=== PATIENT | male | born 1950 | race Caucasian/White ===

== ENCOUNTER → 2020-12-15 10:39 | Outpatient (CLI) | payer MEDICARE, SELFPAY ==
[2020-12-15 12:47] LABS: Creatinine, Serum 1.03 mg/dL (0.70-1.30); EST Glomerular Filtration Rate 76 mL/min (>60); Est Glom Filt Rate - Afr Amer 92 mL/min (>60)
== END ==
PROVIDERS: Referring Provider Specialist; Visit Provider Specialist
DX: D16.01 Benign neoplasm of scapula and long bones of right upper limb (principal)
CPT/HCPCS: 36415; 82565

== ENCOUNTER → 2021-01-18 13:33 | Outpatient (CLI) | payer MEDICARE, SELFPAY ==
[2021-01-18 15:56] LABS: PSA,Total- Diagnostic 5.88 ng/mL (0.0-4.0)
== END ==
PROVIDERS: PCP Family Medicine; Referring Provider Nurse Practitioner Adult Health; Visit Provider Nurse Practitioner Adult Health
DX: R97.20 Elevated prostate specific antigen [PSA] (principal)
CPT/HCPCS: 36415; 84153

== ENCOUNTER → 2021-02-28 | Outpatient (CLI) | payer MEDICARE, SELFPAY ==
--- NOTE | 2021-02-28 | IMM_PTH ---
PATIENT: HOWARD MICHAUD Jr. LOC: [facility] U#:[id number] AGE/SX: 70/M ROOM: RE02/28/[address]: Dr. Stu Menezes MD : 1950 BED: DIS: 02/28/2021 SPEC #: [id number] RECD: 03/01/21 11:46 STATUS: JAYLENE REoJrge #: [id number] LENORE: 02/28/21 00:[address]: Stu Menezes DEPT: IMMUNOHISTOCHEMISTRY RECD BY: Sharon Ashford ENTERED: 03/01/21 11:47 SP TYPE: IMMUNO OTHR DR: Dr. Mumtaz Graf MD Tissues: A - PROSTATE RIGHT B - PROSTATE RIGHT C - PROSTATE RIGHT Procedures: 34BE12 (add) P40 (add) 34BE12 (initial) PHYSICIAN & INSTITUTION [place] [phone] SPECIMEN INFORMATION: Tissue Source: A - Right prostate, apex, core, B - Right prostate, apex, core, C - Right prostate, apex, core Clinical Info: Elevated PSA Specimen Number: [id number] A-C CPT code: 98400, 69411 x5 METHODOLOGY: Deparaffinized sections of prefer/formalin-fixed tissue or PAP/DQ stained slides are incubated with monoclonal/polyclonal antibodies/oligonucleotide probes. Localization is made via biotin free immunoperoxidase method. Appropriate controls are performed and reacted as expected. Results on target cell population are indicated in the following table: RESULTS: ANTIBODY / CLONE RESULT Block A P40 (BC28) positive 34BE12 (34BE12) positive Block B P40 (BC28) positive 34BE12 (34BE12) positive Block C P40 (BC28) negative 34BE12 (34BE12) negative These tests were developed and their performance characteristics determined by [facility]. They may not have been cleared or approved by the U.S. Food and Drug Administration. The FDA has determined that such clearance or approval is not necessary. The above immunohistochemical/dualISH markers are ordered and reviewed by the Pathologist. INTERPRETATION: A. Right prostate, apex, core biopsy: Benign prostatic tissue. B. Right prostate, mid, core biopsy: Benign prostatic tissue. C. Right prostate, base, core biopsy: Focal atypical small acinar proliferation. AM:celestino 03/02/2021
--- NOTE | 2021-02-28 08:00 | PROSBIL_PTH ---
PATIENT: HOWARD MICHAUD Jr. LOC: [facility] U#:[id number] AGE/SX: 70/M ROOM: RE02/28/[address]: Dr. Stu Menezes MD : 1950 BED: DIS: 02/28/2021 SPEC #: [id number] RECD: 02/28/21 12:04 STATUS: JAYLENE COVARRUBIAS #: [id number] LENORE: 02/28/21 08:[address]: Stu Menezes DEPT: SURGICAL PATHOLOGY RECD BY: Deedee Uriostegui ENTERED: 02/28/21 13:24 SP TYPE: PROST BX ALLA DR: Dr. Mumtaz Graf MD Tissues: A - PROSTATE RIGHT B - PROSTATE RIGHT C - PROSTATE RIGHT D - PROSTATE LEFT E - PROSTATE LEFT F - PROSTATE LEFT Procedures: PROSTATE BX HEADER OPERATION: Prostate biopsy PRE-OP DIAGNOSIS: Elevated PSA TISSUE SUBMITTED: A - Right apex, B - Right mid, C - Right base, D - Left apex, E - Left mid, F - Left base MICROSCOPIC DIAGNOSIS A. Right prostate, apex, core biopsy: Focal glandular atrophy. See comment. B. Right prostate, mid, core biopsy: Chronic prostatitis. Focal glandular atrophy. See comment. C. Right prostate, base, core biopsy: Focal atypical small acinar proliferation. Chronic inflammation and focal glandular atrophy. D. Left prostate, apex, core biopsy: Mild chronic inflammation and focal glandular atrophy. E. Left prostate, mid, core biopsy: Focal glandular atrophy and mild chronic inflammation. F. Left prostate, base, core biopsy: Glandular atrophy and mild chronic inflammation. AM:celestino 03/01/2021 COMMENT A-C. Immunohistochemistry ([id number]) supports the above diagnosis. MICROSCOPIC DESCRIPTION Slides are reviewed. GROSS DESCRIPTION A - Received is one container designated prostate, right apex. The specimen consists of two elongated fragments of light cochran-white soft tissue each measuring 1 cm in length and 0.1 cm in diameter. The specimen is totally submitted in one cassette. B - Received is one container designated prostate, right mid. The specimen consists of two elongated fragments of light cochran-white soft tissue each measuring 1 cm in length and 0.1 cm in diameter. The specimen is totally submitted in one cassette. C - Received is one container designated prostate, right base. The specimen consists of two elongated fragments of light cochran-white soft tissue each measuring 1 cm in length and 0.1 cm in diameter. The specimen is totally submitted in one cassette. D - Received is one container designated prostate, left apex. The specimen consists of two elongated fragments of light cochran-white soft tissue each measuring 1 cm in length and 0.1 cm in diameter. The specimen is totally submitted in one cassette. E - Received is one container designated prostate, left mid. The specimen consists of two elongated fragments of light cochran-white soft tissue each measuring 1 cm in length and 0.1 cm in diameter. The specimen is totally submitted in one cassette. F - Received is one container designated prostate, left base. The specimen consists of two elongated fragments of light cochran-white soft tissue each measuring 1.5 cm in length and 0.1 cm in diameter. The specimen is totally submitted in one cassette. / AM:celestino 02/28/21 TC:3 CPT: G0146
== END | disposition home or self-care (01) ==
LOC: LABSPEC 12:18
PROVIDERS: PCP Family Medicine; Visit Provider Urology
DX: R97.20 Elevated prostate specific antigen [PSA] (principal)
CPT/HCPCS: 88305; 88341; 88342; G0416

== ENCOUNTER → 2022-07-27 | Outpatient (CLI) | payer MEDICARE, SELFPAY ==
[2022-07-27 14:06] LABS: PSA,Total- Diagnostic 6.52 ng/mL (0.0-4.0)
== END | disposition home or self-care (01) ==
LOC: LAB 13:07
PROVIDERS: PCP Registered Nurse; Referring Provider Registered Nurse; Visit Provider Registered Nurse
DX: R97.20 Elevated prostate specific antigen [PSA] (principal)
CPT/HCPCS: 36415; 84153

== ENCOUNTER → 2022-08-10 | Outpatient (CLI) | payer MEDICARE, SELFPAY | END | disposition home or self-care (01) | LOC: LABSPEC 11:27 | PROVIDERS: PCP Registered Nurse; Referring Provider Urology; Visit Provider Urology | DX: R31.21 Asymptomatic microscopic hematuria (principal) | CPT/HCPCS: 87086; 87088; 87186 ==

== ENCOUNTER → 2022-08-25 | Outpatient (CLI) | payer MEDICARE, SELFPAY ==
--- NOTE | 2022-08-25 15:28 | MRI_ITS ---
STUDY: MR PELVIS WITH T WITHOUT CONTRAST REASON FOR EXAM: Male, 72 years old. Elevated PSA TECHNIQUE: Standardized fat and water weighted pulse sequences were obtained in all 3 orthogonal planes, pre-and post contrast administration. IV 15cc clariscan was administered for the contrast portion of the examination. COMPARISON: None. FINDINGS: The prostate measures 3.4 x 4.9 x 3.3 cm with a volume of 27.5 mL there is no evidence of abnormal low signal intensity in the peripheral zone on diffusion-weighted imaging. There is no evidence of increased signal on diffusion-weighted imaging. The peripheral zone appears heterogenous high signal on T2-weighted imaging without focal area of low signal. The transitional zone is heterogenous slightly low signal on T2-weighted imaging with focal areas of higher signal noted. There is a focal area of increased signal in the left anterior transitional zone on ACD mapping appears low signal on diffusion-weighted imaging. These findings are most suggestive of BPH. Normal seminal vesicles. Poorly distended urinary bladder with thickened trabeculated bladder wall. There is no filling defects. Normal visualized small intestine. Question sigmoid diverticuli without acute inflammatory change. The rectum appears grossly normal. There is no pelvic fluid. No free air is seen within the soft tissues. There is no pelvic mass lesion or lymphadenopathy. Normal visualized pelvic arteries. The visualized bony structures are heterogenous. This may be secondary to osteopenia. If there is concern for bony metastases, nuclear medicine bone scan is recommended. Normal abdominal wall. MRI/Pelvis W/WO Contrast IMPRESSION: 1. The prostate is upper normal in size. No focal abnormality within the peripheral zone. There is heterogeneity of the transitional zone suggesting BPH. 2. Trabeculated bladder wall. 3. Irregular marrow structure of the visualized bony structures. See above. Electronically Signed: Mika Trammell DO at 16:06 EDT Reading Location ID and State: [address] [place] [address] Tel [phone], Service support ,
[2022-08-25 16:06] LABS: CREATININE FINGERSTICK 1.1 mg/dL (0.70-1.30); EGFR FINGERSTICK > 60.0000 mL/min (>60)
[2022-08-25 16:57] LABS: PSA,Total- Diagnostic 8.77 ng/mL (0.0-4.0)
== END | disposition home or self-care (01) ==
PROVIDERS: PCP Registered Nurse; Visit Provider Urology
DX: R97.20 Elevated prostate specific antigen [PSA] (principal)
CPT/HCPCS: 36415; 72197; 84153; A9575

== ENCOUNTER → 2022-08-31 | Outpatient (CLI) | payer MEDICARE, SELFPAY ==
--- NOTE | 2022-08-31 15:42 | CT_ITS ---
EXAM: CT ABDOMEN AND PELVIS WITHOUT AND WITH INTRAVENOUS CONTRAST CLINICAL INDICATION: GROSS HEMATURIA TECHNIQUE: Helically acquired images were obtained of the abdomen and pelvis without and with intravenous contrast. This CT exam was performed using one or more of the following dose reduction techniques: automated exposure control, adjustment of the mA and/or kV according to patient size, and/or use of iterative reconstruction technique. This report was created using [employer] report generation technology. CONTRAST: IV 100mL Isovue-370 COMPARISON: None. FINDINGS: LOWER THORAX: Normal. Lung bases are clear. No cardiomegaly. No pericardial effusion. ABDOMEN: LIVER: Normal. Homogeneous. No focal mass. GALLBLADDER AND BILE DUCTS: Normal. No calcified gallstones. No gallbladder distention or wall edema. No intra- or extrahepatic biliary ductal dilation. PANCREAS: Normal. No focal cystic or solid mass. SPLEEN: Normal. Normal size without focal cystic or solid mass. ADRENALS: Normal. No nodules. KIDNEYS AND URETERS: Normal. Normal renal size and position. No hydronephrosis. STOMACH AND BOWEL: Diverticulosis of the colon noted without evidence of acute diverticulitis. PELVIS: APPENDIX: Appendix is visualized and normal in appearance. BLADDER: The thickening of the urinary bladder wall raises possibility of cystitis. REPRODUCTIVE: Mild prostatic enlargement. ABDOMEN and PELVIS: INTRAPERITONEAL SPACE: Normal. No ascites or other fluid collection. No free air. BONES/JOINTS: Bilateral L4 spondylolysis noted with grade 1 anterior listhesis of L4 on L5. Prominent degenerative narrowing of the L4-5 disc space. No suspicious lytic or blastic abnormality. SOFT TISSUES: Normal. No discrete abdominal or pelvic wall hernia. VASCULATURE: Normal. Abdominal aorta is non-dilated. LYMPH NODES: Normal. No enlarged lymph nodes. CT/CT Abd/Pelvis W/WO Contrast IMPRESSION: 1. Urinary bladder wall thickening which may represent cystitis. 2. Diverticulosis coli. Electronically Signed: Arpit Bruce MD at 16:27 EDT ,
== END | disposition home or self-care (01) ==
LOC: CT 15:40
PROVIDERS: PCP Registered Nurse; Referring Provider Urology; Visit Provider Urology
DX: R31.0 Gross hematuria (principal); R97.20 Elevated prostate specific antigen [PSA]
CPT/HCPCS: 74178; Q9967

== ENCOUNTER → 2023-01-15 | Outpatient (CLI) | payer MEDICARE, SELFPAY ==
--- NOTE | 2023-01-15 13:50 | RAD_ITS ---
STUDY: X-RAY - PELVIS AND RIGHT HIP REASON FOR EXAM: Male, 72 years old. CHRONIC PAIN OF RIGHT HIP TECHNIQUE: 3 views of the pelvis and hip. COMPARISON: None. FINDINGS: There is a non-specific bowel gas pattern. Normal visualized soft tissue structures. Normal bilateral iliac wings, sacroiliac joints and visualized sacrum. Normal bilateral superior and inferior pubic rami. Normal pubic symphysis. Normal bilateral ischial tuberosities. Normal visualized femoral head. Normal acetabulum. There is mild articular joint space narrowing of the hip. Similar degenerative arthritic changes noted in the left hip. RAD/HIP, UNI W/ Pelvis 2-3 Views IMPRESSION: Age consistent degenerative changes without fracture or suspicious osseous lesion Electronically Signed: Moi Schneider MD at 14:30 EDT ,
--- NOTE | 2023-01-15 13:50 | RAD_ITS ---
STUDY: X-RAY - LUMBAR SPINE REASON FOR EXAM: Male, 72 years old. Chronic low back pain TECHNIQUE: 4 view(s) of the lumbar spine were obtained. COMPARISON: None FINDINGS: Normal lumbar lordosis. There is no substantial scoliosis. There is a normal alignment of the vertebrae from L1 L4. There is a bilateral pars defect and grade 1 spondylolisthesis at L4-5. There is anatomic alignment between L5 and S1.. There is multilevel endplate spondylosis of the lumbar vertebrae. Disc spaces fairly well preserved except at L4-5 where there is significant disc space narrowing and sclerotic endplate change. There is no demonstrated fracture. There is atherosclerotic calcification of the abdominal aorta without a demonstrated aneurysm. RAD/L/S Spine Min 4 Views IMPRESSION: Bilateral pars defect and grade 1 spondylolisthesis at L4-5 with sclerotic endplate changes and significant disc space narrowing. No demonstrated fracture, other disc spaces are fairly well preserved Electronically Signed: Moi Schneider MD at 14:31 EDT ,
== END | disposition home or self-care (01) ==
PROVIDERS: PCP Registered Nurse; Visit Provider Registered Nurse
DX: M25.551 Pain in right hip (principal); G89.29 Other chronic pain; M54.41 Lumbago with sciatica, right side
CPT/HCPCS: 72110; 73502

== ENCOUNTER → 2023-07-26 | Outpatient (CLI) | payer MEDICARE, SELFPAY ==
[2023-07-26 17:17] LABS: Absolute Lymphocyte Count 1.08 X10^3/uL (0.83-4.51); Absolute Neutrophil Count 3.1 X10^3/uL (2.0-7.7); Basophil# 0.02 X10^3/uL; Basophil% 0.4 % (0-1); Eosinophil# 0.09 X10^3/uL; Eosinophils% 1.8 % (0-5); Hematocrit 46.8 % (40-54); Lymphocyte # 1.08 X10^3/ul (0.83-4.51); Lymphocyte % 21.4 % (19-41); Mean Corp Hgb Conc 34.2 g/dL (32-36); Mean Corpuscular Hgb 35.2 pg (27.0-32.0); Mean Corpuscular Volume 102.9 fL (80-94); Mean Platelet Vol. 9.5 fl (6.2-12.0); Monocyte# 0.69 X10^3/uL; Monocyte% 13.7 % (0-10); NRBC Flagged by Analyzer 0 % (0-5); Neutrophil # 3.14 X10^3/uL (2.7-7.7); Neutrophil % 62.3 % (47-70); Platelet Count 230 K/mm3 (150-450); RBC Distribution Width CV 12.1 % (11.6-14.6); RBC Distribution Width SD 46.3 fl (35.1-43.9); Red Blood Count 4.55 M/mm3 (4.6-6.2)
[2023-07-26 17:41] LABS: ALB/GLOB Ratio 1.1 RATIO (0.9-2.4); AST(SGOT) 22 U/L (15-37); Alanine Aminotransfer ALT/SGPT 29 U/L (16-61); Albumin, Serum 4.3 g/dL (3.2-5.0); Alkaline Phosphatase 39 U/L (45-117); Anion Gap 6 (5-15); BUN 13 mg/dL (7-18); BUN/Creat Ratio 12.6 RATIO (10-20); Calcium,Total 9.4 mg/dL (8.5-10.1); Chloride 97 mmol/L (98-107); Creatinine, Serum 1.03 mg/dL (0.70-1.30); EST Glomerular Filtration Rate 75 mL/min (>60); Est Glom Filt Rate - Afr Amer 91 mL/min (>60); Globulin 3.9 g/dL (2.2-4.2); Glucose 106 mg/dL (74-106); PSA,Total - Annual Screen 6.76 ng/mL (0.00-4.00); Potassium 4.5 mmol/L (3.5-5.1); Protein, Total 8.2 g/dL (6.4-8.2); Sodium Level 130 mmol/L (136-145); Thyroid Stim Hormone (TSH) 2.02 uIU/mL (0.358-3.74)
[2023-07-26 18:20] LABS: Hepatitis C Antibody Non-Reactive (Nonreactive); Vitamin D,25 Hydroxy 53.2 ng/mL
== END | disposition home or self-care (01) ==
LOC: POLAB3 15:47
PROVIDERS: PCP Registered Nurse; Visit Provider Family Medicine Geriatric Medicine
DX: I10 Essential (primary) hypertension (principal); Z12.5 Encounter for screening for malignant neoplasm of prostate; E55.9 Vitamin D deficiency, unspecified
CPT/HCPCS: 36415; 80053; 82306; 84153; 84443; 85025; 86803; G0103

== ENCOUNTER → 2023-09-13 | Outpatient (CLI) | payer MEDICARE, SELFPAY | END | disposition home or self-care (01) | LOC: LAB 13:38 | PROVIDERS: PCP Registered Nurse; Referring Provider Anesthesiology; Visit Provider Anesthesiology | DX: Z76.89 Persons encountering health services in other specified circumstances (principal) | CPT/HCPCS: 80307 ==

== ENCOUNTER → 2023-10-11 | Outpatient (CLI) | payer MEDICARE, SELFPAY | END | disposition home or self-care (01) | LOC: LAB 08:49 | PROVIDERS: PCP Registered Nurse; Referring Provider Urology; Visit Provider Urology | DX: R97.20 Elevated prostate specific antigen [PSA] (principal) | CPT/HCPCS: 36415; 84153 ==

== ENCOUNTER → 2023-10-15 | Outpatient (CLI) | payer MEDICARE, SELFPAY ==
--- NOTE | 2023-10-15 09:30 | MRI_ITS ---
STUDY: MRI LUMBAR SPINE WITHOUT CONTRAST REASON FOR EXAM: Male, 73 years old. Low back pain x20 years. TECHNIQUE: Standardized fat and water weighted pulse sequences were obtained in the sagittal and axial planes. COMPARISON: CT lumbar spine with and without contrast 08/31/2022. FINDINGS: T10-T11: (Sagittal only). Normal endplates. Moderate disc space height narrowing. No ventral extradural defect. Normal central canal and the included portions of the bilateral intervertebral neural foramina. T11-T12 and T12-L1: (Sagittal only). Normal endplates. Normal disc height, hydration and morphology.. Normal central canal and bilateral intervertebral neural foramina. Normal lumbar lordosis. There is no substantial scoliosis. Normal conus medullaris that terminates at the lower T12 vertebral body level. L1-2: Normal endplates. Normal disc height, hydration and morphology. Normal bilateral facet joints. Normal central canal and bilateral lateral recesses. Normal bilateral intervertebral neural foramina. L2-3: Normal endplates. Minimal disc space height narrowing. Minimal degenerative retrolisthesis of L2 on L3 is unchanged. No significant facet arthropathy. Normal central canal and bilateral lateral recesses. Normal bilateral intervertebral neural foramina. L3-4: Normal endplates. Normal disc height, hydration and morphology. Mild to moderate bilateral degenerative facet arthropathy. Normal central canal and bilateral lateral recesses. Normal bilateral intervertebral neural foramina. L4-5: Normal endplates. Pronounced disc space height narrowing. Bilateral L4 pars defects. More than grade 1 anterolisthesis of L4 on L5. Normal central canal and bilateral lateral recesses. Moderately pronounced stenosis of the right intervertebral neural foramen with minimal impingement of the right L4 nerve. Moderately pronounced stenosis of the left intervertebral neural foramina obvious impingement of the left L4 nerve. L5-S1: Normal endplates. Normal disc height, hydration and morphology. Mild to moderate bilateral degenerative facet arthropathy. Normal central canal and bilateral lateral recesses. Normal bilateral intervertebral neural foramina. Normal visualized sacral ala. Normal visualized paraspinous soft tissue structures. MRI/Spine Lumbar (Routine) IMPRESSION: 1. Moderately pronounced asymmetric stenosis of the bilateral L4-L5 intervertebral neural foramina with minimal impingement/entrapment of the right L4 nerve no obvious impingement of the left L4 nerve on supine MRI positioning. Advise clinical correlation for symptoms of bilateral L4 nerve radiculopathy upon weightbearing. Additionally, bilateral L4 pars defects causing more than grade 1 anterolisthesis of L4 on L5 and pronounced L4-L5 degenerative disc space height narrowing. 2. Minimal degenerative retrolisthesis of L2 on L3 is unchanged. 3. No MRI evidence of lumbar extruded disc fragment or disc protrusion. Electronically Signed: Mikey Lechuga MD at 12:06 EST ,
== END | disposition home or self-care (01) ==
PROVIDERS: PCP Registered Nurse; Referring Provider Orthopaedic Surgery; Visit Provider Orthopaedic Surgery
DX: M43.10 Spondylolisthesis, site unspecified (principal)
CPT/HCPCS: 72148

== ENCOUNTER 2024-08-05 12:23 | Inpatient (IN) | payer MEDICARE, SELFPAY ==
--- NOTE | 2024-07-24 10:46 | EKG12_ITS ---
Test Reason : PRE OP Blood Pressure : / mmHG Vent. Rate : 054 BPM Atrial Rate : 054 BPM P-R Int : 168 ms QRS Dur : 090 ms QT Int : 422 ms P-R-T Axes : 042 -11 056 degrees QTc Int : 400 ms Sinus bradycardia Otherwise normal ECG Confirmed by Chele Chaudhary ([id number]), video effects editor NANCIE LOAIZA ([id number]) on 07/28/2024 10:17:47 AM Referred By: GLORIA Confirmed By:Chele Chaudhary
[2024-07-24 12:42] LABS: Absolute Lymphocyte Count 1.25 X10^3/uL (0.83-4.51); Absolute Neutrophil Count 2.6 X10^3/uL (2.0-7.7); Basophil# 0.03 X10^3/uL; Basophil% 0.7 % (0-1); Eosinophil# 0.12 X10^3/uL; Eosinophils% 2.7 % (0-5); Hemoglobin 15.7 g/dL (13.0-16.5); Lymphocyte # 1.25 X10^3/ul (0.83-4.51); Lymphocyte % 28.6 % (19-41); Mean Corp Hgb Conc 34.1 g/dL (32-36); Mean Corpuscular Hgb 34.1 pg (27.0-32.0); Mean Corpuscular Volume 99.8 fL (80-94); Mean Platelet Vol. 9.3 fl (6.2-12.0); Monocyte# 0.39 X10^3/uL; Monocyte% 8.9 % (0-10); NRBC Flagged by Analyzer 0 % (0-5); Neutrophil # 2.57 X10^3/uL (2.7-7.7); Neutrophil % 58.9 % (47-70); Platelet Count 248 K/mm3 (150-450); RBC Distribution Width CV 11.2 % (11.6-14.6); RBC Distribution Width SD 40.7 fl (35.1-43.9); Red Blood Count 4.61 M/mm3 (4.6-6.2); White Blood Count 4.4 K/mm3 (4.4-11.0)
[2024-07-24 12:45] LABS: Anion Gap 7 (5-15); BUN 11 mg/dL (7-18); BUN/Creat Ratio 11.8 RATIO (10-20); Calcium,Total 9.9 mg/dL (8.5-10.1); Chloride 97 mmol/L (98-107); Creatinine, Serum 0.94 mg/dL (0.70-1.30); EST Glomerular Filtration Rate 84 mL/min (>60); Est Glom Filt Rate - Afr Amer 101 mL/min (>60); Glucose 99 mg/dL (74-106); Potassium 4.2 mmol/L (3.5-5.1); Sodium Level 131 mmol/L (136-145)
[2024-07-24 13:05] LABS: International Normalized Ratio 1.1; Partial Thromboplast Time 27.3 Seconds (24.1-36.2); Prothrombin Time (Protime)PT. 13.9 SECONDS (11.7-14.9)
[2024-07-24 13:28] LABS: HIV - WCH Non-Reactive (Nonreactive); Hepatitis B Surface Antibody Non-Reactive; Hepatitis C Antibody Non-Reactive (Nonreactive)
[2024-07-24 16:45] LABS: AST(SGOT) 22 U/L (15-37); Alanine Aminotransfer ALT/SGPT 21 U/L (16-61); Alkaline Phosphatase 43 U/L (45-117); Bilirubin, Direct 0.24 mg/dL (0.00-0.30); Globulin 3.8 g/dL (2.2-4.2); Magnesium 1.8 mg/dL (1.6-2.6); Protein, Total 7.8 g/dL (6.4-8.2)
[2024-07-25 05:07] LABS: Hepatitis A AB, Total Positive (Negative)
[2024-08-05] VITALS (17 sets, daily range): BP systolic 121–165; BP diastolic 60–104; PULSE 58–84; RESP 16–20; TEMP 36–37.2; O2SAT 92–100; BMI 27.2
[2024-08-05] MEDS: Lactated Ringers 1,000 ML 15 ML IV ×2 (07:13→14:02)
[2024-08-05] MEDS: Acetaminophen 500 MG Tablet 1000 MG PO ×3 (07:13→21:06)
[2024-08-05] MEDS: Magnesium 2 GM for ERAS IV (07:13)
--- NOTE | 2024-08-05 07:30 | RAD_ITS ---
PROCEDURE: Lumbar spine Technique: 1:57 minutes of fluoroscopy of the lumbar spine and visualized upper arm during discectomy, interbody fusion, and transpedicular fixation and 12 images are limited for interpretation. RAD/Lumbar Spine 2 or 3 Views IMPRESSION: Fluoroscopy during lumbar spine surgery. Electronically Signed: Vitaliy Elaine MD at 13:58 EDT ,
--- NOTE | 2024-08-05 07:37 | PCM.PRE.AN2 ---
ASA Classification* ASA Classification ASA Classification: 2 Assessment & Plan Anesthesia* Anesthesia Assessment Anesthesia Assessment: Discussed sedation and/or anesthesia options, risks, benefits, and alternatives with patient/parents/legal guardian/POA. Questions invited. The patient/parents/legal guardian/POA seems to understand and agrees to proceed with anesthesia plan. Reviewed the physical assessment, medical history, allergy history and patient home medications list prior to surgery/procedure/anesthetic and documented any changes. Performed airway and anesthesia risk assessments. Anesthesia Type Anesthesia Type: General History Source History Obtained from:: Patient and Chart Anesthesia Focused Assessment* Temperature: 97.0 F Pulse Rate: 58 Blood Pressure: 129/73 Respiratory Rate: 18 Pulse Ox: 98 Oxygen Delivery Method: Room Air Airway Assessment Mouth opens: >3 cm Mallampati Score: II Pertinent Findings EKG Pertinent Findings:: July 24, 2024. Sinus bradycardia. Focused Labs Anesthesia Preop lab: CBC WBC 4.4 K/mm3 (4.4-11.0) 07/24/24 11:14 RBC 4.61 M/mm3 (4.6-6.2) 07/24/24 11:14 Hgb 15.7 g/dL (13.0-16.5) 07/24/24 11:14 Hct 46.0 % (40-54) 07/24/24 11:14 Plt Count 248 K/mm3 (150-450) 07/24/24 11:14 CHEMISTRY Potassium 4.2 mmol/L (3.5-5.1) 07/24/24 11:14 Sodium 131 mmol/L (136-145) L 07/24/24 11:14 Magnesium 1.8 mg/dL (1.6-2.6) 07/24/24 11:13 BUN 11 mg/dL (7-18) 07/24/24 11:14 Creatinine 0.94 mg/dL (0.70-1.30) 07/24/24 11:14 Glucose 99 mg/dL (74-106) 07/24/24 11:14 TSH 2.02 uIU/mL (0.358-3.74) 07/26/23 15:47 COAG PT 13.9 SECONDS (11.7-14.9) 07/24/24 11:13 Pre-Assessment Diagnosis/Proposed Procedure Planned Operative Procedure(s): ERAS 360 LUMBAR FUSION L4-5 Anesthesia History Anesthesia History - sales ambassador: Anesthesia History - sales ambassador Hx Hospitalization No 07/21/24 08:29 Any Problems With Anesthesia No 07/21/24 08:29 Cholinesterase deficiency No 07/21/24 08:29 You/Your Family Experience No 07/21/24 08:29 fever (hyperthermia) with Relationship Recent Exposure to Contagious Disease Does patient have nerve No 07/21/24 08:29 stimulator Patient instructed to have device shut off --Does patient have Pacemaker No 08/05/24 07:01 or ICD? When Was Last Pacemaker Check QUESTION #4 FULL TEXT: You/Your Family Experience fever (hyperthermia) with Anesthesia Last Oral Intake Last Oral intake: Last Oral Intake NPO since 05:00 08/05/24 07:01 Meds taken in AM with sips of Yes 08/05/24 07:01 water? Meds patient instructed to see medlist 08/05/24 07:01 take am of surgery PONV PONV - sales ambassador: PONV - sales ambassador Female No 07/21/24 08:29 HX of Motion Sickness No 07/21/24 08:29 HX of N/V After Surgery No 07/21/24 08:29 Non-Smoker Yes 07/21/24 08:29 Duration of Surgery greater Yes 07/21/24 08:29 than 60 minutes Number of Risk Factors 2 07/21/24 08:29 PONV Score Moderate Risk 07/21/24 08:29 Height & Weight Height & Weight: Anesthesia: Height & Weight Height 5 ft 9 in 08/05/24 07:01 Weight: 83.6 kg 08/05/24 07:01 Body Mass Index (BMI) 27.2 08/05/24 07:01 Respiratory Assessment Respiratory Assessment - sales ambassador: Respiratory Tract Infection Hx - sales ambassador Hx Respiratory Tract Infection No 07/21/24 08:29 STOP Sleep Apnea STOP Sleep Apnea - sales ambassador: STOP Sleep Apnea - sales ambassador Hx Hypertension Yes: CONTROLLED WITH MEDS 07/21/24 08:29 Hx Sleep Apnea No 07/21/24 08:29 CPAP BIPAP Do you snore loudly (louder Yes 07/21/24 08:29 than talking or can be heard Do you often feel tired/ No 07/21/24 08:29 fatigued/ sleepy during daytime? Has anyone observed you stop No 07/21/24 08:29 breathing during sleep? STOP Results Positive 07/21/24 08:29 QUESTION #5 FULL TEXT : Do you snore loudly (louder than talking or can be heard through closed doors)? Tobacco Use History Tobacco Use History - sales ambassador: Tobacco Use History - sales ambassador Tobacco Use Smoking Status Former smoker 07/21/24 08:29 Hx Tobacco Use No 07/21/24 08:29 Years Smoking Packs Smoked per Day Smoking Cessation Date was No - quit smoking greater 07/21/24 08:29 within the last 15 years than 15 years ago Hx Smoking Cessation Date Hx Smoking Cessation No 07/21/24 08:29 Counseling Hematologic Medial History Hematologic Hx - sales ambassador: Hematologic Medical Hx - deployment specialist Hx of Blood Transfusion No 07/21/24 08:29 Hx of Transfusion in last 3 No 07/21/24 08:29 Months Date of Last Transfusion (if within last 3 months) Ever experience any problems No 07/21/24 08:29 with transfusion(s)? Specify any problems Hx of Preganancy in last 3 N/A 07/21/24 08:29 Months Nurse Filling Out Transfusion DSCHRIBER 07/21/24 08:29 & Questions: Date: 07/21/24 07/21/24 08:29 Time: 08:31 07/21/24 08:29 Patient unable to answer at this time (ie. confused, unrespo /Reproduction History /Reproductive History - sales ambassador: /Reproductive Hx- sales ambassador Hx Now No 07/21/24 08:29 Gestational Age (in weeks): EDC: Hx Hx Para Hx Section SAB No 07/21/24 08:29 Active Medications Active Medications: Current Medications Generic Name Dose Route Start Last Admin Trade Name Freq PRN Reason Stop Dose Admin Acetaminophen 1,000 mg 08/05/24 08:30 08/05/24 07:13 Acetaminophen 500 Mg Tablet PO 08/05/24 08:31 1,000 mg X1 ONE Administration Cefazolin Sodium 2 gm/ Sodium 110 mls @ 150 mls/hr 08/05/24 08:30 Chloride IV 08/05/24 09:13 PREOP ONE Magnesium Sulfate 2 gm/ 104 mls @ 208 mls/hr 08/05/24 08:30 08/05/24 07:13 Dextrose IV 08/05/24 08:59 208 mls/hr X1 ONE Administration Lactated Ringer's 1,000 mls @ 15 mls/hr 08/05/24 07:00 08/05/24 07:13 IV 15 mls/hr .Q48H SHANNA Administration Insulin Human Lispro 1 - 6 unit 08/05/24 08:30 Insulin Lispro 100 Unit/Ml Insuln.Pen SC Q4H PRN PRN BG>/= 180, SEE PROTOCOL Protocol PFSH Medical History (Updated 07/21/24 @ 08:40 by Joselyn Rosenthal) Wears hearing aid Wears glasses Wears partial dentures Depression Anxiety Alcohol use Arthritis Prostate disease Back pain Restless legs Former smoker History of pain when walking Hypertension Home Medications ?Medication ?Instructions ?Recorded ?Last Taken ?Type atenolol 50 mg tablet 50 mg PO DAILY BP 08/31/23 08/05/24 History melatonin 10 mg capsule 10 mg PO HS PRN sleep 08/31/23 08/04/24 History tamsulosin 0.4 mg capsule 0.4 mg PO 1500 PROSTATE 08/31/23 08/04/24 History gabapentin 300 mg capsule 300 mg PO TID PAIN 10/17/23 08/05/24 History buspirone 10 mg tablet 10 mg PO BID ANXIETY 05/21/24 08/05/24 History lisinopril 40 mg tablet 40 mg PO QDAY BP 05/21/24 08/05/24 History magnesium 200 mg tablet 200 mg PO DAILY SUPPLEMENT 05/21/24 08/04/24 History Allergy/AdvReac Type Severity Reaction Status Date / Time No Known Allergies Allergy Verified 08/05/24 06:59 Family History Father Cancer Brother Cancer Sister Cancer Surgical History (Updated 07/21/24 @ 08:40 by Joselyn Rosenthal) Hx of colonoscopy Hx of prostate biopsy History of carpal tunnel surgery of right wrist History of carpal tunnel surgery of left wrist Social History Smoking Status: Former smoker Tobacco: How many years used: 20 alcohol intake: current alcohol intake frequency: a few times a week Alcohol type: beer Review of Systems (Anesthesia) ROS Narrative System reviewed and no additional complaints, except as documented.
[2024-08-05 07:42] LABS: Bedside Glucose 101 mg/dL (74-106)
--- NOTE | 2024-08-05 07:56 | PCM.PRE.AN2 ---
ASA Classification* ASA Classification ASA Classification: 2 Assessment & Plan Anesthesia* Anesthesia Assessment Anesthesia Assessment: Discussed sedation and/or anesthesia options, risks, benefits, and alternatives with patient/parents/legal guardian/POA. Questions invited. The patient/parents/legal guardian/POA seems to understand and agrees to proceed with anesthesia plan. Reviewed the physical assessment, medical history, allergy history and patient home medications list prior to surgery/procedure/anesthetic and documented any changes. Performed airway and anesthesia risk assessments. Anesthesia Type Anesthesia Type: General (see written pre anesthesia record for full assessment) Anesthesia Focused Assessment* Temperature: 97.0 F Pulse Rate: 58 Blood Pressure: 129/73 Respiratory Rate: 18 Pulse Ox: 98 Airway Assessment Mouth opens: >3 cm Mallampati Score: II Focused Labs Anesthesia Preop lab: CBC WBC 4.4 K/mm3 (4.4-11.0) 07/24/24 11:14 RBC 4.61 M/mm3 (4.6-6.2) 07/24/24 11:14 Hgb 15.7 g/dL (13.0-16.5) 07/24/24 11:14 Hct 46.0 % (40-54) 07/24/24 11:14 Plt Count 248 K/mm3 (150-450) 07/24/24 11:14 CHEMISTRY Potassium 4.2 mmol/L (3.5-5.1) 07/24/24 11:14 Sodium 131 mmol/L (136-145) L 07/24/24 11:14 Magnesium 1.8 mg/dL (1.6-2.6) 07/24/24 11:13 BUN 11 mg/dL (7-18) 07/24/24 11:14 Creatinine 0.94 mg/dL (0.70-1.30) 07/24/24 11:14 Glucose 99 mg/dL (74-106) 07/24/24 11:14 POC Glucose 101 mg/dL (74-106) 08/05/24 07:18 TSH 2.02 uIU/mL (0.358-3.74) 07/26/23 15:47 COAG PT 13.9 SECONDS (11.7-14.9) 07/24/24 11:13 Pre-Assessment Diagnosis/Proposed Procedure Planned Operative Procedure(s): ERAS 360 LUMBAR FUSION L4-5 Anesthesia History 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 When Was Last Pacemaker Check QUESTION #4 FULL TEXT: You/Your Family Experience fever (hyperthermia) with Anesthesia Last Oral Intake Last Oral intake: Last Oral Intake NPO since 05:00 08/05/24 07:01 Meds taken in AM with sips of Yes 08/05/24 07:01 water? Meds patient instructed to see medlist 08/05/24 07:01 take am of surgery PONV PONV - building rental manager: PONV - building rental manager Female No 07/21/24 08:29 HX of Motion Sickness No 07/21/24 08:29 HX of N/V After Surgery No 07/21/24 08:29 Non-Smoker Yes 07/21/24 08:29 Duration of Surgery greater Yes 07/21/24 08:29 than 60 minutes Number of Risk Factors 2 07/21/24 08:29 PONV Score Moderate Risk 07/21/24 08:29 Height & Weight Height & Weight: Anesthesia: Height & Weight Height 5 ft 9 in 08/05/24 07:01 Weight: 83.6 kg 08/05/24 07:01 Body Mass Index (BMI) 27.2 08/05/24 07:01 Respiratory Assessment Respiratory Assessment - building rental manager: Respiratory Tract Infection Hx - building rental manager Hx Respiratory Tract Infection No 07/21/24 08:29 STOP Sleep Apnea STOP Sleep Apnea - building rental manager: STOP Sleep Apnea - building rental manager Hx Hypertension Yes: CONTROLLED WITH MEDS 07/21/24 08:29 Hx Sleep Apnea No 07/21/24 08:29 CPAP BIPAP Do you snore loudly (louder Yes 07/21/24 08:29 than talking or can be heard Do you often feel tired/ No 07/21/24 08:29 fatigued/ sleepy during daytime? Has anyone observed you stop No 07/21/24 08:29 breathing during sleep? STOP Results Positive 07/21/24 08:29 QUESTION #5 FULL TEXT : Do you snore loudly (louder than talking or can be heard through closed doors)? Tobacco Use History Tobacco Use History - building rental manager: Tobacco Use History - building rental manager Tobacco Use Smoking Status Former smoker 07/21/24 08:29 Hx Tobacco Use No 07/21/24 08:29 Years Smoking Packs Smoked per Day Smoking Cessation Date was No - quit smoking greater 07/21/24 08:29 within the last 15 years than 15 years ago Hx Smoking Cessation Date Hx Smoking Cessation No 07/21/24 08:29 Counseling Hematologic Medial History Hematologic Hx - building rental manager: Hematologic Medical Hx - scheduling assistant Hx of Blood Transfusion No 07/21/24 08:29 Hx of Transfusion in last 3 No 07/21/24 08:29 Months Date of Last Transfusion (if within last 3 months) Ever experience any problems No 07/21/24 08:29 with transfusion(s)? Specify any problems Hx of Preganancy in last 3 N/A 07/21/24 08:29 Months Nurse Filling Out Transfusion DSCHRIBER 07/21/24 08:29 & Questions: Date: 07/21/24 07/21/24 08:29 Time: 08:31 07/21/24 08:29 Patient unable to answer at this time (ie. confused, unrespo /Reproduction History /Reproductive History - building rental manager: /Reproductive Hx- building rental manager Hx Now No 07/21/24 08:29 Gestational Age (in weeks): EDC: Hx Hx Para Hx Section SAB No 07/21/24 08:29 Active Medications Active Medications: Current Medications Generic Name Dose Route Start Last Admin Trade Name Freq PRN Reason Stop Dose Admin Acetaminophen 1,000 mg 08/05/24 08:30 08/05/24 07:13 Acetaminophen 500 Mg Tablet PO 08/05/24 08:31 1,000 mg X1 ONE Administration Cefazolin Sodium 2 gm/ Sodium 110 mls @ 150 mls/hr 08/05/24 08:30 Chloride IV 08/05/24 09:13 PREOP ONE Magnesium Sulfate 2 gm/ 104 mls @ 208 mls/hr 08/05/24 08:30 10/01/24 07:13 Dextrose IV 08/05/24 08:59 208 mls/hr X1 ONE Administration Lactated Ringer's 1,000 mls @ 15 mls/hr 08/05/24 07:00 08/05/24 07:13 IV 15 mls/hr .Q48H SHANNA Administration Insulin Human Lispro 1 - 6 unit 08/05/24 08:30 Insulin Lispro 100 Unit/Ml Insuln.Pen SC Q4H PRN PRN BG>/= 180, SEE PROTOCOL Protocol PFSH Medical History Wears hearing aid Wears glasses Wears partial dentures Depression Anxiety Alcohol use Arthritis Prostate disease Back pain Restless legs Former smoker History of pain when walking Hypertension Home Medications ?Medication ?Instructions ?Recorded ?Last Taken ?Type atenolol 50 mg tablet 50 mg PO DAILY BP 08/31/23 08/05/24 History melatonin 10 mg capsule 10 mg PO HS PRN sleep 08/31/23 08/04/24 History tamsulosin 0.4 mg capsule 0.4 mg PO 1500 PROSTATE 08/31/23 08/04/24 History gabapentin 300 mg capsule 300 mg PO TID PAIN 10/17/23 08/05/24 History buspirone 10 mg tablet 10 mg PO BID ANXIETY 05/21/24 08/05/24 History lisinopril 40 mg tablet 40 mg PO QDAY BP 05/21/24 08/05/24 History magnesium 200 mg tablet 200 mg PO DAILY SUPPLEMENT 05/21/24 08/04/24 History Allergy/AdvReac Type Severity Reaction Status Date / Time No Known Allergies Allergy Verified 08/05/24 06:59 Family History Father Cancer Brother Cancer Sister Cancer Surgical History Hx of colonoscopy Hx of prostate biopsy History of carpal tunnel surgery of right wrist History of carpal tunnel surgery of left wrist Social History Smoking Status: Former smoker Tobacco: How many years used: 20 alcohol intake: current alcohol intake frequency: a few times a week Alcohol type: beer Review of Systems (Anesthesia) ROS Narrative System reviewed and no additional complaints, except as documented.
--- NOTE | 2024-08-05 08:13 | HP.PCM_ITS ---
History and Physical Date of Admission: 08/05/24 HPI lumbar spine Details: This documentation accurately reflects the service provided and the decisions made by me, Dr. Norberto Lu MD 07/18/24 0931. Part of today?s visit was documented by Rebecca FIGUEROA , acting as scribe. EVANS MICHAUD is a 74 year old M here today for a Pre-op. Patient will be having surgery on 08/05/2024 he is having 360 Lumbar Fusion L4-5. HPI from 05/21/24: EVANS MICHAUD is a 74 year old M here today for lumbar spine pain. Patient rates his pain a 5/10 today and states the pain is affecting his life. Patient describes most of the pain in the lower lumbar spine and states it will extend to his right hip. Patient states his legs feel numb and and states this bothers him more than the pain in the back. Patient denies tingling down the legs. Patient states he does see pain management and he states it has been about 4-5 months since the last injection. Patient states the first injection he had was great but the second one since then did not help him at all. Patient states Dr. Macias prescribed Gabapentin for the lumbar spine pain but he states he does not see a difference since being on this. Patient denies any surgeries to the back. Patient denies any formal physical therapy but states he has been doing Mckayla exercises everyday on his own for several months now and states they have given him some relief. He states he also has an inversion table but the last time he has used it he got very lightheaded so he hasn't used it in a few weeks. Evans had had a bad fall when he was in his early 20s and that seems to be the only injury that he has had related to his lower back. He has had worsening pain recently for which she has undergone injections. The first injection helped but the second 1 did not seem to give any relief. He canceled his third scheduled injection. He has pain radiating to lower extremities as well as difficulty walking distances with neurogenic claudication. Ortho Exam General General: Yes no acute distress Neurologic: Yes alert and Yes oriented x3 Spine SPINE TESTING CERVICAL THORACIC LUMBAR Musculoskeletal Strength 0=absent - 5=normal Details: Examination lower back shows midline and paraspinal tenderness. Neurologic motion of lower extremity shows 5 x 5 power normal shows normal sensations in all dermatomes. Coding Level of Care Code Off vis,est,level 4 Diagnoses Spondylolisthesis, lumbar region M43.16 Time Spent (min) 45 Assessment and Plan Assessment and Plan (1) Spondylolisthesis, lumbar region: Status: Acute Plan Patient here for lumbar fusion L4-L5 preoperative appointment. Again reviewed p rior imaging with the patient. He has L4-5 lytic spondylolisthesis grade 1. There is minimal instability on flexion-extension views. Severe foraminal stenosis seen bilaterally at this level on MRI. I explained to him the imaging findings. Discussed the bone stimulator with the patient who says that he is unsure if his insurance will cover it. He has an appointment with Dr. Gordillo about one week before the surgery to establish care. He understands and will not get an injection at that time. Reviewed the benefits and risks of surgery. Risks of surgery include bleeding, infection, visceral injury, ileus, hardware failure, pseudoarthrosis, adjacent segment degeneration, pneumonia, DVT, pulmonary embolism, atelectasis, gait abnormality, persistent pain, stretch injuries, chance for future surgeries. Patient understands and agrees to proceed with surgery. Explained in detail the procedure of the lumbar fusion. Discussed post surgery restrictions such as no bending, lifting, or twisting. Answered all questions that he had today in preparation for August 05. Consent was signed. Patient is in agreement.
[2024-08-05] MEDS: Cefazolin 2 GM in 0.9% Normal Saline (100mL Bag) 100 ML IV ×2 (08:43→18:00)
[2024-08-05] MEDS: Ropivacaine 0.5% 30 ML Vial (11:54)
--- NOTE | 2024-08-05 11:59 | PCM.OPRPT ---
Report of Operation Date of Procedure: 08/05/24 Description of Surgical Findings:: Preoperative diagnosis: L4-5 spondylolisthesis, stenosis with neurogenic claudication Postoperative diagnosis: Same Name of procedures L4-5 oblique lumbar interbody fusion (OLIF), minimally invasive left sided approach, lateral decubitus: ? L4-5 anterolateral spinal fusion ? L4-5 insertion of cage ? Bone graft aspirate left iliac crest separate incision ? Allograft cancellous chips Attending Surgeon: Dr. Norberto Lu Estimated blood loss: 40 mL Anesthesia: General Complications: None Indications: Patient is a 74-year-old pleasant gentleman who has had a long history of low back pain and right worse than left lower extremity radiation, difficulty walking distances. Xrays & MRI revealed L4-5 Histamic grade 2 spondylolisthesis with severe foraminal stenosis bilaterally. After undergoing a prolonged period of nonoperative treatment, the patient elected to undergo surgical decompression & fusion. All surgical options were discussed with the patient including anterior and posterior approaches. All risks and benefits associated with the procedure were explained to the patient. The risks include but are not limited to infection, bleeding, injury to nerves and vessels including major vessels like IVC and aorta, persistent paresthesia, persistent pain, dural tear, need for further procedures, adjacent segment degeneration, pseudoarthrosis, hardware failure, retrograde ejaculation, paralytic ileus, etc. Procedure: The patient was identified in the preoperative holding suite using Unique patient identifiers. Skin was marked, consent was reviewed, and all questions were answered. The patient was then brought back to the operative room. A surgical timeout was performed to make sure correct procedure was being done on the correct patient and all operative room staff were on the same page. General endotracheal anesthesia was then given to the patient. Allan catheter was inserted. The patient was then carefully positioned in right lateral decubitus position with the left side up on a regular OR table. Axillary roll was placed and all bony prominences were well- padded. Hip positioners were placed in the posterior buttocks and anterior sternal area. The surgical area was prepped and draped in usual fashion. Preoperative antibiotic was injected IV as preoperative antibiotic. A final timeout was then again done just before starting the procedure. A 2 inch incision oblique was taken in the left lower quadrant of the abdomen 2 fingerbreadths away from the iliac crest and the lower ribs. Sharp dissection with Bovie was carried out up to the fascia covering the external oblique. The external oblique, internal oblique and transversus abdominis muscles were split along the muscle fibers and retroperitoneal space was entered. Sponge sticks were utilized to move the bowel and peritoneum jsw-up-ayp-way and psoas muscle was exposed staying within the retroperitoneal plane. Fon retractor system was positioned and the retractor blade was applied onto the psoas. The interval between psoas and midline structures was developed and appropriate retractors were placed. Once adequate interval was cleared, a disc space was identified and a marker x-ray was taken. This identified the L4-5 disc level. Annulotomy was done with a long handled knife. Pituitary was used to remove disc material. Curettes were used to prepare the endplates. Disc space spreaders were utilized to distract and increase the disc height. Near complete discectomy was performed. Smaller disc distractors were also used to bluntly perform a contralateral annulotomy. Trials of serially increasing sizes were used. A Jamshidi needle was used to aspirate bone marrow from the left anterior iliac crest through a separate incision and this aspirate was mixed with the allograft bone chips. A Depuy [place] cage of size of the 18 x 55 x 12 mm with 15 degrees lordosis was packed with corticocancellous allograft bone chips mixed with bone marrow aspirate. This was inserted into the L4-5 disc space. AP and lateral C-arm pictures were taken to confirm good position of the cage. Some bone chips were also packed around the cage. Screw with washer was placed into the lower L4 body with a washer partially covering the cage at L4-5. Hemostasis was confirmed. The retractor blades were removed. Closure was done in layers with a continuous strand of # 1 Vicryl in all muscle layers. 2-0 Vicryl was used for subcutaneous tissue and 4-0 for Monocryl for the skin. Steri-Strips were applied and 4 x 4 gauze and Tegaderm were applied. Surgeon: Norberto Lu leadership development manager: Mable Swanson Procedures Musculoskeletal [id number]: Other Procedure See Report
--- NOTE | 2024-08-05 12:03 | PCM.OPRPT ---
Report of Operation Date of Procedure: 08/05/24 Description of Surgical Findings:: Preoperative diagnosis: L4-5 spondylolisthesis, stenosis with neurogenic claudication Postoperative diagnosis: Same Name of procedures: L4-5 posterior percutaneous pedicle screw instrumented fusion, prone: ? L4-5 posterior spinal fusion [id number] ? L4-5 posterior pedicle screw instrumentation [id number] ? Allograft cancellous chips [id number] Attending Surgeon: Dr. Norberto Lu Estimated blood loss: 40 mL (total for entire case) Anesthesia: General Complications: None Description of procedure: After the anterior procedure was complete, the patient was then turned supine. The patient was then transferred to Sean table in prone position. Back was prepped and draped in usual fashion. C-arm AP view was then taken. C-arm was positioned in a way that L4 was centralized and superior endplate of was parallel to the beam. Spinous process was centered between the pedicles. Midline was marked with skin marker and lateral borders of the pedicles were also marked. Skin marker was also utilized to tamie transversely across the middle of the pedicles at L4. 2 longitudinal paramedian incisions of 1 inch were placed. The fascia was incised vertically. Finger dissection was utilized to palpate the transverse process and facet joint. Viper Prime screws with towers were inserted and docked onto the transverse processes. This was then slowly moved medially to reach the superior articular process of L4. This was then confirmed on C-arm and then a mallet was utilized to drive the trocar into the pedicle going up to the medial wall of the pedicle on AP view. This was performed both sides. C-arm lateral view confirmed that the tip of the trocar was in the vertebral body, and the screw was advanced into the pedicle and vertebral body. This was repeated similarly at L5 bilaterally. Screw sizes were 7 x 50 mm at L4 and L5 on both sides. 40 mm precontoured titanium 5.5 mm lordotic renzo on Both sides were then passed through the screw extensions and reduced down to the screws with the help of Iterasi instrumentation system on both sides. AP and lateral view of the C-arm showed good positioning of the screws and cages. Final tightening with the torque screwdriver was then completed. Grafton was utilized to roughen the facet joint at L4-5 on the right side. Cancellous allograft bone chips mixed with bone marrow aspirate were then placed over this decorticated area. Hemostasis was achieved. Closure was done in layers with 0 Vicryls for the fascia, 2-0 Vicryls for the subcutaneous tissue, and Monocryl for the skin. Dermabond was applied. Dressings were applied covered with Tegaderm. The patient was then turned supine onto a hospital bed. The patient was extubated and taken to PACU in stable condition. The patient tolerated the procedure well and no complications occurred. DepGramovox [place] cage & Viper Prime minimally invasive pedicle screw instrumentation system was utilized in this case. No dural tear was identified intraoperatively. I was present for the entirety of the case and performed the surgery. Surgeon: Norberto Lu health underwriter: Mable Swanson Procedures Musculoskeletal [id number]: Other Procedure See Report
--- NOTE | 2024-08-05 12:29 | PCM.POST.ANE ---
Anesthesia: Postop Eval I Current Vital Signs Temperature: 96.9 F Pulse Rate: 66 Blood Pressure: 143/80 Respiratory Rate: 16 Pulse Ox: 98 Oxygen Delivery Method: Room Air Assessment Airway patent: Yes Spontaneous unlabored respirations: Yes Mental status: Awake and Calm nausea: No Vomiting: No Anesthesia Complication: No Fluid Hydration Crystalloid volume administer (ml): 1,300 Total IV fluid infused: 1,300 Progress Note Anesthesia document: Postop Eval 1 completed: Yes
[2024-08-05] MEDS: Ketorolac 15 MG/ML Vial IV ×2 (14:02→23:12)
--- NOTE | 2024-08-05 15:49 | CON.PCM.HO_ITS ---
Assessment & Plan Assessment/Plan (1) Spondylolisthesis, lumbar region: (2) S/P lumbar fusion: PLAN: Plan Patient is a 74-year-old male who presented to [facility] on 08/05/2024 for planned lumbar spine procedure. Medicine consulted postoperatively for medical management. 1. Lumbar spine stenosis with neurogenic claudication and L4-5 spondylolisthesis ? Orthopedic surgery primary. S/p L4-5 lumbar fusion procedure with Dr. Lu on 08/05. Tolerated procedure well, no intraoperative complications. PT/OT/case management consulted. Pain control with scheduled Tylenol, home gabapentin, Mobic, oxycodone as needed and IV morphine as needed. Senna scheduled for bowel regimen. Lovenox for DVT prophylaxis. Preop labs with no issues, follow-up CBC and BMP tomorrow. Further management per orthopedics. 2. Depression/anxiety ? Stable. Continue home BuSpar and melatonin at night as needed. 3. Hypertension ? Mildly hypertensive to 140 systolic postoperatively. Okay to resume home atenolol and lisinopril tomorrow. 4. BPH with obstructive symptoms ? Stable. Continue home Flomax. 5. Former tobacco use ? Encouraged continued cessation. DVT prophylaxis: Lovenox Total clinical time spent by myself addressing the patient's medical issues, reviewing all the data, and collaborating with patient's care team: 35 minutes. HPI Consult Data Date of Consult: 08/05/24 HPI Narrative Reason for Consultation: Postoperative medical management HPI Narrative: HOWARD MICHAUD, is a 74 M who presented to [facility] on 08/05/2024 for planned lumbar spine procedure. Medicine consulted postoperatively for medical management. Patient has history of L4-5 spondylolisthesis with stenosis and neurogenic claudication. He had an L4-5 spinal fusion done today with Dr. Lu. Tolerated procedure well, no intraoperative complications. I saw the patient at bedside on the floor this afternoon, was present. Patient was sitting up in bed and conversing normally. He did appear to be in mild discomfort due to low back pain. Patient states the pain feels like soreness at the operative site with some discomfort with motion. Denies significant radiation of the pain currently. Has not gotten out of bed yet since the procedure. He otherwise denies any other pain or discomfort. Denies any fevers or chills. Has some anxiety at baseline and feels somewhat anxious currently especially due to the pain. No other acute concerns at this time. [facility] Medical History Wears hearing aid Wears glasses Wears partial dentures Depression Anxiety Alcohol use Arthritis Prostate disease Back pain Restless legs Former smoker History of pain when walking Hypertension Home Medications ?Medication ?Instructions ?Recorded ?Last Taken ?Type atenolol 50 mg tablet 50 mg PO DAILY BP 08/31/23 08/05/24 History melatonin 10 mg capsule 10 mg PO HS PRN sleep 08/31/23 08/04/24 History tamsulosin 0.4 mg capsule 0.4 mg PO 1500 PROSTATE 08/31/23 08/04/24 History gabapentin 300 mg capsule 300 mg PO TID PAIN 10/17/23 08/05/24 History buspirone 10 mg tablet 10 mg PO BID ANXIETY 05/21/24 08/05/24 History lisinopril 40 mg tablet 40 mg PO QDAY BP 05/21/24 08/05/24 History magnesium 200 mg tablet 200 mg PO DAILY SUPPLEMENT 05/21/24 08/04/24 History Allergy/AdvReac Type Severity Reaction Status Date / Time No Known Allergies Allergy Verified 08/05/24 06:59 Family History Father Cancer Brother Cancer Sister Cancer Surgical History Hx of colonoscopy Hx of prostate biopsy History of carpal tunnel surgery of right wrist History of carpal tunnel surgery of left wrist Social History Smoking Status: Former smoker Tobacco: How many years used: 20 alcohol intake: current alcohol intake frequency: a few times a week Alcohol type: beer ROS Constitutional Constitutional: Reports fatigue; Denies chills, fever(s) or weakness Eyes Eyes: Denies change in vision Cardiovascular Cardiovascular: Denies chest pain Respiratory/Chest Respiratory/Chest: Denies shortness of breath at rest Gastrointestinal Gastrointestinal: Denies abdominal pain Musculoskeletal Musculoskeletal: Reports back pain; Denies myalgias Neurologic Neurologic: Denies dizziness, focal weakness or headache(s) Physical Exam Const alert, oriented x3 and no apparent distress Constitutional Narrative: Elderly male, mildly fatigued appearing, in mild discomfort due to low back pain, otherwise sitting up in bed and conversing normally. General Appearance: cooperative HEENT normocephalic, head/scalp atraumatic, hearing grossly normal bilaterally, nasal mucous membranes and turbinates normal and moist oral mucous membranes Eyes PERRL, EOMs intact bilaterally and conjunctivae normal Neck full ROM Chest inspection of chest normal Resp normal respiratory effort, normal air movement, no use of accessory muscles and clear to auscultation bilaterally Cardio regular rate, regular rhythm, no murmurs and peripheral pulses 2+ throughout GI normal to inspection, nondistended, normoactive bowel sounds, soft to palpation, non-tender and non-distended Back/Spine Back/Spine Narrative: Low back with dressing over incision and ice pack in place. Extremity normal to inspection, full ROM and no pedal edema Skin no rashes or lesions noted Neuro moves all extremities and no focal motor deficits Speech: speech normal Psych mental status grossly normal Mood & Affect: anxious Lab / Micro Data 07/24/24 11:14 07/24/24 11:14 Labs: Laboratory Results - last 24 hr 08/05/24 07:18: POC Glucose 101 Imaging Radiology Impression Lumbar Spine X-Ray 08/05/24 07:30 IMPRESSION: Fluoroscopy during lumbar spine surgery. Electronically Signed: Vitaliy Elaine MD at 13:58 EDT , Charges/Coding Visit Charges Inpatient E&M: 79153 Subs Hosp L2
[2024-08-05] MEDS: Methocarbamol 500 MG Tablet 1000 MG PO ×2 (16:06→19:13)
--- NOTE | 2024-08-05 16:34 | POSTOPAN2_ITS ---
Anesthesia Postop Eval I Sum Postop Eval Completion status Anesthesia document: Postop Eval 1 completed: Yes Anesthesia Postop Eval I Summary Anesthesia Postop Eval I Summary: Anesthesia Postop Eval I: Assessment Summary Airway patent Yes 08/05/24 12:41 [email or web address] Spontaneous unlabored Yes 08/05/24 12:41 [email or web address] respirations Mental status Awake,Calm 08/05/24 12:41 [email or web address] nausea No 08/05/24 12:41 [email or web address] Vomiting No 08/05/24 12:41 [email or web address] Anesthesia Postop Eval I: Fluid Summary Crystalloid volume administer 1,300 08/05/24 12:41 [email or web address] (ml) Colloids volume administered ( ml) Blood Product volume administered (ml) Total IV fluid infused 1,300 08/05/24 12:41 [email or web address] Anesthesia Postop Eval I: Summary Notes Anesthesia Complication No 08/05/24 12:41 [email or web address] Anesthesia Complication Comment: Post-operative progress note Anesthesia: Postop Eval II Evaluation Mental status: Awake and Calm Pain Level: 2 nausea: No Vomiting: No Complications Anesthesia Complication: No
--- NOTE | 2024-08-05 16:34 | PCM.POSTANE2 ---
Anesthesia Postop Eval I Sum Postop Eval Completion status Anesthesia document: Postop Eval 1 completed: Yes Anesthesia Postop Eval I Summary Anesthesia Postop Eval I Summary: Anesthesia Postop Eval I: Assessment Summary Airway patent Yes 08/05/24 12:41 [email or web address] Spontaneous unlabored Yes 08/05/24 12:41 [email or web address] respirations Mental status Awake,Calm 08/05/24 12:41 [email or web address] nausea No 08/05/24 12:41 [email or web address][email or web address] Vomiting No 08/05/24 12:41 [email or web address] Anesthesia Postop Eval I: Fluid Summary Crystalloid volume administer 1,300 08/05/24 12:41 [email or web address][email or web address] (ml) Colloids volume administered ( ml) Blood Product volume administered (ml) Total IV fluid infused 1,300 08/05/24 12:41 [email or web address] Anesthesia Postop Eval I: Summary Notes Anesthesia Complication No 08/05/24 12:41 [email or web address] Anesthesia Complication Comment: Post-operative progress note Anesthesia: Postop Eval II Evaluation Mental status: Awake and Calm Pain Level: 2 nausea: No Vomiting: No Complications Anesthesia Complication: No
[2024-08-05] MEDS: Ensure Surgery 237 ML LIQUID PO (18:00)
[2024-08-05] MEDS: Senna/Docusate Sodium 1 Tablet 2 TABLET PO (21:06)
[2024-08-05] MEDS: Gabapentin 300 MG Capsule PO (21:06)
[2024-08-05] MEDS: busPIRone 5 MG Tablet 10 MG PO (21:54)
[2024-08-05] MEDS: 0.9% Saline Lock 10 ML Syringe IV (23:12)
[2024-08-06 00:46] VITALS: BP 137/59; PULSE 78; RESP 16; TEMP 36.8; O2SAT 96
[2024-08-06] MEDS: Cefazolin 2 GM in 0.9% Normal Saline (100mL Bag) 100 ML IV (00:52)
[2024-08-06] MEDS: Methocarbamol 500 MG Tablet 1000 MG PO ×2 (00:54→10:12)
[2024-08-06] MEDS: Tamsulosin HCl 0.4 MG Capsule PO (00:54)
[2024-08-06 01:00] VITALS: BMI 27.2
[2024-08-06 04:43] VITALS: BP 164/72; PULSE 68; RESP 17; TEMP 37.3; O2SAT 97; BMI 27.2
[2024-08-06] MEDS: Gabapentin 300 MG Capsule PO (04:54)
[2024-08-06] MEDS: Ketorolac 15 MG/ML Vial IV (04:54)
[2024-08-06] MEDS: 0.9% Saline Lock 10 ML Syringe IV (04:55)
[2024-08-06] MEDS: Acetaminophen 500 MG Tablet 1000 MG PO (04:55)
--- NOTE | 2024-08-06 07:00 | RAD_ITS ---
INDICATION: s/p lumbar fusion -- please do upright AP and LAT EXAMINATION/TECHNIQUE: X-RAY - XR Spine Lumbar 2 or 3 Views COMPARISON: Prior study dated: 05/21/2024 FINDINGS: Surgical hardware posterior vertical bars and pedicle screws and interbody device at L4-5. Minimal anterolisthesis at L4-5, decreased compared to the prior which was preop. The vertebral bodies are normal in height. No definite fracture demonstrated. Disc space narrowing and osteophytes at multiple levels. No paravertebral soft tissue mass identified. Aortic calcifications noted. RAD/Lumbar Spine 2 or 3 Views IMPRESSION: Postsurgical changes at L4-5 with minimal anterolisthesis. Electronically Signed: Erlinda Napoles MD at 8:11 EDT ,
[2024-08-06 07:27] LABS: Hematocrit 35.7 % (40-54); Hemoglobin 12.3 g/dL (13.0-16.5); Mean Corp Hgb Conc 34.5 g/dL (32-36); Mean Corpuscular Hgb 34.1 pg (27.0-32.0); Mean Corpuscular Volume 98.9 fL (80-94); Mean Platelet Vol. 9.5 fl (6.2-12.0); Platelet Count 203 K/mm3 (150-450); RBC Distribution Width CV 11.3 % (11.6-14.6); RBC Distribution Width SD 41.5 fl (35.1-43.9); Red Blood Count 3.61 M/mm3 (4.6-6.2); White Blood Count 8.3 K/mm3 (4.4-11.0)
[2024-08-06 07:30] VITALS: BMI 27.2
[2024-08-06 07:47] LABS: Anion Gap 6 (5-15); BUN 12 mg/dL (7-18); BUN/Creat Ratio 11.3 RATIO (10-20); Calcium,Total 8.6 mg/dL (8.5-10.1); Chloride 96 mmol/L (98-107); Creatinine, Serum 1.06 mg/dL (0.70-1.30); EST Glomerular Filtration Rate 73 mL/min (>60); Est Glom Filt Rate - Afr Amer 88 mL/min (>60); Estimated Creatinine Clearance 61.14 ml/min; Glucose 131 mg/dL (74-106); Potassium 4.3 mmol/L (3.5-5.1); Sodium Level 129 mmol/L (136-145)
--- NOTE | 2024-08-06 08:31 | PCM.PN.HOSP ---
Reason for Visit Reason for Visit: Diagnoses Spondylolisthesis, lumbar region (08/05/24) Encounter for other preprocedural examination (08/05/24) Arthrodesis status (08/05/24) Subjective Subjective Patient is a 74-year-old male who presented to [facility] [place] on 08/05/2024 for planned lumbar spine procedure. Medicine consulted postoperatively for medical management. Objective Data Objective Data Vital Signs: Vital Signs Temp Pulse Resp BP Pulse Ox O2 Del Method O2 Flow Rate 99.1 F 68 17 164/72 H 97 Room Air 4 08/06/24 04:43 08/06/24 04:43 08/06/24 04:43 08/06/24 04:43 08/06/24 04:43 08/06/24 04:43 08/05/24 14:00 Oxygen Flow Rate (L/min) 4 Oxygen Delivery Method Room Air Weight: 83.6 kg Body Mass Index (BMI) 27.2 Intake & Output: Intake and Output for Last 24 Hours 08/04/24 08/05/24 08/06/24 23:59 23:59 23:59 Intake Total 2198.5 / 2198.5 410 / 410 Output Total 400 / 400 650 / 650 Balance 1798.5 / 1798.5 -240 / -240 Lab / Micro Data 08/06/24 06:25 08/06/24 06:25 Labs: Laboratory Results - last 24 hr 08/06/24 06:25: WBC 8.3, RBC 3.61 L, Hgb 12.3 L, Hct 35.7 L, MCV 98.9 H, MCH 34.1 H, MCHC 34.5, RDW Std Deviation 41.5, RDW Coeff of Servando 11.3 L, Plt Count 203, MPV 9.5, Sodium 129 L, Potassium 4.3, Chloride 96 L, Carbon Dioxide 26.0, Anion Gap 6, BUN 12, Creatinine 1.06, Estim Creat Clear Calc 61.14, Est GFR (MDRD) Af Amer 88, Est GFR (MDRD) Non-Af 73, BUN/Creatinine Ratio 11.3, Glucose 131 H, Calcium 8.6 Micro: Microbiology 07/24/24 11:14 Swab (Method) Nasal Screen MRSA/MSSA - Final Radiography Diagnostic Testing: Radiology Impression Lumbar Spine X-Ray 08/05/24 07:30 IMPRESSION: Fluoroscopy during lumbar spine surgery. Electronically Signed: Vitaliy Elaine MD at 13:58 EDT , Physical Exam Narrative GENERAL: cooperative HEENT: Atraumatic; normocephalic EYES; Anicteric, Normal Conjunctiva NECK; supple, normal thyroid, RESPIRATORY: Diminished to auscultation CARDIOVASCULAR: Regular S1 S2, GI: soft, normoactive bowel sounds, : No Renal angle tenderness; EXTREMITIES: No edema, no clubbing, MUSCULOSKELETAL: no muscle wasting NEURO: Awake; no lateralizing signs. SKIN: No Rash PSYCH; Flat affect Assessment & Plan Assessment/Plan (1) Spondylolisthesis, lumbar region: (2) S/P lumbar fusion: PLAN: Plan Patient is a 74-year-old male who presented to [facility] [place] on 08/05/2024 for planned lumbar spine procedure. Medicine consulted postoperatively for medical management. 1. Lumbar spine stenosis with neurogenic claudication and L4-5 spondylolisthesis ? Patient underwent L4-5 lumbar fusion procedure with Dr. Lu on 08/05. Subsequent management including PT OT pain management and DVT prophylaxis defer to primary service 2. Depression with anxiety ? Patient is on BuSpar did continue 3. Hypertension ? Blood pressure controlled, home medications continued with dose adjustment as needed 4. BPH with lower urinary obstructive symptoms - Patient treated with tamsulosin 5. DVT prophylaxis ? SC Lovenox Time spent in the patient's overall evaluation,decision-making process, review of diagnostic data, adjustment of management, discussion with other providers, nursing nursing and ancillary staff involved in patient's care documentation, 35 Minutes Charges/Coding Visit Charges Inpatient E&M: 27627 Subs Hosp L2
[2024-08-06 08:40] VITALS: BP 145/68; PULSE 73; RESP 16; TEMP 36.9; O2SAT 97
[2024-08-06] MEDS: Meloxicam 15 MG Tablet PO (10:12)
[2024-08-06] MEDS: Magnesium Chloride 64 MG Delay Rel.Tablet 128 MG PO (10:12)
[2024-08-06] MEDS: Atenolol 50 MG Tablet PO (10:12)
[2024-08-06] MEDS: Lisinopril 40 MG Tablet PO (10:12)
[2024-08-06] MEDS: busPIRone 5 MG Tablet 10 MG PO (10:12)
[2024-08-06] MEDS: Enoxaparin 40 MG/0.4 ML Syringe SC (10:14)
[2024-08-06 11:30] VITALS: BMI 27.2
--- NOTE | 2024-08-06 12:50 | PCM.PN.ORT ---
Subjective Subjective Seen with Dr. Lu. Patient is POD 1. Doing well with pain well controlled. He has walked with PT who has cleared him to return home. He has passed flatus and has tolerated a solid meal. Ready for discharge. He has mild pain in his back and continues to have some numbness in his anterior thigh which was present prior to surgery, Objective Data Objective Data Vital Signs: Vital Signs Temp Pulse Resp BP Pulse Ox O2 Del Method O2 Flow Rate 98.4 F 73 16 145/68 H 97 Room Air 4 08/06/24 08:40 08/06/24 08:40 08/06/24 08:40 08/06/24 08:40 08/06/24 08:40 08/06/24 08:40 08/05/24 14:00 Oxygen Flow Rate (L/min) 4 Oxygen Delivery Method Room Air Weight: 184 lb 4.903 oz Body Mass Index (BMI) 27.2 Intake & Output: Intake and Output for Last 24 Hours 08/04/24 08/05/24 08/06/24 23:59 23:59 23:59 Intake Total 2198.5 / 2198.5 910 / 910 Output Total 400 / 400 650 / 650 Balance 1798.5 / 1798.5 260 / 260 Lab / Micro Data 08/06/24 06:25 08/06/24 06:25 Labs: Laboratory Results - last 24 hr 08/06/24 06:25: WBC 8.3, RBC 3.61 L, Hgb 12.3 L, Hct 35.7 L, MCV 98.9 H, MCH 34.1 H, MCHC 34.5, RDW Std Deviation 41.5, RDW Coeff of Srevando 11.3 L, Plt Count 203, MPV 9.5, Sodium 129 L, Potassium 4.3, Chloride 96 L, Carbon Dioxide 26.0, Anion Gap 6, BUN 12, Creatinine 1.06, Estim Creat Clear Calc 61.14, Est GFR (MDRD) Af Amer 88, Est GFR (MDRD) Non-Af 73, BUN/Creatinine Ratio 11.3, Glucose 131 H, Calcium 8.6 Micro: Microbiology 07/24/24 11:14 Swab (Method) Nasal Screen MRSA/MSSA - Final Radiography Diagnostic Testing: Radiology Impression Lumbar Spine X-Ray 08/05/24 07:30 IMPRESSION: Fluoroscopy during lumbar spine surgery. Electronically Signed: Vitaliy Elaine MD at 13:58 EDT , Physical Exam Narrative Physical examination shows gauze and Tegaderm intact. Back Tegaderm starting to come undone due to patient wearing a belt. Neurological exam of the lower extremities shows 5x5 power. Normal sensation across all dermatomes. Const alert, oriented x3 and no apparent distress Assessment & Plan Assessment/Plan (1) S/P lumbar fusion: PLAN: Plan Patient is doing well and is ready for discharge. Discharge medications include oxycodone, methocarbamol, robaxin, Tylenol, meloxicam, and Senna. Patient has walked in the halls and did the stairs with PT who has cleared him home and said that he didn't use his walker. He will take the walker home and use as needed for balance. He has passed flatus and has tolerated a solid meal with his pain well controlled. No bending, lifting, or twisting. Follow up in 2 weeks.
--- NOTE | 2024-08-06 14:15 | CASEMGMT ---
BEAN SIDDIQUI Assessment: Face to Face with pt for initial transition planning/care coordination assessment. RN CHEN introduced self and role at [facility], pt voices understanding and consents to assessment. Pt is A&O x4 and answers all questions appropriately at this time. Pt sitting up in chair with at bedside. Care providers, pharmacy, and demographics verified/updated. Admitting Dx: lumbar fusion Strata Score: 1 PCP:Jessica Frank NP Specialists:Aly, ortho; Fabian, uro; Chris, pain mgmt Preferred Pharmacy: [facility] Retail Insurance: [employer] [facility] Prescription Benefit: yes LNOK: Michelle Puentes, Living Arrangements: Pt lives with in a condo with 3 steps to enter. Pt reports prior to surgery he was I in ADLs. Pt denies concerns at home. Transportation: Pt drives self and denies concerns with transportation. Pt will transport him until he can drive again. DME:rollator HHC/SNF: Denies hx of Pt states no concerns with going home at time of dc. Pt states no further concerns/needs. CM to follow. Advised pt to ask CM if any further question/concerns/needs arise, voices understanding. Pt Goal: Home Plan: Home Javier DEL ANGEL CM
== END 2024-08-06 14:34 | disposition home or self-care (01) | DRG 402 ==
LOC: ACINP 14:29 → MS3 14:29
PROVIDERS: Anesthesiology; Student in an Organized Health Care Education/Training Program; Admitting Provider Orthopaedic Surgery Orthopaedic Surgery of the Spine; PCP Registered Nurse; Referring Provider Orthopaedic Surgery Orthopaedic Surgery of the Spine; Visit Provider Internal Medicine
PROC: 0SG00A0 Fusion of Lumbar Vertebral Joint with Interbody Fusion Device, Anterior Approach, Anterior Column, Open Approach (ICD-10-PCS; principal; 2024-08-05 08:00)
DX: M43.16 Spondylolisthesis, lumbar region (principal); N13.8 Other obstructive and reflux uropathy; I10 Essential (primary) hypertension; F41.8 Other specified anxiety disorders; M48.062 Spinal stenosis, lumbar region with neurogenic claudication; Z87.891 Personal history of nicotine dependence; R33.9 Retention of urine, unspecified; N40.1 Benign prostatic hyperplasia with lower urinary tract symptoms
CPT/HCPCS: 36415; 72100; 76000; 80048; 80076; 82962; 83735; 85025; 85027; 85610; 85730; 86703; 86706; 86708; 86803; 86850; 86900; 86901; 87081; 93005; 94668; 97162; 97166; C1713; J7120; A4216; J2405

== ENCOUNTER 2024-09-23 12:00 | Outpatient (RCR) | payer MEDICARE, SELFPAY ==
--- NOTE | 2024-09-01 15:01 | HP.PTEVAL ---
Patient's Visit Information Visit Information Visit Information: HOWARD MICHAUD Jr. is a 74 year old M referred to Physical Therapy by Dr. Norberto Lu MD with a diagnosis of s/p lumbar fusion around august. Date of Evaluation: 09/01/24 Physical Therapist: Eloy Bocanegra, DPT, OCS, CSCS Visit Plan Frequency: 1-2x /Week Duration: 3 Months Plan: 1-2x/week (start one, pt preference due to copay) for 3 months overall(start 4 weeks) for. IE: HEP Ho given for PPTx10, trunk rotation supine x10, skc x10, HS and quad stretch supine 30 3x, walking 10-20 min 2x./day per tolerance, ice and precautions of no BLT EG to start weekly for progression of back tissue ROM HEP ext and rotation , scar massage and rollout upper legs(HS adn quad sretches), teach core isometric and LE and postural strength to HEP(pt would like to do most at home if possible.) Also progress home walking program and add recumbent bike as he has one at home. Subjective Subjective: Had a lumbar surgery 4 weeks ago. Fused L2/3 due to malaligned spondylolisthesis. Had severe back and R leg pain >L and many sleepless nights. Now has feeling in both legs now better than pain. Gets pain at operation site. LBP is much better. Not sure there is any back pain left but it is mild right now and 70% better overall. Legs were weak prior to surgery and still feel weak. Can get up and down stairs to basement but not confident., Sleep is not great: LBP from surgery is keeping him up at night. 10:30-2:30 is OK and then it is worse pain. Basic aDLs: dress, bathroom, shower, shower himself. steps carefully. Used walker for first 10 days but no more needed. Retired. Spends day outdoors with a little gardening in [employer], used to golf and fish but not lately. Regualr ex: not lately but has bike and rowing machinesmall free weights.(lunges, squats curls) None for back No lifting bending or twisting for 3 months is precaution. Has back brace at home that he used prior to surgery. walks up to 15 minutes but back pain worsens but feels better sitting. Pain LBP: Pain Intensity (Out of 10): 4 Pain Intensity Range: 2 and 6 Objective Objective: Walks slightly hunched FW but i with good gait pattern albeit short steps and slow. Transfers chair with UE easily and I, steps reciprocally with one rail I, obviously LE weakness desending but able. Bed trasnfers are slow via sidelying and I. Incisions are posterior either side of sacrum and healed well without signs of excessive redness heat or swelling , mild scarring visible adhering to underlying tissue. Tender moderately around incisions to touch. LB AROM gently tested into extension and brief slight FW flexion both of which were comfortable. sB was max limited but not painful. core strength 3+/5 ext adn flexion reflexes 2/3 patella and achilles B. sensation LE WNL to fros slight touch B. strength hip ext 3+, abd 3+, flexion 3+, knee ext and flexion 4-, DF and PF 4. HS max tight at -45 90/90 test, quad mod tight at 90 degrees in supine edge of table stretch good balance today Balance/Special Test Scores Oswestry Low Back Score: 32 Goals Goal 1:: ST: I appropriate LE, postural, core strength program via HEP Goal Time Frame: 4-6 Weeks Goal 2:: Pain in back 0/10 at resdt and 2/10 at worst and 80% improved Goal Time Frame: 4-6 Weeks Goal 3:: sleep 6 hours without waking and back to sleep quickly Goal Time Frame: 4-6 Weeks Goal 4:: LT: Pt back to 95% of activity without increased pain Goal Time Frame: 8-12 Weeks Goal 5:: oswestry score 5 or less Goal Time Frame: 8-12 Weeks Rehabilitation Potential Physical Therapy Diagnosis: stiffness and weakness and limitations from surgery effecting function. Rehabilitation Potential: Good Anticipated Interventions Patient/Client Instruction: Educate patient on: Condition and Plan of Care For the Purpose of:: To decrease pain, To decrease swelling/inflammation, To increase ROM, To improve nutrient delivery to tissue, To improve muscle performance and motor function, To increase tolerance to activity/condition/position and To improve gait and locomotor functions Therapeutic Exercise to Include: Strength training, Postural training, Flexibilty training, Gait and locomotor training, Passive ROM and Active ROM For the Purpose of:: To decrease pain, To decrease swelling/inflammation, To increase ROM, To improve nutrient delivery to tissue, To increase oxygenation perfusion and To improve muscle performance and motor function Manual Therapy Techniques to Include: Scar massage, Passive ROM and Soft tissue mobilization For the Purpose of:: To decrease pain, To increase ROM, To improve nutrient delivery to tissue and To improve muscle performance and motor function Cryotherapy (ice pack, ice massage): Yes Thermo therapy (hot pack): Yes For the Purpose of:: To decrease pain, To increase ROM and To improve nutrient delivery to tissue Text: Thank you for the opportunity to evaluate your patient. For Medicare and Medicare HMO plans, please review the plan of care and approve it. It will need to be FAXED BACK to us at [phone] for Medicare purposes. For Medicare only, by signing this I certify the plan of care. Please let me know if there are questions or concerns regarding this plan of care. Physician Signature: Date:
--- NOTE | 2024-11-21 13:17 | HP.PTDCNRP_ITS ---
Patient Information Patient Information: HOWARD MICHAUD Jr. was seen in my office for initial evaluation on 09/01/24. The following Plan of Care was established for this patient: POC Established Initial Frequency: 1-2x /Week Initial Duration: 3 Months Anticipated Interventions Patient/Client Instruction: Educate patient on: Condition and Plan of Care For the Purpose of:: To decrease pain, To decrease swelling/inflammation, To increase ROM, To improve nutrient delivery to tissue, To improve muscle performance and motor function, To increase tolerance to activi ty/condition/position and To improve gait and locomotor functions Therapeutic Exercise to Include: Strength training, Postural training, Flexibilty training, Gait and locomotor training, Passive ROM and Active ROM For the Purpose of:: To decrease pain, To decrease swelling/inflammation, To increase ROM, To improve nutrient delivery to tissue, To increase oxygenation perfusion and To improve muscle performance and motor function Manual Therapy Techniques to Include: Scar massage, Passive ROM and Soft tissue mobilization For the Purpose of:: To decrease pain, To increase ROM, To improve nutrient delivery to tissue and To improve muscle performance and motor function Cryotherapy (ice pack, ice massage): Yes Thermo therapy (hot pack): Yes For the Purpose of:: To decrease pain, To increase ROM and To improve nutrient delivery to tissue Last Seen Last Seen: This patient was last seen in our office 09/23/24. Pertinent comments regarding their Physical therapy will appear below: Pt seen 4 visits of poc and was to f/u but did not return. According to his ortho note, he feels ready to be done with PT and will not be returning. I will discontinue him at this time. At this point I will be discontinuing this patient from physical therapy. I would be happy to see this patient again in the future if found appropriate by the physician. Thank you! Eloy Bocanegra, DPT, OCS, CSCS Balance/Gait/Functional tests Balance/Special Test Scores Oswestry Low Back Score: 32
== END 2024-09-23 19:00 | disposition home or self-care (01) ==
LOC: PT 12:00
PROVIDERS: PCP Registered Nurse; Referring Provider Orthopaedic Surgery Orthopaedic Surgery of the Spine; Visit Provider Orthopaedic Surgery Orthopaedic Surgery of the Spine
DX: Z98.1 Arthrodesis status (principal)
CPT/HCPCS: 97110; 97161

== ENCOUNTER 2025-05-14 05:00 | Emergency (ER) | payer MEDICARE, SELFPAY ==
[2025-05-14 05:02] VITALS: BP 135/69; PULSE 65; RESP 16; TEMP 36.4; O2SAT 98; BMI 27.4
[2025-05-14 05:26] VITALS: BP 131/64; BP 138/66; BP 151/77; PULSE 63; PULSE 70; PULSE 71
[2025-05-14 05:27] LABS: Hematocrit 37.3 % (40-54); Hemoglobin 13.8 g/dL (13.0-16.5); Immature Granulocytes Count 0.050 X10^3/uL (0.0-0.0); Mean Corp Hgb Conc 37.0 g/dL (32-36); Mean Corpuscular Volume 94.7 fL (80-94); Mean Platelet Vol. 9.1 fl (6.2-12.0); NRBC Flagged by Analyzer 0 % (0-5); Platelet Count 236 K/mm3 (150-450); RBC Distribution Width CV 11.5 % (11.6-14.6); RBC Distribution Width SD 39.8 fl (35.1-43.9); Red Blood Count 3.94 M/mm3 (4.6-6.2); White Blood Count 7.3 K/mm3 (4.4-11.0)
--- NOTE | 2025-05-14 05:49 | CT_ITS ---
PROCEDURE: BRAIN/HEAD WITHOUT CONTRAST N/A REASON FOR EXAM: SYNCOPE TECHNIQUE: BRAIN/HEAD WITHOUT CONTRAST Coronal and Sagittal reconstruction series were provided. One or more dose reduction techniques were used (e.g., Automated exposure control, adjustment of the mA and/or kV according to patient size, use of iterative reconstruction technique. RADIATION DOSE SUMMARY: CTDlvol:mGy DLP: mGycm COMPARISON: none FINDINGS: Accentuated bilateral cerebral periventricular deep white matter hypodensities denoting hypoperfusion with bilateral cerebral periventricular and subcortical hypodense foci and patches. Fish-white matter differentiation is maintained. Normal CT appearance of the posterior fossa structures. No intracerebral or extra axial hemorrhage. Dilated ventricular system, cortical sulci and extra-axial CSF spaces. No definite calvarial fractures. No midline shifts or deformity. The osseous structures in the skull base are unremarkable. Paranasal sinuses are unremarkable. Vascular atheromatous calcifications. CT/Brain/Head without Contrast IMPRESSION: No acute cerebrovascular abnormalities. If there is high clinical suspicion, co rrelate to MRI No intra or extra-axial acute hemorrhage. Bilateral cerebral microvascular ischemic changes with age matches brain involu tional changes. Reading [facility]
[2025-05-14 05:52] LABS: Anion Gap 16 (5-15); BUN 10 mg/dL (4-19); BUN/Creat Ratio 11.0 RATIO (10-20); Calcium,Total 8.7 mg/dL (7.6-11.0); Carbon Dioxide 20.1 mmol/L (21.0-32.0); Chloride 85 mmol/L (98-108); Estimated Creatinine Clearance 70.98 ml/min (50-250); Glucose 109 mg/dL (70-99); Magnesium 1.7 mg/dL (1.5-2.2); Potassium 3.7 mmol/L (3.3-5.1)
[2025-05-14] MEDS: 0.9% Normal Saline (1000mL) 1,000 ML 999 ML IV (06:12)
--- OUTSIDE RECORDS SUMMARY | 2025-05-14 06:19 | XMS RPT_ITS | CCD ---
Author Organization [facility] Care Team Providers Care Analysis Internship Name Role Phone JONI LAROSE Unavailable Unavailable JONI LAROSE Unavailable Unavailable NO REFERRING Unavailable Unavailable NO REFERRING DR Unavailable Unavailable JUAN CRESPO K Unavailable Unavailable CHERIEJOSE LOUISIN K Unavailable Unavailable SHEETS, RADHA C Unavailable Unavailable SHEETS, RADHA C Unavailable Unavailable CHOWDHRY, SHERRON Unavailable Unavailable CHOWDHRY, SHERRON Unavailable Unavailable SHEETS, RADHA C Unavailable Unavailable SHEETS, RADHA C Unavailable Unavailable Pal, Oma Unavailable Unavailable Pal, Oma Unavailable Unavailable Unavailable Unavailable Unavailable Lesia SAUCEDA, Mumtaz Estrada Primary Care Provider Unavailable Primary Care Provider UnavailMumtaz Taylor MD Primary Care Provider Zac SERVICE STATION EQUIPMENT MECHANIC, SERVICE STATION EQUIPMENT MECHANIC-C Candice Primary Care Provider Zac BA, SERVICE STATION EQUIPMENT MECHANIC-C Candice Referring Provider Dr. Andriy Rizzo Attending Provider Yomi Castro MD Unavailable [phone] JOSH GONZALEZ Referring UnavailCandice Zamora CNP Primary Care Provider Yomi Castro MD Unavailable Candice Frank CNP Primary Care Provider Candice Franco APRN, CNP Primary Care Provider Candice Frank CNP Primary Care Provider Zac BA, Candice Primary Care Unavailable Hever Marcial Attending Unavailable Norberto Lu Admitting Unavailable Norberto Lu Referring Unavailable Zac BA Candice Primary Care Unavailable Coy Burkett Unavailable Fred Shepherd Attending Unavailable Lu, Norberto Consulting Unavailable Zac SERVICE STATION EQUIPMENT MECHANIC, [place] Primary Care Unavailable Lu, Norberto Attending Unavailable Lu, Norberto Referring Unavailable Zac SERVICE STATION EQUIPMENT MECHANIC, [place] Primary Care Unavailable Zac SERVICE STATION EQUIPMENT MECHANIC, Candice Referring Unavailable Mable Swanson Attending Unavailable Zac SERVICE STATION EQUIPMENT MECHANIC, [place] Primary Care Unavailable AggieHever stephens Attending Unavailable Zac SERVICE STATION EQUIPMENT MECHANIC, Candice Referring Unavailable Zac SERVICE STATION EQUIPMENT MECHANIC, [place] Primary Care Unavailable Lu, Norberto Attending Unavailable Zac SERVICE STATION EQUIPMENT MECHANIC, [place] Primary Care Unavailable Aggie, Hever Attending Unavailable Zac SERVICE STATION EQUIPMENT MECHANIC, Candice Referring Unavailable Lu, Norberto Attending Unavailable Zac SERVICE STATION EQUIPMENT MECHANIC, [place] Primary Care Unavailable Zac SERVICE STATION EQUIPMENT MECHANIC, Candice Referring Unavailable Lu, Norberto Attending Unavailable Zac SERVICE STATION EQUIPMENT MECHANIC, [place] Primary Care Unavailable Aggie, Taylor Attending Unavailable Zac SERVICE STATION EQUIPMENT MECHANIC, [place] Primary Care Unavailable Lu, Norberto Referring Unavailable Zac SERVICE STATION EQUIPMENT MECHANIC, [place] Primary Care Unavailable Chele Chaudhary Attending Unavailable Lu, Norberto Attending Unavailable Lu, Norberto Consulting Unavailable Lu, Norberto Admitting Unavailable Lu, Norberto Referring Unavailable Zac SERVICE STATION EQUIPMENT MECHANIC, [place] Primary Care Unavailable Lu, Norberto Admitting Unavailable Lu, Norberto Referring Unavailable Zac SERVICE STATION EQUIPMENT MECHANIC, [place] Primary Care Unavailable Coy Burkett Consulting Unavailable Coy Burkett Attending Unavailable Lu, Norberto Consulting Unavailable Fred Shepherd Attending Unavailable Fred Shepherd Consulting Unavailable Mable Swanson Attending Unavailable Zac SERVICE STATION EQUIPMENT MECHANIC, [place] Primary Care Unavailable Zac SERVICE STATION EQUIPMENT MECHANIC, [place] Referring Unavailable Mable Swanson Attending Unavailable ZAC CANDICE [place] Primary Care Unavailable SHRUTHI KRAUSE Referring Unavailkeke FRANK HYDRAULIC PRESS TENDER-SERVICE STATION EQUIPMENT MECHANIC, [facility] Primary Care Physician DR JAMIL HERZOG MD Attending Unavailkeke FRANK HYDRAULIC PRESS TENDER-SERVICE STATION EQUIPMENT MECHANIC, [facility] Primary Care Unavailab dar Frank HYDRAULIC PRESS TENDER - MELANGEUR OPERATOR, [facility] Unavailable SASHA KAUR Attending Unavailable CANDICE FRANK Primary Care Unavailable HORACE LUBIN Attending Unavailable CANDICE FRANK Primary Care Unavailable SASHA KAUR Attending Unavailable SELF Referring Unavailable CANDICE FRANK Primary Care Unavailable CANDICE FRANK Attending Unavailable MUMTAZ KENNEDY Primary Care Unavailable MUMTAZ KENNEDY Primary Care Unavailable KIMBERLEY DURÁN Attending Unavailable MUMTAZ KENNEDY Primary Care Unavailable CANDICE FRANK Attending Unavailable MUMTAZ KENNEDY Primary Care Unavailable Allergies Allergy Classification Reported Allergen(s) Allergy Type Date of Onset Reaction(s) Facility (1 source) Finasteride Drug Allergy 05-11-2025 Anxiety [facility] Medications Current Medications Medication Drug Class(es) Dates Sig (Normalized) Sig (Original) aspirin 81 mg oral tablet (3 sources) Platelet Aggregation Inhibitor, Nonsteroidal Anti-inflammatory Drug Aspirin Buf,CaCarb-MgCarb- MgO, 81 MG TABS Take by mouth 0 Active atenolol 50 mg oral tablet (20 sources) beta-Adrenergic Sara Start: 09-17-2018 End: 05-05-2025 take 1 tablet by mouth once daily atenolol (Tenormin) 50 MG tablet Indications: Essential hypertension Take 1 tablet (50 mg) by mouth daily. 90 tablet 1 05/05/2025 Active Comment on above: Take 1 tablet by lydia th once daily. busPIRone hydrochloride 10 mg oral tablet (20 sources) Start: 07-14-2024 End: 01-01-2025 take 1 tablet by mouth twice daily busPIRone (Buspar) 10 MG tablet Indications: Anxiety TAKE 1 TABLET BY MOUTH TWICE DAILY 180 tablet 1 01/01/2025 Active Start: 01-09-2024 End: 07-14-2024 take 0.5 tablet by mouth twice daily busPIRone (Buspar) 15 MG tablet Indications: Anxiety Take 0.5 tablets (7.5 mg) by mouth 2 times daily. 90 tablet 1 07/10/2024 07/14/2024 Discontinued (Reorder) Start: 07-26-2023 End: 01-09-2024 take 10 mg by mouth twice daily Buspirone Active 10 MG PO TWICE A DAY August 30, 2023 11:00pm Start: 09-11-2022 take 0.5 tablet by m outh twice daily busPIRone (Buspar) 15 MG tablet TAKE 1/2 TABLET BY MOUTH TWICE A DAY 90 tablet 1 09/11/2022 Active Start: 04-06-2021 take 0.5 tablet by m outh twice daily busPIRone (BUSPAR) 15 MG tablet Take 1/2 tablet by mouth twice daily. 90 tablet 1 04/06/2021 Active Start: 12-24-2018 End: 09-03-2023 busPIRone (BUSPAR) 15 mg tab let Take by mouth. 12/24/2018 Active Start: 12-24-2018 take 0.5 tablet by m out twice daily busPIRone HCl - 15 MG Oral Tablet 1/2 tab bid Quantity: 90 Refills: 1 Annel Aguillon MD Start : 24-Dec-2018 Active Comment on above: Take by mouth. celecoxib 200 mg oral capsule (6 sources) Nonsteroidal Anti-inflammatory Drug Start: 03-21-20 24 celecoxib (CELEBREX) 200 mg capsule 03/21/2024 Active DULoxetine 30 mg delayed release oral capsule (12 sources) Serotonin and Norepinephrine Reuptake Inhibitor Start: 09-05-20 18 take 1 capsule by mouth once daily DULoxetine (CYMBALTA) 30 mg capsule Indications: Occipital neuralgia of left side Take 1 capsule by mouth once daily. 90 capsule 1 09/05/2018 Active Comment on above: Take 1 capsule by mo [facility] once daily. escitalopram 10 mg oral tablet (7 sources) Serotonin Reuptake Inhibitor Start: 01-06-20 23 take 1 tablet by mouth once daily escitalopram (Lexapro) 10 MG tablet Indications: Major depressive disorder, recurrent, mild (HCC) , Anxiety Take 1 tablet (10 mg) by mouth daily. 30 tablet 0 01/05/2023 Active Start: 11-05-2022 End: 09-03-2023 take 1 tablet by mouth once daily escitalopram (Lexapro) 5 MG tablet Indications: Anxiety disorder, unspecified , Major depressive disorder, recurrent, mild (HCC) TAKE 1 TABLET BY MOUTH EVERY DAY 90 tablet 1 12/25/2022 01/05/2023 Discontinued (Reorder) Comment on above: Take 5 mg by mouth o nce daily. finasteride 5 mg oral tablet (3 sources) 5-alpha Reductase Inhibitor Start: 5 take 1 tablet by mouth once daily finasteride (Proscar) 5 MG tablet Take 5 mg by mouth daily. 03/24/2025 Active gabapentin 300 mg oral capsule (20 sources) Anti-epileptic Agent Start: 3 End: 5 take 1 capsule by mouth three times daily gabapentin (NEURONTIN) 300 mg capsule Take 300 mg by mouth three times a day. 10/13/2023 Active Comment on above: Take 300 mg by mouth three times a day. iv contrast (will be provided with radiology test) (11 sources) Start: 4 iv contrast (will be provided with radiology test) MRI Prostate Inject, intravenously, once for 1 dose. No IV access, insert saline lock prior to the beginning of sedation, infusion, injection of imaging exam. Discontinue saline lock post exam. If Pt. has a central line or IVAD, may access for administration according to line specific nursing protocol. Once exam is complete flush line and de-access according to line specific nursing protocol in the MR contrast administration guidelines link. 1 Each 11/07/2023 Active Start: 11-07-2023 iv contrast (w ill be provided with radiology test) MRI Prostate Inject, intravenously, once for 1 dose. No IV access, insert saline lock prior to the beginning of sedation, infusion, injection of imaging exam. Discontinue saline lock post exam. If Pt. has a central line or IVAD, may access for administration according to line specific nursing protocol. Once exam is complete flush line and de-access according to line specific nursing protocol in the MR contrast administration guidelines link. 1 Each 0 11/07/2023 Active Comment on above: MRI Prostate Inject, intravenously, once for 1 dose. No IV access, insert saline lock prior to the beginning of sedation, infusion, injection of imaging exam. Discontinue saline lock post exam. If Pt. has a central line or IVAD, may access for administration according to line specific nursing protocol. Once exam is complete flush line and de-access according to line specific nursing protocol in the MR contrast administration guidelines link. lisinopril 40 mg oral tablet (20 sources) Angiotensin Converting Enzyme Inhibitor Start: 4 End: 5 take 1 tablet by mouth once daily lisinopril 40 MG tablet Indications: Essential hypertension Take 1 tablet (40 mg) by mouth daily. 90 tablet 1 03/03/2025 Active Start: 01-09-2024 End: 01-22-2024 take 1 tablet by mouth once daily lisinopril 10 MG tablet Indications: Essential hypertension Take 1 tablet (10 mg) by mouth daily. 30 tablet 0 01/09/2024 01/22/2024 Discontinued (Reorder) take 2 tablets by [facility] once daily lisinopril (ZESTRIL) 10 mg tablet Take 20 mg by mouth once daily. Active Comment on above: Take 20 mg by mouth once daily. LORazepam 0.5 mg oral tablet (1 source) Benzodiazepine Start: End: take 1 tablet by mouth three times daily as needed for anxiety LORazepam (Ativan) 0.5 MG tablet Indications: Anxiety Take 1 tablet (0.5 mg) by mouth 3 times daily as needed for anxiety for up to 7 days. 21 tablet 05/11/2025 05/18/2025 Active melatonin 10 mg oral capsule (9 sources) Start: take 1 capsule by mouth once daily at bedtime melatonin 10 mg cap Take 1 capsule by mouth daily at bedtime. 08/31/2023 Active prednisoLONE acetate 10 mg/ml ophthalmic suspension (2 sources) Corticosteroid Start: prednisoLONE acetate (PRED FORTE) 1 % ophthalmic suspension instill 1 drop in both eyes twice a day 02/05/2025 Active proparacaine hydrochloride 5 mg/ml ophthalmic solution (1 source) Local Anesthetic Start: End: proparacaine 0.5 % 1 Drop (ALCAINE) sertraline 50 mg oral tablet (1 source) Serotonin Reuptake Inhibitor Start: sertraline (Zoloft) 50 MG tablet Indications: Anxiety Take 1/2 tablet daily x 7 days, then increase to 1 tab daily 30 tablet 05/11/2025 Active sildenafil 100 mg oral tablet (20 sources) Phosphodiesterase 5 Inhibitor Start: End: take 0.5 tablet by mouth once daily as needed sildenafil (Viagra) 100 MG tablet Indications: Erectile dysfunction, unspecified erectile dysfunction type Take 0.5 tablets (50 mg) by mouth Daily as needed for erectile dysfunction. 30 tablet 1 10/23/2023 01/16/2026 Active Start: 06-24-2021 sildenafil ( AGRA) 50 MG tablet Indications: Erectile dysfunction, unspecified erectile dysfunction type Take 1 tablet by mouth as needed for Erectile Dysfunction 30 tablet 0 06/24/2021 Active tamsulosin hydrochloride 0.4 mg oral capsule (20 sources) alpha-Adrenergic Sara Start: 03-09-2025 take 1 capsule by mouth every twenty-four hours tamsulosin (Flomax) 0.4 MG 24 hr capsule Take 0.4 mg by mouth. 03/09/2025 Active Start: 03-09-2025 take 2 capsules by m outh once daily tamsulosin 0.4 mg oral capsule Take 2 capsules (0.8 mg) by mouth daily. Start Date: 03/09/25 Status: Ordered Repeat number: 1 Start: 12-02-2024 End: 03-02-2025 take 2 capsules by mouth once daily tamsulosin (Flomax) 0.4 MG 24 hr capsule Indications: Benign prostatic hyperplasia with nocturia Take 2 capsules (0.8 mg) by mouth daily. 180 capsule 12/02/2024 03/02/2025 Active Start: 06-17-2021 End: 12-02-2024 take 1 tablet by mouth once daily tamsulosin (FLOMAX) 0.4 mg Take 1 tablet by mouth once daily. 06/17/2021 Active Comment on above: Take 1 tablet by lydia th once daily. traMADol hydrochloride 50 mg oral tablet (3 sources) Opioid Agonist Start: 06-24-20 End: 07-24-20 take 1 tablet by mouth every six hours as needed for pain traMADol (ULTRAM) 50 MG tablet Indications: Chronic low back pain, unspecified back pain laterality, unspecified whether sciatica present , Degenerative spondylolisthesis Take 1 tablet by mouth every 6 hours as needed for Pain for up to 30 days. 30 tablet 0 06/24/2021 07/24/2021 Active traMADol HCl - 5 0 MG Oral Tablet 1 tab q 6-8 hours Quantity: 30 Refills: 0 Annel Aguillon MD Active Completed/Discontinued Medications Medication Drug Class(es) Dates Sig (Normalized) Sig (Original) phenylephrine hydrochloride 25 mg/ml ophthalmic solution (3 sources) alpha-1 Adrenergic Agonist Start: 04-15-2024 End: 04-15-2024 PHENYLephrine 2.5 % 1 Drop (AK-DILATE, JUAN-SYNEPHRINE) Start: 01-01-2023 End: 01-02-2023 PHENYLephrine 2.5 % 1 Drop ( AK-DILATE, JUAN-SYNEPHRINE) tropicamide 10 mg/ml ophthalmic solution (3 sources) Anticholinergic Start: 04-15-2024 End: 04-15-2024 tropicamide 1 % 1 Drop (MYDRIACYL) Start: 01-01-2023 End: 01-02-2023 tropicamide 1 % 1 Drop (MYDR IACYL) Problems Active Problems Problem Classification Problem Date Documented Date Episodic/Chronic Anxiety disorders (20 sources) Anxiety; Translations: [Anxiety disorder, unspecified] Onset: 12-24-2020 12-24-2020 Chronic Blindness and vision defects (8 sources) Bilateral regular astigmatism; Translations: [Regular astigmatism, bilateral] Episodic Cataract (3 sources) Bilateral senile combined form cataracts of eyes; Translations: [Combined forms of age-related cataract, bilateral] Chronic Disorders of lipid metabolism (3 sources) Raised low density lipoprotein cholesterol; Translations: [Pure hypercholesterolemia, unspecified] Onset: 07-14-2024 07-14-2024 Chronic Essential hypertension (20 sources) Essential (primary) hypertension; Translations: [Hypertensive disorder] Onset: 12-29-2016 12-24-2020 Chronic Fluid and electrolyte disorders (1 source) Hyponatremia; Translations: [Hypo-osmolality and hyponatremia] 07-30-2024 Episodic Hyperplasia of prostate (20 sources) Nocturia due to benign prostatic hypertrophy; Translations: [Benign prostatic hyperplasia with lower urinary tract symptoms] Onset: 06-24-2021 06-24-2021 Chronic Mood disorders (20 sources) Recurrent major depressive episodes, mild ; Translations: [Major depressive disorder, recurrent, mild] Onset: 01-05-2023 09-03-2023 Chronic Osteoarthritis (20 sources) Bilateral arthritis of hip; Translations: [Bilateral primary osteoarthritis of hip] Onset: 01-05-2023 01-26-2023 Chronic Other acquired deformities (2 sources) Spondylolisthesis; Translations: [History of Spondylolisthesis] Chronic Other acquired deformities (2 sources) Spondylolisthesis, lumbar region; Translations: [Spondylolisthesis, lumbar region] Onset: 08-10-2024 Episodic Other circulatory disease (2 sources) H/O: hypertension; Translations: [History of hypertension] Episodic Other connective tissue disease (2 sources) H/O: arthritis; Translations: [History of arthritis] Episodic Other connective tissue disease (2 sources) Dupuytren's contracture ; Translations: [History of Dupuytren's contracture] Episodic Other connective tissue disease (2 sources) H/O: musculoskeletal disease; Translations: [History of lateral epicondylitis] Episodic Other connective tissue disease (2 sources) Arthrodesis status; Translations: [Arthrodesis status] Onset: 08-10-2024 Episodic Other diseases of kidney and ureters (1 source) Other obstructive and reflux uropathy; Translations: [BPH with obstruction/lower urinary tract symptoms] Onset: 01-23-2025 Episodic Other eye disorders (2 sources) Dermatochalasis of right upper eyelid; Translations: [Dermatochalasis] 04-15-2024 Episodic Other male genital disorders (20 sources) Male erectile dysfunction, unspecified; Translations: [Impotence of organic origin] Onset: 06-24-2021 06-24-2021 Chronic Other nervous system disorders (2 sources) Other chronic pain; Translations: [Other chronic pain] Onset: 08-21-2022 Chronic Residual codes; unclassified (2 sources) H/O: Disorder; Translations: [History of sciatica] Episodic Screening or history of mental health and substance abuse (3 sources) Personal history of nicotine dependence; Translations: [H/O: anxiety state] Onset: 07-19-2017 Episodic Unclassified (1 source) Other specified postprocedural states; Translations: [OTH SPECIFIED POSTPROCED] Onset: 07-19-2017 Unclassified (1 source) Unknown / UNK(Unknown) Onset: 07-23-2017 Unclassified (1 source) Low back pain, unspecified; Translations: [Low back pain, unspecified] Onset: 08-21-2022 Unclassified (2 sources) Blood Work; Translations: [Blood Work] Onset: 07-31-2024 Past or Other Problems Problem Classification Problem Date Documented Date Episodic/Chronic Diseases of mouth; excluding dental (9 sources) Sialoadenitis, unspecified; Translations: [Sialoadenitis] Onset: 06-28-2017 Resolved: 01-11-2018 01-11-2018 Episodic Genitourinary symptoms and ill-defined conditions (20 sources) Asymptomatic microscopic hematuria; Translations: [Asymptomatic microscopic hematuria] Onset: 08-11-2022 08-21-2022 Episodic Headache; including migraine (14 sources) Cervicogenic headache; Translations: [Cervicogenic headache] Onset: 07-30-2017 07-30-2017 Episodic Immunizations and screening for infectious disease (1 source) Requires diphtheria, tetanus and pertussis vaccination; Translations: [Encounter for immunization] Episodic Lymphadenitis (6 sources) Lymphadenopathy; Translations: [Generalized enlarged lymph nodes] Onset: 04-05-2017 Resolved: 05-27-2018 05-27-2018 Episodic Mood disorders (20 sources) Mood disorders Onset: 01-25-2023 Resolved: 07-14-2024 01-25-2023 Other acquired deformities (20 sources) Degenerative spondylolisthesis; Translations: [Spondylolisthesis, site unspecified] Onset: 12-29-2016 12-24-2020 Episodic Other acquired deformities (6 sources) Spondylolisthesis, site unspecified; Translations: [Acquired spondylolisthesis] Onset: 08-21-2022 08-31-2023 Episodic Other aftercare (1 source) Other custodial (current) drug therapy; Translations: [OTH PRISON CURRENT DR] Onset: 07-19-2017 Episodic Other connective tissue disease (6 sources) Neuralgia; Translations: [Neuralgia and neuritis, unspecified] Onset: 07-16-2017 Resolved: 05-27-2018 05-27-2018 Episodic Other non-traumatic joint disorders (2 sources) Hip pain; Translations: [Pain in right hip] Onset: 01-05-2023 Episodic Other screening for suspected conditions (not mental disorders or infectious disease) (20 sources) Patient encounter status; Translations: [Encounter for screening for cardiovascular disorders] Onset: 06-24-2021 Episodic Other upper respiratory infections (10 sources) Viral upper respiratory tract infection; Translations: [Acute upper respiratory infection, unspecified] Onset: 12-02-2024 Resolved: 01-16-2025 12-02-2024 Episodic Otitis media and related conditions (6 sources) Disorder of left Eustachian tube; Translations: [Unspecified Eustachian tube disorder, left ear] Onset: 03-20-2017 Resolved: 07-02-2017 07-02-2017 Episodic Spondylosis; intervertebral disc disorders; other back problems (20 sources) Cervicalgia; Translations: [Occipital neuralgia] Onset: 07-19-2017 12-24-2020 Episodic Unclassified (5 sources) Patient encounter status; Translations: [Screening cholesterol level] 01-16-2025 Unclassified (1 source) Low back pain, unspecified; Translations: [Low back pain, unspecified] Onset: 01-16-2025 NEGATED: Highlighted row has not occurred!Residual codes; unclassified (7 sources) Disease Episodic Results Test Name Value Interpretation Reference Range Facility 36on 05-05-2025 36 Prescription Request : atenolol (Tenormin) 50 MG tablet Last medication check: 07/14/24 Last physical exam: 01/16/25 Next scheduled appointment: 07/24/25 Last date of refill on this medication 10/30/24 ( qty 90 refill 1) [facility] 05-05-2025 CNPN Telephone (UROLWS) -- EVANS MICHAUD ([id number]) 1950 M Date Time Provider Department 05/05/25 HORACE LUBIN During your visit today, we recorded the following information about you: Radha Palacios MA 05/05/2025 9:16 AM Signed Patient calling and states he is having an intolerance to the Proscar. States he is having anxiety and depression since taking it. Feels it is not help his frequent urination. Patient states he stopped taking it yesterday. Anything else he can try? Patient's preferred pharmacy is [facility] in [place]. Ankita Link MA 05/05/2025 11:43 AM Signed Patient called office again stating he is in a bad way he wants to know when the provider is going to respond back to him. I advised that the provider is seeing patients in the office and has not been able to respond yet. Patient sent in a GTI message as well. Allergies As of Date: 05/05/2025 (No Known Allergies) Date Reviewed: 02/12/2025 Reviewed by: Sasha Kaur OD - Fully Assessed Prescriptions as of 05/05/2025 - finasteride (PROSCAR) 5 mg tablet Take 1 tablet by mouth once daily. - prednisoLONE acetate (PRED FORTE) 1 % ophthalmic suspension instill 1 drop in both eyes twice a day - melatonin 10 mg cap Take 1 capsule by mouth daily at bedtime. - celecoxib (CELEBREX) 200 mg capsule - lisinopril (ZESTRIL) 10 mg tablet Take 20 mg by mouth once daily. - iv contrast (will be provided with radiology test) MRI Prostate Inject, intravenously, once for 1 dose. No IV access, insert saline lock prior to the beginning of sedation, infusion, injection of imaging exam. Discontinue saline lock post exam. If Pt. has a central line or IVAD, may access for administration according to line specific nursing protocol. Once exam is complete flush line and de-access according to line specific nursing protocol in the MR contrast administration guidelines link. - gabapentin (NEURONTIN) 300 mg capsule Take 300 mg by mouth three times a day. - busPIRone (BUSPAR) 15 mg tablet Take by mouth. - tamsulosin (FLOMAX) 0.4 mg Take 1 tablet by mouth once daily. - atenolol (TENORMIN) 50 mg tablet Take 1 tablet by mouth once daily. - DULoxetine (CYMBALTA) 30 mg capsule Take 1 capsule by mouth once daily. Problem List As Of Date 05/05/2025 Noted Resolved Essential hypertension [I10] 12/29/2016 Degenerative spondylolisthesis [M43.10] 12/29/2016 Disorder of left eustachian tube [H69.92] 03/20/2017 07/02/2017 Lymphadenopathy [R59.1] 04/05/2017 05/27/2018 Salivary gland inflammation [K11.20] 07/02/2017 01/11/2018 Neuralgia [M79.2] 07/16/2017 05/27/2018 Occipital neuralgia of left side [M54.81] 07/30/2017 Cervicogenic headache [G44.86] 07/30/2017 Preop testing [Z01.818] 01/16/2024 Elevated PSA [R97.20] 01/16/2024 Hypertension [I10] 01/16/2024 Encounter Status:Closed by RADHA TIRADO on 05/05/25 Normal [facility] 36on 03-26-2025 36 Called for office note Normal [facility] 36 Are we able to close this? Normal [facility] 36on 03-24-2025 36 Patient's further questions if applicable: Patient phoned 03/24/25 demanding we stop sending messages re his 01/16/25 referral to Gastro. He saw Dr Jamil Herzog, had colonoscopy, all was okay. (Only thing I can think of is he's getting messages from [facility] because referral status is Pending. Perhaps the referral can be closed so the messages will stop? I am not authorized to close referral. MELY @ [facility] 03/24/25) [facility] 03-24-2025 CNPN Telephone (PANEWO) -- EVANS MICHAUD ([id number]) 1950 M Date Time Provider Department 03/24/25 HORACE LUBIN During your visit today, we recorded the following information about you: Rubi Mejia LPN 03/24/2025 2:04 PM Signed Patient is calling stating that he wishes to try finasteride since symptoms are persisting. Patient states that he is up several times a night about 3-4 times. Patient stated that he has been on Tamusolin 0.4mg for years and at first it worked but now it is not working. PATIENT wishes to try finasteride as discussed at appointment. Patient stated that when he is walking or standing notes no issues but when he lays down symptoms are worse. Patient[facility] pharmacy [facility] Please review and advise ALYSON Arrieta Laurie, MA 03/24/2025 4:19 PM Signed Horace Lubin PA-C Proscar sent, will need a follow-up with PVR with me in 3 months Horace Lubin, [facility], [place], Johnnie Yang MA 03/24/2025 4:19 PM Signed Pt notified and verbalizes understanding. Transferred to scheduling. Johnnie Snow MA Allergies As of Date: 03/24/2025 (No Known Allergies) Date Reviewed: 02/12/2025 Reviewed by: Sasha Kaur, OD - Fully Assessed Reason for Visit: Patient Question [1477] Primary Visit Diagnosis:BPH with obstruction/lower urinary tract symptoms [N40.1, N13.8] Order(s):finasteride (PROSCAR) 5 mg tabletTake 1 tablet by mouth once daily.Disp: 90 tabletRfl: 3 Prescriptions as of 03/24/2025 - finasteride (PROSCAR) 5 mg tablet Take 1 tablet by mouth once daily. - prednisoLONE acetate (PRED FORTE) 1 % ophthalmic suspension instill 1 drop in both eyes twice a day - melatonin 10 mg cap Take 1 capsule by mouth daily at bedtime. - celecoxib (CELEBREX) 200 mg capsule - lisinopril (ZESTRIL) 10 mg tablet Take 20 mg by mouth once daily. - iv contrast (will be provided with radiology test) MRI Prostate Inject, intravenously, once for 1 dose. No IV access, insert saline lock prior to the beginning of sedation, infusion, injection of imaging exam. Discontinue saline lock post exam. If Pt. has a central line or IVAD, may access for administration according to line specific nursing protocol. Once exam is complete flush line and de-access according to line specific nursing protocol in the MR contrast administration guidelines link. - gabapentin (NEURONTIN) 300 mg capsule Take 300 mg by mouth three times a day. - busPIRone (BUSPAR) 15 mg tablet Take by mouth. - tamsulosin (FLOMAX) 0.4 mg Take 1 tablet by mouth once daily. - atenolol (TENORMIN) 50 mg tablet Take 1 tablet by mouth once daily. - DULoxetine (CYMBALTA) 30 mg capsule Take 1 capsule by mouth once daily. Problem List As Of Date 03/24/2025 Noted Resolved Essential hypertension [I10] 12/29/2016 Degenerative spondylolisthesis [M43.10] 12/29/2016 Disorder of left eustachian tube [H69.92] 03/20/2017 07/02/2017 Lymphadenopathy [R59.1] 04/05/2017 05/27/2018 Salivary gland inflammation [K11.20] 07/02/2017 01/11/2018 Neuralgia [M79.2] 07/16/2017 05/27/2018 Occipital neuralgia of left side [M54.81] 07/30/2017 Cervicogenic headache [G44.86] 07/30/2017 Preop testing [Z01.818] 01/16/2024 Elevated PSA [R97.20] 01/16/2024 Hypertension [I10] 01/16/2024 Prescriptions ordered this encounter Disp Refills Start End FINASTERIDE 5 MG TABLET 90 t* 3 03/24/2025 Route: ORAL Sig: Take 1 tablet by mouth once daily. Encounter Status:Closed by JOHNNIE SNOW on 03/24/25 [facility] [id number] [address] Herzog's office [facility] 36 I am not sure what messages they have been receiving, however, we have not received results yet from Dr. Herzog's office. Please request records and we can update his health maintenance. [place] [id number] Name of caller: Shelby Contact phone number: [phone] Relationship to Patient: spouse Provider: Lesia Practice: [facility] Chief Complaint/Reason for Call: Patient already had the colonoscopy with Dr. Herzog 5.03.29 and the records should have been sent. Please stop all messages regarding this. Best time of day caller can be reached: any Patient advised that office/PCP has 24-48 business hours to return their call: N/A [facility] [id number] 03-12-2025 [id number] Requested report [place] [id number] 36 Please request colon oscopy report from Dr. Herzog to update health maintenance. [facility] 36on 03-03-2025 36 Reviewed chart. Refi ll appropriate. RX sent. [facility] 36 Prescription Request : Last medication check: 07/14/2024 Last physical exam: 01/16/2025 Next scheduled appointment: 07/24/2025 Last date of refill on this medication: 08/21/2024 [facility] CNOVon 01-27-2025 CNOV Office Visit (UROLWS ) -- EVANS MICHAUD ([id number]) 1950 M Date Time Provider Department 01/27/25 10:30 AM HORACE LUBIN During your visit today, we recorded the following information about you: Temperature Pulse Respiration Blood pressure 97.3 degrees 92/minute 14/minute 176/76 Weight Height 78 kg 1.753 m Horace Lubin PA-C 01/27/2025 4:32 PM Signed [facility] EST PATIENT CLINIC NOTE (M) Some elements copied from his previous note, which have been updated where appropriate, and all reflect current medical decision making from date of this visit. SERVICE DATE: January 27, 2025 NAME: Evans Michaud GENDER: male CHIEF COMPLAINT: Elevated PSA Follow-up HISTORY OF PRESENT ILLNESS: Evans Michaud is a 74 year old male patient here following up for has been following with Dr. Krause but lives in town and easier to follow-up here for follow ups Will send patient back to Dr Krause if procedures or surgery is needed The patient reports no change in LUTS > PSA 5.68 > with 2 previous prostate biopsies were benign LUTS: No New LUTS LABS: PSA (ng/mL) Date Value 01/23/2025 5.68 10/31/2023 7.38 PSA Screening (ng/mL) Date Value 01/11/2018 3.3 12/29/2016 3.0 Creatinine Date Value Ref Range Status 01/11/2018 1.06 0.67 - 1.17 mg/dL Final 07/23/2017 1.00 0.73 - 1.22 mg/dL Final 04/17/2017 1.07 0.67 - 1.17 mg/dL Final No results found for: TESTOST Hematocrit (%) Date Value 01/11/2018 44.5 12/29/2016 40.2 PSA (ng/mL) Date Value 01/23/2025 5.68 10/31/2023 7.38 PSA Screening (ng/mL) Date Value 01/11/2018 3.3 12/29/2016 3.0 MEDICATIONS: melatonin 10 mg cap Take by mouth. celecoxib (CELEBREX) 200 mg capsule TAKE 1 CAPSULE BY MOUTH TWICE DAILY WITH FOOD NEEDED (Patient not taking: Reported on 11/24/2024) lisinopril (ZESTRIL) 10 mg tablet Take 20 mg by mouth once daily. iv contrast (will be provided with radiology test) MRI Prostate Inject, intravenously, once for 1 dose. No IV access, insert saline lock prior to the beginning of sedation, infusion, injection of imaging exam. Discontinue saline lock post exam. If Pt. has a central line or IVAD, may access for administration according to line specific nursing protocol. Once exam is complete flush line and de-access according to line specific nursing protocol in the MR contrast administration guidelines link. gabapentin (NEURONTIN) 300 mg capsule Take 300 mg by mouth three times a day. (Patient not taking: Reported on 11/24/2024) busPIRone (BUSPAR) 15 mg tablet Take by mouth. tamsulosin (FLOMAX) 0.4 mg Take 1 tablet by mouth once daily. atenolol (TENORMIN) 50 mg tablet Take 1 tablet by mouth once daily. DULoxetine (CYMBALTA) 30 mg capsule Take 1 capsule by mouth once daily. (Patient not taking: Reported on 11/24/2024) PAST MEDICAL HISTORY: PAST MEDICAL HISTORY Diagnosis Date Anxiety Enlarged prostate History of kidney stones Hypertension Spinal stenosis REVIEW OF SYSTEMS: GENERAL: No fever, chills, weight loss, or fatigue. PHYSICAL EXAMINATION: There were no vitals taken for this visit. GENERAL: WNL nutrition, no deformities, healthy appearing PROBLEM LIST REVIEW: Yes LABS: Results for orders placed or performed in visit on 01/23/25 PSA/PROSTSPECAG DIAG Result Value Ref Range PSA 5.68 (H) <2.60 ng/mL IMAGING: MRI Prostate - 12/26/2023 IMPRESSION: PIRADS 2, no suspicious pelvic lesions although evaluation is degraded due to susceptibility from rectal gas. No suspicious osseous lesion or lymphadenopathy. ASSESSMENT/PLAN: 1. BPH with obstruction/lower urinary tract symptoms - ICD9: 600.01, 599.69, ICD10: N40.1, N13.8 (primary diagnosis) 2. Elevated prostate specific antigen (PSA) - ICD9: 790.93, ICD10: R97.20 3. Screening for genitourinary condition - ICD9: V81.6, ICD10: Z13.89 > PSA - 5.68 Chronic stable, well > If having trouble emptying bladder call office and will start Proscar (Finasteride) 5 mg and have you follow-up in 3 months > 1 year Appt w/ TRI Lawrence MT, PA-C with PSA prior order is placed for 2025 TRI cMcabe MT, PA-C Clay, Kimberly, LPN 01/27/2025 4:32 PM Signed Verified name and date of . CC Post Void Residual HPI: Evans Michaud is a 74 year old male. The patient is here now for an appointment with TRI Mccabe MT, PA-COV. Procedure: Explained procedure to patient and verbalizes understanding. Performed a PVR. Patient urinated and instructed to empty bladder as much as possible just prior to having PVR done using bladder ultrasound scanner. Results of scan: 0 mL The patient tolerated the procedure well. Plan: Appointment with Horace Castro PA-C 01/27/2025 11:36 AM Signed > If having trouble emptying bladder bird (more content not included)... Normal [facility] UA DIP, URINE (POC)on 2024 BILIRUBIN UA (POCT) Negative Negative [facility] CLARITY UA (POCT) Clear [facility] COLOR UA (POCT) Yellow [facility] GLUCOSE UA (POCT) Negative Negative mg/dL [facility] Hemoglobin Ql (U) Negative Negative [facility] KETONE UA (POCT) Negative Negative mg/dL [facility] LEUKOCYTES UA (POCT) Negative Negative [facility] NITRITE UA (POCT) Negative Negative [facility] PH [facility]A ([facility]) 7 4.5 - 8.0 [facility] Protein Ql (U) Negative Negative mg/dL [facility] SPECIFIC GRAVITY UA (POCT) 1.015 1.005 - 1.030 [facility] UROBILINOGEN UA (POCT) 0.2 Normal E.U./dL [facility] Location:[facility], [address] , [place], [address] [facility] POINT OF CARE [facility] Prostate specific Ag [Mass/Vol] 5.68 ng/mL High <2.60 [facility] Comment on above: Order Comment: Speci men Type: BLOOD SPECIMEN Ordering Facility: [facility] Address: [address] [place] [address] Result Comment: Tota garrick PSA test methodology used is the Electrochemiluminescence Immunoassay by [employer]. Total PSA values by differing methodologies cannot be interchanged. For an individual patient, the significance of a PSA level should be interpreted in a broad clinical context, including age, race, family history, digital rectal exam, prostate size, results of prior testing (prostate biopsy, free PSA, PCA3), and use of 5-alpha reductase inhibitors. Considering the high incidence of asymptomatic cancer in the general population that may not pose an ultimate risk to a patient, the decision to recommend urological evaluation or prostate biopsy should be individualized after consideration of all these factors. REFERENCE: Karl Miller M.D., M.P.H., Max Moore M.D., Ph.D., Prateek Jeffery M.D., Radha Healy, M.P.H., Nancy Becerra, Sc.D. Effect of Verification Bias on Screening for Prostate Cancer by Measurement of Prostatic Specific Antigen. N Engl J Med 2003,349:335-42. Performed By: #### 2 857-1 #### [facility] CLIA [id number] [address] [place] [address] [place] 01-19-2025 36 Seen by patient Lakhwinder Michaud on 01/19/2025 9:52 AM Ampulset message sent to patient inquiring any further questions or concerns. See TE. Normal [facility] 36 ----- Message from Maddi Kennedy MD sent at 01/18/2025 8:09 PM EDT ----- Blood sugar is good, chemistry is normal except borderline low sodium which is stable. CBC is normal no anemia. Cholesterol is excellent. Continue low-fat low-cholesterol diet Normal [facility] 37on 01-16-[address] Jamil Herzog- Gastroenterology [address] [facility] [address] P: [phone] Personalized Preventative Plan for Evans Michaud - 01/16/2025 Medicare offers a range of preventative health benefits. Some of the tests and screenings are paid in full while others may be subject to a deductible, co-insurance, and / or copay. Some of these benefits include a comprehensive review of your medical history including lifestyle, illnesses that may run in your family, and various assessments and screenings as appropriate. After reviewing your medical record and screening and assessments performed today, your provider may have ordered immunizations, labs, imaging, and / or referrals for you. A list of these orders (if applicable) as well as your Preventative Care list are included within your After Visit Summary for your review. Other Preventative Recommendations: A preventive eye exam by an eyeglass lens cutter is recommended every 1-2 years to screen for glaucoma, cataracts, macular degeneration, and other eye disorders. A preventive dental visit is recommended every 6 months. Try to get at least 150 minutes of exercise per week or 10,000 steps per day on a pedometer. You need 1200-1500mg of calcium and 7080-2734 international units of vitamin D per day. It is possible to meet your calcium requirement with diet alone, but a vitamin D supplement is usually necessary to meet this goal. When exposed to the sun, use a sunscreen that protects against both UVA and UVB radiation with an SPF of 30 or greater. Reapply every 2-3 hours or after sweating, drying off with a towel, or swimming. Always wear a seat belt when traveling in a car. Always wear a helmet when riding a bicycle or a motorcycle [facility] Office Visiton 01-16-2025 Follow-up visit [id number] Lakhwinder Michaud 1950 M Date Provider Department Center 01/16/2025 [id number] FRANK [facility] Family History Problem Relation Age of Onset Prostate cancer Father Cancer Brother Alcohol abuse Brother Drug abuse Brother Family Status - Relation Status Age at Father Brother Notes: liver cancer Brother Level of Service:G0439 [place] PPPS, SUBSEQ VISIT Reason for Visit and Comments: Medicare Annual Wellness Visit Subsequent [677] Blood Work [550694] Normal [facility] Progress Noteon 01-16-2025 Progress Note [facility] [address] [facility] [address] Dept: [phone] Dept Chief Complaint: Evans Michaud is an 74 y.o. male here for an annual wellness visit. Assessment/Plan : Problem List Items Addressed This Visit Anxiety Relevant Orders Comprehensive metabolic panel CBC Stable but not at goal. Would like to continue on current dose of Buspar at this time. Discussed signs and symptoms warranting sooner follow up- verbalized understanding. Degenerative spondylolisthesis Relevant Orders Comprehensive metabolic panel CBC Stable. Follow up with specialist as directed. Essential hypertension Relevant Orders Comprehensive metabolic panel CBC BP mildly elevated today, but home readings are stable. Will continue on current dose of medications and continue to monitor BP at home. Low back pain Relevant Orders Comprehensive metabolic panel CBC Stable. Follow up with specialist as directed. Benign prostatic hyperplasia with nocturia Relevant Orders Comprehensive metabolic panel CBC Stable. Follow up with specialist as directed. Major depressive disorder, recurrent, mild (HCC) Relevant Orders Comprehensive metabolic panel CBC Stable off of Lexapro at this time. Other Visit Diagnoses Routine general medical examination at health care facility - Primary Encouraged a healthy diet low in cholesterol and saturated fats. Encouraged regular exercise. Screening for diabetes mellitus Relevant Orders Comprehensive metabolic panel Will notify of blood work results. Screening for deficiency anemia Relevant Orders CBC Will notify of blood work results. Screening for ischemic heart disease Relevant Orders Lipid panel Will notify of blood work results. Screening for colon cancer Relevant Orders External referral to Gastroenterology I have reviewed and reconciled the medication list with the patient today. Current Outpatient Medications Medication Sig Dispense Refill atenolol (Tenormin) 50 MG tablet Take 1 tablet (50 mg) by mouth daily. 90 tablet 1 busPIRone (Buspar) 10 MG tablet TAKE 1 TABLET BY MOUTH TWICE DAILY 180 tablet 1 lisinopril 40 MG tablet Take 1 tablet (40 mg) by mouth daily. 90 tablet 1 sildenafil (Viagra) 100 MG tablet Take 0.5 tablets (50 mg) by mouth Daily as needed for erectile dysfunction. 30 tablet 1 tamsulosin (Flomax) 0.4 MG 24 hr capsule Take 2 capsules (0.8 mg) by mouth daily. 180 capsule 0 No current facility-administered medications for this visit. Also reviewed during this visit: The following health maintenance schedule was reviewed with the patient and provided in printed form in the after visit summary: Health Maintenance Topic Date Due Medicare Advantage Annual Wellness Visit 11/05/2024 Depression Monitoring 07/16/2025 Diabetes Screening 01/08/2027 Lipid Panel 07/14/2029 Colorectal Cancer Screening 09/16/2031 DTaP/Tdap/Td Vaccines (2 - Td or Tdap) 02/07/2033 RSV Immunization for Adults Completed Influenza Vaccine Completed Pneumococcal Vaccine: 50+ Years Completed Hepatitis C Screening Completed COVID-19 Vaccine Completed RSV Immunization under 20 Months Aged Out HIB Vaccines Aged Out IPV Vaccines Aged Out Hepatitis A Vaccines Aged Out Meningococcal Vaccine Aged Out Rotavirus Vaccines Aged Out HPV Vaccines Aged Out Hepatitis B Vaccines Discontinued Zoster Vaccines Discontinued List of current healthcare providers: Patient Care Team: Mumtaz Kennedy MD as PCP - General (Family Medicine) Yomi Castro MD as Surgeon (Urology) Orders Placed This Encounter Procedures Comprehensive metabolic panel Standing Status: Future Number of Occurrences: 1 Standing Expiration Date: 01/16/2026 Lipid panel Standing Status: Future Number of Occurrences: 1 Standing Expiration Date: 01/16/2026 CBC Standing Status: Future Number of Occurrences: 1 Standing Expiration Date: 01/16/2026 External referral to Gastroenterology Standing Status: Future Standing Expiration Date: 07/19/2025 Referral Priority: Routine Referral Type: Consultation Referral Reason: Specialty Services Required Referred to Provider: Jamil Herzog MD Requested Specialty: Gastroenterology Number of Visits Requested: 1 Review of Systems Constitutional: Negative for chills and fever. HENT: Negative for hearing loss and trouble swallowing. Eyes: Negative for pain. Respiratory: Negative for cough, chest tightness, shortness of breath and wheezing. Cardiovascular: Negative for chest pain, palpitations and leg swelling. Gastrointestinal: Negative for abdominal distention, abdominal pain, blood in stool, constipation and diarrhea. Endocrine: Negative for polydipsia, polyphagia and polyuria. Genitourinary: Positive for difficulty urinating (difficulty fully emptying). Negative for dysuria and hematuria. Musculoskeleta (more content not included)... [facility] 36on 01-01-2025 36 Reviewed chart. Refi ll appropriate. RX sent. [facility] 36 Prescription Request : Last medication check: 07/14/2024 Last physical exam: 01/09/24 Next scheduled appointment: 01/16/2025 Last date of refill on this medication 07/14/24 [facility] 36on 12-17-2024 36 Blood pressure is mi ldly elevated based on reading provided in message. Please schedule a nurse visit for a BP check. Thank you. [facility] 29on 12-02-2024 29 Addended by: KIMBERLEY SHAW on: 12/04/2024 05:10 PM Modules accepted: Level of Service [facility] 36on 12-02-2024 36 Scheduled. [facility] Office Visiton 12-02-2024 Follow-up visit [id number] Lakhwinder Michaud 1950 M Date Provider Department Center 12/02/2024 [id number] DURÁN [facility] Family History Problem Relation Age of Onset Prostate cancer Father Cancer Brother Family Status - Relation Status Age at Father Brother Notes: liver cancer Level of Service:32722 [place] OFFICE/OUTPATIENT ESTABLISHED MOD MDM 30 MIN Reason for Visit and Comments: Nocturia [334] Difficulty Urinating [572741] Urinary Retention [045232] Urinary Frequency [455093] - Started a little over week ago worse at night Cough [28] Nasal Congestion [860984] [facility] Progress Noteon 12-02-2024 Progress Note Continues to have ur inary frequency, has been seen by urology. UA unremarkable for urinary tract infection. Will increase Flomax to 0.8 mg/day, recommend following up with urology sooner if able [facility] Progress Note Improving. Consisten t with viral URI. Continue Mucinex [id number]-[id number] as directed follow-up for worsening or failure for symptoms to continue to improve [facility] Progress Note Patient was identifi ed by name and Date of . Patient identified by name and date of . Urine specimen cup labeled with patient name and date of . Urine cup and wipe given to patient. Clean catch urine collected from patient. POCT Urine ordered and signed by provider. POCT urine results entered and were sent to provider. Will send bp readings via [employer] in 2 weeks. [facility] Progress Note 12/02/2024 Evans Michaud (: 1950) is a 74 y.o. male , Established patient, here for evaluation of the following chief complaint(s): Nocturia, Difficulty Urinating, Urinary Retention, Urinary Frequency (Started a little over week ago worse at night), Cough, and Nasal Congestion ASSESSMENT/PLAN: 1. Benign prostatic hyperplasia with nocturia Assessment & Plan: Continues to have urinary frequency, has been seen by urology. UA unremarkable for urinary tract infection. Will increase Flomax to 0.8 mg/day, recommend following up with urology sooner if able Orders: - tamsulosin (Flomax) 0.4 MG 24 hr capsule; Take 2 capsules (0.8 mg) by mouth daily., Starting Tu12/02/2024, Until 03/02/2025, Normal 2. Urinary tract infection symptoms - POCT urinalysis dipstick manually resulted 3. Viral URI with cough Assessment & Plan: Improving. Consistent with viral URI. Continue Mucinex [id number]-[id number] as directed follow-up for worsening or failure for symptoms to continue to improve Follow up for with specialist. SUBJECTIVE/OBJECTIVE: HPI - Evans Michaud (: 1950) is a 74 y.o. male , Established patient, here for the evaluation of the following chief complaint(s): Nocturia, Difficulty Urinating, Urinary Retention, Urinary Frequency (Started a little over week ago worse at night), Cough, and Nasal Congestion Is getting over a uri that he got about 1 week ago. No fever for past 2 days. Those symptoms are improving and he is not concerned about it. He mostly came in today for a urination issue. Urination problem- reports getting up several times a night and increased frequency with low volumn and bladder discomfort slight, has mild dysuria when urinating. No hematuria. He is established with a urologist and has another appt with them in [place] in January. He is on flomax 0.4 mg daily for BPH. States it was helping for awhile and seems to have stopped working as well. Prior to Admission medications Medication Sig Start Date End Date Taking? Authorizing Provider atenolol (Tenormin) 50 MG tablet Take 1 tablet (50 mg) by mouth daily. 10/30/24 Yes KENZIE Leung CNP busPIRone (Buspar) 10 MG tablet Take 1 tablet (10 mg) by mouth 2 times daily. 07/14/24 Yes KENZIE Dickens CNP lisinopril 40 MG tablet Take 1 tablet (40 mg) by mouth daily. 08/21/24 Yes Mumtaz Kennedy MD tamsulosin (Flomax) 0.4 MG 24 hr capsule Take 1 capsule (0.4 mg) by mouth daily. 10/30/24 Yes KENZIE Leung CNP gabapentin (Neurontin) 300 MG capsule Take 300 mg by mouth 3 times daily. Patient not taking: Reported on 12/02/2024 Historical Provider, sildenafil (Viagra) 100 MG tablet Take 0.5 tablets (50 mg) by mouth Daily as needed for erectile dysfunction. 10/23/23 10/22/24 KENZIE Leung CNP Review of Systems Constitutional: Negative for activity change, chills, fatigue and fever. Respiratory: Positive for cough (improving). Negative for shortness of breath and wheezing. Cardiovascular: Negative for chest pain. Gastrointestinal: Negative. Genitourinary: Positive for difficulty urinating, dysuria and frequency. Negative for flank pain and hematuria. Vitals: 12/02/24 1043 12/02/24 1111 BP: (!) 174/81 (!) 164/71 Pulse: 63 81 Resp: 24 Temp: 37 ?C (98.6 ?F) TempSrc: Infrared SpO2: 94% Weight: 175 lb (79.4 kg) Physical Exam Constitutional: General: He is not in acute distress. Appearance: Normal appearance. He is not ill-appearing. HENT: Head: Normocephalic and atraumatic. Nose: Congestion present. Mouth/Throat: Mouth: Mucous membranes are moist. Pharynx: Oropharynx is clear. No posterior oropharyngeal erythema. Cardiovascular: Rate and Rhythm: Normal rate and regular rhythm. Pulmonary: Effort: Pulmonary effort is normal. No respiratory distress. Breath sounds: Rhonchi (few scattered- clear with cough) present. No wheezing. Comments: Speaking full sentences without difficulty Abdominal: General: Abdomen is flat. Bowel sounds are normal. There is no distension. Palpations: Abdomen is soft. Lymphadenopathy: Cervical: No cervical adenopathy. Skin: General: Skin is warm and dry. Neurological: Mental Status: He is alert and oriented to person, place, and time. An electronic signature was used to authenticate this note. Kimberley Nguyen Claudia, KENZIE - NORMA 12/02/2024 12:21 PM [facility] Urinalysis macro (dipstick) panel (U)on 12-02-2024 Bilirubin, [facility] Blood, [facility] Negative [facility] Glucose, UA Negative [facility] Ketones, POC (mg/dL) 5 mg/dL [facility] Leukocytes, UA Negative [facility] Nitrite, UA Negative [facility] pH, UA 7.0 [facility] Protein, UA Negative [facility] Spec Grav, UA 1.015 [facility], [facility] 36on 11-11-2024 36 Rx refused, this was sent in 1 week ago have him check with the pharmacy [facility] 36 Prescription Request : Last medication check: 07/14/2024 Last physical exam: 01/09/24 Next scheduled appointment: 01/16/2025 Last date of refill on this medication 10/30/24 [facility] Lumbar Spine 2 or 3 Viewson 11-03-2024 Lumbar Spine 2 or 3 Views [facility] [address] [place] [address] Lumbar Spine 2 or 3 Views MR#: [id number] Acct: [id number] Name: EVANS MICHAUD JrNorris Rep #: [id number] : 1950 M 74 From: Vitaliy Elaine MD PCP: KATARINA Patel Status: DEP AMB Study: Lumbar Spine 2 or 3 Views Date of Exam: Exam# [id number] Ordering Dr: Mable Swanson [id number] STUDY: X-RAY - LUMBAR SPINE REASON FOR EXAM: Male, 74 years old. s/p fusion -- please do upright AP and LAT TECHNIQUE: 2 view(s) of the lumbar spine were obtained. COMPARISON: 09/18/2024 FINDINGS: Normal lumbar lordosis. Mild levoscoliosis centered at L2/L3. Status post discectomy, interbody fusion, transpedicular fixation at L4/L5 with 2 mm of anterolisthesis of L4 and L5 which is unchanged. 2 mm retrolisthesis of L2 on L3 and L3 on L4 which is also unchanged. Normal vertebral bodies and endplates. Normal disc space heights. The soft tissue structures are unremarkable. RAD/Lumbar Spine 2 or 3 Views IMPRESSION: No change from 09/18/2024. Electronically Signed: Vitaliy Elaine MD at 10:55 EST , CC: KATARINA Frank; ARNIE Russo Aircraft Machinist: Signed Normal [facility] Orthopedic Visit Reporton Orthopedic Visit Report [facility] [address] [place] [address] OFFICE VISIT Date of Service: 11/03/24 MR#: [id number] Acct: [id number] Name: EVANS MICHAUD Jr. Rep #: [id number] : 1950 Provider: ARNIE Russo Age/Sex: 74/M Location[place] [facility] [place] Status: Signed Intake Vital Signs 08/21/24 11:25 Height 5 ft 9 in Intake Visit Reasons: LUMBAR SPINE Chief Complaint: post op Allergies No Known Allergies Allergy (Verified 11/03/24 10:56) Medications ???Medication ???Instructions ???Recorded ???Confirmed ???Type atenolol 50 mg tablet 50 mg PO DAILY BP 08/31/23 11/03/24 History melatonin 10 mg capsule 10 mg PO HS PRN sleep 08/31/23 11/03/24 History tamsulosin 0.4 mg capsule 0.4 mg PO 1500 PROSTATE 08/31/23 11/03/24 History gabapentin 300 mg capsule 300 mg PO TID PAIN 10/17/23 11/03/24 History buspirone 10 mg tablet 10 mg PO BID ANXIETY 05/21/24 11/03/24 History lisinopril 40 mg tablet 40 mg PO QDAY BP 05/21/24 11/03/24 History magnesium 200 mg tablet 200 mg PO DAILY SUPPLEMENT 05/21/24 11/03/24 History acetaminophen 500 mg tablet 500 mg PO Q6H #30 tabs 08/06/24 11/03/24 Rx Have you fallen in the past year?: No PFSH Medical History Wears hearing aid Wears glasses Wears partial dentures Depression Anxiety Alcohol use Arthritis Prostate disease Back pain Restless legs Former smoker History of pain when walking Hypertension Surgical History Hx of colonoscopy Hx of prostate biopsy History of carpal tunnel surgery of right wrist History of carpal tunnel surgery of left wrist Family History Father Cancer Brother Cancer Sister Cancer Social History Smoking Status: Former smoker Tobacco: How many years used: 20 alcohol intake: current alcohol intake frequency: a few times a week Alcohol type: beer HPI LUMBAR SPINE Details: This documentation accurately reflects the service provided and the decisions made by me, ARNIE Russo 11/03/24 1052. Part of today???s visit was documented by Vanessa THOMPSON, acting as scribe. EVANS MICHAUD is a 74 year old M here today for 3 month post-op, s/p lumbar fusion, dos:08/05/24. He does still have the numbness into his bilateral anterior thighs but it has slightly improved. He has also been using a tens unit on his thighs which he thinks has been helping as well. He also thinks his exercises are helping as well. He continues to them at home and plans to be done with therapy. He does still have some pain but he states there isn't as much as there was. He takes Tylenol occasionally for pain. Ortho Exam Spine SPINE TESTING CERVICAL THORACIC LUMBAR Musculoskeletal Strength 0=absent - 5=normal Details: Examination of the back and belly show incisions well-healed. Neurologic motion of lower extremity shows 5 x 5 power normal shows normal sensations in all dermatomes. Coding Level of Care Code Global Post Op Diagnoses S/P lumbar fusion Z98.1 Assessment and Plan Assessment and Plan (1) S/P lumbar fusion: Status: Acute Orders: Orders Lumbar Spine 2 or 3 Views Today Z98.1 - Arthrodesis status Plan Obtained and reviewed x-rays today with the patient. X-rays show bone graft and hardware in good position. Patient is doing well 3 months out from L4-5 fusion. He has not needed any pain medications. Discussed that all restrictions have been lifted at this time but encouraged him to ease into activity. He will continue to do the guided home exercise program. He will continue to use the TENs unit at home for the anterior thigh numbness which he feels has been slowly improving. Also discussed that he can use a brush or a dry cloth to rub over the area that is numb to help stimulate the nerves. Discussed that this numbness will hopefully continue to improve but might not completely go away, which he says is okay as it is painless. He does continue to get some mild soreness in his back at the end of the day that improves with Tylenol. He will follow up for his one year follow up around August 05 2025, sooner if needed for any new issues. Patient is in agreement. Clinical Quality Measures Falls Risk Screening/Assistive Devices Have you fallen in the past year?: No 11/03/24 3153 Date Mable Armas Signature: Date (if applicable) CC: KATARINA Frank [facility] 36on 10-30-2024 36 Reviewed chart. Refi ll appropriate. RX sent. Normal [facility] 36 Prescription Request : Last medication check: 09/03/23 Last physical exam: 01/09/24 Next scheduled appointment: 01/16/25 Last date of refill on this medication 05/15/24 90 day 1 refill Normal [facility] Lumbar Spine 2 or 3 Viewson 09-18-2024 Lumbar Spine 2 or 3 Views [facility] [address] [place] [address] Lumbar Spine 2 or 3 Views MR#: [id number] Acct: [id number] Name: EVANS MICHAUD Jr. Rep #: [id number] : 1950 M 74 From: Merna simons MD PCP: KATARINA Patel Status: DEP AMB Study: Lumbar Spine 2 or 3 Views Date of Exam: Exam# [id number] Ordering Dr: Mable Swanson [id number] HISTORY: s/p fusion -- please do upright AP and LAT. TECHNIQUE: XR Spine Lumbar 2 or 3 Views. COMPARISON: 08/21/2024. FINDINGS: VERTEBRAE: Vertebral body heights preserved. Degenerative osteophytes present. Degenerative changes of the posterior elements. Unchanged appearance of L4-5 posterolateral spinal fusion hardware. ALIGNMENT: Chronic mild anterolisthesis of L4-5. No significant scoliosis. INTERVERTEBRAL DISCS: Interbody fusion material at L4-5 again seen. SOFT TISSUES: Aortoiliac atherosclerosis present. RAD/Lumbar Spine 2 or 3 Views IMPRESSION: No acute fracture or dislocation identified in the lumbar spine. Unchanged appearance of L4-5 spinal fusion. Electronically Signed: Merna Chang MD at 11:20 EST , CC: KATARINA Frank; ARNIE Russo Aircraft Machinist: Signed Normal [facility] Orthopedic Visit Reporton Orthopedic Visit Report [facility] [address] [place] [address] OFFICE VISIT Date of Service: 09/18/24 MR#: [id number] Acct: [id number] Name: EVANS MICHAUD Jr. Rep #: [id number] : 1950 Provider: ARNIE Russo Age/Sex: 74/M Location: [facility] [place] Status: Signed Intake Vital Signs 08/05/24 07:01 08/21/24 11:25 Height 5 ft 9 in 5 ft 9 in Intake Visit Reasons: LUMBAR SPINE Is patient in pain?: Yes Allergies No Known Allergies Allergy (Verified 09/18/24 13:39) Medications ???Medication ???Instructions ???Recorded ???Confirmed ???Type atenolol 50 mg tablet 50 mg PO DAILY BP 08/31/23 09/18/24 History melatonin 10 mg capsule 10 mg PO HS PRN sleep 08/31/23 09/18/24 History tamsulosin 0.4 mg capsule 0.4 mg PO 1500 PROSTATE 08/31/23 09/18/24 History gabapentin 300 mg capsule 300 mg PO TID PAIN 10/17/23 09/18/24 History buspirone 10 mg tablet 10 mg PO BID ANXIETY 05/21/24 09/18/24 History lisinopril 40 mg tablet 40 mg PO QDAY BP 05/21/24 09/18/24 History magnesium 200 mg tablet 200 mg PO DAILY SUPPLEMENT 05/21/24 09/18/24 History acetaminophen 500 mg tablet 500 mg PO Q6H #30 tabs 08/06/24 09/18/24 Rx sennosides 8.6 mg-docusate sodium 2 tab PO BID PRN constipation #30 08/06/24 09/18/24 Rx 50 mg tablet (Stimulant Laxative tabs Plus) Have you fallen in the past year?: No PFSH Medical History Wears hearing aid Wears glasses Wears partial dentures Depression Anxiety Alcohol use Arthritis Prostate disease Back pain Restless legs Former smoker History of pain when walking Hypertension Surgical History Hx of colonoscopy Hx of prostate biopsy History of carpal tunnel surgery of right wrist History of carpal tunnel surgery of left wrist Family History Father Cancer Brother Cancer Sister Cancer Social History Smoking Status: Former smoker Tobacco: How many years used: 20 alcohol intake: current alcohol intake frequency: a few times a week Alcohol type: beer HPI LUMBAR SPINE Details: This documentation accurately reflects the service provided and the decisions made by me, ARNIE Russo 09/18/24 3317. Part of today???s visit was documented by [ ], acting as scribe. EVANS MICHAUD is a 74 year old M here today for s/p L4-5 posterior percutaneous pedicle screw instrumented fusion dos 08/05/24. Patient states that he is getting better, each week he is slowly improving. He denies any pain medications. Patient notes that he has numbness into his bilateral anterior thighs which has increased prior to surgery. Says that this is similar to the numbness that he had at the 2-week follow-up. Does not notice any improvement to this numbness however he says that this is not causing him any pain. Patient notes that he is currently in physical therapy which some of the exercises increase his pain. Ortho Exam Spine SPINE TESTING CERVICAL THORACIC LUMBAR Musculoskeletal Strength 0=absent - 5=normal Details: Examination of the back and belly show incisions well-healed. Neurologic motion of lower extremity shows 5 x 5 power normal shows normal sensations in all dermatomes. Coding Level of Care Code Global Post Op Diagnoses S/P lumbar fusion Z98.1 Assessment and Plan Assessment and Plan (1) S/P lumbar fusion: Status: Acute Orders: Orders Lumbar Spine 2 or 3 Views Today Z98.1 - Arthrodesis status Plan Obtained and reviewed x-rays today with the patient. X-rays show bone graft and hardware in good position. Patient is doing well 6 weeks out from L4-5 fusion. He has not needed any pain medications. He is in physical therapy who have given him a home exercise program which includes numerous stretches and exercises. He says that in order to do all of the stretches and exercises it takes him up to 2 hours/day. Discussed these exercises with him and recommended that he primarily do the ones that he thinks are helping him the most and as long as he is doing about an hour of this home exercise program per day he should be doing enough. Unsure why he is having this continued bilateral anterior thigh numbness, however expect that it will improve as he continues to get further out from his surgery. He did have the right sided numbness prior to surgery. However it is reassuring that he has no pain. He has a TENS unit at home and discussed that he could use this over the area of his thigh that is the most numb to see if that does not have any benefit. He continues to walk at home and to help with different chores including cooking and laundry. Continue no bending (more content not included)... Normal [facility] 36on 09-05-2024 [facility] for a 90 day supply plus one refill. Normal [facility] 36 Prescription Request : Sent 08/21/24 90 day 1 refill Normal [facility] Inital Evaluation (1) - PTon 09-01-2024 Inital Evaluation (1) - PT [facility] Physical Therapy [address] [place] [address] / REHABILITATION SERVICES INITIAL EVALUATION MR#: [id number] Acct: [id number] Name: EVANS MICHAUD Jr. Rep #: [id number] : 1950 74 From: Eloy Bocanegra DPT, OCS, CSCS Referring Dr.: Dr. Norberto Lu MD Status: REG R Insurance: [employer] SELF PAY INSURANCE Patient's Visit Information Visit Information Visit Information: EVANS MICHAUD Jr. is a 74 year old M referred to Physical Therapy by Dr. Norberto Lu MD with a diagnosis of s/p lumbar fusion around august. Date of Evaluation: 09/01/24 Physical Therapist: Eloy Bocanegra DPT, OCS, CSCS Visit Plan Frequency: 1-2x /Week Duration: 3 Months Plan: 1-2x/week (start one, pt preference due to copay) for 3 months overall(start 4 weeks) for. IE: HEP Ho given for PPTx10, trunk rotation supine x10, skc x10, HS and quad stretch supine 30 3x, walking 10-20 min 2x./day per tolerance, ice and precautions of no BLT EG to start weekly for progression of back tissue ROM HEP ext and rotation , scar massage and rollout upper legs(HS adn quad sretches), teach core isometric and LE and postural strength to HEP(pt would like to do most at home if possible.) Also progress home walking program and add recumbent bike as he has one at home. Subjective Subjective: Had a lumbar surgery 4 weeks ago. Fused L2/3 due to malaligned spondylolisthesis. Had severe back and R leg pain >L and many sleepless nights. Now has feeling in both legs now better than pain. Gets pain at operation site. LBP is much better. Not sure there is any back pain left but it is mild right now and 70% better overall. Legs were weak prior to surgery and still feel weak. Can get up and down stairs to basement but not confident., Sleep is not great: LBP from surgery is keeping him up at night. 10:30-2:30 is OK and then it is worse pain. Basic aDLs: dress, bathroom, shower, shower himself. steps carefully. Used walker for first 10 days but no more needed. Retired. Spends day outdoors with a little gardening in [employer], used to golf and fish but not lately. Regualr ex: not lately but has bike and rowing machinesmall free weights.(lunges, squats curls) None for back No lifting bending or twisting for 3 months is precaution. Has back brace at home that he used prior to surgery. walks up to 15 minutes but back pain worsens but feels better sitting. Pain LBP: Pain Intensity (Out of 10): 4 Pain Intensity Range: 2 and 6 Objective Objective: Walks slightly hunched FW but i with good gait pattern albeit short steps and slow. Transfers chair with UE easily and I, steps reciprocally with one rail I, obviously LE weakness desending but able. Bed trasnfers are slow via sidelying and I. Incisions are posterior either side of sacrum and healed well without signs of excessive redness heat or swelling , mild scarring visible adhering to underlying tissue. Tender moderately around incisions to touch. LB AROM gently tested into extension and brief slight FW flexion both of which were comfortable. sB was max limited but not painful. core strength 3+/5 ext adn flexion reflexes 2/3 patella and achilles B. sensation LE WNL to fros slight touch B. strength hip ext 3+, abd 3+, flexion 3+, knee ext and flexion 4-, DF and PF 4. HS max tight at -45 90/90 test, quad mod tight at 90 degrees in supine edge of table stretch good balance today Balance/Special Test Scores Oswestry Low Back Score: 32 Goals Goal 1:: ST: I appropriate LE, postural, core strength program via HEP Goal Time Frame: 4-6 Weeks Goal 2:: Pain in back 0/10 at resdt and 2/10 at worst and 80% improved Goal Time Frame: 4-6 Weeks Goal 3:: sleep 6 hours without waking and back to sleep quickly Goal Time Frame: 4-6 Weeks Goal 4:: LT: Pt back to 95% of activity without increased pain Goal Time Frame: 8-12 Weeks Goal 5:: oswestry score 5 or less Goal Time Frame: 8-12 Weeks Rehabilitation Potential Physical Therapy Diagnosis: stiffness and weakness and limitations from surgery effecting function. Rehabilitation Potential: Good Anticipated Interventions Patient/Client Instruction: Educate patient on: Condition and Plan of Care For the Purpose of:: To decrease pain, To decrease swelling/inflammation, To increase ROM, To improve nutrient delivery to tissue, To improve muscle performance and motor function, To increase tolerance to activity/condition/positio n and To improve gait and locomotor functions Therapeutic Exercise to Include: Strength training, Postural training, Flexibilty training, Gait and locomotor training, Passive ROM and Active ROM For the Purpose of:: To decrease pain, To decrease swelling/inflammation, To increase ROM, To improve nutrient delivery to tissue, To increase oxygenation perfu (more content not included)... Normal [facility] 36on 08-21-2024 36 Prescription Request : Last medication check: 07/14/24 Last physical exam: 01/09/24 Next scheduled appointment: 01/16/25 Last date of refill on this medication 02/20/24 90 and 1 refill Normal [facility] Lumbar Spine 2 or 3 Viewson 08-21-2024 Lumbar Spine 2 or 3 Views [facility] [address] [place] [address] Lumbar Spine 2 or 3 Views MR#: [id number] Acct: [id number] Name: EVANS MICHAUD Jr. Rep #: [id number] : 1950 M 74 From: Juan Linda PCP: KATARINA Patel Status: DEP AMB Study: Lumbar Spine 2 or 3 Views Date of Exam: Exam# [id number] Ordering Dr: Mable Swanson [id number] STUDY: X-RAY - LUMBAR SPINE REASON FOR EXAM: Male, 74 years old. s/p lumbar fusion -- please do upright AP and LAT TECHNIQUE: 2 view(s) of the lumbar spine were obtained. COMPARISON: Lumbar spine radiograph August 06, 2024 FINDINGS: Normal lumbar lordosis. There is no substantial scoliosis. There is a normal alignment of the vertebrae. Posterior fusion rods and pedicular screws L4-5. Intervertebral disc spacer. Screw transfixes the L4 vertebral body on the left. Normal vertebral bodies and endplates. Normal disc space heights. The soft tissue structures are unremarkable. RAD/Lumbar Spine 2 or 3 Views IMPRESSION: Posterior interbody fusion L4-5 Electronically Signed: Juan Egan MD at 19:47 EDT , CC: KATARINA Frank; ARNIE Russo Aircraft Machinist: Signed Normal [facility] Orthopedic Visit Reporton Orthopedic Visit Report [facility] [address] [place] [address] [address] [place] [address] OFFICE VISIT Date of Service: 08/21/24 MR#: [id number] Acct: [id number] Name: EVANS MICHAUD Jr. Rep #: [id number] : 1950 Provider: Dr. Norberto Lu MD Age/Sex: 74/M Location[place] [facility] [place] Status: Signed Intake Vital Signs 05/21/24 09:24 08/05/24 07:01 Height 5 ft 9 in 5 ft 9 in Intake Visit Reasons: lumbar spine Chief Complaint: post op Accompanied by: Is patient in pain?: Yes Pain scale (1-10): 8 Allergies No Known Allergies Allergy (Verified 08/21/24 10:26) Medications ???Medication ???Instructions ???Recorded ???Confirmed ???Type atenolol 50 mg tablet 50 mg PO DAILY BP 08/31/23 08/21/24 History melatonin 10 mg capsule 10 mg PO HS PRN sleep 08/31/23 08/21/24 History tamsulosin 0.4 mg capsule 0.4 mg PO 1500 PROSTATE 08/31/23 08/21/24 History gabapentin 300 mg capsule 300 mg PO TID PAIN 10/17/23 08/21/24 History buspirone 10 mg tablet 10 mg PO BID ANXIETY 05/21/24 08/21/24 History lisinopril 40 mg tablet 40 mg PO QDAY BP 05/21/24 08/21/24 History magnesium 200 mg tablet 200 mg PO DAILY SUPPLEMENT 05/21/24 08/21/24 History acetaminophen 500 mg tablet 500 mg PO Q6H #30 tabs 08/06/24 08/21/24 Rx meloxicam 15 mg tablet 15 mg PO DAILY #30 tabs 08/06/24 08/21/24 Rx sennosides 8.6 mg-docusate sodium 2 tab PO BID PRN constipation #30 08/06/24 08/21/24 Rx 50 mg tablet (Stimulant Laxative tabs Plus) methocarbamol 500 mg tablet 750 mg (1.5 x 500 mg) PO TID PRN 08/21/24 08/21/24 Rx pain/spasms #30 tabs Have you fallen in the past year?: No PFSH Medical History Wears hearing aid Wears glasses Wears partial dentures Depression Anxiety Alcohol use Arthritis Prostate disease Back pain Restless legs Former smoker History of pain when walking Hypertension Surgical History Hx of colonoscopy Hx of prostate biopsy History of carpal tunnel surgery of right wrist History of carpal tunnel surgery of left wrist Family History Father Cancer Brother Cancer Sister Cancer Social History Smoking Status: Former smoker Tobacco: How many years used: 20 alcohol intake: current alcohol intake frequency: a few times a week Alcohol type: beer HPI lumbar spine Details: This documentation accurately reflects the service provided and the decisions made by me, Dr. Norberto Lu MD 08/21/24 1024. Part of today???s visit was documented by Vanessa THOMPSON, acting as scribe. EVANS MICHAUD is a 74 year old M here today for 2 week post op L4-5 oblique lumbar interbody fusion (OLIF). He states that he is still having a tremendous amount of pain. He rates his pain today an 8/10. He states that he is taking Tylenol and Meloxicam but it hardly gives him any relief. Ortho Exam Spine SPINE TESTING CERVICAL THORACIC LUMBAR Musculoskeletal Strength 0=absent - 5=normal Details: Examination of the back and belly show incisions well-healed. Neurologic motion of lower extremity shows 5 x 5 power normal shows normal sensations in all dermatomes. Coding Level of Care Code Global Post Op Diagnoses S/P lumbar fusion Z98.1 Assessment and Plan Assessment and Plan (1) S/P lumbar fusion: Status: Acute Orders: Orders Lumbar Spine 2 or 3 Views 08/21/24 ARNIE Russo Z98.1 - Arthrodesis status Medications: Refilled methocarbamol 750 mg (1.5 x 500 mg) PO TID PRN 30 tabs 0RF pain/spasms Dr. Norberto Lu MD Plan X-rays of the lumbar spine that really clinic show hardware and bone graft in good position. At this point, I would like him to start outpatient physical therapy. Patient requested refill for methocarbamol. Advised patient to wean off of opioids with time. Patient will see me back in 4 weeks for 6-week follow-up visit. Patient was in agreement. Clinical Quality Measures Falls Risk Screening/Assistive Devices Have you fallen in the past year?: No 08/23/24 1335 Date Norberto Armas Signature: Date (if applicable) CC: SERVICE STATION EQUIPMENT MECHANIC-C Candice Frank Normal [facility] Basic Metabolic Profile (BMP )on 08-06-2024 BUN/CRE 11.3 RATIO Normal 08-24 [facility] Comment on above: Performed By: #### L 500.2500, L100.0500 ####[facility] [address] [place], [address] CA,Total 8.6 mg/dL Normal 8.5-10.1 [facility] Comment on above: Performed By: #### L 500.2500, L100.0500 ####[facility] [address] [place], [address] Chloride [Moles/Vol] 96 mmol/L Low 98-107 [facility] Comment on above: Performed By: #### L 500.2500, L100.0500 ####[facility] [address] [place], [address] CO2 [Moles/Vol] 26.0 mmol/L Normal 21.0-32.0 [facility] Comment on above: Performed By: #### L 500.2500, L100.0500 ####[facility] [address] [place], [address] Creatinine [Mass/Vol] 1.06 mg/dL Normal 0.70-1.30 [facility] Comment on above: Result Comment: The validity of the calculated GFR GFRAA in patients over 70 years has not been determined. Clinical correlation is essential. Performed By: #### L 500.2500, L100.0500 ####[facility] [address] [place], [address] ECRCL 61.14 ml/min Normal [facility] Comment on above: Performed By: #### L 500.2500, L100.0500 ####[facility] [address] [place], [address] EST GFR - AA 88 mL/min Normal >60 [facility] Comment on above: Result Comment: Afri can [place] GFR Calc Performed By: #### L 500.2500, L100.0500 ####[facility] [address] [place], [address] GAP 6 Normal 5-15 [facility] Comment on above: Performed By: #### L 500.2500, L100.0500 ####[facility] [address] [place], [address] GFR/1.73 sq M.predicted among non-blacks MDRD (S/P/Bld) [Vol rate/Area] 73 mL/min/{1.73_m2} Normal >60 [facility] Comment on above: Result Comment: Non- GFR Calc Performed By: #### L 500.2500, L100.0500 ####[facility] [address] [place], [address] Glucose [Mass/Vol] 131 mg/dL High 74-106 [facility] Comment on above: Result Comment: Fast ing Glucose result greater than or equal to 126 mg/dL suggests DIABETES MELLITUS per A.D.A. criteria. Performed By: #### L 500.2500, L100.0500 ####[facility] [address] [place], [address] Potassium [Moles/Vol] 4.3 mmol/L Normal 3.5-5.1 [facility] Comment on above: Performed By: #### L 500.2500, L100.0500 ####[facility] [address] [place], [address] Sodium [Moles/Vol] 129 mmol/L Low 136-145 [facility] Comment on above: Performed By: #### L 500.2500, L100.0500 ####[facility] [address] [place], [address] Urea nitrogen [Mass/Vol] 12 mg/dL Normal 7-18 [facility] Comment on above: Performed By: #### L 500.2500, L100.0500 ####[facility] [address] [place], [address] CBC-Complete Blood Cnt No Di ffon 08-06-2024 Erythrocyte distribution width (RBC) [Ratio] 11.3 % Low 11.6-14.6 [facility] Comment on above: Performed By: #### L 500.2500, L100.0500 ####[facility] [address] [place], [address] Hematocrit (Bld) [Volume fraction] 35.7 % Low 40-54 [facility] Comment on above: Performed By: #### L 500.2500, L100.0500 ####[facility] [address] [place], [address] Hemoglobin (Bld) [Mass/Vol] 12.3 g/dL Low 13.0-16.5 [facility] Comment on above: Performed By: #### L 500.2500, L100.0500 ####[facility] [address] [place], [address] MCH (RBC) [Entitic mass] 34.1 pg High 27.0-32.0 [facility] Comment on above: Performed By: #### L 500.2500, L100.0500 ####[facility] [address] [place], [address] MCHC (RBC) [Mass/Vol] 34.5 g/dL Normal 32-36 [facility] Comment on above: Performed By: #### L 500.2500, L100.0500 ####[facility] [address] [place], [address] MCV (RBC) [Entitic vol] 98.9 fL High 80-94 [facility] Comment on above: Performed By: #### L 500.2500, L100.0500 ####[facility] [address] [place], [address] Platelet mean volume (Bld) [Entitic vol] 9.5 fL Normal 6.2-12.0 [facility] Comment on above: Performed By: #### L 500.2500, L100.0500 ####[facility] [address] [place], [address] Platelets (Bld) [#/Vol] 203 10*3/uL Normal 150-450 [facility] Comment on above: Performed By: #### L 500.2500, L100.0500 ####[facility] [address] [place], [address] RBC (Bld) [#/Vol] 3.61 10*6/uL Low 4.6-6.2 [facility] Comment on above: Performed By: #### L 500.2500, L100.0500 ####[facility] [address] [place], [address] RDW SD 41.5 fl Normal 35.1-43.9 [facility] Comment on above: Performed By: #### L 500.2500, L100.0500 ####[facility] [address] [place], [address] WBC (Bld) [#/Vol] 8.3 10*3/uL Normal 4.4-11.0 [facility] Comment on above: Performed By: #### L 500.2500, L100.0500 ####[facility] [address] [place], [address] Lumbar Spine 2 or 3 Viewson 08-06-2024 Lumbar Spine 2 or 3 Views [facility] Imaging Services [address] [place] [address] Lumbar Spine 2 or 3 Views MR#: [id number] Acct: [id number] Name: EVANS MICHAUD Jr. Rep #: [id number] : 1950 M 74 From: Erlinda Linda PCP: KATARINA Patel Status: DIS IN Study: Lumbar Spine 2 or 3 Views Date of Exam: Exam# [id number] Ordering Dr: Mable Swanson [id number] INDICATION: s/p lumbar fusion -- please do upright AP and LAT EXAMINATION/TECHNIQUE: X-RAY - XR Spine Lumbar 2 or 3 Views COMPARISON: Prior study dated: 05/21/2024 FINDINGS: Surgical hardware posterior vertical bars and pedicle screws and interbody device at L4-5. Minimal anterolisthesis at L4-5, decreased compared to the prior which was preop. The vertebral bodies are normal in height. No definite fracture demonstrated. Disc space narrowing and osteophytes at multiple levels. No paravertebral soft tissue mass identified. Aortic calcifications noted. RAD/Lumbar Spine 2 or 3 Views IMPRESSION: Postsurgical changes at L4-5 with minimal anterolisthesis. Electronically Signed: Erlinda Naoples MD at 8:11 EDT , CC: KATARINA Frakn; ARNIE Russo Aircraft Machinist: Signed Normal [facility] Bedside Glucoseon 08-05-2024 FINGERSTICK GLU 101 mg/dL Normal 74-106 [facility] Comment on above: Result Comment: ANANDA CHURCHILL OF PATIENT CARE PER NURSING PROTOCOL Performed By: #### L 501.080 ####[facility] [address] [place], [address] Consultation - Hospitaliston 08-05-2024 Consultation - Hospitalist [facility] Medical Records Department [address] [place] [address] Consultation - Hospitalist 08/05/24 1549 MR#: [id number] Acct: [id number] Name: EVANS MICHAUD Jr. Rep #: [id number] : 1950 74 From: Coy Burkett DO PCP: KATARINA Patel Status:ADM IN Location: [facility] CF016-2 Assessment Plan Assessment/Plan (1) Spondylolisthesis, lumbar region: (2) S/P lumbar fusion: PLAN: Plan Patient is a 74-year-old male who presented to [facility] on 08/05/2024 for planned lumbar spine procedure. Medicine consulted postoperatively for medical management. 1. Lumbar spine stenosis with neurogenic claudication and L4-5 spondylolisthesis ??? Orthopedic surgery primary. S/p L4-5 lumbar fusion procedure with Dr. Lu on 08/05. Tolerated procedure well, no intraoperative complications. PT/OT/case management consulted. Pain control with scheduled Tylenol, home gabapentin, Mobic, oxycodone as needed and IV morphine as needed. Senna scheduled for bowel regimen. Lovenox for DVT prophylaxis. Preop labs with no issues, follow- up CBC and BMP tomorrow. Further management per orthopedics. 2. Depression/anxiety ??? Stable. Continue home BuSpar and melatonin at night as needed. 3. Hypertension ??? Mildly hypertensive to 140 systolic postoperatively. Okay to resume home atenolol and lisinopril tomorrow. 4. BPH with obstructive symptoms ??? Stable. Continue home Flomax. 5. Former tobacco use ??? Encouraged continued cessation. DVT prophylaxis: Lovenox Total clinical time spent by myself addressing the patient's medical issues, reviewing all the data, and collaborating with patient's care team: 35 minutes. HPI Consult Data Date of Consult: 08/05/24 HPI Narrative Reason for Consultation: Postoperative medical management HPI Narrative: EVANS MICHAUD, is a 74 M who presented to [facility] on 08/05/2024 for planned lumbar spine procedure. Medicine consulted postoperatively for medical management. Patient has history of L4-5 spondylolisthesis with stenosis and neurogenic claudication. He had an L4-5 spinal fusion done today with Dr. Lu. Tolerated procedure well, no intraoperative complications. I saw the patient at bedside on the floor this afternoon, was present. Patient was sitting up in bed and conversing normally. He did appear to be in mild discomfort due to low back pain. Patient states the pain feels like soreness at the operative site with some discomfort with motion. Denies significant radiation of the pain currently. Has not gotten out of bed yet since the procedure. He otherwise denies any other pain or discomfort. Denies any fevers or chills. Has some anxiety at baseline and feels somewhat anxious currently especially due to the pain. No other acute concerns at this time. [facility] Medical History Wears hearing aid Wears glasses Wears partial dentures Depression Anxiety Alcohol use Arthritis Prostate disease Back pain Restless legs Former smoker History of pain when walking Hypertension Home Medications ???Medication ???Instructions ???Recorded ???Last Taken ???Type atenolol 50 mg tablet 50 mg PO DAILY BP 08/31/23 08/05/24 History melatonin 10 mg capsule 10 mg PO HS PRN sleep 08/31/23 08/04/24 History tamsulosin 0.4 mg capsule 0.4 mg PO 1500 PROSTATE 08/31/23 08/04/24 History gabapentin 300 mg capsule 300 mg PO TID PAIN 10/17/23 08/05/24 History buspirone 10 mg tablet 10 mg PO BID ANXIETY 05/21/24 08/05/24 History lisinopril 40 mg tablet 40 mg PO QDAY BP 05/21/24 08/05/24 History magnesium 200 mg tablet 200 mg PO DAILY SUPPLEMENT 05/21/24 08/04/24 History Allergy/AdvReac Type Severity Reaction Status Date / Time No Known Allergies Allergy Verified 08/05/24 06:59 Family History Father Cancer Brother Cancer Sister Cancer Surgical History Hx of colonoscopy Hx of prostate biopsy History of carpal tunnel surgery of right wrist History of carpal tunnel surgery of left wrist Social History Smoking Status: Former smoker Tobacco: How many years used: 20 alcohol intake: current alcohol intake frequency: a few times a week Alcohol type: beer ROS Constitutional Constitutional: Reports fatigue; Denies chills, fever(s) or weakness Eyes Eyes: Denies change in vision Cardiovascular Cardiovascular: Denies chest pain Respiratory/Chest Respiratory/Chest: Denies shortness of breath at rest Gastrointestinal Gastrointestinal: Denies abdominal pain Musculoskeletal Musculoskeletal: Reports back pain; Denies myalgias Neurologic Neurologic: Denies dizzine (more content not included)... Normal [facility] Lumbar Spine 2 or 3 Viewson 08-05-2024 Lumbar Spine 2 or 3 Views [facility] Imaging Services [address] [place], [place] [address] Lumbar Spine 2 or 3 Views MR#: [id number] Acct: [id number] Name: EVANS MICHAUD Jr. Rep #: [id number] : 1950 M 74 From: Vitaliy Elaine MD PCP: KATARINA Patel Status: ADM IN Study: Lumbar Spine 2 or 3 Views Date of Exam: Exam# [id number] Ordering Dr: Norberto Lu MD [id number] PROCEDURE: Lumbar spine Technique: 1:57 minutes of fluoroscopy of the lumbar spine and visualized upper arm during discectomy, interbody fusion, and transpedicular fixation and 12 images are limited for interpretation. RAD/Lumbar Spine 2 or 3 Views IMPRESSION: Fluoroscopy during lumbar spine surgery. Electronically Signed: Vitaliy Elaine MD at 13:58 EDT , CC: KATARINA Frank; Dr. Norberto Lu MD Aircraft Machinist: Signed [facility] MR/POSTOP.ANE 08-05-2024 MR/POSTOP.[facility] Medical Records Department [address] [place] [address] Anesthesia Postop Eval I 08/05/24 1229 MR#: [id number] Acct: [id number] Name: EVANS MICHAUD Rep #: [id number] : 1950 74 From: Jennifer Fitzgerald PCP: KATARINA Patel Status:ADM IN Y Race: C Location: [place] [address] Anesthesia: Postop Eval I Current Vital Signs Temperature: 96.9 F Pulse Rate: 66 Blood Pressure: 143/80 Respiratory Rate: 16 Pulse Ox: 98 Oxygen Delivery Method: Room Air Assessment Airway patent: Yes Spontaneous unlabored respirations: Yes Mental status: Awake and Calm nausea: No Vomiting: No Anesthesia Complication: No Fluid Hydration Crystalloid volume administer (ml): 1,300 Total IV fluid infused: 1,300 Progress Note Anesthesia document: Postop Eval 1 completed: Yes 08/05/24 1241 Date Jennifer Armas Signature: Date CC: Signed [facility] MR/WFRCGKLH0rr 08-05-2024 MR/POSTOPAN2 [facility] Medical Records Department [address] [place] [address] Anesthesia Postop Eval II 08/05/24 1634 MR#: [id number] Acct: [id number] Name: EVANS MICHAUD Jr. Rep #: [id number] : 1950 74 From: Daniele Clinton MD PCP: KATARINA Patel Status:ADM IN Y Race: C Location: [place] [address] Anesthesia Postop Eval I Sum Postop Eval Completion status Anesthesia document: Postop Eval 1 completed: Yes Anesthesia Postop Eval I Summary Anesthesia Postop Eval I Summary: Anesthesia Postop Eval I: Assessment Summary Airway patent Yes 08/05/24 12:41 HEEL SEAT [email or web address].[email or web address] Spontaneous unlabored Yes 08/05/24 12:41 HEEL SEAT TRIMMER.GDOTT respirations Mental status Awake,Calm 08/05/24 12:41 HEEL SEAT TRIMMER.GDOTT nausea No 08/05/24 12:41 HEEL SEAT TRIMMER.GDOTT Vomiting No 08/05/24 12:41 HEEL SEAT TRIMMER.GDOTT Anesthesia Postop Eval I: Fluid Summary Crystalloid volume administer 1,300 08/05/24 12:41 HEEL SEAT TRIMMER.GDOTT (ml) Colloids volume administered ( ml) Blood Product volume administered (ml) Total IV fluid infused 1,300 08/05/24 12:41 HEEL SEAT TRIMMER.GDOTT Anesthesia Postop Eval I: Summary Notes Anesthesia Complication No 08/05/24 12:41 HEEL SEAT TRIMMER.GDOTT Anesthesia Complication Comment: Post-operative progress note Anesthesia: Postop Eval II Evaluation Mental status: Awake and Calm Pain Level: 2 nausea: No Vomiting: No Complications Anesthesia Complication: No 08/05/24 163 Date Daniele Clinton MD Cosigner Signature: Date CC: Signed Normal [facility] Operative Reporton 4 Operative Report [facility] Medical Records Department [address] [place] [address] [place] [address] Operative Report 08/05/24 1203 MR#: [id number] Acct: [id number] Name: EVANS MICHAUD Jr. Rep #: [id number] : 1950 74 From: Norberto Lu MD PCP: KATARINA Patel Status:ADM IN [facility] Report of Operation Date of Procedure: 08/05/24 Description of Surgical Findings:: Preoperative diagnosis: L4-5 spondylolisthesis, stenosis with neurogenic claudication Postoperative diagnosis: Same Name of procedures: L4-5 posterior percutaneous pedicle screw instrumented fusion, prone: ??? L4-5 posterior spinal fusion 28285 ??? L4-5 posterior pedicle screw instrumentation 99368 ??? Allograft cancellous chips Attending Surgeon: Dr. Norberto Lu Estimated blood loss: 40 mL (total for entire case) Anesthesia: General Complications: None Description of procedure: After the anterior procedure was complete, the patient was then turned supine. The patient was then transferred to Sean table in prone position. Back was prepped and draped in usual fashion. C-arm AP view was then taken. C-arm was positioned in a way that L4 was centralized and superior endplate of was parallel to the beam. Spinous process was centered between the pedicles. Midline was marked with skin marker and lateral borders of the pedicles were also marked. Skin marker was also utilized to tamie transversely across the middle of the pedicles at L4. 2 longitudinal paramedian incisions of 1 inch were placed. The fascia was incised vertically. Finger dissection was utilized to palpate the transverse process and facet joint. Viper Prime screws with towers were inserted and docked onto the transverse processes. This was then slowly moved medially to reach the superior articular process of L4. This was then confirmed on C-arm and then a mallet was utilized to drive the trocar into the pedicle going up to the medial wall of the pedicle on AP view. This was performed both sides. C-arm lateral view confirmed that the tip of the trocar was in the vertebral body, and the screw was advanced into the pedicle and vertebral body. This was repeated similarly at L5 bilaterally. Screw sizes were 7 x 50 mm at L4 and L5 on both sides. 40 mm precontoured titanium 5.5 mm lordotic renzo on Both sides were then passed through the screw extensions and reduced down to the screws with the help of Visionarity instrumentation system on both sides. AP and lateral view of the C-arm showed good positioning of the screws and cages. Final tightening with the torque screwdriver was then completed. Bernie was utilized to roughen the facet joint at L4-5 on the right side. Cancellous allograft bone chips mixed with bone marrow aspirate were then placed over this decorticated area. Hemostasis was achieved. Closure was done in layers with 0 Vicryls for the fascia, 2-0 Vicryls for the subcutaneous tissue, and Monocryl for the skin. Dermabond was applied. Dressings were applied covered with Tegaderm. The patient was then turned supine onto a hospital bed. The patient was extubated and taken to PACU in stable condition. The patient tolerated the procedure well and no complications occurred. Depuy Hinkley cage Viper Prime minimally invasive pedicle screw instrumentation system was utilized in this case. No dural tear was identified intraoperatively. I was present for the entirety of the case and performed the surgery. Surgeon: Norberto Lu scaler packer: Mable Swanson Procedures Musculoskeletal 20xxx-29xxx: Other Procedure See Report 08/05/24 1205 Cosigner Signature (if applicable): CC: MEJIA-C Candice Frank; Dr. Norberto Lu MD Signed Normal [facility] Operative Report [facility] Medical Records Department [address] [place] [address] Operative Report 08/05/24 1159 MR#: [id number] Acct: [id number] Name: EVANS MCIHAUD Rep #: [id number] : 1950 74 From: Norberto Lu MD PCP: KATARINA Patel Status:ADM IN Location: [facility] AC-TBA-1 Report of Operation Date of Procedure: 08/05/24 Description of Surgical Findings:: Preoperative diagnosis: L4-5 spondylolisthesis, stenosis with neurogenic claudication Postoperative diagnosis: Same Name of procedures L4-5 oblique lumbar interbody fusion (OLIF), minimally invasive left sided approach, lateral decubitus: ??? L4-5 anterolateral spinal fusion ??? L4-5 insertion of cage ??? Bone graft aspirate left iliac crest separate incision ??? Allograft cancellous chips Attending Surgeon: Dr. Norberto Lu Estimated blood loss: 40 mL Anesthesia: General Complications: None Indications: Patient is a 74-year-old pleasant gentleman who has had a long history of low back pain and right worse than left lower extremity radiation, difficulty walking distances. Xrays MRI revealed L4-5 Histamic grade 2 spondylolisthesis with severe foraminal stenosis bilaterally. After undergoing a prolonged period of nonoperative treatment, the patient elected to undergo surgical decompression fusion. All surgical options were discussed with the patient including anterior and posterior approaches. All risks and benefits associated with the procedure were explained to the patient. The risks include but are not limited to infection, bleeding, injury to nerves and vessels including major vessels like IVC and aorta, persistent paresthesia, persistent pain, dural tear, need for further procedures, adjacent segment degeneration, pseudoarthrosis, hardware failure, retrograde ejaculation, paralytic ileus, etc. Procedure: The patient was identified in the preoperative holding suite using Unique patient identifiers. Skin was marked, consent was reviewed, and all questions were answered. The patient was then brought back to the operative room. A surgical timeout was performed to make sure correct procedure was being done on the correct patient and all operative room staff were on the same page. General endotracheal anesthesia was then given to the patient. Allan catheter was inserted. The patient was then carefully positioned in right lateral decubitus position with the left side up on a regular OR table. Axillary roll was placed and all bony prominences were well- padded. Hip positioners were placed in the posterior buttocks and anterior sternal area. The surgical area was prepped and draped in usual fashion. Preoperative antibiotic was injected IV as preoperative antibiotic. A final timeout was then again done just before starting the procedure. A 2 inch incision oblique was taken in the left lower quadrant of the abdomen 2 fingerbreadths away from the iliac crest and the lower ribs. Sharp dissection with Bovie was carried out up to the fascia covering the external oblique. The external oblique, internal oblique and transversus abdominis muscles were split along the muscle fibers and retroperitoneal space was entered. Sponge sticks were utilized to move the bowel and peritoneum jgi-la-gpa-way and psoas muscle was exposed staying within the retroperitoneal plane. Monaeo retractor system was positioned and the retractor blade was applied onto the psoas. The interval between psoas and midline structures was developed and appropriate retractors were placed. Once adequate interval was cleared, a disc space was identified and a marker x-ray was taken. This identified the L4-5 disc level. Annulotomy was done with a long handled knife. Pituitary was used to remove disc material. Curettes were used to prepare the endplates. Disc space spreaders were utilized to distract and increase the disc height. Near complete discectomy was performed. Smaller disc distractors were also used to bluntly perform a contralateral annulotomy. Trials of serially increasing sizes were used. A Jamshidi needle was used to aspirate bone marrow from the left anterior iliac crest through a separate incision and this aspirate was mixed with the allograft bone chips. A Depuy Hinkley cage of size of the 18 x 55 x 12 mm with 15 degrees lordosis was packed with corticocancellous allograft bone chips mixed with bone marrow aspirate. This was inserted into the L4-5 disc space. AP and lateral C-arm pictures were taken to confirm good position of the cage. Some bone chips were also packed around the cage. Screw with washer was placed into the lower L4 body with a washer partially covering the cage at L4-5. Hemostasis was confirmed. The retractor blades were removed. Closure was done in layers with a continuous strand of # 1 Vicryl in all mu (more content not included)... Normal [facility] Progress Noteon 07-31-2024 Progress Note Venipuncture complet ed by [facility]. Normal [facility] Hepatitis A AB, Totalon 07-07 HEPATITIS A,TOT Positive Abnormal Negative [facility] Comment on above: Result Comment: Comm ent: The HAV total antibody assay detects both IgG and IgM but does not differentiate between them. A negative result suggests susceptibility to infection. A positive result could be due to vaccination, previously resolved infection or active infection. Testing for HAV IgM should be performed if active HAV infection is suspected. [facility] offers profiles that will automatically reflex positive HAV total antibody results to IgM (e.g., panel #[id number] HAV Antibody w/ Rfx). Performed at: [address] [id number] City Engineer: Jamil Meléndez PhD, Phone: [phone] Performed By: #### L 2954.2786, M100.651, L100.0100, L3890.6005, BTSPAT, L3890.6200, L3100.0300, L500.2500 ####[facility] [address] [place], [address] MRSA/SAID NASAL SCREENon MRSA+SAID SCRN Reason for Exam: PRE OP MRSA MRSA Negative S. AUREUS S. aureus Negative Normal [facility] Comment on above: Performed By: #### L 3890.6300, M100.651, L100.0100, L3890.6005, BTSPAT, L3890.6200, L3100.0300, L500.2500 ####[facility] [address] [place], [address] 12 Lead EKGon 07-24-2024 12 Lead EKG [facility] Cardiovascular Services [address] [place] [address] 12 Lead EKG 07/24/24 1101 MR#: [id number] Acct: [id number] Name: EVANS MICHAUD Jr. Rep #: [id number] : 1950 74 From: Chele Chaudhary MD Attending Dr: Dr. Norberto Lu MD Status: PRE IN Ordering Dr: Norberto Lu MD Date: 07/24/24 Location: [facility] Sex: M C Admitted: Test Reason : PRE OP Blood Pressure : / mmHG Vent. Rate : 054 BPM Atrial Rate : 054 BPM P-R Int : 168 ms QRS Dur : 090 ms QT Int : 422 ms P-R-T Axes : 042 -11 056 degrees QTc Int : 400 ms Sinus bradycardia Otherwise normal ECG Confirmed by Chele Chaudhary ([id number]), editor publications NANCIE LOAIZA ([id number]) on 07/28/2024 10:17:47 AM Referred By: GLORIA Confirmed By:Chele Chaudhary 07/28/24 1017 Date Chele Chaudhary MD CC: KATARINA Frank; Dr. Norberto Lu MD Signed Normal [facility] Basic Metabolic Profile (BMP )on 07-24-2024 BUN/CRE 11.8 RATIO Normal 10-20 [facility] Comment on above: Performed By: #### L 3890.6300, M100.651, L100.0100, L3890.6005, BTSPAT, L3890.6200, L3100.0300, L500.2500 #### [facility] Laboratory [address] [place], [address] CA,Total 9.9 mg/dL Normal 8.5-10.1 [facility] Comment on above: Performed By: #### L 3890.6300, M100.651, L100.0100, L3890.6005, BTSPAT, L3890.6200, L3100.0300, L500.2500 #### [facility] [address] [place], [address] Chloride [Moles/Vol] 97 mmol/L Low 98-107 [facility] Comment on above: Performed By: #### L 3890.6300, M100.651, L100.0100, L3890.6005, BTSPAT, L3890.6200, L3100.0300, L500.2500 #### [facility] [address] [place], [address] CO2 [Moles/Vol] 27.0 mmol/L Normal 21.0-32.0 [facility] Comment on above: Performed By: #### L 3890.6300, M100.651, L100.0100, L3890.6005, BTSPAT, L3890.6200, L3100.0300, L500.2500 #### [facility] [address] [place], [address] Creatinine [Mass/Vol] 0.94 mg/dL Normal 0.70-1.30 [facility] Comment on above: Result Comment: The validity of the calculated GFR GFRAA in patients over 70 years has not been determined. Clinical correlation is essential. Performed By: #### L 3890.6300, M100.651, L100.0100, L3890.6005, BTSPAT, L3890.6200, L3100.0300, L500.2500 #### [facility] [address] [place], [address] EST GFR - AA 101 mL/min Normal >60 [facility] Comment on above: Result Comment: Afri can [place] GFR Calc Performed By: #### L 3890.6300, M100.651, L100.0100, L3890.6005, BTSPAT, L3890.6200, L3100.0300, L500.2500 #### [facility] [address] [place], [place], [id number] (742) GAP 7 Normal 5-15 [facility] Comment on above: Performed By: #### L 3890.6300, M100.651, L100.0100, L3890.6005, BTSPAT, L3890.6200, L3100.0300, L500.2500 #### [facility] [address] [place], [address] GFR/1.73 sq M.predicted among non-blacks MDRD (S/P/Bld) [Vol rate/Area] 84 mL/min/{1.73_m2} Normal >60 [facility] Comment on above: Result Comment: Non- GFR Calc Performed By: #### L 3890.6300, M100.651, L100.0100, L3890.6005, BTSPAT, L3890.6200, L3100.0300, L500.2500 #### [facility] [address] [place], [address] Glucose [Mass/Vol] 99 mg/dL Normal 74-106 [facility] Comment on above: Performed By: #### L 3890.6300, M100.651, L100.0100, L3890.6005, BTSPAT, L3890.6200, L3100.0300, L500.2500 #### [facility] [address] [place], [address] Potassium [Moles/Vol] 4.2 mmol/L Normal 3.5-5.1 [facility] Comment on above: Performed By: #### L 3890.6300, M100.651, L100.0100, L3890.6005, BTSPAT, L3890.6200, L3100.0300, L500.2500 #### [facility] [address] [place], [address] Sodium [Moles/Vol] 131 mmol/L Low 136-145 [facility] Comment on above: Performed By: #### L 3890.6300, M100.651, L100.0100, L3890.6005, BTSPAT, L3890.6200, L3100.0300, L500.2500 #### [facility] [address] [place], [address] Urea nitrogen [Mass/Vol] 11 mg/dL Normal 7-18 [facility] Comment on above: Performed By: #### L 3890.6300, M100.651, L100.0100, L3890.6005, BTSPAT, L3890.6200, L3100.0300, L500.2500 #### [facility] [address] [place], [address] CBC W/Diff, Automatedon 07-06 Absolute Lymph 1.25 X10 3/uL Normal 0.83-4.51 [facility] Comment on above: Performed By: #### L 3890.6300, M100.651, L100.0100, L3890.6005, BTSPAT, L3890.6200, L3100.0300, L500.2500 #### [facility] [address] [place], [address] Absolute Neut 2.6 X10 3/uL Normal 2.0-7.7 [facility] Comment on above: Performed By: #### L 3890.6300, M100.651, L100.0100, L3890.6005, BTSPAT, L3890.6200, L3100.0300, L500.2500 #### [facility] [address] [place], [address] Basophils/100 WBC (Bld) 0.7 % Normal 0-1 [facility] Comment on above: Performed By: #### L 3890.6300, M100.651, L100.0100, L3890.6005, BTSPAT, L3890.6200, L3100.0300, L500.2500 #### [facility] [address] [place], [address] Eosinophils/100 WBC (Bld) 2.7 % Normal 0-5 [facility] Comment on above: Performed By: #### L 3890.6300, M100.651, L100.0100, L3890.6005, BTSPAT, L3890.6200, L3100.0300, L500.2500 #### [facility] [address] [place], [address] Erythrocyte distribution width (RBC) [Ratio] 11.2 % Low 11.6-14.6 [facility] Comment on above: Performed By: #### L 3890.6300, M100.651, L100.0100, L3890.6005, BTSPAT, L3890.6200, L3100.0300, L500.2500 #### [facility] [address] [place], [address] Hematocrit (Bld) [Volume fraction] 46.0 % Normal 40-54 [facility] Comment on above: Performed By: #### L 3890.6300, M100.651, L100.0100, L3890.6005, BTSPAT, L3890.6200, L3100.0300, L500.2500 #### [facility] [address] [place], [address] Hemoglobin (Bld) [Mass/Vol] 15.7 g/dL Normal 13.0-16.5 [facility] Comment on above: Performed By: #### L 3890.6300, M100.651, L100.0100, L3890.6005, BTSPAT, L3890.6200, L3100.0300, L500.2500 #### [facility] [address] [place], [address] IG% 0.200 Normal 0.0-0.9 [facility] Comment on above: Result Comment: IG% - Immature Granulocytes (promyelocytes, myelocytes and metamyelocytes) > 1% indicates that a LEFT SHIFT is Present. Performed By: #### L 3890.6300, M100.651, L100.0100, L3890.6005, BTSPAT, L3890.6200, L3100.0300, L500.2500 #### [facility] [address] [place], [address] Lymphocytes/100 WBC (Bld) 28.6 % Normal 19-41 [facility] Comment on above: Performed By: #### L 3890.6300, M100.651, L100.0100, L3890.6005, BTSPAT, L3890.6200, L3100.0300, L500.2500 #### [facility] [address] [place], [address] MCH (RBC) [Entitic mass] 34.1 pg High 27.0-32.0 [facility] Comment on above: Performed By: #### L 3890.6300, M100.651, L100.0100, L3890.6005, BTSPAT, L3890.6200, L3100.0300, L500.2500 #### [facility] [address] [place], [address] MCHC (RBC) [Mass/Vol] 34.1 g/dL Normal 32-36 [facility] Comment on above: Performed By: #### L 3890.6300, M100.651, L100.0100, L3890.6005, BTSPAT, L3890.6200, L3100.0300, L500.2500 #### [facility] [address] [place], [address] MCV (RBC) [Entitic vol] 99.8 fL High 80-94 [facility] Comment on above: Performed By: #### L 3890.6300, M100.651, L100.0100, L3890.6005, BTSPAT, L3890.6200, L3100.0300, L500.2500 #### [facility] [address] [place], [address] Monocytes/100 WBC (Bld) 8.9 % Normal 0-10 [facility] Comment on above: Performed By: #### L 3890.6300, M100.651, L100.0100, L3890.6005, BTSPAT, L3890.6200, L3100.0300, L500.2500 #### [facility] [address] [place], [address] Neutrophils/100 WBC (Bld) 58.9 % Normal 47-70 [facility] Comment on above: Performed By: #### L 3890.6300, M100.651, L100.0100, L3890.6005, BTSPAT, L3890.6200, L3100.0300, L500.2500 #### [facility] [address] [place], [address] Nucleated RBC (Bld) [#/Vol] 0 10*3/uL Normal 0-5 [facility] Comment on above: Performed By: #### L 3890.6300, M100.651, L100.0100, L3890.6005, BTSPAT, L3890.6200, L3100.0300, L500.2500 #### [facility] [address] [place], [address] Platelet mean volume (Bld) [Entitic vol] 9.3 fL Normal 6.2-12.0 [facility] Comment on above: Performed By: #### L 3890.6300, M100.651, L100.0100, L3890.6005, BTSPAT, L3890.6200, L3100.0300, L500.2500 #### [facility] [address] [place], [address] Platelets (Bld) [#/Vol] 248 10*3/uL Normal 150-450 [facility] Comment on above: Performed By: #### L 3890.6300, M100.651, L100.0100, L3890.6005, BTSPAT, L3890.6200, L3100.0300, L500.2500 #### [facility] [address] [place], [address] RBC (Bld) [#/Vol] 4.61 10*6/uL Normal 4.6-6.2 [facility] Comment on above: Performed By: #### L 3890.6300, M100.651, L100.0100, L3890.6005, BTSPAT, L3890.6200, L3100.0300, L500.2500 #### [facility] [address] [place], [address] RDW SD 40.7 fl Normal 35.1-43.9 [facility] Comment on above: Performed By: #### L 3890.6300, M100.651, L100.0100, L3890.6005, BTSPAT, L3890.6200, L3100.0300, L500.2500 #### [facility] [address] [place], [address] WBC (Bld) [#/Vol] 4.4 10*3/uL Normal 4.4-11.0 [facility] Comment on above: Performed By: #### L 3890.6300, M100.651, L100.0100, L3890.6005, BTSPAT, L3890.6200, L3100.0300, L500.2500 #### [facility] [address] [place], [place], [id number] HIV - WCHon 07-24-2024 HIV Non-Reactive Normal Nonreactive [facility] Comment on above: Order Comment: Reaso n for Exam: PAT Performed By: #### L 3890.6300, M100.651, L100.0100, L3890.6005, BTSPAT, L3890.6200, L3100.0300, L500.2500 ####[facility] [address] [place], [place], [id number] Hepatitis B Surface Antibody on 07-24-2024 HEP B Surf Ab Non-Reactive Normal [facility] Comment on above: Order Comment: Reaso n for Exam: PAT Result Comment: Non Reactive: Inconsistent with immunity less than <10 mIU/mL Reactive: Consistent with immunity greater than or equal to 10 mIU/mL Performed By: #### L 3890.6300, M100.651, L100.0100, L3890.6005, BTSPAT, L3890.6200, L3100.0300, L500.2500 ####[facility] [address] [place], [place], [address] Hepatitis C Antibodyon 07-24 Hepatitis C AB Non-Reactive Normal Nonreactive [facility] Comment on above: Order Comment: Reaso n for Exam: PAT Result Comment: Non Reactive: < 0.8 Equivocal: >/= 0.8 to < 1.0 Reactive: >/= 1.0 The CDC requires that a reactive/equivocal HCV antibody result be sent out for confirmation. HCV Quant by PCR testing. Performed By: #### L 3890.6300, M100.651, L100.0100, L3890.6005, BTSPAT, L3890.6200, L3100.0300, L500.2500 ####[facility] [address] [place], [address] Liver Profileon 07-24-2024 Albumin [Mass/Vol] 4.0 g/dL Normal 3.2-5.0 [facility] Comment on above: Performed By: #### L 300.4310, L501.5200, L500.3400, L300.3900 ####[facility] [address] [place], [address] ALK P 43 U/L Low 45-117 [facility] Comment on above: Performed By: #### L 300.4310, L501.5200, L500.3400, L300.3900 ####[facility] [address] [place], [address] ALT [Catalytic activity/Vol] 21 U/L Normal 16-61 [facility] Comment on above: Performed By: #### L 300.4310, L501.5200, L500.3400, L300.3900 ####[facility] [address] [place], [address] AST [Catalytic activity/Vol] 22 U/L Normal 15-37 [facility] Comment on above: Performed By: #### L 300.4310, L501.5200, L500.3400, L300.3900 ####[facility] [address] [place], [address] Bilirubin [Mass/Vol] 0.80 mg/dL Normal 0.20-1.00 [facility] Comment on above: Result Comment: For patients on eltrombopag therapy, use of Dimension [place] TBIL is not recommended. Performed By: #### L 300.4310, L501.5200, L500.3400, L300.3900 ####[facility] [address] [place], [address] Bilirubin.direct [Mass/Vol] 0.24 mg/dL Normal 0.00-0.30 [facility] Comment on above: Performed By: #### L 300.4310, L501.5200, L500.3400, L300.3900 ####[facility] [address] [place], [address] Globulin (S) [Mass/Vol] 3.8 g/dL Normal 2.2-4.2 [facility] Comment on above: Performed By: #### L 300.4310, L501.5200, L500.3400, L300.3900 ####[facility] [address] [place], [address] T PROT 7.8 g/dL Normal 6.4-8.2 [facility] Comment on above: Performed By: #### L 300.4310, L501.5200, L500.3400, L300.3900 ####[facility] [address] [place], [address] Magnesiumon 07-24-2024 Magnesium [Mass/Vol] 1.8 mg/dL Normal 1.6-2.6 [facility] Comment on above: Performed By: #### L 300.4310, L501.5200, L500.3400, L300.3900 ####[facility] [address] [place], [address] Partial Thromboplast Timeon 07-24-2024 aPTT Coag (Bld) [Time] 27.3 s Normal 24.1-36.2 [facility] Comment on above: Performed By: #### L 300.4310, L501.5200, L500.3400, L300.3900 ####[facility] [address] [place], [address] Prothrombin Time w/INRon INR Coag (PPP) [Relative time] 1.1 {INR} Normal [facility] Comment on above: Performed By: #### L 300.4310, L501.5200, L500.3400, L300.3900 ####[facility] [address] [place], [address] PT Coag (PPP) [Time] 13.9 s Normal 11.7-14.9 [facility] Comment on above: Performed By: #### L 300.4310, L501.5200, L500.3400, L300.3900 ####[facility] [address] [place], [address] Type AND Screen - PAT ONLYon 07-24-2024 ABO and Rh group Nom (Bld) Blood group B Rh(D) positive Normal [facility] Comment on above: Order Comment: Surge ry Date: 08/05/24Reason for Laboratory Test [id number] LUMBAR FUSION L4-5 Performed By: #### L 3890.6300, M100.651, L100.0100, L3890.6005, BTSPAT, L3890.6200, L3100.0300, L500.2500 ####[facility] [address] [place], [address] Orthopedic Visit Reporton Orthopedic Visit Report [facility] [address] [place] [address] [address] [place] [address] OFFICE VISIT Date of Service: 07/18/24 MR#: [id number] Acct: [id number] Name: EVANS MICHAUD Jr. Rep #: [id number] : 1950 Provider: Dr. Norberto Lu MD Age/Sex: 74/M Location: [facility] [place] Status: Signed Intake Vital Signs 05/21/24 09:24 Height 5 ft 9 in Weight: 180 lb 2 oz BMI 26.6 Intake Visit Reasons: lumbar spine Chief Complaint: Lumbar Spine - Accompanied by: Is patient in pain?: Yes Pain scale (1-10): 6 Allergies No Known Allergies Allergy (Unverified 07/18/24 10:03) Medications ???Medication ???Instructions ???Recorded ???Confirmed ???Type atenolol 50 mg tablet 50 mg PO DAILY 08/31/23 07/18/24 History melatonin 10 mg capsule 10 mg PO HS PRN 08/31/23 07/18/24 History tamsulosin 0.4 mg capsule 0.4 mg PO DAILY 08/31/23 07/18/24 History gabapentin 300 mg capsule 300 mg PO TID 10/17/23 07/18/24 History buspirone 10 mg tablet 15 mg PO BID 05/21/24 07/18/24 History lisinopril 40 mg tablet 40 mg PO QDAY 05/21/24 07/18/24 History magnesium 200 mg tablet 200 mg PO DAILY 05/21/24 07/18/24 History Have you fallen in the past year?: No PFSH Medical History Hypertension Family History Father Cancer Brother Cancer Sister Cancer Social History Smoking Status: Former smoker Tobacco: How many years used: 20 alcohol intake: current alcohol intake frequency: a few times a week Alcohol type: beer HPI lumbar spine Details: This documentation accurately reflects the service provided and the decisions made by me, Dr. Norberto Lu MD 07/18/24 0959. Part of today???s visit was documented by Rebecca FIGUEROA , acting as scribe. EVANS MICHAUD is a 74 year old M here today for a Pre-op. Patient will be having surgery on 08/05/2024 he is having 360 Lumbar Fusion L4-5. HPI from 05/21/24: EVANS MICHAUD is a 74 year old M here today for lumbar spine pain. Patient rates his pain a 5/10 today and states the pain is affecting his life. Patient describes most of the pain in the lower lumbar spine and states it will extend to his right hip. Patient states his legs feel numb and and states this bothers him more than the pain in the back. Patient denies tingling down the legs. Patient states he does see pain management and he states it has been about 4-5 months since the last injection. Patient states the first injection he had was great but the second one since then did not help him at all. Patient states Dr. Macias prescribed Gabapentin for the lumbar spine pain but he states he does not see a difference since being on this. Patient denies any surgeries to the back. Patient denies any formal physical therapy but states he has been doing Mckayla exercises everyday on his own for several months now and states they have given him some relief. He states he also has an inversion table but the last time he has used it he got very lightheaded so he hasn't used it in a few weeks. Evans had had a bad fall when he was in his early 20s and that seems to be the only injury that he has had related to his lower back. He has had worsening pain recently for which she has undergone injections. The first injection helped but the second 1 did not seem to give any relief. He canceled his third scheduled injection. He has pain radiating to lower extremities as well as difficulty walking distances with neurogenic claudication. Ortho Exam General General: Yes no acute distress Neurologic: Yes alert and Yes oriented x3 Spine SPINE TESTING CERVICAL THORACIC LUMBAR Musculoskeletal Strength 0=absent - 5=normal Details: Examination lower back shows midline and paraspinal tenderness. Neurologic motion of lower extremity shows 5 x 5 power normal shows normal sensations in all dermatomes. Coding Level of Care Code Off vis,est,level 4 Diagnoses Spondylolisthesis, lumbar region M43.16 Time Spent (min) 45 Assessment and Plan Assessment and Plan (1) Spondylolisthesis, lumbar region: Status: Acute Plan Patient here for lumbar fusion L4-L5 preoperative appointment. Again reviewed prior imaging with the patient. He has L4-5 lytic spondylolisthesis grade 1. There is minimal instability on flexion- extension views. Severe foraminal stenosis seen bilaterally at this level on MRI. I explained to him the imaging findings. Discussed the bone stimulator with the patient who says that he is unsure if his insurance will cover it. He has an appointment with Dr. Gordillo about one week before the surgery to establish care. He understands and will not get an injection at that time. Revi (more content not included)... [facility] 36on 07-14-2024 36 Noted. Will await PA T results and sign clearance form accordingly. [facility] 36 Name of caller: Ankita Contact phone number: [phone] Relationship to Patient: [facility] Provider: Candice Frank [facility] Practice: [facility] Chief Complaint/Reason for Call: Ankita state that Lab work will not be available until next week. Pt is scheduled to come in for PAT next week. PAL did not get clarity on the exact testing or dates; ANKITA does have our fax to send results when available and states that she missed a call from a Coleen. Best time of day caller can be reached: any Patient advised that office/PCP has 24-48 business hours to return their call: Yes [facility] Office Visiton 07-14-2024 Follow-up visit [id number] Lakhwinder Michaud 1950 M Date Provider Department Center 07/14/2024 [id number] FRANK [facility] Family History Problem Relation Age of Onset Prostate cancer Father Cancer Brother Family Status - Relation Status Age at Father Brother Notes: liver cancer Level of Service:22420 [place] OFFICE/OUTPATIENT ESTABLISHED MOD MDM 30 MIN Reason for Visit and Comments: Medication Check [[id number]] Blood Work [[id number]] Health Maintenance [872] - 7th Covid- has not had most recent one Anxiety [9] Depression [32] [facility] Progress Noteon 07-14-2024 Progress Note Patient verified by last name and . [facility] Progress Note 07/14/2024 Evans Michaud (: 1950) is a 74 y.o. male , Established patient, here for evaluation of the following chief complaint(s): Medication Check, Blood Work, Health Maintenance (7th Covid- has not had most recent one ), Anxiety, and Depression ASSESSMENT/PLAN: 1. Pre-operative clearance - Will await PAT results and sign clearance form accordingly. 2. Essential hypertension - Comprehensive metabolic panel - Stable with Lisinopril and Atenolol. Will continue current treatment plan. 3. Major depressive disorder, recurrent, mild (HCC) - Comprehensive metabolic panel - Stable. 4. Anxiety - Comprehensive metabolic panel - busPIRone (Buspar) 10 MG tablet; Take 1 tablet (10 mg) by mouth 2 times daily., Starting 07/14/2024, Normal - Not at goal. Will increase Buspar to 10 mg twice a day. 5. Benign prostatic hyperplasia with nocturia - Comprehensive metabolic panel - Stable. Follow up with specialist as directed. 6. Elevated PSA, less than 10 ng/ml - Comprehensive metabolic panel - Stable. Follow up with specialist as directed. 7. Chronic low back pain, unspecified back pain laterality, unspecified whether sciatica present - Comprehensive metabolic panel - Stable. Follow up with specialist as directed. 8. Elevated LDL cholesterol level - Lipid panel - Comprehensive metabolic panel - Will notify of blood work results. Follow up in about 3 months (around 10/13/2024) for AWV and fasting blood work. SUBJECTIVE/OBJECTIVE: DIANE Krueger presents today for his 6 month follow up on his chronic health conditions and also for surgical clearance for a 360 Lumbar Fusion of L4-L5 on 08/05/[address] Lu at [facility]. Hypertension: Checks blood pressure at home and states it averages 120-130/80's. BP is stable today at 134/86. Takes his Atenolol and Lisinopril daily as prescribed. Depression/Anxiety: Stopped taking his Lexapro due to side effects of dizziness and not tolerating the medication well. Had reduced the dose of his Buspar to 7.5 mg twice a day as well. Would like to decrease the Buspar back to 10 mg twice a day. BPH: Actively follows up with urology. Continues to take Tamsulosin. Had a biopsy of the prostate on 01/16/24 and was told everything was clear. Most recent PSA was 7.38 ng/mL on 10/31/23. Had an MRI completed with normal findings. Chronic Low Back Pain: Scheduled for back surgery 08/06/[address] Lu. Is scheduled for PAT next week. Has had surgery in the past with light sedation and tolerated well without complications. His LDL was slightly elevated at his appointment back in January and will recheck his levels today for follow up. Strives for a healthy diet overall but acknowledges he does eat his fair share of franco and butter. Health Maintenance: Had a Tdap vaccination 02/07/23. Declines his second Shingrix vaccination due to side effects from his initial dose. Vaccinated for COVID-19 x6 with most recent dose on 08/23/23- plans to get a booster this fall. Plans to get a flu vaccination at his local pharmacy. Plans to be vaccinated for RSV. Colonoscopy: 09/16/21. Is fully immunized for pneumonia. Review of Systems Constitutional: Negative for chills and fever. HENT: Negative for trouble swallowing. Respiratory: Negative for cough, chest tightness, shortness of breath and wheezing. Cardiovascular: Negative for chest pain, palpitations and leg swelling. Gastrointestinal: Negative for abdominal distention, abdominal pain and blood in stool. Genitourinary: Negative for difficulty urinating, dysuria and hematuria. Skin: Negative for color change, pallor, rash and wound. Neurological: Negative for dizziness, syncope, weakness and headaches. Hematological: Does not bruise/bleed easily. Psychiatric/Behavioral: Negative for dysphoric mood, self-injury and suicidal ideas. The patient is nervous/anxious. Vitals: 07/14/24 1337 BP: 134/86 Pulse: 65 SpO2: 98% Weight: 180 lb 9.6 oz (81.9 kg) Height: 5' 9 (1.753 m) Body mass index is 26.67 kg/m?. Last 3 PATRICK-7 Scores 07/14/2024 1400 PATRICK-7 Total Score: 5 Last 3 PHQ-2 Scores 07/14/2024 1404 Patient Health Questionnaire-2 Score: 2 Last 3 PHQ-9 Scores 07/14/2024 1404 Patient Health Questionnaire-9 Score: 4 Physical Exam Constitutional: General: He is not in acute distress. Appearance: He is not ill-appearing or diaphoretic. Neck: Vascular: No carotid bruit. Cardiovascular: Rate and Rhythm: Normal rate and regular rhythm. Pulses: Normal pulses. Heart sounds: Normal heart sounds. No murmur heard. No friction rub. Pulmonary: Effort: Pulmonary effort is normal. Breath sounds: Normal breath sounds. No wheezing, rhonchi or rales. Abdominal: General: Abdomen is flat. Bowel sounds are normal. There is no distension. Palpations: Abdomen is soft. There is no hepatomegaly, splenomegaly or mass. Tenderness: There is no abdominal tenderness. There is no (more content not included)... [facility] 36on 07-10-2024 36 Reviewed chart. Refi ll appropriate. RX sent. [facility] 36 Prescription Request : Last medication check: 09/03/23 Last physical exam: 01/09/24 Next scheduled appointment: 07/14/24 Last date of refill on this medication 01/09/24 [facility] Progress Noteon 06-23-2024 Progress Note Patient verified by last name and . [facility] Progress Note This encounter was c reated in error - please disregard. [facility] L/S Spine Bending Flex/[place] 05-21-2024 L/S Spine Bending Flex/Ext [facility] [address] [place] [address] L/S Spine Bending Flex/Ext MR#: [id number] Acct: [id number] Name: EVANS MICHAUD Jr. Rep #: [id number] : 1950 M 74 From: Vitaliy Elaine MD PCP: KATARINA Patel Status: DEP AMB Study: L/S Spine Bending Flex/Ext Date of Exam: 05/21 Exam# [id number] Ordering Dr: Norberto Lu MD [id number] STUDY: X-RAY - LUMBAR SPINE REASON FOR EXAM: Male, 74 years old. spondy -- Please do flexion-extension only TECHNIQUE: 2 view(s) of the lumbar spine were obtained. COMPARISON: None FINDINGS: Normal lumbar lordosis. There is no substantial scoliosis. 12 mm of anterolisthesis of L4 on L5 which is unchanged on the flexion and extension views. There is multilevel endplate spondylosis of the lumbar vertebrae. There is multi-level degenerative disc disease with multi-level disc space narrowing. There is multilevel facet hypertrophy. The soft tissue structures are unremarkable. RAD/L/S Spine Bending Flex/Ext IMPRESSION: Degenerative disc disease with 12 mm of anterolisthesis of L4 on L5 which is unchanged on the flexion and extension views. Electronically Signed: Vitaliy Elaine MD at 17:22 EDT , CC: KATARINA Frank; Dr. 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 Norberto Lu MD Age/Sex: 74/M Location: [facility] [place] Status: Signed Intake Vital Signs 08/31/23 11:09 05/21/24 09:24 Height 5 ft 9 in 5 ft 9 in Weight: 180 lb 2 oz BMI 26.6 Intake Visit Reasons: LUMBAR SPINE Chief Complaint: Lumbar Spine - wants to talk about options Accompanied by: Is patient in pain?: Yes Pain scale (1-10): 5 Allergies No Known Allergies Allergy (Unverified 05/21/24 09:25) Medications ???Medication ???Instructions ???Recorded ???Confirmed ???Type atenolol 50 mg tablet 50 mg PO DAILY 08/31/23 05/21/24 History melatonin 10 mg capsule 10 mg PO HS PRN 08/31/23 05/21/24 History tamsulosin 0.4 mg capsule 0.4 mg PO DAILY 08/31/23 05/21/24 History gabapentin 300 mg capsule 300 mg PO TID 10/17/23 05/21/24 History buspirone 10 mg tablet 15 mg PO BID 05/21/24 05/21/24 History lisinopril 40 mg tablet 40 mg PO QDAY 05/21/24 05/21/24 History magnesium 200 mg tablet 200 mg PO DAILY 05/21/24 05/21/24 History Have you fallen in the past year?: No PFSH Medical History Hypertension Family History Father Cancer Brother Cancer Sister Cancer Social History Smoking Status: Former smoker Tobacco: How many years used: 20 alcohol intake: current alcohol intake frequency: a few times a week Alcohol type: beer HPI LUMBAR SPINE Details: This documentation accurately reflects the service provided and the decisions made by me, Dr. Norberto Lu MD 05/21/24921. Part of today???s visit was documented by Didi Granados ATC, acting as scribe. EVANS MICHAUD is a 74 year old M here today for lumbar spine pain. Patient rates his pain a 5/10 today and states the pain is affecting his life. Patient describes most of the pain in the lower lumbar spine and states it will extend to his right hip. Patient states his legs feel numb and and states this bothers him more than the pain in the back. Patient denies tingling down the legs. Patient states he does see pain management and he states it has been about 4-5 months since the last injection. Patient states the first injection he had was great but the second one since then did not help him at all. Patient states Dr. Macias prescribed Gabapentin for the lumbar spine pain but he states he does not see a difference since being on this. Patient denies any surgeries to the back. Patient denies any formal physical therapy but states he has been doing Mckayla exercises everyday on his own for several months now and states they have given him some relief. He states he also has an inversion table but the last time he has used it he got very lightheaded so he hasn't used it in a few weeks. Evans had had a bad fall when he was in his early 20s and that seems to be the only injury that he has had related to his lower back. He has had worsening pain recently for which she has undergone injections. The first injection helped but the second 1 did not seem to give any relief. He canceled his third scheduled injection. He has pain radiating to lower extremities as well as difficulty walking distances with neurogenic claudication. Ortho Exam General General: Yes no acute distress Neurologic: Yes alert and Yes oriented x3 Spine SPINE TESTING CERVICAL THORACIC LUMBAR Musculoskeletal Strength 0=absent - 5=normal Details: Examination lower back shows midline and paraspinal tenderness. Neurologic motion of lower extremity shows 5 x 5 power normal shows normal sensations in all dermatomes. Coding Level of Care Code Off vis,new,level 4 Diagnoses Spondylolisthesis, lumbar region M43.16 Time Spent (min) 45 Comment Modifier 57 Assessment and Plan Assessment and Plan (1) Spondylolisthesis, lumbar region: Status: Acute Orders: Orders L/S Spine Bending Flex/Ext Today M43.16 - Spondylolisthesis, lumbar region Plan I explained to him the imaging findings in detail. I reviewed his x-rays and MRI done previously from last year and also obtained flexion-extension views today in the clinic. He has L4-5 lytic spondylolisthesis grade 1. There is minimal instability on flexion-extension views. Severe foraminal stenosis seen bilaterally at this level on MRI. I explained to him the imaging findings. Patient has seen Dr. Rizzo last year for the symptoms initially. These improved with physical therapy and injections. But more recently his injections are no longer helping him. He lovett (more content not included)... Normal [facility] 36on 05-15-2024 36 Prescription Request : Last medication check: 09/03/23 Last physical exam: 01/09/24 Next scheduled appointment: 07/14/24 Last date of refill on this medication 11/12/23 Normal [facility] Free PSA [Mass/Vol]on 2022 Free PSA/Total PSA [Mass fraction] 5 % Normal [facility] Comment on above: Order Comment: Speci men Type: BLOOD SPECIMEN Ordering Facility: [facility] Address: [address] [place] [id number] Result Comment: Tota l and free PSA test methodology used is the Electrochemiluminescence Immunoassay by [employer]. Total or free PSA values by differing methodologies cannot be interchanged. The below table lists the probability of finding prostate cancer upon needle biopsy, for men 50 years or older and total PSA concentrations from 4.0-10.0 ng/mL. Results should be interpreted within the broader clinical context. Free PSA(%) 50-59 years 60-69 years >69 years <11 49.2% 57.5% 64.5% 11-18 26.9% 33.9% 40.8% 19-25 18.3% 23.9% 29.7% >25 9.1% 12.2% 15.8% Performed By: #### 1 0886-0 #### [facility] CLIA [id number] [address] [place] [address] [place] Prostate specific Ag [Mass/Vol] 7.38 ng/mL High <2.60 [facility] Comment on above: Order Comment: Speci men Type: BLOOD SPECIMEN Ordering Facility: [facility] Address: [address] [place] [address] Result Comment: Tota garrick PSA test methodology used is the Electrochemiluminescence Immunoassay by [employer]. Total PSA values by differing methodologies cannot be interchanged. For an individual patient, the significance of a PSA level should be interpreted in a broad clinical context, including age, race, family history, digital rectal exam, prostate size, results of prior testing (prostate biopsy, free PSA, PCA3), and use of 5-alpha reductase inhibitors. Considering the high incidence of asymptomatic cancer in the general population that may not pose an ultimate risk to a patient, the decision to recommend urological evaluation or prostate biopsy should be individualized after consideration of all these factors. REFERENCE: Karl Miller M.D., M.P.H., Max Moore M.D., Ph.D., Prateek Jeffery M.D., Radha Healy, M.P.H., aNncy Becerra, ScJeffy. Effect of Verification Bias on Screening for Prostate Cancer by Measurement of Prostatic Specific Antigen. N Engl J Med 2003,349:335-42. Performed By: #### 1 0886-0 #### [facility] CLIA [id number] [address] [facility] [id number] [address] [place] ISOPSA ASSAY FOR UROLOGY USE ONLYon 10-31-2023 INTERPRETATION View results in Scan yuridia Documents link when available. [facility] Comment on above: Order Comment: Speci men Type: BLOOD SPECIMEN Ordering Facility: [facility] Address: [address] [place] [address] Performed By: #### I SOPSA #### [facility] CLIA [id number] [address] [address] ISOPSA INDEX 15.2 [facility] Comment on above: Order Comment: Speci men Type: BLOOD SPECIMEN Ordering Facility: [facility] Address: [address] [place] [address] Performed By: #### I SOPSA #### [facility] CLIA [id number] [address] [place] [address], [place] [address] TPSA RESULTS 7.790 [facility] Comment on above: Order Comment: Speci men Type: BLOOD SPECIMEN Ordering Facility: [facility] Address: [address] [place] [address] Performed By: #### I SOPSA #### [facility] CLIA [id number] [address] [place] [address], [place] [address] No Panel InformationOrdered By: Stu Menezes on 10-11-2023 Prostate Specific Antigen Total 7.60 ng/mL 0.0-4.0 [facility] Comment on above: This test was perfor med using the TPSA assay method for the[facility] chemistry system. Values obtained with differentassay methods cannot be used interchangably.When changing PSA assays in the course of monitoring apatient, additional sequential testing should be carriedout to confirm baseline values. PSA, total and freeOrdered B y: Coleen Tucker on 10-11-2023 [facility] Matter and Form Absolute lymphocyte countOrd ered By: Oskar Jimenez on 07-26-2023 Lymphocytes Auto (Unsp spec) [#/Vol] 1.08 10*3/uL 0.83-4.51 [facility] Basophil percentageOrdered B y: Oskar Jimenez on 09-21-2023 Basophils/100 WBC (Bld) 0.4 % 0-1 [facility] Bilirubin [Mass/Vol] 0.60 mg/dL 0.20-1.00 [facility] Comment on above: For patients on eltr ombopag therapy, use of Dimension [place] TBIL is not recommended. Chloride [Moles/Vol] 97 mmol/L 98-107 [facility] Eosinophils/100 WBC (Bld) 1.8 % 0-5 [facility] Glucose [Mass/Vol] 106 mg/dL 74-106 [facility] Comment on above: Fasting Glucose resu lt from 100 to 125 mg/dL suggests IMPAIRED HOMEOSTASIS per A.D.A. criteria. Neutrophils (Bld) [#/Vol] 3.1 10*3/uL 2.0-7.7 [facility] Neutrophils/100 WBC (Bld) 62.3 % 47-70 [facility] Potassium [Moles/Vol] 4.5 mmol/L 3.5-5.1 [facility] Protein [Mass/Vol] 8.2 g/dL 6.4-8.2 [facility] Sodium [Moles/Vol] 130 mmol/L 136-145 [facility] WBC (Bld) [#/Vol] 5.0 10*3/uL 4.4-11.0 [facility] Blood erythrocytes count (nu mber/volume)Ordered By: Oskar Jimenez on 07-26-2023 RBC (Bld) [#/Vol] 4.55 10*6/uL 4.6-6.2 [facility] Blood hemoglobin measurement (mass/volume)Ordered By: Oskar Jimenez on 07-26-2023 Hemoglobin (Bld) [Mass/Vol] 16.0 g/dL 13.0-16.5 [facility] Blood lymphocytes/100 leukoc ytesOrdered By: Oskar Jimenez on 07-26-2023 Lymphocytes/100 WBC (Bld) 21.4 % 19-41 [facility] Blood monocytes/100 leukocyt esOrdered By: Oskar Jimenez on 07-26-2023 Monocytes/100 WBC (Bld) 13.7 % 0-10 [facility] Blood platelet mean volumeOr dered By: Oskar Jimenez on 07-26-2023 Platelet mean volume (Bld) [Entitic vol] 9.5 fL 6.2-12.0 [facility] Determination of erythrocyte mean corpuscular volume (MCV)Ordered By: Oskar Jimenez on 07-26-2023 MCV (RBC) [Entitic vol] 102.9 fL 80-94 [facility] Hematocrit Auto (Bld) [Volum e fraction]Ordered By: Oskar Jimenez on 07-26-2023 Hematocrit (Bld) [Volume fraction] 46.8 % 40-54 [facility] - Chemistry and C hemistry - challengeOrdered By: Oskar Jimenez on 07-26-2023 ALP [Catalytic activity/Vol] 39 U/L 45-117 [facility] ALT [Catalytic activity/Vol] 29 U/L 16-61 [facility] CO2 [Moles/Vol] 27.0 mmol/L 21.0-32.0 [facility] Globulin (S) [Mass/Vol] 3.9 g/dL 2.2-4.2 [facility] Urea nitrogen/Creatinine [Mass ratio] 12.6 mg/mg 10-20 [facility] - Hematology and Cell countsOrdered By: Oskar Jimenez on 07-26-2023 Erythrocyte distribution width (RBC) [Entitic vol] 46.3 fL 35.1-43.9 [facility] Erythrocyte distribution width (RBC) [Ratio] 12.1 % 11.6-14.6 [facility] Immature granulocytes/100 WBC (Bld) 0.400 % 0.0-0.9 [facility] Comment on above: IG% - Immature Granu locytes (promyelocytes, myelocytes and metamyelocytes) > 1% indicates that a LEFT SHIFT is Present. MCH (RBC) [Entitic mass] 35.2 pg 27.0-32.0 [facility] Nucleated RBC/100 WBC (Bld) [Ratio] 0 % 0-5 [facility] MCHC Auto (RBC) [Mass/Vol]Or dered By: Oskar Jimenez on 07-26-2023 MCHC (RBC) [Mass/Vol] 34.2 g/dL 32-36 [facility] No Panel InformationOrdered By: Oskar Jimenez on 07-26-2023 Estimated GFR (MDRD) Amer 91 mL/min >60 [facility] Comment on above: GFR Calc Estimated GFR (MDRD) Non-Af Amer 75 mL/min >60 [facility] Comment on above: Non- GFR Calc Hepatitis C Antibody Non-Reactive Nonreactive W [facility] Comment on above: Non Reactive: < 0.8 Equivocal: >/= 0.8 to < 1.0 Reactive: >/= 1.0The [facility] recommends that a reactive/equivocal HCV antibody result be followed up by the HCV Nucleic Acid Amplificationtest ([id number]) Prostate Specific Antigen Screen 6.76 ng/mL 0.00-4.00 [facility] Comment on above: This test was perfor med using the TPSA assay method for [employer] chemistry system. Values obtained with differentassay methods cannot be used interchangably.When changing PSA assays in the course of monitoring apatient, additional sequential testing should be carriedout to confirm baseline values. Thyroid Stimulating Hormone (TSH) 2.02 uIU/mL 0.358-3.74 [facility] Vitamin D 25-Hydroxy 53.2 ng/mL [facility] Comment on above: Vitamin D 25(OH) Sta tus Range Deficiency <20 ng/mL (50nmol/L) Insufficiency 20 - 30 ng/mL (50 - 75 nmol/L) Sufficiency 30 - 100 ng/mL (75 - 250 nmol/L) Toxicity >100 ng/mL (>250 nmol/L) Platelets bldOrdered By: Oskar Jimenez on 07-26-2023 Platelets (Bld) [#/Vol] 230 10*3/uL 150-450 [facility] Serum or plasma albumin adri urement (mass/volume)Ordered By: Oskar Jimenez on 07-26-2023 Albumin [Mass/Vol] 4.3 g/dL 3.2-5.0 [facility] Serum or plasma albumin/glob ulin mass ratioOrdered By: Oskar Jimenez on 07-26-2023 Albumin/Globulin [Mass ratio] 1.1 {ratio} 0.9-2.4 [facility] Serum or plasma calcium adri urement (mass/volume)Ordered By: Oskar Jimenez on 07-26-2023 Calcium [Mass/Vol] 9.4 mg/dL 8.5-10.1 [facility] Serum or plasma creatinine m easurement (mass/volume)Ordered By: Oskar Jimenez on 07-26-2023 Creatinine [Mass/Vol] 1.03 mg/dL 0.70-1.30 [facility] Comment on above: The validity of the calculated GFR & GFRAA in patients over 70 years has not been determined. Clinical correlation is essential. Serum or plasma urea nitroge n measurement (mass/volume)Ordered By: Oskar Jimenez on 07-26-2023 Urea nitrogen [Mass/Vol] 13 mg/dL 7-18 [facility] Thin prep Papanicolaou smear with manual screeningOrdered By: Oskar Jimenez on 07-26-2023 Thin prep Papanicolaou smear with manual screening 22 U/L 15-37 [facility] Thin prep Papanicolaou smear with manual screening 6 5-15 [facility] Basophil percentageon 2021 Creatinine [Mass/Vol] 1.1 mg/dL 0.70-1.30 [facility] Work Phone: No Panel Informationon 08-25 Bedside Estimated GFR (eGFR) > 60.0000 mL/min >60 [facility] Work Phone: Prostate Specific Antigen Total 8.77 ng/mL 0.0-4.0 [facility] Work Phone: Comment on above: This test was perfor med using the TPSA assay method for the[employer] chemistry system. Values obtained with differentassay methods cannot be used interchangably.When changing PSA assays in the course of monitoring apatient, additional sequential testing should be carriedout to confirm baseline values. No Panel Informationon 07-27 Prostate Specific Antigen Total 6.52 ng/mL 0.0-4.0 [facility] Work Phone: Comment on above: This test was perfor med using the TPSA assay method for the[employer] chemistry system. Values obtained with differentassay methods cannot be used interchangably.When changing PSA assays in the course of monitoring apatient, additional sequential testing should be carriedout to confirm baseline values. VL Aorta Iliac Duplex Scr fo r Medicareon 07-19-2021 VL Aorta Iliac Duplex Scr for Medicare Patient Name: EVANS MICHAUD Ultrasound ACCESSION EXAM DATE/TIME PROCEDURE ORDERING PROVIDER [id number] 07/19/2021 11:30 EDT VL Aorta Iliac Duplex NORMA FRANK HOLLY S Scr for Medicare CPT code 23427 Reason For Exam (VL Aorta Iliac Duplex Scr for Medicare) screening AAA Report ULTRASOUND OF ABDOMINAL AORTA CLINICAL INDICATION: screening AAA TECHNIQUE: Real-time ultrasound of the aorta. COMPARISON: None. FINDINGS: No significant aneurysmal dilatation or focal ectasis. The aorta tapers normally to its bifurcation. No other focal abnormalities. IMPRESSION: 1. No significant findings. Report Dictated on Workstation: [id number] Final Dictating Physician: MD FAGAN WENDELL Signed Date and Time: 07/20/2021 1:06 pm Signed by: MD FAGAN WENDELL Transcribed Date and Time: 07/20/2021 1:07 Cardiovascular ACCESSION EXAM DATE/TIME PROCEDURE [id number] 07/19/2021 11:30 EDT VL Aorta Iliac Duplex Scr for Medicare CPT code 41367 Reason For Exam (VL Aorta Iliac Duplex Scr for Medicare) screening AAA Cardiovascular Report ULTRASOUND OF ABDOMINAL AORTA CLINICAL INDICATION: screening AAA TECHNIQUE: Real-time ultrasound of the aorta. COMPARISON: None. FINDINGS: No significant aneurysmal dilatation or focal ectasis. The aorta tapers normally to its bifurcation. No other focal abnormalities. IMPRESSION: 1. No significant findings. Report Dictated on Workstation: JAROCHO Final Dictating Physician: MD FAGAN WENDELL Signed Date and Time: 07/20/2021 1:06 pm Signed by: MD FAGAN WENDELL Transcribed Date and Time: 07/20/2021 1:07 Normal [facility] COMPREHENSIVE PANELon 2019 Albumin [Mass/Vol] 4.6 g/dL Normal 3.4 - 5.0 [facility] Comment on above: Performed By: #### C MP #### [facility] [address] [place] [address] ALP [Catalytic activity/Vol] 33 U/L Normal 33 - 136 [facility] Comment on above: Performed By: #### C MP #### [facility] [address] [place] [address] ALT [Catalytic activity/Vol] 18 U/L Normal 10 - 52 [facility] Comment on above: Result Comment: Jana ents treated with Sulfasalazine may generate falsely decreased results for ALT. Performed By: #### C MP #### [facility] [address] [place] [address] Anion gap [Moles/Vol] 14 mmol/L Normal 10 - 20 [facility] Comment on above: Performed By: #### C MP #### [facility] [address] [place] [address] AST [Catalytic activity/Vol] 22 U/L Normal 9 - 39 [facility] Comment on above: Performed By: #### C MP #### [facility] [address] [place] [address] Bilirubin [Mass/Vol] 0.8 mg/dL Normal 0.0 - 1.2 [facility] Comment on above: Performed By: #### C MP #### [facility] [address] [place] [address] Calcium [Mass/Vol] 10.0 mg/dL Normal 8.6 - 10.6 [facility] Comment on above: Performed By: #### C MP #### [facility] [address] [place] [address] Chloride [Moles/Vol] 100 mmol/L Normal 98 - 107 [facility] Comment on above: Performed By: #### C MP #### [facility] [address] [place] [address] Creatinine [Mass/Vol] 1.03 mg/dL Normal 0.50 - 1.30 [facility] Comment on above: Performed By: #### C MP #### [facility] [address] [place] [address] GFR- AM. >60 Normal >60 [facility] Comment on above: Result Comment: CALC ULATIONS OF ESTIMATED GFR ARE PERFORMED USING THE MDRD STUDY EQUATION FOR THE IDMS-TRACEABLE CREATININE METHODS. CLIN CHEM 2007;53:766-72 Performed By: #### C MP #### [facility] [address] [place] [address] GFR-NON AM. >60 Normal >60 [facility] Comment on above: Performed By: #### C MP #### [facility] [address] [place] [address] Glucose [Mass/Vol] 87 mg/dL Normal 74 - 99 [facility] Comment on above: Performed By: #### C MP #### [facility] [address] [place] [address] HCO3 (Bld) [Moles/Vol] 29 mmol/L Normal 21 - 32 [facility] Comment on above: Performed By: #### C MP #### [facility] [address] [place] [address] Potassium [Moles/Vol] 4.8 mmol/L Normal 3.5 - 5.3 [facility] Comment on above: Performed By: #### C MP #### [facility] [address] [place] [address] Protein [Mass/Vol] 7.3 g/dL Normal 6.4 - 8.2 [facility] Comment on above: Performed By: #### C MP #### [facility] [address] [place] [address] Sodium [Moles/Vol] 138 mmol/L Normal 136 - 145 [facility] Comment on above: Performed By: #### C MP #### [facility] [address] [place] [address] Urea nitrogen [Mass/Vol] 12 mg/dL Normal 6 - 23 [facility] Comment on above: Performed By: #### C MP #### [facility] [address] [place] [address] LIPID PANEL (CORONARY RISK 2 )on 01-23-2020 Cholesterol [Mass/Vol] 204 mg/dL High 0 - 199 [facility] Comment on above: Result Comment: . AGE DESIRABLE BORDERLINE HIGH HIGH 0-19 Y 0 - 169 170 - 199 >/= 200 20-24 Y 0 - 189 190 - 224 >/= 225 >24 Y 0 - 199 200 - 239 >/= 240 All ranges are based on fasting samples. Specific therapeutic targets will vary based on patient-specific cardiac risk. . Pediatric guidelines reference:Pediatrics 2011, 128(S5). Adult guidelines reference: NCEP ATPIII Guidelines, LUCAS 2001, 258:2486-97 . Venipuncture immediately after or during the administration of Metamizole may lead to falsely low results. Testing should be performed immediately prior to Metamizole dosing. Performed By: #### L IPID #### [facility] [address] [place] [address] Cholesterol in HDL [Mass/Vol] 61.3 mg/dL Normal [facility] Comment on above: Result Comment: . AGE VERY LOW LOW NORMAL HIGH 0-19 Y < 35 < 40 40-45 ---- 20-24 Y ---- < 40 >45 ---- >24 Y ---- < 40 40-60 >60 . Performed By: #### L IPID #### [facility] [address] [place] [address] Cholesterol in LDL [Mass/Vol] 129 mg/dL High 0 - 99 [facility] Comment on above: Result Comment: . NEAR BORD AGE DESIRABLE OPTIMAL HIGH HIGH VERY HIGH 0-19 Y 0 - 109 --- 110-129 >/= 130 ---- 20-24 Y 0 - 119 --- 120-159 >/= 160 ---- >24 Y 0 - 99 100-129 130-159 160-189 >/=190 . Performed By: #### L IPID #### [facility] [address] [place] [address] Cholesterol in VLDL [Mass/Vol] 14 mg/dL Normal 0 - 40 [facility] Comment on above: Performed By: #### L IPID #### [facility] [address] [place] [address] Cholesterol.total/Ch olesterol in HDL [Mass ratio] 3.3 {ratio} Normal [facility] Comment on above: Result Comment: REF VALUES DESIRABLE < 3.4 HIGH RISK > 5.0 Performed By: #### L IPID #### [facility] [address] [place] [address] Triglyceride [Mass/Vol] 70 mg/dL Normal 0 - 149 [facility] Comment on above: Result Comment: . AGE DESIRABLE BORDERLINE HIGH HIGH VERY HIGH 0 D-90 D 19 - 174 ---- ---- ---- 91 D- 9 Y 0 - 74 75 - 99 >/= 100 ---- 10-19 Y 0 - 89 90 - 129 >/= 130 ---- 20-24 Y 0 - 114 115 - 149 >/= 150 ---- >24 Y 0 - 149 150 - 199 200- 499 >/= 500 . Venipuncture immediately after or during the administration of Metamizole may lead to falsely low results. Testing should be performed immediately prior to Metamizole dosing. Performed By: #### L IPID #### [facility] [address] [place] [address] PROSTATE SPEC.AG,SCREENon PROSTATE SPEC.AG,SCREEN 3.74 ng/mL Normal 0.00 - 4.00 [facility] Comment on above: Result Comment: The FDA requires that the method used for PSA assay be reported to the physician. Values obtained with different assay methods must not be used interchangeably. This test was performed at [facility] using the Siemens Into The GlossllDisenia PSA method, which is a sandwich immunoassay using chemiluminescence for quantitation. The assay is approved for measurement of prostate-specific antigen (PSA) in serum and may be used in conjunction with a digital rectal examination in men 50 years and older as an aid in detection of prostate cancer. 0-Xoipi-hhbyhrfin inhibitors (e.g. Proscar, Finasteride, Avodart, Dutasteride and Aysha) for the treatment of BPH have been shown to lower PSA levels by an average of 50% after 6 months of treatment. Performed By: #### P [facility] #### [facility] [address] [place] [address] Comprehensive Panelon 2017 Albumin 4.3 g/dL Normal 3.4-5.0 [facility] Comment on above: Performed By: #### L P14 ####[facility] [place], [place] [address] Alkaline phosphatase (ALP) 45 U/L Low 46-116 [facility] Comment on above: Performed By: #### L P14 ####[facility] [place], [place] [address] ALT-SGPT Blood 23 U/L Normal 12-78 [facility] Comment on above: Performed By: #### L P14 ####[facility] [place], [place] [address] Anion gap 11 mmol/L Normal 8-20 [facility] Comment on above: Performed By: #### L P14 ####[facility] [place], [place] [address] AST-SGOT Blood 19 U/L Normal 15-37 [facility] Comment on above: Performed By: #### L P14 ####[address] [address] Bilirubin Ql (U) 0.8 mg/dL Normal 0.2-1.0 [facility] Comment on above: Performed By: #### L P14 ####[address] [address] BUN (urea nitrogen) 16 mg/dL Normal 7-25 [facility] Comment on above: Performed By: #### L P14 ####[address] [address] BUN/Creatinine Ratio 15 mg/mg Normal 10-20 [facility] Comment on above: Performed By: #### L P14 ####[address] [address] Calcium 9.6 mg/dL Normal 8.5-10.1 [facility] Comment on above: Performed By: #### L P14 ####[address] [address] Chloride 98 mmol/L Normal 98-107 [facility] Comment on above: Performed By: #### L P14 ####[address] [address] CO2 29 mmol/L Normal 21-32 [facility] Comment on above: Performed By: #### L P14 ####[place] [address] Creatinine 1.06 mg/dL Normal 0.67-1.17 [facility] Comment on above: Performed By: #### L P14 ####[facility] [place] [address] Glucose mass conc 105 mg/dL High 70-99 [facility] Comment on above: Performed By: #### L P14 ####[place] [address] Potassium molar conc 4.6 mmol/L Normal 3.5-5.1 [facility] Comment on above: Performed By: #### L P14 ####[place] [address] Protein 7.9 g/dL Normal 6.4-8.2 [facility] Comment on above: Performed By: #### L P14 ####[place] [address] Sodium 133 mmol/L Low 136-145 [facility] Comment on above: Performed By: #### L P14 ####[place] [address] Hemogramon 01-11-2018 Erythrocyte distribution width Auto Ratio (RBC) 12.0 % Normal 11.5-15.9 [facility] Comment on above: Performed By: #### L CBC ####[place] [address] Erythrocytes (RBC) 4.54 mil/cmm Low 4.60-6.20 [facility] Comment on above: Performed By: #### L CBC ####[place] [address] Hematocrit (HCT) 44.5 % Normal 42.0-52.0 [facility] Comment on above: Performed By: #### L CBC ####[place] [address] Hemoglobin mass conc (Bld) 15.7 g/dL Normal 14.0-18.0 [facility] Comment on above: Performed By: #### L CBC ####[place] [address] MCH 34.6 pg High 27.0-31.0 [facility] Comment on above: Performed By: #### L CBC ####[place] [address] MCHC mass conc (RBC) 35.3 % Normal 32.0-36.0 [facility] Comment on above: Performed By: #### L CBC ####[address] [address] MCV 98.0 fL High 80.0-94.0 [facility] Comment on above: Performed By: #### L CBC ####[place] [address] Platelet mean volume (PMV) 9.7 fL Normal 7.1-10.5 [facility] Comment on above: Performed By: #### L CBC ####[place] [address] Platelets 257 thou/cmm Normal 150-400 [facility] Comment on above: Performed By: #### L CBC ####[place] [address] WBC (Leukocytes) 5.1 thou/cmm Normal 4.8-10.8 [facility] Comment on above: Performed By: #### L CBC ####[place] [address] Lipid Profileon 01-11-2018 Cholesterol 189 mg/dL Normal 0-199 [facility] Comment on above: Performed By: #### R F1 ####[place] [address] Cholesterol to HDL Ratio 2.6 {ratio} Normal 2.1-7.3 [facility] Comment on above: Performed By: #### R F1 ####[place] [address] HDL Cholesterol 74 mg/dL Normal >40 [facility] Comment on above: Performed By: #### R F1 ####[place] [address] LDL Cholesterol 110 mg/dL Normal 0-150 [facility] Comment on above: Performed By: #### R F1 ####[place] [address] Risk Factor 2.6 Normal [facility] Comment on above: Result Comment: Card iac Risk Factor The CHD risk factor is based on the total Chol/HDL ratio. Otherfactors affect CHD risk such as hypertension, smoking, diabetes,severe obesity and premature CHD. Cardiac Risk Total Chol/HDL ratio Men Women 1/2 avg risk 3.4-4.9 3.3-6.3 Avg risk 5.0-9.5 6.4-7.0 2x avg risk 9.6-23.3 7.1-10.9 3x avg risk >23.4 >11.0 Performed By: #### R F1 ####[place] [address] Triglyceride Blood 26 mg/dL Normal 0-149 [facility] Comment on above: Performed By: #### R F1 ####[place] [address] MDRD eGFRon 01-11-2018 eGFR (non-black) mL/min/{1.73_m2} Normal >60mL/m in/1. 73m2 [facility] Comment on above: Result Comment: If t he patient is , multiply the result by 1.210. Performed By: #### R F1 ####[place] [address] PSA Screenon 01-11-2018 PSA Screen 3.3 ng/mL Normal 0.0-3.9 [facility] Comment on above: Performed By: #### R F1 ####[place] [address] Creatinineon 07-23-2017 Creatinine 1.00 mg/dL Normal 0.73-1.22 [facility] eGFR (non-black) mL/min/{1.73_m2} Normal [facility] Comment on above: Result Comment: eGFR (Estimated GFR) Units of measure: mL/min/1.73 meters squaredeGFR is derived from the reexpressed MDRD Study equation using the following parameters: serum creatinine, age, gender and race. The creatinine assay has been calibrated to be traceable to IDMS.An eGFR <60 mL/min/1.73m2 for >3 months is consistent with chronic kidney disease. Refer to KDOQI guidelines for clinical interpretation.In patients with unstable renal function, e.g. those with acute kidney injury, the eGFR may not accurately reflect actual GFR. MRI CERVICAL SPINE WO/W IVCO Non 07-23-2017 MRI CERVICAL SPINE WO/W IVCON * * *Final Report* * *DATE OF EXAM: Jul 23 2017 3:24PM SPM 0298 - MRI CERVICAL SPINE WO/W IVCON / REASON: m79.2 neuralgia and neuritis * * * * Physician Interpretation * * * *RESULT: MRI CERVICAL SPINE WITHOUT AND WITH IV CONTRASTHISTORY: Neuritis neuralgiaCOMPARISON: None.MR Contrast: DotaremContrast Dose:20Route of Administration: IVRESULT:Counting reference: Craniocervical junction.Alignment: Alignment is anatomic.Craniocervical junction: Craniocervical junction is normal.Cord: Cervical spinal cord is normal in signal intensity.Bone marrow signal/fracture: There is marrow heterogeneity suggesting osteopenia versus metabolic process, unlikely to represent metastatic change. No evidence of prior fracture.Cervical soft tissues: The paraspinal soft tissues are unremarkable.C2-C3: Canal and foramina are patent.C3-C4: Uncovertebral change severely narrows the neural foramina. Disc osteophyte change results in cord contact without cord compression. There is mild canal stenosis.C4-C5: Moderate interspace narrowing is present. Disc osteophyte change results in mild ventral cord compression. Uncovertebral change severely narrows the neural foramina, left greater than right.C5-C6: Diffuse disc osteophyte change results in cord contact without cord compression. Uncovertebral change results in severe bilateral foraminal encroachment, left greater than right.C6-C7: Disc osteophyte change results in cord contact without definite cord compression. Uncovertebral change results in moderate right and severe left foraminal encroachment.C7-T1: Uncovertebral change severely narrows the right foramen and moderately narrows the left. Central canal is patent.IMPRESSION:Diffuse cervical spondylosis notable for mild ventral cord compression C4-5, multilevel mild canal stenosis and multilevel severe foraminal encroachment.Transcribed Using Voice RecognitionTranscribe Date/Time: Jul 23 2017 4:41PDictated by: BREA LAWRENCE MDThis examination was interpreted and the report reviewed and electronically signed by: BREA LAWRENCE MD on Jul 23 2017 4:44PM [id number] [facility] CERVICAL SPINE W/O CONTRA STon 07-19-2017 CT CERVICAL SPINE W/O CONTRAST Performed at [facility] APPROVED BY: Candido Galicia MD EXAMINATION: CT BRAIN WITHOUT CONTRAST CLINICAL HISTORY: Headache and neck pain. Headache radiating into upper cervical spine. No known injury. TECHNIQUE: Routine CT scan of the brain without contrast. Serial axial unenhanced images were obtained from the vertex to the foramen magnum.M: CTBWO_2 CT Dose-Length Product: 772.45 mGy*cmCT Dose Reduction Employed: 5. No dose reduction techniques were required. COMPARISON: CT neck with contrast 04/17/2017. RESULT: Post-operative change: None. Acute change: No evidence of an acute infarct or other acute parenchymal process. Hemorrhage: No evidence of acute intracranial hemorrhage. Mass effect / Mass lesion: There is no evidence of an intracranial mass or extraaxial fluid collection. No significant mass effect. Chronic change: None apparent. Ventricles: The ventricles are within normal limits of size and configuration for age. Paranasal sinuses and skull base: The visualized paranasal sinuses are clear. The skull base and imaged soft tissues are unremarkable. IMPRESSION: No acute intracranial abnormality. EXAMINATION: CT CERVICAL SPINE WITHOUT CONTRAST CLINICAL HISTORY: Headache and neck pain. Headache radiating into upper cervical spine. No known injury. TECHNIQUE: CT of the cervical spine without IV contrast. Spiral, high resolution axial images were obtained from the skull base to the cervicothoracic junction with sagittal and coronal planar reconstructions.M: CTCPWO_3 CT Dose-Length Product: 858.84 mGy*cmCT Dose Reduction Employed: 5. No dose reduction techniques were required. COMPARISON: CT neck 04/17/2017. RESULT: Counting reference: Craniocervical junction. Alignment: Alignment is anatomic. Craniocervical junction: Craniocervical junction is normal. Osseous structures/fracture: No evidence of a lytic or blastic process in the visualized spine. No evidence of acute or chronic fracture. Cervical soft tissues: The paraspinal soft tissues planes are maintained. Degenerative changes: Mild to moderate multilevel degenerative changes which do not cause significant central canal narrowing. Other: Mild bilateral carotid bulb calcifications. IMPRESSION: No acute bony abnormality. Degenerative changes as above. Mild bilateral carotid bulb calcifications. Normal [facility] CT HEAD W/O CONTRASTon 07-06 CT HEAD W/O CONTRAST Performed at [facility] APPROVED BY: Candido Galicia MD EXAMINATION: CT BRAIN WITHOUT CONTRAST CLINICAL HISTORY: Headache and neck pain. Headache radiating into upper cervical spine. No known injury. TECHNIQUE: Routine CT scan of the brain without contrast. Serial axial unenhanced images were obtained from the vertex to the foramen magnum.M: CTBWO_2 CT Dose-Length Product: 772.45 mGy*cmCT Dose Reduction Employed: 5. No dose reduction techniques were required. COMPARISON: CT neck with contrast 04/17/2017. RESULT: Post-operative change: None. Acute change: No evidence of an acute infarct or other acute parenchymal process. Hemorrhage: No evidence of acute intracranial hemorrhage. Mass effect / Mass lesion: There is no evidence of an intracranial mass or extraaxial fluid collection. No significant mass effect. Chronic change: None apparent. Ventricles: The ventricles are within normal limits of size and configuration for age. Paranasal sinuses and skull base: The visualized paranasal sinuses are clear. The skull base and imaged soft tissues are unremarkable. IMPRESSION: No acute intracranial abnormality. EXAMINATION: CT CERVICAL SPINE WITHOUT CONTRAST CLINICAL HISTORY: Headache and neck pain. Headache radiating into upper cervical spine. No known injury. TECHNIQUE: CT of the cervical spine without IV contrast. Spiral, high resolution axial images were obtained from the skull base to the cervicothoracic junction with sagittal and coronal planar reconstructions.M: CTCPWO_3 CT Dose-Length Product: 858.84 mGy*cmCT Dose Reduction Employed: 5. No dose reduction techniques were required. COMPARISON: CT neck 04/17/2017. RESULT: Counting reference: Craniocervical junction. Alignment: Alignment is anatomic. Craniocervical junction: Craniocervical junction is normal. Osseous structures/fracture: No evidence of a lytic or blastic process in the visualized spine. No evidence of acute or chronic fracture. Cervical soft tissues: The paraspinal soft tissues planes are maintained. Degenerative changes: Mild to moderate multilevel degenerative changes which do not cause significant central canal narrowing. Other: Mild bilateral carotid bulb calcifications. IMPRESSION: No acute bony abnormality. Degenerative changes as above. Mild bilateral carotid bulb calcifications. Normal [facility] SCOUT by IFA with Reflex (Rheu m)on 07-03-2017 SCOUT by IFA with Reflex (Rheum) SEE BELOW Normal [facility] Comment on above: Result Comment: SCOUT Positive A NEGATNormal range : negative at <1:80 serum dilution.SCOUT Titer 1:80 A NEGATANA Pattern SpeckledPerforming Laboratory:[place] [id number] [place] [address] Performed By: #### A NAPX ####[place] [address] DS-DNA Abon 07-03-2017 DS-DNA Ab SEE BELOW Normal [facility] Comment on above: Result Comment: DNA Antibody w/ Conf. <12 <30 IU/mLNegative for ds DNA Antibodies Negative: <30 IU/mL Equivocal: 30-74 IU/mL Positive: >74 IU/mLPerforming Laboratory:[place] [address] Performed By: #### D NADX ####[place] [address] BITA Antibody Panelon 017 BITA Antibody Panel SEE BELOW Normal [facility] Comment on above: Result Comment: Sm A ntibody <0.2 <1.0 AINegativeNegative: <1.0 AIPositive: >0.9 AIRNP Antibody <0.2 <1.0 AINegativeNegative: <1.0 AIPositive: >0.9 IVONNE Antibody <0.2 <1.0 AINegativeNegative: <1.0 AIPositive: >0.9 AISSB Antibody <0.2 <1.0 AINegativeNegative: <1.0 AIPositive: >0.9 AICentromere <0.2 <1.0 AINegativeNegative: <1.0 AIPositive: >0.9 AIScleroderma IgG Ab <0.2 <1.0 AINegativeNegative: <1.0 AIPositive: >0.9 AIJO 1 Antibody <0.2 <1.0 AINegativeNegative: <1.0 AIPositive: >0.9 AIRibosomal M48/M60 TANK DRIVER <0.2 <1.0 AINegativeNegative: <1.0 AIPositive: >0.9 AIChromatin Antibody <0.2 <1.0 AINegativeNegative: <1.0 AIPositive: >0.9 AIPerforming Laboratory:[place] [address] Performed By: #### E NIDX ####[place] [address] Sjogren Antibodieson 017 Sjogren Antibodies SEE BELOW Normal [facility] Comment on above: Result Comment: SSA Antibody <0.2 <1.0 AINegativeNegative: <1.0 AIPositive: >0.9 AISSB Antibody <0.2 <1.0 AINegativeNegative: <1.0 AIPositive: >0.9 AIPerforming Laboratory:[place] [address] Performed By: #### S JOX ####[place] [address] Rheumatoid Factoron 06-28-20 17 Rheumatoid Factor < 10.0 Normal 0.0-15.0 [facility] Comment on above: Performed By: #### R F1 ####[place] [address] Sed Rateon 06-28-2017 Sed Rate 3 mm/hr Normal 0-15 [facility] Comment on above: Performed By: #### L ESR ####[place] [address] Culture, urine Bacteria identified Cx Nom (U) Presumptive E. coli [facility] Work Phone: Vital Signs Date Time Vital Sign Value Performing Clinician Facility 05-11-2025 11:21-0400 Diastolic blood pressure 69 mm[Hg] Kimberley Durán HYDRAULIC PRESS TENDER - MELANGEUR OPERATOR Work Phone: [facility] Matter and Form 05-11-2025 11:21-0400 Heart rate 84 /min Kimberley Bridenthal HYDRAULIC PRESS TENDER - MELANGEUR OPERATOR Work Phone: [facility] 05-11-2025 11:21-0400 Systolic blood pressure 147 mm[Hg] Kimberley Bridenthal HYDRAULIC PRESS TENDER - MELANGEUR OPERATOR Work Phone: [facility] 05-11-2025 10:29-0400 Body mass index (BMI) [Ratio] 25.75 kg/m2 Kimberley Bridenthal HYDRAULIC PRESS TENDER - MELANGEUR OPERATOR Work Phone: [facility] 05-11-2025 10:29-0400 Body temperature 98.4 [degF] Kimberley Bridenthal HYDRAULIC PRESS TENDER - MELANGEUR OPERATOR Work Phone: [facility] 05-11-2025 10:29-0400 Body weight 79.11 kg Kimberley Bridenthal HYDRAULIC PRESS TENDER - MELANGEUR OPERATOR Work Phone: [facility] 05-11-2025 10:29-0400 Respiratory rate 24 /min Kimberley Bridenthal HYDRAULIC PRESS TENDER - MELANGEUR OPERATOR Work Phone: [facility] 05-11-2025 10:29-0400 SaO2% (BldA) [Mass fraction] 96 % Kimberley Bridenthal HYDRAULIC PRESS TENDER - MELANGEUR OPERATOR Work Phone: [facility] 03-09-2025 10:05-0400 Diastolic Blood Pressure Non-Invasive 66 mm[Hg] DR JAMIL HERZOG MD [facility] 03-09-2025 10:05-0400 Heart rate 67 /min DR JAMIL HERZOG MD [facility] 03-09-2025 10:05-0400 Respiratory rate 18 /min DR JAMIL HERZOG MD [facility] 03-09-2025 10:05-0400 Systolic Blood Pressure Non-Invasive 101 mm[Hg] DR JAMIL HERZOG MD [facility] 03-09-2025 09:48-0400 Diastolic Blood Pressure Non-Invasive 79 mm[Hg] DR JAMIL HERZOG MD [facility] 03-09-2025 09:48-0400 Heart rate 66 /min DR JAMIL HERZOG MD [facility] 03-09-2025 09:48-0400 Respiratory rate 20 /min DR JAMIL HERZOG MD [facility] 03-09-2025 09:48-0400 Systolic Blood Pressure Non-Invasive 103 mm[Hg] DR JAMIL HERZOG MD [facility] 03-09-2025 09:43-0400 Diastolic Blood Pressure Non-Invasive 63 mm[Hg] DR JAMIL HERZOG MD [facility] 03-09-2025 09:43-0400 Heart rate 60 /min DR JAMIL HERZOG MD [facility] 03-09-2025 09:43-0400 Respiratory rate 16 /min DR JAMIL HERZOG MD [facility] 03-09-2025 09:43-0400 Systolic Blood Pressure Non-Invasive 109 mm[Hg] DR JAMIL HERZOG MD [facility] 03-09-2025 09:30-0400 Respiratory Rate - Anes 19 br/min DR JAMIL HERZOG MD [facility] 03-09-2025 09:25-0400 Respiratory Rate - Anes 24 br/min DR JAMIL HERZOG MD [facility] 03-09-2025 09:20-0400 Respiratory Rate - Anes 13 br/min DR JAMIL HERZOG MD [facility] 03-09-2025 08:35-0400 Body height 175.[address] JAMIL HERZOG MD [facility] 03-09-2025 08:35-0400 Body temperature 97.7 [degF] DR JAMIL HERZOG MD [facility] 03-09-2025 08:35-0400 Body weight 79.[address] JAMIL HERZOG MD [facility] 03-09-2025 08:35-0400 Body weight 25.87 kg/m2 DR JAMIL HERZOG MD [facility] 03-09-2025 08:35-0400 Heart rate 62 /min DR JAMIL HERZOG MD [facility] 01-27-2025 10:48-0400 Body height 175.3 cm Horace Lubin PA-C Work Phone: [facility] 01-27-2025 10:48-0400 Body mass index (BMI) [Ratio] 25.4 kg/m2 Horace Lubin PA-C Work Phone: [facility] 01-27-2025 10:48-0400 Body temperature 97.3 [degF] Horace Lubin PA-C Work Phone: [facility] 01-27-2025 10:48-0400 Body weight 78.02 kg Horace Lubin PA-C Work Phone: [facility] 01-27-2025 10:48-0400 Diastolic blood pressure 76 mm[Hg] Horace Lubin PA-C Work Phone: [facility] Comment on above: Patient did not want blood pressure nena Gutiérrez notified of blood pressure. 01-27-2025 10:48-0400 Heart rate 92 /min Horace Lubin PA-C Work Phone: [facility] 01-27-2025 10:48-0400 Respiratory rate 14 /min Horace Lubin PA-C Work Phone: [facility] 01-27-2025 10:48-0400 SaO2% (BldA) [Mass fraction] 94 % Horace Lubin PA-C Work Phone: [facility] 01-27-2025 10:48-0400 Systolic blood pressure 176 mm[Hg] Horace Lubin PA-C Work Phone: [facility] Comment on above: Patient did not want blood pressure nena Gutiérrez notified of blood pressure. 01-16-2025 11:04-0400 Diastolic blood pressure 72 mm[Hg] Candice Frank HYDRAULIC PRESS TENDER - MELANGEUR OPERATOR Work Phone: [facility] 01-16-2025 11:04-0400 Systolic blood pressure 144 mm[Hg] Candice Frank HYDRAULIC PRESS TENDER - MELANGEUR OPERATOR Work Phone: [facility] 01-16-2025 10:43-0400 Body height 175.3 cm Candice Frank HYDRAULIC PRESS TENDER - MELANGEUR OPERATOR Work Phone: [facility] 01-16-2025 10:43-0400 Body mass index (BMI) [Ratio] 25.55 kg/m2 Candice Zac HYDRAULIC PRESS TENDER - MELANGEUR OPERATOR Work Phone: [facility] 01-16-2025 10:43-0400 Body weight 78.47 kg Candice Zac HYDRAULIC PRESS TENDER - MELANGEUR OPERATOR Work Phone: [facility] 01-16-2025 10:43-0400 Heart rate 53 /min Candice Zac HYDRAULIC PRESS TENDER - MELANGEUR OPERATOR Work Phone: [facility] 01-16-2025 10:43-0400 SaO2% (BldA) [Mass fraction] 97 % Candice Frank HYDRAULIC PRESS TENDER - MELANGEUR OPERATOR Work Phone: [facility] 12-02-2024 11:11-0500 Diastolic blood pressure 71 mm[Hg] Kimberley Bridenthal HYDRAULIC PRESS TENDER - MELANGEUR OPERATOR Work Phone: [facility] 12-02-2024 11:11-0500 Heart rate 81 /min Kimberley Bridenthal HYDRAULIC PRESS TENDER - MELANGEUR OPERATOR Work Phone: [facility] 12-02-2024 11:11-0500 Systolic blood pressure 164 mm[Hg] Kimberley Kehindeenthal HYDRAULIC PRESS TENDER - MELANGEUR OPERATOR Work Phone: [facility] 12-02-2024 10:43-0500 Body mass index (BMI) [Ratio] 25.84 kg/m2 Kimberley Kehindeenthal HYDRAULIC PRESS TENDER - MELANGEUR OPERATOR Work Phone: [facility] 12-02-2024 10:43-0500 Body temperature 98.6 [degF] Kimberley Kehindeenthal HYDRAULIC PRESS TENDER - MELANGEUR OPERATOR Work Phone: [facility] 12-02-2024 10:43-0500 Body weight 79.38 kg Kimberley Bridenthal HYDRAULIC PRESS TENDER - MELANGEUR OPERATOR Work Phone: [facility] 12-02-2024 10:43-0500 Respiratory rate 24 /min Kimberley Bridenthal HYDRAULIC PRESS TENDER - MELANGEUR OPERATOR Work Phone: [facility] 12-02-2024 10:43-0500 SaO2% (BldA) [Mass fraction] 94 % Kimberley Busbyenthal HYDRAULIC PRESS TENDER - MELANGEUR OPERATOR Work Phone: [facility] 07-14-2024 13:37-0400 Body height 175.3 cm Candice Frank HYDRAULIC PRESS TENDER - MELANGEUR OPERATOR Work Phone: [facility] 07-14-2024 13:37-0400 Body mass index (BMI) [Ratio] 26.67 kg/m2 Candice Frank HYDRAULIC PRESS TENDER - MELANGEUR OPERATOR Work Phone: [facility] 07-14-2024 13:37-0400 Body weight 81.92 kg Candice Zac HYDRAULIC PRESS TENDER - MELANGEUR OPERATOR Work Phone: [facility] 07-14-2024 13:37-0400 Diastolic blood pressure 86 mm[Hg] Candice Zac HYDRAULIC PRESS TENDER - MELANGEUR OPERATOR Work Phone: [facility] 07-14-2024 13:37-0400 Heart rate 65 /min Candice Zac HYDRAULIC PRESS TENDER - MELANGEUR OPERATOR Work Phone: [facility] 07-14-2024 13:37-0400 SaO2% (BldA) [Mass fraction] 98 % Candice Frank HYDRAULIC PRESS TENDER - MELANGEUR OPERATOR Work Phone: [facility] 07-14-2024 13:37-0400 Systolic blood pressure 134 mm[Hg] Candice Frank HYDRAULIC PRESS TENDER - MELANGEUR OPERATOR Work Phone: [facility] 01-25-2024 10:18-0400 Body height 175.3 cm Shruthi Krause MD Work Phone: [facility] 01-25-2024 10:18-0400 Heart rate 57 /min Shruthi Krause MD Work Phone: [facility] 01-25-2024 10:18-0400 SaO2% (BldA) [Mass fraction] 98 % Shruthi Krause MD Work Phone: [facility] 01-22-2024 10:59-0400 Diastolic blood pressure 77 mm[Hg] Schedule [facility] 01-22-2024 10:59-0400 Systolic blood pressure 190 mm[Hg] Schedule [facility] 01-22-2024 10:51-0400 Heart rate 58 /min Schedule [facility] 01-09-2024 10:10-0500 Diastolic blood pressure 72 mm[Hg] Candice Frank HYDRAULIC PRESS TENDER - MELANGEUR OPERATOR Work Phone: [facility] 01-09-2024 10:10-0500 Systolic blood pressure 164 mm[Hg] Candice Frank HYDRAULIC PRESS TENDER - MELANGEUR OPERATOR Work Phone: [facility] 01-09-2024 09:53-0500 Body height 175.3 cm Candice Frank HYDRAULIC PRESS TENDER - MELANGEUR OPERATOR Work Phone: [facility] 01-09-2024 09:53-0500 Body mass index (BMI) [Ratio] 26.17 kg/m2 Candice Frank HYDRAULIC PRESS TENDER - MELANGEUR OPERATOR Work Phone: [facility] 01-09-2024 09:53-0500 Body weight 80.38 kg Candice Frank HYDRAULIC PRESS TENDER - MELANGEUR OPERATOR Work Phone: [facility] 01-09-2024 09:53-0500 Heart rate 59 /min Candice Zac HYDRAULIC PRESS TENDER - MELANGEUR OPERATOR Work Phone: [facility] 01-09-2024 09:53-0500 SaO2% (BldA) [Mass fraction] 96 % Candicegabrielle Frank HYDRAULIC PRESS TENDER - MELANGEUR OPERATOR Work Phone: [facility] 01-04-2024 10:50-0500 Body height 175.3 cm Shruthi Krause MD Work Phone: [facility] 09-03-2023 14:22-0400 Diastolic blood pressure 82 mm[Hg] Candice Frank HYDRAULIC PRESS TENDER - MELANGEUR OPERATOR [facility] 09-03-2023 14:22-0400 Systolic blood pressure 136 mm[Hg] Candice Frank HYDRAULIC PRESS TENDER - MELANGEUR OPERATOR Work Phone: [facility] 09-03-2023 14:02-0400 Body height 175.3 cm Candice Frank HYDRAULIC PRESS TENDER - MELANGEUR OPERATOR Work Phone: [facility] 09-03-2023 14:02-0400 Body mass index (BMI) [Ratio] 25.4 kg/m2 Candicegabrielle Frank HYDRAULIC PRESS TENDER - MELANGEUR OPERATOR Work Phone: [facility] 09-03-2023 14:02-0400 Body temperature 97.5 [degF] Candice Frank HYDRAULIC PRESS TENDER - MELANGEUR OPERATOR Work Phone: [facility] 09-03-2023 14:02-0400 Body weight 78.02 kg Candice Frank HYDRAULIC PRESS TENDER - MELANGEUR OPERATOR Work Phone: [facility] 09-03-2023 14:02-0400 Heart rate 63 /min Candice Frank HYDRAULIC PRESS TENDER - MELANGEUR OPERATOR [facility] 08-31-2023 11:09-0400 Body height 175.26 cm SERVICE STATION EQUIPMENT MECHANIC-C Cnadice Frank SERVICE STATION EQUIPMENT MECHANIC Work Phone: [facility] 08-31-2023 11:09-0400 Body mass index (BMI) [Ratio] 25.4 kg/m2 SERVICE STATION EQUIPMENT MECHANIC-C Candice Frank SERVICE STATION EQUIPMENT MECHANIC Work Phone: [facility] 08-31-2023 11:09-0400 Body weight 78.18 kg SERVICE STATION EQUIPMENT MECHANIC-C Candice Frank SERVICE STATION EQUIPMENT MECHANIC Work Phone: [facility] 01-05-2023 10:19-0500 Body height 172.7 cm Candicegabrielle Frank HYDRAULIC PRESS TENDER - MELANGEUR OPERATOR Work Phone: [facility] 01-05-2023 10:19-0500 Body mass index (BMI) [Ratio] 26.15 kg/m2 Candicegabrielle Frank HYDRAULIC PRESS TENDER - MELANGEUR OPERATOR Work Phone: [facility] 01-05-2023 10:19-0500 Body weight 78.02 kg Candicegabrielle Frank HYDRAULIC PRESS TENDER - MELANGEUR OPERATOR Work Phone: [facility] 01-05-2023 10:19-0500 Diastolic blood pressure 76 mm[Hg] Candice Frank HYDRAULIC PRESS TENDER - MELANGEUR OPERATOR Work Phone: [facility] 01-05-2023 10:19-0500 Heart rate 57 /min Candicegabrielle Frank HYDRAULIC PRESS TENDER - MELANGEUR OPERATOR Work Phone: [facility] 01-05-2023 10:19-0500 SaO2% (BldA) [Mass fraction] 98 % Candice Zac HYDRAULIC PRESS TENDER - MELANGEUR OPERATOR Work Phone: [facility] 01-05-2023 10:19-0500 Systolic blood pressure 120 mm[Hg] Candice Frnak HYDRAULIC PRESS TENDER - MELANGEUR OPERATOR Work Phone: [facility] 10-20-2019 11:20-0500 BMI (Body Mass Index) 28.32 kg/m2 Annel Aguillon [facility] Work Phone: 10-20-2019 11:20-0500 Body Temperature 98.2 [degF] Annle Aguillon [facility] Work Phone: 10-20-2019 11:20-0500 Body weight 85.73 kg Annel Aguillon [facility] Work Phone: 10-20-2019 11:20-0500 BP Diastolic 74 mm[Hg] [facility] Work Phone: 10-20-2019 11:20-0500 BP Systolic 126 mm[Hg] [facility] Work Phone: 10-20-2019 11:20-0500 BSA (Body Surface Area) 2.01 m2 [facility] Work Phone: 10-20-2019 11:20-0500 Height 173.99 cm [facility] Work Phone: Encounters Encounter Date Encounter Type Care Provider Facility Start: 05-11-2025 End: 05-11-2025 Office outpatient visit 25 minutes Kimberley Durán HYDRAULIC PRESS TENDER - MELANGEUR OPERATOR Work Phone: [facility] Comment on above: Anxiety (Primary Dx) ; Major depressive disorder, recurrent, mild (HCC) Start: 05-05-2025 End: 05-05-2025 Refill Mumtaz Kennedy MD Work Phone: [facility] Comment on above: Essential hypertensi on proscar Start: 03-16-2025 End: 03-17-2025 Telephone encounter Mumtaz Kennedy MD Work Phone: [facility] Comment on above: Other (03/24/25: per patient, stop messages re referral for gastro/Colonoscopy done 03/09/25 ) Start: 03-09-2025 End: 03-09-[address] JAMIL HERZOG MD Facility:[facility] Start: 03-03-2025 End: 03-03-2025 Refill Candice Frank HYDRAULIC PRESS TENDER - MELANGEUR OPERATOR Work Phone: [facility] Comment on above: Essential hypertensi on Start: 02-12-2025 End: 02-12-2025 ambulatory SASHA KAUR Facility:[facility] Start: 01-27-2025 End: 01-27-2025 ambulatory HORACE LUBIN Facility:[facility] Start: 01-27-2025 End: 01-27-2025 Patient encounter procedure Horace Lubin PA-C Work Phone: Urology Comment on above: Elevated prostate sp ecific antigen (PSA) (Primary Dx); BPH with obstruction/lower urinary tract symptoms; Screening for genitourinary condition Start: 01-23-2025 End: 01-23-2025 ambulatory CANDICE FRANK Facility:[facility] Start: 01-16-2025 End: 01-16-2025 ambulatory CANDICE FRANK [facility] Start: 01-16-2025 End: 01-16-2025 Assay of hemosiderin, quant Candice Perez Zac HYDRAULIC PRESS TENDER - MELANGEUR OPERATOR Work Phone: [facility] Start: 01-16-2025 End: 01-16-2025 Encounter for general adult medical examination without abnormal findings CANDICE ZAC [facility] Start: 01-16-2025 End: 01-16-2025 Patient encounter procedure Candice S Zac HYDRAULIC PRESS TENDER - MELANGEUR OPERATOR Work Phone: [facility] Comment on above: Routine general medi bird examination at health care facility (Primary Dx); Essential hypertension; Major depressive disorder, recurrent, mild (HCC); Anxiety; Benign prostatic hyperplasia with nocturia; Chronic low back pain, unspecified back pain laterality, unspecified whether sciatica present; Degenerative spondylolisthesis; Screening for diabetes mellitus; Screening for deficiency anemia; Screening for ischemic heart disease; Screening for colon cancer Start: 01-01-2025 End: 01-01-2025 Refill Candice Perez Zac HYDRAULIC PRESS TENDER - MELANGEUR OPERATOR Work Phone: [facility] Comment on above: Anxiety Start: 12-02-2024 End: 12-02-2024 Office outpatient visit 15 minutes Kimberley Bridenthal HYDRAULIC PRESS TENDER - MELANGEUR OPERATOR Work Phone: [facility] Comment on above: Benign prostatic hyp erplasia with nocturia (Primary Dx); Urinary tract infection symptoms; Viral URI with cough Start: 12-02-2024 End: 12-02-2024 Office outpatient visit 25 minutes Kimberley Bridenthal HYDRAULIC PRESS TENDER - MELANGEUR OPERATOR Work Phone: [facility] Comment on above: Benign prostatic hyp erplasia with nocturia (Primary Dx); Urinary tract infection symptoms; Viral URI with cough Start: 12-02-2024 End: 12-02-2024 ambulatory KIMBERLEY DURÁN [facility] Start: 11-24-2024 End: 11-24-2024 ambulatory SASHA KAUR Facility:[facility] Start: 11-24-2024 End: 11-24-2024 Patient encounter procedure Sasha Kaur OD Work Phone: Ophthalmology Comment on above: Combined forms of ag e-related cataract of both eyes (Primary Dx); Dermatochalasis of both upper eyelids; Hyperopia, bilateral; Regular astigmatism of both eyes; Presbyopia Start: 11-05-2024 End: 03-09-[address] [facility] Start: 11-03-2024 End: 11-03-2024 ambulatory Candice Frank SERVICE STATION EQUIPMENT MECHANIC Facility:[facility] Start: 10-30-2024 End: 10-30-2024 Shannan Kennedy MD Work Phone: [facility] Comment on above: Essential hypertensi on Start: 09-23-2024 End: 09-23-2024 ambulatory Candice Frank SERVICE STATION EQUIPMENT MECHANIC Facility:[facility] Start: 09-18-2024 End: 09-18-2024 ambulatory Candice Frank SERVICE STATION EQUIPMENT MECHANIC Facility:[facility] Start: 08-29-2024 Encounter for other preprocedural examination Norberto Lu [facility] Start: 08-21-2024 End: 08-21-2024 Refill Candice Frank HYDRAULIC PRESS TENDER - MELANGEUR OPERATOR Work Phone: [facility] Comment on above: Essential hypertensi on Start: 08-21-2024 End: 08-21-2024 ambulatory Candice Frank SERVICE STATION EQUIPMENT MECHANIC Facility:[facility] Start: 08-05-2024 ambulatory Norberto Lu Facility[facility] Start: 08-05-2024 End: 08-06-2024 Evaluation and management of inpatient Norberto Lu Facility:[facility] Start: 08-05-2024 ambulatory Norberto Lu Facility:[facility] Start: 07-31-2024 End: 07-31-2024 ambulatory MUMTAZ KENNEDY [facility] Start: 07-30-2024 End: 07-30-2024 Orders Only Candice Frank HYDRAULIC PRESS TENDER - MELANGEUR OPERATOR Work Phone: [facility] Comment on above: Hyponatremia (Primar y Dx) Start: 07-24-2024 End: 07-24-2024 ambulatory Norberto Lu Facility:[facility] Start: 07-18-2024 End: 07-18-2024 ambulatory Candice Frank NP Facility:[facility] Start: 07-14-2024 End: 07-14-2024 Office outpatient visit 25 minutes Candice Frank HYDRAULIC PRESS TENDER - MELANGEUR OPERATOR Work Phone: [facility] Comment on above: Pre-operative cleara nce (Primary Dx); Essential hypertension; Major depressive disorder, recurrent, mild (HCC); Anxiety; Benign prostatic hyperplasia with nocturia; Elevated PSA, less than 10 ng/ml; Chronic low back pain, unspecified back pain laterality, unspecified whether sciatica present; Elevated LDL cholesterol level Start: 07-14-2024 End: 07-14-2024 Preoperative state Candice Frank HYDRAULIC PRESS TENDER - MELANGEUR OPERATOR Work Phone: [facility] Work Phone: Start: 07-14-2024 End: 07-14-2024 ambulatory CANDICE FRANK [facility] Start: 07-10-2024 End: 07-10-2024 Refill Candice Frank HYDRAULIC PRESS TENDER - MELANGEUR OPERATOR Work Phone: [facility] Comment on above: Anxiety Start: 05-21-2024 End: 05-21-2024 ambulatory Candice Frank SERVICE STATION EQUIPMENT MECHANIC Facility:[facility] Start: 05-20-2024 E-mail encounter fro m caregiver [facility] Start: 05-20-2024 Patient encounter procedure [facility] Comment on above: Instructions for you r upcoming appointment Start: 05-15-2024 End: 05-15-2024 Refill Candice Frank HYDRAULIC PRESS TENDER - MELANGEUR OPERATOR Work Phone: [facility] Comment on above: Essential hypertensi on Start: 04-15-2024 End: 04-15-2024 Patient encounter procedure Kate Ramirez OD Work Phone: Ophthalmology Comment on above: Combined forms of ag e-related cataract of both eyes (Primary Dx); Dermatochalasis of both upper eyelids; Hyperopia, bilateral; Regular astigmatism of both eyes; Presbyopia Start: 01-25-2024 End: 01-25-2024 Patient encounter procedure Shruthi Krause MD Work Phone: [facility] Comment on above: Elevated prostate sp ecific antigen (PSA) (Primary Dx); BPH with obstruction/lower urinary tract symptoms Start: 01-22-2024 End: 01-22-2024 Clinical Support Schedule Deborah [facility] Start: 01-16-2024 Patient encounter status Wilmer Krause MD Work Phone: [facility] Work Phone: Start: 01-10-2024 Telephone encounter Mumtaz Lopes MD Work Phone: [facility] Comment on above: Medication Question Start: 01-09-2024 Telephone encounter Shruthi Krause MD Work Phone: [facility] Comment on above: Surgery Scheduled Start: 01-09-2024 End: 01-09-2024 Patient encounter procedure Candice Frank HYDRAULIC PRESS TENDER - MELANGEUR OPERATOR Work Phone: [facility] Comment on above: Medicare annual well ness visit, subsequent (Primary Dx); Essential hypertension; Major depressive disorder, recurrent, mild (HCC); Anxiety; Benign prostatic hyperplasia with nocturia; Elevated PSA, less than 10 ng/ml; Chronic low back pain, unspecified back pain laterality, unspecified whether sciatica present; Degenerative spondylolisthesis; Screening for ischemic heart disease; Screening for diabetes mellitus Start: 01-04-2024 End: 01-04-2024 Patient encounter procedure Shruthi Krause MD Work Phone: [facility] Comment on above: Elevated prostate sp ecific antigen (PSA) (Primary Dx); BPH with obstruction/lower urinary tract symptoms Start: 12-25-2023 End: 12-25-2023 Subsequent hospital visit by physician Mri [facility] (I-Stat/Lg Bore/3t) [facility] Comment on above: Encounter for observ ation for other suspected diseases and conditions ruled out [Z03.89] Start: 11-12-2023 Refill Mumtaz Kennedy MD Work Phone: [facility] Comment on above: Essential hypertensi on Start: 11-07-2023 Telephone encounter Shruthi Krause MD Work Phone: [facility] Start: 10-31-2023 End: 11-01-2023 ambulatory [facility] Facility:[facility] Start: 10-23-2023 Refill Candice Frank HYDRAULIC PRESS TENDER - MELANGEUR OPERATOR Work Phone: [facility] Comment on above: Erectile dysfunction , unspecified erectile dysfunction type Start: 10-17-2023 End: 10-17-2023 Patient encounter procedure KATARINA Frank NP Work Phone: [facility] Work Phone: Start: 10-16-2023 Telephone encounter Yomi dior MD Work Phone: [facility] Start: 10-15-2023 End: 10-15-2023 Orders Only Candice Frank HYDRAULIC PRESS TENDER - MELANGEUR OPERATOR Work Phone: [facility] Comment on above: Elevated PSA, less t bansal 10 ng/ml (Primary Dx); Benign prostatic hyperplasia with nocturia Start: 10-15-2023 End: 10-15-2023 Patient encounter procedure SERVICE STATION EQUIPMENT MECHANICHunter Frank NP Work Phone: [facility] Work Phone: Start: 10-11-2023 End: 10-11-2023 ambulatory SERVICE STATION EQUIPMENT MECHANIC-C Candice Zac SERVICE STATION EQUIPMENT MECHANIC Work Phone: [facility] Work Phone: Start: 10-11-2023 End: 10-11-2023 Patient encounter procedure SERVICE STATION EQUIPMENT MECHANIC-Priscilla Frank SERVICE STATION EQUIPMENT MECHANIC [facility]: Start: 09-13-2023 End: 09-13-2023 ambulatory SERVICE STATION EQUIPMENT MECHANIC-Priscilla Frank SERVICE STATION EQUIPMENT MECHANIC Work Phone: [facility] Work Phone: Start: 09-13-2023 End: 09-13-2023 Patient encounter procedure SERVICE STATION EQUIPMENT MECHANIC-Priscilla Frank SERVICE STATION EQUIPMENT MECHANIC [facility] Phone: [facility] Work Phone: Start: 09-03-2023 End: 09-03-2023 Office outpatient visit 25 minutes Candice Frank HYDRAULIC PRESS TENDER - MELANGEUR OPERATOR Work Phone: [facility] Comment on above: Essential hypertensi on (Primary Dx); Major depressive disorder, recurrent, mild (HCC); Anxiety; Benign prostatic hyperplasia with nocturia; Elevated PSA, less than 10 ng/ml; Chronic low back pain, unspecified back pain laterality, unspecified whether sciatica present; Degenerative spondylolisthesis Start: 08-31-2023 End: 08-31-2023 Patient encounter procedure SERVICE STATION EQUIPMENT MECHANIC-Priscilla Frank SERVICE STATION EQUIPMENT MECHANIC Work Phone: [facility] Work Phone: Start: 07-26-2023 End: 07-26-2023 Patient encounter procedure SERVICE STATION EQUIPMENT MECHANIC-Priscilla Frank SERVICE STATION EQUIPMENT MECHANIC Work Phone: [facility]-Laboratory, y Office 3rd Flr Start: 01-15-2023 End: 01-15-2023 ambulatory [facility] Work Phone: Start: 01-15-2023 End: 01-15-2023 Patient encounter procedure [facility]-Radiology, [facility] Start: 01-05-2023 End: 01-05-2023 Patient encounter procedure Candice Frank HYDRAULIC PRESS TENDER - MELANGEUR OPERATOR Work Phone: [facility] Comment on above: Medicare annual well ness visit, subsequent (Primary Dx); Essential hypertension; Erectile dysfunction, unspecified erectile dysfunction type; Benign prostatic hyperplasia with nocturia; Elevated PSA, less than 10 ng/ml; Major depressive disorder, recurrent, mild (HCC); Anxiety; Chronic pain of right hip; Chronic bilateral low back pain with right-sided sciatica; Need for Tdap vaccination; Screening for ischemic heart disease Start: 01-01-2023 End: 01-01-2023 Patient encounter procedure Sasha Kaur OD Work Phone: Ophthalmology Comment on above: Combined forms of ag e-related cataract of both eyes (Primary Dx); Regular astigmatism of both eyes; Presbyopia Start: 12-24-2022 Shannan Kennedy MD Work Phone: [facility] Comment on above: Anxiety disorder, un specified; Major depressive disorder, recurrent, mild (HCC) Start: 12-06-2022 Shannan Frank HYDRAULIC PRESS TENDER - MELANGEUR OPERATOR Work Phone: [facility] Start: 08-31-2022 End: 08-31-2022 ambulatory [facility] Work Phone: Start: 08-31-2022 End: 08-31-2022 Patient encounter procedure [facility]-Cat Scan, [facility] Start: 08-25-2022 End: 08-25-2022 ambulatory [facility] Work Phone: Start: 08-25-2022 End: 08-25-2022 Patient encounter procedure [facility]-MRI - [facility] Start: 08-10-2022 End: 08-10-2022 ambulatory [facility] Work Phone: Start: 08-10-2022 End: 08-10-2022 Patient encounter procedure [facility]Laboratory, Specimen Start: 07-27-2022 End: 07-27-2022 ambulatory [facility] Work Phone: Start: 07-27-2022 End: 07-27-2022 Patient encounter procedure [facility] Start: 07-19-2021 End: 07-19-2021 Subsequent hospital visit by physician Candice Frank HYDRAULIC PRESS TENDER - MELANGEUR OPERATOR Work Phone: [facility] Comment on above: Encounter for screen ing for cardiovascular disorders; Screening for AAA (abdominal aortic aneurysm) Start: 10-20-2019 Patient encounter procedure Annel Aguillon [facility] Work Phone: Start: 05-20-2019 Patient encounter procedure Annel Gutierrez Pal [facility] Work Phone: Start: 01-20-2019 Patient encounter procedure Annel Gutierrez Pal [facility] Work Phone: Start: 12-24-2018 Patient encounter procedure Oma Pal [facility] Work Phone: Start: 07-23-2017 Ambulatory [facility] Start: 07-23-2017 Ambulatory [facility] Start: 07-19-2017 End: 07-19-2017 Emergency department patient visit JONI LAROSE Facility:[facility] Start: 06-28-2017 End: 06-29-[address] Facility:[facility] Procedures Date Procedure Procedure Detail Performing Clinician Start: 03-09-[address] JAMIL HERZOG MD Start: 01-27-2025 Urnls dip stick/tabl et rgnt auto w/o microscopy Horace Lubin PA-C Work Phone: Start: 01-16-2025 Lipid 1996 panel - S saul or Plasma Horace LUC Work Phone: Start: 12-02-2024 Urnls dip stick/tabl et rgnt non-auto w/o micrscp Kimberleyrachel Durán HYDRAULIC PRESS TENDER - MELANGEUR OPERATOR Work Phone: Start: 07-14-2024 Lipid 1996 panel - S saul or Plasma Candice Frank HYDRAULIC PRESS TENDER - MELANGEUR OPERATOR Work Phone: Start: 01-09-2024 Lipid 1996 panel - S saul or Plasma Mumtaz Kennedy MD Work Phone: Start: 10-15-2023 MRI of lumbar spine SERVICE STATION EQUIPMENT MECHANIC- C Candice Frank SERVICE STATION EQUIPMENT MECHANIC Work Phone: Start: 10-11-2023 Assay of prostate sp ecific antigen total Historical Provider Work Phone: Start: 01-15-2023 Plain x-ray of pelvi s and lower extremity Start: 01-15-2023 X-ray of lumbosacral spine Start: 01-05-2023 Lipid 1996 panel - S saul or Plasma Candice Frank HYDRAULIC PRESS TENDER - MELANGEUR OPERATOR Work Phone: Start: 08-31-2022 Computed tomography of abdomen and pelvis with contrast Start: 08-25-2022 MRI of pelvis with contrast Start: 01-03-2022 Lipid 1996 panel - S saul or Plasma Candice Frank HYDRAULIC PRESS TENDER - MELANGEUR OPERATOR Work Phone: Start: 09-16-2021 Colonoscopy Candice Gonzales s HYDRAULIC PRESS TENDER - MELANGEUR OPERATOR Work Phone: Start: 11-25-2020 Follow-up visit Start: 02-23-2020 Follow-up visit Start: 02-19-2020 End: 02-19-2020 Follow-up visit Start: 01-22-2020 Medicare Annual Well ness Visit Start: 12-06-2010 Colonoscopy Sasha Caicedo rolando OD Work Phone: Cataract (disorder) DR KATY HERZOG MD Comment on above: bilateral Decompression of med mikki nerve Oma Pal Spinal bone screw head DR CRISTOBAL HERZOG MD Urine culture Plan of Treatment Date Care Activity Detail Author Start: 03-09-2035 Screening for malignant neoplasm of colon [facility] Start: 02-07-2033 DTaP/Tdap/Td Vaccines (2 - Td or Tdap) DTaP/Tdap/Td Vaccines (2 - Td or Tdap) [facility] Start: 02-07-2033 Urine microalbumin profile DTaP,Tdap,Td Vaccine (2 - Td or Tdap) [facility] Start: 09-16-2031 Screening for malignant neoplasm of colon [facility] Start: 01-16-2030 Lipid panel [facility] Start: 07-14-2029 Lipid panel [facility] Start: 01-08-2029 Lipid panel [facility] Start: 01-17-2028 Diabetes Screening Diabetes Screening [facility] Start: 01-06-2028 Lipid panel [facility] Start: 07-14-2027 Diabetes Screening Diabetes Screening [facility] Start: 01-08-2027 Diabetes mellitus screening Diabetes Screening [facility] Start: 01-08-2027 Diabetes Screening Diabetes Screening [facility] Start: 01-03-2027 Lipid panel Lipid Panel [facility] Start: 02-15-2026 End: 02-15-2026 Patient encounter procedure 02/15/2026 10:15 AM EDT Office Visit [facility] [address] [place] [address] Sasha Kaur, OD [address] [place] [address] 1 year follow up for complete eye exam Ophthalmology Comment on above: 1 year follow up for complete eye exam Start: 02-02-2026 End: 02-02-2026 Patient encounter procedure 02/02/2026 10:30 AM EDT Office Visit Urology [address] [place] [address] Horace Lubin PA-C [address] [place] [address] 1 year follow up Urology Comment on above: 1 year follow up Start: 01-27-2026 End: 04-28-2026 Prostate specific Ag [Mass/volume] in Serum or Plasma PROSTATE-SPECIFIC ANTIGEN DIAGNOSTIC Lab Routine Elevated prostate specific antigen (PSA) Expected: 01/27/2026 (Approximate), Expires: 04/28/2026 [facility] Comment on above: Expected: 01/27/2026 (Approximate), Expi res: 04/28/2026 Start: 01-20-2026 End: 01-20-2026 Patient encounter procedure 01/20/2026 11:20 AM EDT Office Visit [facility] [place] [address] [place] [address] [place] [address] Candice Frank, HYDRAULIC PRESS TENDER - MELANGEUR OPERATOR [address] [facility] [place] [address] [facility] [place] Start: 01-05-2026 Diabetes Screening Diabetes Screening [facility] Start: 12-24-[address]id screen [facility] Work Phone: Start: 07-24-2025 End: 07-24-2025 Patient encounter procedure 07/24/2025 10:40 AM EDT [facility] [address] [facility] [place] [address] Candice Frank, HYDRAULIC PRESS TENDER - MELANGEUR OPERATOR [address] [facility] [place] [address] [facility] Start: 07-16-2025 Depression Monitoring Depression Monitoring [facility] Start: 07-06-2025 Influenza vaccination Influenza Vaccine (#1) [facility] Start: 06-30-2025 End: 06-30-2025 Patient encounter procedure 06/30/2025 11:30 AM EDT Office Visit Urology [address] [place] [address] Horace Lubin PA-C [address] [place] [address] 3m f/u Urology Comment on above: 3m f/u Start: 06-04-2025 End: 06-04-2025 Patient encounter procedure 06/04/2025 11:00 AM EDT [facility] [address] [place] [address] [place] [address] Kimberley Durán HYDRAULIC PRESS TENDER - MELANGEUR OPERATOR [address] [facility] [place] [address] [place] [address] [facility] Start: 06-02-2025 End: 06-02-2025 Patient encounter procedure 06/02/2025 3:30 PM EDT Office Visit [facility] [address] [place] [address] Shruthi Krause MD [address] [place] [address] [facility] Comment on above: [facility] Start: 05-12-2025 Diabetes mellitus screening Diabetes Screening [facility] Start: 05-11-2025 End: 05-11-2026 Thyrotropin [Units/volume] in Serum or Plasma TSH Lab Routine Anxiety Expected: 05/11/2025 (Approximate), Expires: 05/11/2026 [facility] Work Phone: Comment on above: Expected: 05/11/2025 (Approximate), Expi res: 05/11/2026 Start: 2025 RSV Immunization for Adults (1 - 1-dose 75+ series) RSV Immunization for Adults (1 - 1-dose 75+ series) [facility] Start: 2025 RSV Vaccine (1 - 1-dose 75+ series) RSV Vaccine (1 - 1-dose 75+ series) [facility] Start: 01-27-2025 End: 01-27-2025 Patient encounter procedure 01/27/2025 10:30 AM EDT Office Visit Urology [address] [place] [address] Horace Lubin PA-C [address] [place] [address] 12 months psa prior Urology Comment on above: 12 months psa prior Start: 01-24-2025 End: 04-25-2025 Prostate specific Ag [Mass/volume] in Serum or Plasma PSA/PROSTSPECAG DIAG Lab Routine BPH with obstruction/lower urinary tract symptoms Expected: 01/24/2025 (Approximate), Expires: 04/25/2025 [facility] Work Phone: Comment on above: Expected: 01/24/2025 (Approximate), Expi res: 04/25/2025 Start: 01-16-2025 End: 01-16-2026 CBC panel - Blood by Automated count CBC Lab Routine Essential hypertension Major depressive disorder, recurrent, mild (HCC) Anxiety Benign prostatic hyperplasia with nocturia Chronic low back pain, unspecified back pain laterality, unspecified whether sciatica present Degenerative spondylolisthesis Screening for deficiency anemia Expected: 01/16/2025 (Approximate), Expires: 01/16/2026 [facility] Comment on above: Expected: 01/16/2025 (Approximate), Expi res: 01/16/2026 Start: 01-16-2025 End: 01-16-2026 Comprehensive metabolic 1998 panel - Serum or Plasma Comprehensive metabolic panel Lab Routine Essential hypertension Major depressive disorder, recurrent, mild (HCC) Anxiety Benign prostatic hyperplasia with nocturia Chronic low back pain, unspecified back pain laterality, unspecified whether sciatica present Degenerative spondylolisthesis Screening for diabetes mellitus Expected: 01/16/2025 (Approximate), Expires: 01/16/2026 [facility] Work Phone: Comment on above: Expected: 01/16/2025 (Approximate), Expi res: 01/16/2026 Start: 01-16-2025 End: 01-16-2026 Lipid 1996 panel - Serum or Plasma Lipid panel Lab Routine Screening for ischemic heart disease Expected: 01/16/2025 (Approximate), Expires: 01/16/2026 [facility] Comment on above: Expected: 01/16/2025 (Approximate), Expi res: 01/16/2026 Start: 01-16-2025 End: 01-16-2025 Patient encounter procedure [facility] Start: 01-14-2025 COVID-19 Vaccine ( season) COVID-19 Vaccine () [facility] Start: 01-11-2025 Depression Monitoring Depression Monitoring [facility] Start: 01-08-2025 Diabetes mellitus screening Diabetes Screening [facility] Start: 01-08-2025 RSV Immunization aged 60 or older (1 - 1-dose 60+ series) RSV Immunization aged 60 or older (1 - 1-dose 60+ series) [facility] Comment on above: Postponed from 2010 (Patient Refus ed) Start: 12-17-2024 End: 12-17-2024 Patient encounter procedure 12/17/2024 3:15 PM EST Office Visit [facility] [address] [place] [address] Leonard Amador MD [address] [place] [address] for cataract consultation Ophthalmology Comment on above: for cataract consultation Start: 11-05-2024 Advance Directive Discussion Advance Directive Discussion [facility] Start: 11-05-2024 Medicare Advantage Annual Wellness Visit Medicare Advantage Annual Wellness Visit [facility] Start: 08-30-2024 Screening for malignant neoplasm of colon FIT-DNA [facility] Start: 07-31-2024 End: 07-31-2024 Clinical Support 07/31/2024 10:00 AM EDT Clinical Support [address] [address] [facility] Start: 07-30-2024 End: 07-30-2025 Sodium [Moles/volume] in Serum or Plasma Sodium Lab Routine Hyponatremia Expected: 07/30/2024 (Approximate), Expires: 07/30/2025 [facility] Work Phone: Comment on above: Expected: 07/30/2024 (Approximate), Expi res: 07/30/2025 Start: 07-14-2024 End: 07-14-2025 Comprehensive metabolic 1998 panel - Serum or Plasma Comprehensive metabolic panel Lab Routine Essential hypertension Major depressive disorder, recurrent, mild (HCC) Anxiety Benign prostatic hyperplasia with nocturia Elevated PSA, less than 10 ng/ml Chronic low back pain, unspecified back pain laterality, unspecified whether sciatica present Elevated LDL cholesterol level Expected: 07/14/2024 (Approximate), Expires: 07/14/2025 [facility] Comment on above: Expected: 07/14/2024 (Approximate), Expi res: 07/14/2025 Start: 07-14-2024 End: 09-09-2025 Lipid 1996 panel - Serum or Plasma Lipid panel Lab Routine Elevated LDL cholesterol level Expected: 07/14/2024 (Approximate), Expires: 07/14/2025 [facility] Work Phone: Comment on above: Expected: 07/14/2024 (Approximate), Expi res: 07/14/2025 Start: 07-14-2024 End: 07-14-2024 Patient encounter procedure 07/14/2024 1:40 PM EDT Office Visit [facility] [address] [place] [address] [place] [address] Candice Frank S, HYDRAULIC PRESS TENDER - MELANGEUR OPERATOR [address] [facility] [address] [place], [place] [id number] [facility] Start: 07-12-2024 Screening for malignant neoplasm of colon [facility] Start: 07-10-2024 Depression Monitoring Depression Monitoring [facility] Start: 07-10-2024 Depresssion Monitoring Depresssion Monitoring [facility] Start: 07-06-2024 COVID-19 Vaccine ( season) COVID-19 Vaccine ( season) [facility] Comment on above: Postponed from 10/18/2023 (Other Medical Reasons) Start: 07-06-2024 COVID-19 Vaccine ( season) COVID-19 Vaccine ( season) [facility] Start: 07-06-2024 Influenza vaccination Influenza Vaccine (#1) [facility] Start: 05-26-2024 End: 05-26-2024 Patient encounter procedure 05/26/2024 11:00 AM EDT Office Visit Pain Management [address] [address] Vinny Trevizo MD [address] [facility] [id number] [place], [place] [id number] Low bACK PAIN Pain Management Comment on above: Low bACK PAIN Start: 03-04-2024 Depresssion Monitoring Depresssion Monitoring [facility] Start: 02-05-2024 Medicare Advantage Annual Wellness Visit (AWV) Medicare Advantage Annual Wellness Visit (AWV) [facility] Start: 02-05-2024 End: 02-05-2024 Clinical Support 02/05/2024 10:30 AM EDT Clinical Support [facility] [address] [place] [facility] [place] [address] [facility] Start: 01-22-2024 End: 01-22-2024 Clinical Support 01/22/2024 11:00 AM EDT Clinical Support [facility] [address] [place] [facility] [place] [address] [facility] Start: 01-09-2024 End: 01-07-2025 CBC panel - Blood by Automated count CBC Lab Routine Essential hypertension Major depressive disorder, recurrent, mild (HCC) Anxiety Benign prostatic hyperplasia with nocturia Expected: 01/09/2024 (Approximate), Expires: 01/07/2025 [facility] Comment on above: Expected: 01/09/2024 (Approximate), Expi res: 01/07/2025 Start: 01-09-2024 End: 01-07-2025 Comprehensive metabolic 1998 panel - Serum or Plasma Comprehensive metabolic panel Lab Routine Essential hypertension Major depressive disorder, recurrent, mild (HCC) Anxiety Benign prostatic hyperplasia with nocturia Elevated PSA, less than 10 ng/ml Screening for diabetes mellitus Expected: 01/09/2024 (Approximate), Expires: 01/07/2025 [facility] Comment on above: Expected: 01/09/2024 (Approximate), Expi res: 01/07/2025 Start: 01-09-2024 End: 01-07-2025 Lipid 1996 panel - Serum or Plasma Lipid panel Lab Routine Screening for ischemic heart disease Expected: 01/09/2024 (Approximate), Expires: 01/07/2025 [facility] Work Phone: Comment on above: Expected: 01/09/2024 (Approximate), Expi res: 01/07/2025 Start: 01-09-2024 End: 01-09-2024 Patient encounter procedure [facility] Start: 01-06-2024 Hepatitis C screening Hepatitis C Screening [facility] Comment on above: Postponed from 1968 (Patient Refus ed) Start: 11-05-2023 Advance Directive Discussion Advance Directive Discussion [facility] Start: 11-05-2023 Behavioral Health Screening Behavioral Health Screening [facility] Start: 11-05-2023 Depression Assessment Depression Assessment [facility] Start: 10-18-2023 COVID-19 Vaccine () COVID-19 Vaccine () [facility] Start: 07-06-2023 Covid-19 Vaccine () Covid-19 Vaccine () [facility] Start: 07-06-2023 Influenza vaccination Influenza Vaccine (#1) [facility] Start: 05-12-2023 Diabetes mellitus screening Diabetes Screening [facility] Start: 01-26-2023 End: 01-26-2023 Patient encounter procedure 01/26/2023 Office Visit Family Medicine Candice Frank, HYDRAULIC PRESS TENDER - MELANGEUR OPERATOR [address] [place] [address] [facility] Start: 01-11-2023 LIPID SCREEN LIPID SCREEN [facility] Start: 01-05-2023 End: 01-06-2024 CBC panel - Blood by Automated count CBC Lab Routine Major depressive disorder, recurrent, mild (HCC) Essential hypertension Erectile dysfunction, unspecified erectile dysfunction type Elevated PSA, less than 10 ng/ml Anxiety Benign prostatic hyperplasia with nocturia Chronic pain of right hip Chronic bilateral low back pain with right-sided sciatica Expected: 01/05/2023 (Approximate), Expires: 01/06/2024 [facility] Work Phone: Comment on above: Expected: 01/05/2023 (Approximate), Expi res: 01/06/2024 Start: 01-05-2023 End: 01-06-2024 Comprehensive metabolic 1998 panel - Serum or Plasma Comprehensive metabolic panel Lab Routine Major depressive disorder, recurrent, mild (HCC) Essential hypertension Erectile dysfunction, unspecified erectile dysfunction type Elevated PSA, less than 10 ng/ml Anxiety Benign prostatic hyperplasia with nocturia Chronic pain of right hip Chronic bilateral low back pain with right-sided sciatica Expected: 01/05/2023 (Approximate), Expires: 01/06/2024 [facility] Comment on above: Expected: 01/05/2023 (Approximate), Expi res: 01/06/2024 Start: 01-05-2023 End: 01-06-2024 Lipid 1996 panel - Serum or Plasma Lipid panel Lab Routine Screening for ischemic heart disease Expected: 01/05/2023 (Approximate), Expires: 01/06/2024 [facility] Comment on above: Expected: 01/05/2023 (Approximate), Expi res: 01/06/2024 Start: 01-05-2023 End: 01-06-2024 PSA, total and free PSA, total and free Lab Routine Elevated PSA, less than 10 ng/ml Benign prostatic hyperplasia with nocturia Expected: 01/05/2023 (Approximate), Expires: 01/06/2024 [facility] Comment on above: Expected: 01/05/2023 (Approximate), Expi res: 01/06/2024 Start: 01-05-2023 End: 01-06-2024 XR Hip - right 3 Views XR hip right 2 or 3 views Imaging Routine Chronic pain of right hip Expected: 01/05/2023, Expires: 01/06/2024 [facility] Comment on above: Expected: 01/05/2023, Expires: Start: 01-05-2023 End: 01-06-2024 XR Lumbar spine 4 Views XR lumbar spine complete 4+ views Imaging Routine Chronic bilateral low back pain with right-sided sciatica Expected: 01/05/2023, Expires: 01/06/2024 [facility] Comment on above: Expected: 01/05/2023, Expires: Start: 01-05-2023 End: 01-05-2023 Patient encounter procedure 01/05/2023 Office Visit Family Medicine Candice Frank, HYDRAULIC PRESS TENDER - MELANGEUR OPERATOR [address] [place] [address] [facility] Start: 11-05-2022 ADVANCE DIRECTIVE DISCUSSION ADVANCE DIRECTIVE DISCUSSION [facility] Start: 11-05-2022 DEPRESSION ASSESSMENT DEPRESSION ASSESSMENT [facility] Start: 07-06-2022 Influenza vaccination INFLUENZA (#1) [facility] Start: 06-24-2022 Creatinine measurement Creatinine monitoring [facility] Work Phone: Start: 06-24-2022 DTaP/Tdap/Td vaccine (1 - Tdap) DTaP/Tdap/Td vaccine (1 - Tdap) [facility] Work Phone: Comment on above: Postponed from 1969 (Patient Refus ed) Start: 06-24-2022 Pneumococcal Vaccine: 65+ Years (2 - PCV) Pneumococcal Vaccine: 65+ Years (2 - PCV) [facility] Start: 06-24-2022 Potassium monitoring Potassium monitoring [employer] Work Phone: Start: 06-24-2022 Prostate specific antigen measurement PSA counseling [facility] Work Phone: Start: 03-31-2022 COVID-19 VACCINE (5 - Booster for Moderna series) COVID-19 VACCINE (5 - Booster for Moderna series) [facility] Start: 01-03-2022 End: 01-03-2022 Patient encounter procedure 01/03/2022 Office Visit Family Medicine Mumtaz Kennedy MD [address] [place] [address], [address] [place], [place] [id number] [facility] Start: 12-28-2021 End: 12-28-2021 Patient encounter procedure 12/28/2021 Office Visit Urology Yomi Castro MD [address] [place] [address] [address] [place], [place] [id number] [facility] [place] Start: 12-25-2021 Annual Wellness Visit (AWV) Annual Wellness Visit (AWV) [facility] Work Phone: Start: 07-06-2021 Influenza vaccination Flu vaccine (#1) [facility] Work Phone: Start: 01-11-2021 DIABETES SCREEN DIABETES SCREEN [facility] Start: 12-22-2020 Shingles Vaccine (3 of 3) Shingles Vaccine (3 of 3) [facility] Work Phone: Start: 12-22-2020 Shingrix Vaccine (3 of 3) Shingrix Vaccine (3 of 3) [facility] Start: 12-22-2020 Zoster Vaccines (3 of 3) Zoster Vaccines (3 of 3) [facility] Start: 09-05-2019 ANNUAL PCP TEAM CHRONIC DISEASE VISIT ANNUAL PCP TEAM CHRONIC DISEASE VISIT [facility] Start: 11-05-2015 PNEUMOCOCCAL: 65+ (2 - PCV) PNEUMOCOCCAL: 65+ (2 - PCV) [facility] Start: 12-06-2011 Colonoscopy [facility] [facility] Start: 12-06-2011 COLORECTAL CANCER SCREENING COLORECTAL CANCER SCREENING [facility] Start: 12-06-2011 Screening for malignant neoplasm of colon [facility] Start: 2010 RSV Immunization aged 60 or older (1 - 1-dose 60+ series) RSV Immunization aged 60 or older (1 - 1-dose 60+ series) [facility] Start: 2010 RSV Vaccine (1 - 1-dose 60+ series) RSV Vaccine (1 - 1-dose 60+ series) [facility] Start: 2000 SHINGRIX VACCINE (1 of 2) SHINGRIX VACCINE (1 of 2) [facility] Start: 1995 COLOGUARD (FIT-DNA) COLOGUARD (FIT-DNA) [facility] Start: [address] COLONOGRAPHY [facility] Start: 1995 FECAL OCCULT BLOOD FECAL OCCULT BLOOD [facility] Start: 1995 Screening for malignant neoplasm of colon [facility] Start: 1995 SIGMOIDOSCOPY SIGMOIDOSCOPY [facility] Start: 1969 DTaP/Tdap/Td Vaccines (1 - Tdap) DTaP/Tdap/Td Vaccines (1 - Tdap) [facility] Start: 1969 Urine microalbumin profile DTAP,TDAP,TD (1 - Tdap) [facility] Start: 1968 Annual PCP Team Chronic Disease Visit Annual PCP Team Chronic Disease Visit [facility] Start: 1968 Anxiety Screening Anxiety Screening [facility] Start: 1968 BP CONTROLLED (<130/80) BP CONTROLLED (<130/80) [facility] Start: 1968 Depression Screening Depression Screening [facility] Start: 1968 HEPATITIS C SCREENING HEPATITIS C SCREENING [facility] Start: 1968 Hepatitis C screening Hepatitis C Screening [facility] Start: 1950 Abdominal aortic aneurysm screening [facility] Start: 1950 ABDOMINAL AORTIC ANEURYSM SCREENING ABDOMINAL AORTIC ANEURYSM SCREENING [facility] Start: 1950 Hepatitis B Vaccines (1 of 3 - 3-dose series) Hepatitis B Vaccines (1 of 3 - 3-dose series) [facility] Start: 1950 Medicare Advantage Annual Wellness Visit (AWV) Medicare Advantage Annual Wellness Visit (AWV) [facility] Start: 1950 Screening for malignant neoplasm of colon [facility] MR Prostate WO and W contrast IV MRI PROSTATE WO/W IVCON Radiology Routine Encounter for observation for other suspected diseases and conditions ruled out 12/25/2023 10:30 AM [facility] Work Phone: MR Unspecified body region 3D post processing MRI 3D POST PROCESSING Radiology Routine Encounter for observation for other suspected diseases and conditions ruled out 12/25/2023 10:30 AM [facility] Work Phone: POST VOID RESIDUAL POST VOID RES IDUAL Procedures Routine Elevated prostate specific antigen (PSA) BPH with obstruction/lower urinary tract symptoms Screening for genitourinary condition Ordered: 01/27/2025 [facility] Work Phone: Comment on above: Ordered: 01/27/2025 End: 07-19-2021 VL AAA SCREENING VL AAA SCREENING Imaging Routine Screening for AAA (abdominal aortic aneurysm) 1 Occurrences starting 07/19/2021 until 07/19/2021 [facility] Work Phone: Comment on above: 1 Occurrences starting 07/19/2021 until 07/19/2021 VL AAA SCREENING VL AAA SCREENIN G Imaging Routine Screening for AAA (abdominal aortic aneurysm) 07/19/2021 11:[address] [facility] Work Phone: [facility] Immunizations Immunization Date Immunization Notes Care Provider [facility] 09-05-2024 influenza virus vacc ine, unspecified formulation Mumtaz Kennedy MD Work Phone: [facility] 08-23-2023 Covid-19, Moderna Bivalent Booster, (Age 6y-11y) Candice Frank HYDRAULIC PRESS TENDER - MELANGEUR OPERATOR Work Phone: [facility] 08-13-2023 Influenza, High-dose Seasonal, Quadrivalent, Preservative Free Candice Zac HYDRAULIC PRESS TENDER - MELANGEUR OPERATOR Work Phone: [facility] 08-13-2023 influenza virus vacc ine, unspecified formulation Candice Frank HYDRAULIC PRESS TENDER - MELANGEUR OPERATOR Work Phone: [facility] 02-07-2023 tetanus toxoid, redu leonor diphtheria toxoid, and acellular pertussis vaccine, adsorbed Candice Frank HYDRAULIC PRESS TENDER - MELANGEUR OPERATOR Work Phone: [facility] 01-05-2023 diphtheria, tetanus toxoids and acellular pertussis vaccine, unspecified formulation Candice Frank HYDRAULIC PRESS TENDER - MELANGEUR OPERATOR Work Phone: [facility] 08-11-2022 Influenza, Seasonal, Quadrivalent, Adjuvanted Candice Frank HYDRAULIC PRESS TENDER - MELANGEUR OPERATOR Work Phone: [facility] 08-11-2022 Pneumococcal Conjuga te PCV20, Pf (Prevnar 20) Candice Frank HYDRAULIC PRESS TENDER - MELANGEUR OPERATOR Work Phone: [facility] 08-11-2022 influenza virus vacc ine, unspecified formulation Mri Bore/3t) [facility] 07-21-2022 Covid-19, Pfizer Bivalent Booster, (Age 12y+), Im, 30 Mcg/0e Candice Zac HYDRAULIC PRESS TENDER - MELANGEUR OPERATOR Work Phone: [facility] 08-16-2021 Influenza, High-dose Seasonal, Quadrivalent, Preservative Free Candice Zac HYDRAULIC PRESS TENDER - MELANGEUR OPERATOR Work Phone: [facility] 06-24-2021 pneumococcal polysaccharide vaccine, 23 valent Candice Frank HYDRAULIC PRESS TENDER - MELANGEUR OPERATOR Work Phone: [facility] 10-27-2020 zoster vaccine recombinant Candicegabrielle Frank HYDRAULIC PRESS TENDER - MELANGEUR OPERATOR Work Phone: [facility] 08-12-2020 Influenza, Quadv, adjuvanted, 65 yrs +, IM, PF (Fluad) Candice Frank HYDRAULIC PRESS TENDER - MELANGEUR OPERATOR Work Phone: [facility] 08-03-2020 zoster vaccine, live Candice snyder HYDRAULIC PRESS TENDER - MELANGEUR OPERATOR Work Phone: [facility] Work Phone: 09-01-2019 influenza, high dose seasonal, preservative-free Candice Frank HYDRAULIC PRESS TENDER - MELANGEUR OPERATOR Work Phone: [facility] 09-05-2018 influenza, high dose seasonal, preservative-free Candice Frank HYDRAULIC PRESS TENDER - MELANGEUR OPERATOR Work Phone: [facility] 09-05-2016 influenza, high dose seasonal, preservative-free Candice Frank HYDRAULIC PRESS TENDER - MELANGEUR OPERATOR Work Phone: [facility] 12-20-2015 pneumococcal conjuga te vaccine, 13 valent Candice Frank HYDRAULIC PRESS TENDER - MELANGEUR OPERATOR Work Phone: [facility] 08-02-2015 influenza, seasonal, injectable, preservative free Candice Frank HYDRAULIC PRESS TENDER - MELANGEUR OPERATOR Work Phone: [facility] 12-16-2014 pneumococcal polysaccharide vaccine, 23 valent Candice Frank HYDRAULIC PRESS TENDER - MELANGEUR OPERATOR Work Phone: [facility] 11-05-2014 pneumococcal polysaccharide vaccine, 23 valent Candice Frank HYDRAULIC PRESS TENDER - MELANGEUR OPERATOR Work Phone: [facility] 08-05-2013 influenza virus vacc ine, unspecified formulation Candice Frank HYDRAULIC PRESS TENDER - MELANGEUR OPERATOR Work Phone: [facility] 10-10-2012 influenza, seasonal, injectable Candice Frank HYDRAULIC PRESS TENDER - MELANGEUR OPERATOR Work Phone: [facility] Payers Date Payer Category Payer Unknown [id number] 2024 Self-pay [id number] 2022 Medicare O [id number] 2020 Medicare [id number] 2020 [place] [id number] 2020 Medicare [id number] 1950 Unknown [id number]. 2.627 Medicare [id number] Unknown [id number]. 2.462 Unknown [id number] [id number]. 2.462 Unknown [id number] [id number]. 2.462 Unknown [id number] 2.16.840.1.967280.3.579. 2.462 Unknown [id number] 2.16.840.1.378542.3.579. 2.462 Unknown [id number] 2.16.840.1.657821.3.579. 2.462 Unknown [id number] 2.16.840.1.028471.3.579. 2.462 Unknown [id number] 2.16.840.1.114414.3.579. 2.462 Unknown [id number] 2.16.840.1.684392.3.579. 2.462 Unknown [id number] 2.16.840.1.320266.3.579. 2.462 Unknown [id number] 2.16.840.1.529498.3.579. 2.462 Unknown [id number] 2.16.840.1.017533.3.579. 2.462 Unknown [id number] 2.16.840.1.248798.3.579. 2.462 Unknown [id number] [id number]. 2.462 Unknown [id number] [id number]. 2.462 Unknown [id number]. 2.462 Social History Date Type Detail Facility Start: 06-24-2021 End: 06-23-2024 Tobacco smoking status NHIS Former smoker [facility] Start: 11-05-1967 End: 11-05-1994 History of tobacco use Current smoker [facility] Work Phone: Start: 06-24-2021 End: 07-14-2024 Cigarettes smoked current (pack per day) - Reported [facility] Work Phone: Start: 06-24-2021 End: 06-23-2024 Tobacco use and exposure Never used [facility] Work Phone: Start: 06-24-2021 End: 05-11-2025 Alcohol intake Current drinker of alcohol (finding) [facility] Work Phone: Start: 12-24-2020 History SDOH Physica l Activity DPW 7 [facility] Work Phone: Start: 12-24-2020 History SDOH Physica l Activity MPS 3 [facility] Work Phone: Start: 12-24-2020 End: 01-05-2023 History SDOH Financial 5 [facility] Work Phone: Start: 12-24-2020 End: 01-05-2023 History SDOH Food Worry 1 [facility] Work Phone: Start: 12-24-2020 History SDOH Transpo rt Med 2 [facility] Work Phone: Start: 12-23-2020 Alcohol Comment 3-4 beers a day [facility] Work Phone: Start: 1950 Sex Assigned At Not on file [facility] Work Phone: Start: 12-25-2022 End: 01-04-2023 Exposure to SARS-CoV-2 (event) Not sure [facility] Start: 1950 Sex Assigned At Male [facility] Start: 11-05-1967 End: 11-05-1994 History of tobacco use Cigarette Smoker [facility] Start: 01-05-2023 End: 07-14-2024 Alcohol Use Disorder Identification Test - Consumption [AUDIT-C] [facility] How often to you hav e a drink containing alcohol? 4 or more times a week [facility] How many standard dr inks containing alcohol do you have on a typical day? 1 or 2 [facility] How often do you hav e 6 or more drinks on 1 occasion? Never [facility] Adolescent depressio n screening assessment 3 [facility] Start: 08-31-2023 End: 10-17-2023 Tobacco smoking status SCIS Unknown if ever smoked [facility] Start: 01-04-2024 Alcohol Comment low use [facility] (I/We) worried wheth er (my/our) food would run out before (I/we) got money to buy more. Never true [facility] In the past 12 month s, was there a time when you were not able to pay the mortgage or rent on time? No [facility] Start: 01-08-2024 Alcohol Comment occasional [facility] Start: 06-23-2024 [facility] Start: 06-05-2022 End: 02-04-2025 Sex Male (finding) [facility] Start: 03-09-2025 Tobacco smoking status Never s moked tobacco (finding) [facility] Sexual Orientation [facility] NEGATED: Highlighted row - - [facility] Work Phone: Medical Equipment Procedure Code Equipment Code Equipment Origin al Text Equipment Identifier Dates Unknown Unknown 03/13/23 Unknown Unknown FDA Start: 03-13-2023 Goals Date Patient Goal Desired Activity /State Comment on above: Formatting of this n ote might be different from the original. Self- Management Plan: Obesity/Weight Loss Patient Stated Goal: wants to lose 20 pounds Barriers to success: stress Plan for overcoming my barriers: N/A. Encouraged and recommended by provider. Confidence: 12/15 Self-Management Plan: Will strive to achieve goal by 1 year Date goal set: 12/24/20 Patient given educational materials below via AVS. Provider Goal: Healthy diet and exercise. Patient received counseling about current lifestyle goal. Advised approximately 150 minutes of cardio, i.e treadmill, exercise in a week. Advised strive for 5 a total 5 servings of fruits and vegetables in a day. Advised a diet lower in carbohydrates and simple sugars. They need to watch consumption of bread, rice, pasta, potatoes, corn, soda, sweetened tea, lemonade, and all other sugar drinks. Patient given after visit summary which includes educational information on stress. Discussed use, benefit, and side effects of prescribed medications and barriers to medication compliance addressed, if applicable. All patient questions answered and patient voiced understanding. Patient was given a copy of this, and was advised to call if any questions. Functional Status Date Assessment Result Facility 03-09-2025 Functional Status [facility] NEGATED: Highlighted row Functional performance Functional status health issues are not documented Disease [facility] Work Phone: Mental Status Date Assessment Result Facility 03-09-2025 Mental Status Orientation Orie nted x 4 [facility] 03-09-2025 Mental Status [facility] NEGATED: Highlighted row Cognitive function [Interpretation] Cognitive status health issues are not documented Disease [facility] Work Phone: Clinical Notes 07-16-2017 to 05-11-2025 Assessment & Plan Note - KENZIE Leung CNP - 05/11/2025 6:30 PM EDTAssessment & Plan Note - KENZIE Leung CNP - 05/11/2025 6:30 PM EDTPatient Instructions Note Date & Type Note Facility 05-11-2025 Evaluation + Plan note Associated Problem(s): Anxiety Start sertraline as directed, continue BuSpar twice daily, will provide short term prescription for Ativan 0.5 mg every 8 hours as needed for severe anxiety. Discussed risks and benefits of this medication with patient. Patient states understanding that this is a controlled substance and the risks associated with this medication. He was advised not to drink any alcohol when he is taking the medication. Also understands that this is for short-term only. Close follow-up in about 3 weeks [facility] 05-11-2025 Miscellaneous Notes Associate d Problem(s): Anxiety Start sertraline as directed, continue BuSpar twice daily, will provide short term prescription for Ativan 0.5 mg every 8 hours as needed for severe anxiety. Discussed risks and benefits of this medication with patient. Patient states understanding that this is a controlled substance and the risks associated with this medication. He was advised not to drink any alcohol when he is taking the medication. Also understands that this is for short-term only. Close follow-up in about 3 weeks Associated Problem(s): Major depressive disorder, recurrent, mild (HCC) Will start sertraline 50 mg, half tablet daily x 7 days then increase to 1 tab daily Denies any active suicidal or homicidal ideation documented in this encounter [facility] 05-11-2025 Evaluation + Plan note Associated Problem(s): Major depressive disorder, recurrent, mild (HCC) Will start sertraline 50 mg, half tablet daily x 7 days then increase to 1 tab daily Denies any active suicidal or homicidal ideation [facility] 05-11-2025 History of Presen t illness Narrative Patient was identified by name and Date of . Images from the original note were not included. 05/11/2025 Evans Michaud (: 1950) is a 75 y.o. male , Established patient, here for evaluation of the following chief complaint(s): Anxiety and Depression ASSESSMENT/PLAN: 1. Anxiety Assessment & Plan: Start sertraline as directed, continue BuSpar twice daily, will provide short term prescription for Ativan 0.5 mg every 8 hours as needed for severe anxiety. Discussed risks and benefits of this medication with patient. Patient states understanding that this is a controlled substance and the risks associated with this medication. He was advised not to drink any alcohol when he is taking the medication. Also understands that this is for short-term only. Close follow-up in about 3 weeks Orders: - TSH - sertraline (Zoloft) 50 MG tablet; Take 1/2 tablet daily x 7 days, then increase to 1 tab daily, Normal - LORazepam (Ativan) 0.5 MG tablet; Take 1 tablet (0.5 mg) by mouth 3 times daily as needed for anxiety for up to 7 days., Starting Sun05/11/2025, Until Sun05/18/2025 at 2359, Normal 2. Major depressive disorder, recurrent, mild (HCC) Assessment & Plan: Will start sertraline 50 mg, half tablet daily x 7 days then increase to 1 tab daily Denies any active suicidal or homicidal ideation Follow up for Follow-up in about 3 weeks. SUBJECTIVE/OBJECTIVE: HPI - Evans Michaud (: 1950) is a 75 y.o. male , Established patient, here for the evaluation of the following chief complaint(s): Anxiety and Depression Presents with significant other Patient presents for worsening anxiety and depression symptoms. Reports that he is feeling overwhelming dread. Thinks it is more anxiety than depression symptoms. Denies any active suicidal or homicidal ideation. Reports that he was on Finasteride and thinks that that triggered his symptoms and he stopped the medication about 1 week ago. Reports still having bad anxiety. Feels likes waves of dread. Sees urology Dr. Krause 06/02/2025 for follow-up. Reports he previously was on Lexapro but it made him dizzy, states he was on sertraline many years ago and that seemed to be helpful. He is currently on BuSpar 10 mg twice a day and reports that does not help very much. He does admit to drinking 3-4 light beers most days of the week. He does have guns in the home and has agreed to get them locked and give the keys to his significant other. He denies having any active suicidal or homicidal ideation but I advised that it would be a good idea to have them safely stored for now. He agrees. Current Medications[1] Review of Systems Constitutional: Positive for appetite change (Decreased appetite) and fatigue (Not sleeping well). Negative for unexpected weight change. Respiratory: Negative. Cardiovascular: Negative. Genitourinary: Reports he is able to empty his bladder okay Neurological: Negative. Psychiatric/Behavioral: Positive for dysphoric mood. Negative for agitation, behavioral problems, decreased concentration and sleep disturbance. The patient is nervous/anxious (const). Vitals: 05/11/25 1029 05/11/25 1121 BP: (!) 188/77 (!) 147/69 Pulse: 57 84 Resp: 24 Temp: 36.9 C (98.4 F) TempSrc: Infrared SpO2: 96% Weight: 174 lb 6.4 oz (79.1 kg) Physical Exam Constitutional: General: He is not in acute distress. Appearance: Normal appearance. He is not ill-appearing. Cardiovascular: Rate and Rhythm: Normal rate and regular rhythm. Pulses: Normal pulses. Heart sounds: Normal heart sounds. Pulmonary: Effort: Pulmonary effort is normal. Breath sounds: Normal breath sounds. Neurological: Mental Status: He is alert and oriented to person, place, and time. Psychiatric: Attention and Perception: Attention and perception normal. Mood and Affect: Mood is depressed. Affect is tearful. Speech: Speech normal. Behavior: Behavior normal. Behavior is cooperative. Thought Content: Thought content normal. Cognition and Memory: Cognition and memory normal. Judgment: Judgment normal. An electronic signature was used to authenticate this note. Kimberley Durán, KENZIE - NORMA 05/11/2025 6:30 PM [1] Current Outpatient Medications Medication Sig Dispense Refill atenolol (Tenormin) 50 MG tablet Take 1 tablet (50 mg) by mouth daily. 90 tablet 1 busPIRone (Buspar) 10 MG tablet TAKE 1 TABLET BY MOUTH TWICE DAILY 180 tablet 1 lisinopril 40 MG tablet Take 1 tablet (40 mg) by mouth daily. 90 tablet 1 sildenafil (Viagra) 100 MG tablet Take 0.5 tablets (50 mg) by mouth Daily as needed for erectile dysfunction. 30 tablet 1 tamsulosin (Flomax) 0.4 MG 24 hr capsule Take 0.4 mg by mouth. finasteride (Proscar) 5 MG tablet Take 5 mg by mouth daily. (Patient not taking: Reported on 05/11/2025) LORazepam (Ativan) 0.5 MG tablet Take 1 tablet (0.5 mg) by mouth 3 times daily as needed for anxiety for up to 7 days. 21 tablet 0 sertraline (Zoloft) 50 MG tablet Take 1/2 tablet daily x 7 days, then increase to 1 tab daily 30 tablet 0 No current facility-administered medications for this visit. documented in this encounter [facility] 05-11-2025 Instructions Abbey Michaels - 05/11/2025 10:20 AM EDT Send us blood pressure numbers in 2 weeks via [employer] documented in this encounter [facility] 05-05-2025 Telephone encount er Note Images from the original note were not included. Prescription Request: atenolol (Tenormin) 50 MG tablet Last medication check: 07/14/24 Last physical exam: 01/16/25 Next scheduled appointment: 07/24/25 Last date of refill on this medication 10/30/24 ( qty 90 refill 1) [facility] 05-05-2025 Miscellaneous Notes Formattin g of this note is different from the original. Images from the original note were not included. Prescription Request: atenolol (Tenormin) 50 MG tablet Last medication check: 07/14/24 Last physical exam: 01/16/25 Next scheduled appointment: 07/24/25 Last date of refill on this medication 10/30/24 ( qty 90 refill 1) documented in this encounter [facility] 05-05-2025 Telephone encount er Note Patient called office again stating he is in a bad way he wants to know when the provider is going to respond back to him. I advised that the provider is seeing patients in the office and has not been able to respond yet. Patient sent in a [employer] message as well. [facility] 05-05-2025 Miscellaneous Notes Formattin g of this note might be different from the original. Patient called office again stating he is in a bad way he wants to know when the provider is going to respond back to him. I advised that the provider is seeing patients in the office and has not been able to respond yet. Patient sent in a [employer] message as well. Patient calling and states he is having an intolerance to the Proscar. States he is having anxiety and depression since taking it. Feels it is not help his frequent urination. Patient states he stopped taking it yesterday. Anything else he can try? Patient's preferred pharmacy is [facility] in [place]. documented in this encounter [facility] 05-05-2025 Telephone encount er Note Patient called office stating he is in a bad way he wants to know when the provider is going to respond back to him. I advised that the provider is seeing patients in the office and has not been able to respond yet. [facility] 05-05-2025 Miscellaneous Notes Formattin g of this note might be different from the original. Patient called office stating he is in a bad way he wants to know when the provider is going to respond back to him. I advised that the provider is seeing patients in the office and has not been able to respond yet. documented in this encounter [facility] 05-05-2025 Telephone encount er Note Patient calling and states he is having an intolerance to the Proscar. States he is having anxiety and depression since taking it. Feels it is not help his frequent urination. Patient states he stopped taking it yesterday. Anything else he can try? Patient's preferred pharmacy is [facility] in [place]. [facility] 03-26-2025 Note Referral is now comp leted and closed. [facility] 03-26-[address] Herzog's office and they sent me his colonoscopy report from [place] on 03/09/25 - this is taken care of and are you able to close this referral? He is getting phone calls and is upset [facility] 03-24-2025 Telephone encount er Note Patient's further questions if applicable: Patient phoned 03/24/25 demanding we stop sending messages re his 01/16/25 referral to [facility]. He saw Dr Jamil Herzog, had colonoscopy, all was okay. (Only thing I can think of is he's getting messages from [facility] because referral status is Pending. Perhaps the referral can be closed so the messages will stop? I am not authorized to close referral. MELY @ [facility] 03/24/25) [facility] Health 03-24-2025 Miscellaneous Notes Formattin g of this note might be different from the original. Patient's further questions if applicable: Patient phoned 03/24/25 demanding we stop sending messages re his 01/16/25 referral to Gastro. He saw Dr Jamil Herzog, had colonoscopy, all was okay. (Only thing I can think of is [facility] because referral status is Pending. Perhaps the referral can be closed so the messages will stop? I am not authorized to close referral. MELY @ [facility] 03/24/25) Faxed request to Dr Herzog's office I am not sure what messages they have been receiving, however, we have not received results yet from Dr. Herzog's office. Please request records and we can update his health maintenance. Name of caller: Shelby Contact phone number: [phone] Relationship to Patient: spouse Provider: Lesia Practice: [facility] Chief Complaint/Reason for Call: Patient already had the colonoscopy with Dr. Herzog 03.09.25 and the records should have been sent. Please stop all messages regarding this. Best time of day caller can be reached: any Patient advised that office/PCP has 24-48 business hours to return their call: N/A documented in this encounter [facility] 03-16-2025 Telephone encount er Note Faxed request to Dr Herzog's office [facility] 03-16-2025 Telephone encount er Note I am not sure what messages they have been receiving, however, we have not received results yet from Dr. Herzog's office. Please request records and we can update his health maintenance. [facility] Form 03-16-2025 Telephone encount er Note Name of caller: Shelby Contact phone number: [phone] Relationship to Patient: spouse Provider: Lesia Practice: [facility] Chief Complaint/Reason for Call: Patient already had the colonoscopy with Dr. Herzog 03.09.25 and the records should have been sent. Please stop all messages regarding this. Best time of day caller can be reached: any Patient advised that office/PCP has 24-48 business hours to return their call: N/A [facility] 03-09-2025 Evaluation + Plan note Extrac ibrahima from: Title:Clinical Document Author:JAMIL HERZOG Date:03/09/25 [place] ADMISSION HISTORY AN D PHYSICIAL CHIEF COMPLAINT: HISTORY OF PRESENT ILLNESS: REVIEW OF SYSTEMS: ACTIVE PROBLEMS: No qualifying data available for Problems MEDICATIONS: Active Inpt Meds: None Active PRN Meds: None One Time Meds: None Active IV Meds: Sodium Chloride 0.9% intravenous solution 500 mL (0.9% NaCl 500 mL 500 mL) Start: 03/09/25 8:26:00 EDT, Rate: 20 mL/hr, 03/09/25 8:26:00 EDT ALLERGIES: (1) NKA FAMILY HISTORY: SOCIAL HISTORY: PHYSICAL EXAM: VITALS: [id number](kg) 03/09 08:3536.5--[id number]/05 79.5 24 Hr Tmax: 36.5 at 03/09 08:35 36 Hr Tmax: 36.5 at 03/09 08:35 Vital Signs are the last 5 in the past 48 hours. Weights display the last 5 within 7 days. Initial Wt: 03/09 79.5 kg 175 lb Current Wt: 03/09 79.5 kg 175 lb GENERAL: HEENT: CARDIOVASCULAR: RESPIRATORY: ABDOMEN: EXREMETIES: NEUROLOGICAL: PSYCHIATRIC: LABS: No 36hr Lab Data DIAGNOSTICS: IMPRESSION: PLAN: History and Physical Update I have examined the patient; reviewed the H&P and there are no changes to the H&P unless noted below. [facility] 05-05-2025 Hospital Discharge instructions Patient Education 03/09/2025 09:37:00 Moderate Conscious Sedation, Adult, Care After Moderate Conscious Sedation, Adult, Care After These instructions provide you with information about caring for yourself after your procedure. Your health care provider may also give you more specific instructions. Your treatment has been plannedaccording to current medical practices, but problems sometimes occur. Call your health care provider if you have any problems or questions after your procedure. What can I expect after the procedure? After your procedure, it is common: To feel sleepy for several hours. To feel clumsy and have poor balance for several hours. To have poor judgment for several hours. To vomit if you eat too soon. Follow these instructions at home: For at least 24 hours after the procedure: Do not: ?Participate in activities where you could fall or become injured. ?Drive. ?Use heavy machinery. ?Drink alcohol. ?Take sleeping pills or medicines that cause drowsiness. ?Make important decisions or sign legal documents. ?Take care of children on your own. Rest. Eating and drinking Follow the diet recommended by your health care provider. If you vomit: ?Drink water, juice, or soup when you can drink without vomiting. ?Make sure you have little or no nausea before eating solid foods. General instructions Have a responsible adult stay with you until you are awake and alert. Take ixui-ntj-elnfwiu and prescription medicines only as told by your health care provider. If you smoke, do not smoke without supervision. Keep all follow-up visits as told by your health care provider. This is important. Contact a health care provider if: You keep feeling nauseous or you keep vomiting. You feel light-headed. You develop a rash. You have a fever. Get help right away if: You have trouble breathing. This information is not intended to replace advice given to you by your health care provider. Make sure you discuss any questions you have with your health care provider. Document Released: 08/12/2014 Document Revised: 10/04/2018 Document Reviewed: 02/10/2017 [employer] Patient Education 2020 [employer]. 03/09/2025 09:36:55 Colonoscopy, Adult, Care After, Fqvq-iy-Srte Colonoscopy, Adult, Care After This sheet gives you information about how to care for yourself after your procedure. Your doctor may also give you more specific instructions. If you have problems or questions, call your doctor. What can I expect after the procedure? After the procedure, it is common to have: A small amount of blood in your poop for 24 hours. Some gas. Mild cramping or bloating in your belly. Follow these instructions at home: General instructions For the first 24 hours after the procedure: ?Do not drive or use machinery. ?Do not sign important documents. ?Do not drink alcohol. ?Do your daily activities more slowly than normal. ?Eat foods that are soft and easy to digest. Take yqzs-qwy-wnxccql or prescription medicines only as told by your doctor. To help cramping and bloating: Try walking around. Put heat on your belly (abdomen) as told by your doctor. Use a heat source that your doctor recommends, such as a moist heat pack or a heating pad. ?Put a towel between your skin and the heat source. ?Leave the heat on for 20 30 minutes. ?Remove the heat if your skin turns bright red. This is especially important if you cannot feel pain, heat, or cold. You can get burned. Eating and drinking Drink enough fluid to keep your pee (urine) clear or pale yellow. Return to your normal diet as told by your doctor. Avoid heavy or fried foods that are hard to digest. Avoid drinking alcohol for as long as told by your doctor. Contact a doctor if: You have blood in your poop (stool) 2 3 days after the procedure. Get help right away if: You have more than a small amount of blood in your poop. You see large clumps of tissue (blood clots) in your poop. Your belly is swollen. You feel sick to your stomach (nauseous). You throw up (vomit). You have a fever. You have belly pain that gets worse, and medicine does not help your pain. Summary After the procedure, it is common to have a small amount of blood in your poop. You may also have mild cramping and bloating in your belly. For the first 24 hours after the procedure, do not drive or use machinery, do not sign important documents, and do not drink alcohol. Get help right away if you have a lot of blood in your poop, feel sick to your stomach, have a fever, or have more belly pain. This information is not intended to replace advice given to you by your health care provider. Make sure you discuss any questions you have with your health care provider. Document Released: 11/24/2011 Document Revised: 08/22/2018 Document Reviewed: 07/16/2017 [employer] Patient Education 2020 [employer] Follow Up Care 02/04/2025 11:15:39 With:JAMIL HERZOG MD Address: [address] [facility] [address] [place] [phone] When: Unknown [facility] 05-05-2025 Note Date of Service 03/09/2025 Procedure Name Screening colonoscopy Consent Taken before procedure Indication History of colon polyps high risk screening colonoscopy Location [facility] Pre-Procedure Exam High risk screening colonoscopy Procedural Sedation Anesthesia provided a MAC Technique Patient was brought to the Endo suite and placed left shoulder down. The colonoscope was passed into the rectum advanced up to the left colon where there was diverticulosis. The scope was advanced tothe cecum where the base the cecum was photographed the patient had an excellent preparation. Therewere no obvious large polyps seen in the right colon. Back across the transverse colon mucosa remained normal below the splenic flexure there were no obvious large polyps seen. Diverticulosis in the sigmoid area retroflexion performed in the rectum revealed internal hemorrhoids the colon was decompressed the patient tolerated the procedure well Post-Procedure Exam Screening colonoscopy history of colon polyps Findings Diverticulosis of the sigmoid colon Complications None apparent Total Time Approximately 25 minutes Assessment/Plan Orders: Sodium Chloride 0.9% intravenous solution 500 mL(0.9% NaCl 500 mL 500 mL), 500 mL, Intravenous Bedrest, 03/09/25 9:33:00 EDT, Strict, continuous, Constant order, Lying on side until alert or as ordered Bedrest, 03/09/25 9:33:00 EDT, Strict, continuous, Constant order, Lying on side until alert or as ordered Call Parameters, 03/09/25 9:33:00 EDT, Notify for vomiting, severe pain, signs of bleeding, severe abdominal pain, distention or rigidity, Constant order Communication Order (scheduled), 03/09/25 8:26:00 EDT, Once, 03/09/25 8:26:00 EDT, Pathology TissueRequest Communication Order (scheduled), 03/09/25 8:26:00 EDT, Once, 03/09/25 8:26:00 EDT, Urine Test or waiver for women of child bearing age Communication Order (scheduled), 03/09/25 8:26:00 EDT, Once, 03/09/25 8:26:00 EDT, Fasting Blood Sugar priot to procedure of patient is diabetic Consult to Anesthesia, 03/09/25 8:26:00 EDT, *Other (specify in special instructions), Provide Anesthesia during Procedure Diet Order, 03/09/25 9:33:00 EDT, Start Meal: Next meal, Clear Liquid Diet, Post exam or after gag reflex returns if EGD, Constant Order, : N/A, : N/A Discharge, 03/09/25 8:26:00 EDT, Discharged to: Home, when able to ambulate and after being seen byphysician Discharge Activity, NO activity restrictions, 03/09/25 9:33:00 EDT Discharge Diet, Follow the post-operative/post-procedure diet instructions provided by your physician's office., 03/09/25 9:33:00 EDT Discharge Wound Care, Follow the post-operative/post-procedure wound care instructions provided by your physician's office., 03/09/25 9:33:00 EDT IV Catheter Insertion/Care(Peripheral IV Insertion/Care), 03/09/25 8:26:00 EDT, IV Care: q4h, Rotate when clinically indicated & q7day drsg change Post Procedure Assessment, 03/09/25 9:33:00 EDT, Stop Date 03/09/25 9:33:00 EDT, Ober[facility] in [facility] Recovery Room until Lele Score of 12 or Preprocedure Sign Consent, 03/09/25 8:26:00 EDT, Once, For Colonoscopy Vital Signs, 03/09/25 9:33:00 EDT, q15min, 1 hour(s), 03/09/25 10:30:00 EDT Vital Signs, 03/09/25 9:33:00 EDT, q30min, 1 hour(s), 03/09/25 10:30:00 EDT Vital Signs PRN, 03/09/25 9:33:00 EDT, PRN order Follow Up/Recommendation No further colonoscopies due to the patient's age. Digitally Signed by JAMIL HERZOG MD on 03/09/2025 09:42 AM [facility] Ariane [id number] Note Discharge Instructions Thank you for allowing [facility] to assist you with your healthcare needs. The following is importantdischarge information regarding your hospital visit. 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 HERZOG What to do next Follow Up Appointments Follow Up with JAMIL HERZOG MD Where:[address] [place] [phone] Allergies NKA Medications Please ask your primary doctor or pharmacist before taking any other medication not listed, including over the counter drugs, herbal medications, vitamins and or supplements as they may interact withyour home medications. What How Much When Instructions Last Dose Unchanged atenolol (atenolol 50 mg oral tablet) Take 1 tablet (50 mg) by mouth daily. Unchanged busPIRone (busPIRone 10 mg oral tablet) TAKE 1 TABLET BY MOUTH TWICE DAILY Unchanged lisinopril (lisinopril 40 mg oral tablet) 1 tab(s) by mouth Every day Unchanged tamsulosin (tamsulosin 0.4 mg oral capsule) Take 2 capsules (0.8 mg) by mouth daily. Please take this list to your next doctor s visit. Bring all medications you take, including over the counter medications, herbals and other supplements with you to your doctor s visit. Patients and families are reminded to discard old lists and to update any records with all medication providers or retail pharmacies. Education Materials Moderate Conscious Sedation, Adult, Care After These instructions provide you with information about caring for yourself after your procedure. Your health care provider may also give you more specific instructions. Your treatment has been plannedaccording to current medical practices, but problems sometimes occur. Call your health care provider if you have any problems or questions after your procedure. What can I expect after the procedure? After your procedure, it is common: To feel sleepy for several hours. To feel clumsy and have poor balance for several hours. To have poor judgment for several hours. To vomit if you eat too soon. Follow these instructions at home: For at least 24 hours after the procedure: Do not: ? Participate in activities where you could fall or become injured. ? Drive. ? Use heavy machinery. ? Drink alcohol. ? Take sleeping pills or medicines that cause drowsiness. ? Make important decisions or sign legal documents. ? Take care of children on your own. Rest. Eating and drinking Follow the diet recommended by your health care provider. If you vomit: ? Drink water, juice, or soup when you can drink without vomiting. ? Make sure you have little or no nausea before eating solid foods. General instructions Have a responsible adult stay with you until you are awake and alert. Take sksd-ozm-rhjnppn and prescription medicines only as told by your health care provider. If you smoke, do not smoke without supervision. Keep all follow-up visits as told by your health care provider. This is important. Contact a health care provider if: You keep feeling nauseous or you keep vomiting. You feel light-headed. You develop a rash. You have a fever. Get help right away if: You have trouble breathing. This information is not intended to replace advice given to you by your health care provider. Make sure you discuss any questions you have with your health care provider. Document Released: 08/12/2014 Document Revised: 10/04/2018 Document Reviewed: 02/10/2017 [employer]id Patient Education 2020 [employer]. Colonoscopy, Adult, Care After This sheet gives you information about how to care for yourself after your procedure. Your doctor may also give you more specific instructions. If you have problems or questions, call your doctor. What can I expect after the procedure? After the procedure, it is common to have: A small amount of blood in your poop for 24 hours. Some gas. Mild cramping or bloating in your belly. Follow these instructions at home: General instructions For the first 24 hours after the procedure: ? Do not drive or use machinery. ? Do not sign important documents. ? Do not drink alcohol. ? Do your daily activities more slowly than normal. ? Eat foods that are soft and easy to digest. Take cuhs-qca-hbclowe or prescription medicines only as told by your doctor. To help cramping and bloating: Try walking around. Put heat on your belly (abdomen) as told by your doctor. Use a heat source that your doctor recommends, such as a moist heat pack or a heating pad. ? Put a towel between your skin and the heat source. ? Leave the heat on for 20 30 minutes. ? Remove the heat if your skin turns bright red. This is especially important if you cannot feel pain, heat, or cold. You can get burned. Eating and drinking Drink enough fluid to keep your pee (urine) clear or pale yellow. Return to your normal diet as told by your doctor. Avoid heavy or fried foods that are hard to digest. Avoid drinking alcohol for as long as told by your doctor. Contact a doctor if: You have blood in your poop (stool) 2 3 days after the procedure. Get help right away if: You have more than a small amount of blood in your poop. You see large clumps of tissue (blood clots) in your poop. Your belly is swollen. You feel sick to your stomach (nauseous). You throw up (vomit). You have a fever. You have belly pain that gets worse, and medicine does not help your pain. Summary After the procedure, it is common to have a small amount of blood in your poop. You may also have mild cramping and bloating in your belly. For the first 24 hours after the procedure, do not drive or use machinery, do not sign important documents, and do not drink alcohol. Get help right away if you have a lot of blood in your poop, feel sick to your stomach, have a fever, or have more belly pain. This information is not intended to replace advice given to you by your health care provider. Make sure you discuss any questions you have with your health care provider. Document Released: 11/24/2011 Document Revised: 08/22/2018 Document Reviewed: 07/16/2017 [employer] Patient Education 2020 [employer] Additional Information VACCINATE! IT SAVES LIVES! Members of the community who have not yet received the COVID-19 vaccine and would like to receive it can visit one of [facility] vaccine clinics. There are many vaccine clinic locations within the [facility]. For locations and available times, please visit https://gettheshot.coronavirus.[place].gov/. It is important to note that some COVID mobile vaccine clinics are held outdoors and may be canceled in rainy or stormy conditions. To learn more about pediatric vaccinations (ages 5-11), we invite you to visit the [facility] webpage. https://www.[facility].org/pages/5094-Itqcw-Lycidgstrlr-Jubkqeudwp-Jzmrb-Bqd stions.htmlTo learn more about the COVID-19 vaccine, we invite you to visit the CDC website for a list of frequently asked questions.https://www.cdc.gov/coronavirus/2019-ncov/vaccines/faq.html [facility] Patient Portal Access Instructions: Stay connected with your healthcare team and access your personal medical information anytime with the [facility] Patient Portal. Please follow the directions below to create your [facility] account: 1.Access the email account you provided upon registration to the hospital/physician office.2.Look for an invitation email from [facility].3.Open the email and access the invitation link: AcceptInvitation to [facility].4.Fill in the required zee to create your account. To access your account, visit [employer]/[email or web address]. Click the blue button labeled Access Patient Portal and then log in with the username and password that you created in the steps above. You will be able to view your test results, lab results, a summary of your visits, upcoming appointments and more. There is also a convenient messaging option where you can send secure messages to your p [employer]. In addition, you will have the ability to download any documents or summaries to your computer and/or send the information securely to a physician. Remember that your healthcare information is confidential, so carefully consider who you will allowto register on the [facility] Patient Portal for access to your information. You can also access the [facility] Patient Portal on the [facility] curly. Simply click on Patient Portal and then log into your account. If you would like to receive a full copy of your medical records, please contact the [facility] Medical Records Department by calling [phone], Sunday through Sunday between 8 a.m. and 4:30 p.m. HOW TO SAFELY DISPOSE OF PRESCRIPTION MEDICATIONS Please use one of the following methods to safely dispose of your unused medications. 1.Use a drug disposal kit: the drug disposal pouch allows you to safely discard your old and unuseddrugs. Ask your nurse to give you one when you are discharged.2.Visit a local take-back location: Many local pharmacies and police departments have programs that collect old and unwanted prescriptiondrugs. Call your local pharmacy or go to http://Social Plus.[employer]/5J5Jx0y to find one close to you.3.Make use of household items: Use cat litter or old coffee grounds to dispose medications if other options arenot available. Mix your drugs with these household products, seal them in an airtight container andthrow it into the garbage. Call [facility]: [phone] to be sure your drugs can be disposed of in this way. Some medicines may require a different approach.4.Never flush your medications down the toilet. IF YOU HAVE BEEN PRESCRIBED AN OPIOID FOR PAIN If you have been prescribed an opioid (such as hydrocodone, oxycodone or morphine), it is critical to understand the possible side effects and risks of opioid pain medications. Even when taken as directed, opioids can have several side effects including: Tolerance, meaning you might need to take more of a medication for the same pain relief. Nausea, vomiting and/or constipation. Sleepiness, dizziness, dry mouth, confusion, depression or itching. Physical dependence, meaning you have withdrawal symptoms when a medication is stopped, can develop within a few days. KNOW YOUR RESPONSIBILITIES It is important to know exactly how much and how often to take the opioid pain medications you are prescribed. Never take opioids in higher amounts or more often than prescribed. Do not combine opioids with alcohol or other drugs that cause drowsiness, such as benzodiazepines, also known as benzos, including diazepam and alprazolam, muscle relaxants or sleep aids. Never sell or share prescription opioids. This is illegal. Store opioids in a secure place and out of reach of others (including children, family, friends and visitors). The last page of this document has been signed and retained as a CHART COPY. Signatures Patient Education Materials Moderate Conscious Sedation, Adult, Care After Colonoscopy, Adult, Care After, Yrlk-gn-Buvw Medication Leaflets My discharge plan and instructions have been reviewed and explained to me and I,EVANS MICHAUD understand my current condition and have read and understand these discharge instructions. I have received a written copy of the plan/instructions. If I have questions, I am aware that I should contact my doctor. 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/Information Technology Security Manager Signature: Date/Time: Relationship to Patient: Witness Name/Signature: Date/Time: [facility]05-05-2025 Anesthesiology Consult note Patient: EVANS MICHAUD Age: 74 years Sex: Male : 1950 Associated Diagnoses: None Author: EVANS MISHRA HYDRAULIC PRESS TENDER-HEEL SEAT TRIMMER Assessment Postanesthesia assessment Vitals: Vital signs from flowsheet : Vital Signs 03/09/2025 9:30 EDT Heart Rate Monitored 61 bpm bpm Respiratory Rate - Anes 19 br/min br/min 03/09/2025 9:25 EDT Heart Rate Monitored 74 bpm bpm Respiratory Rate - Anes 24 br/min br/min Systolic Blood Pressure Non-Invasive 154 mmHg mmHg Diastolic Blood Pressure Non-Invasive 84 mmHg mmHg 03/09/2025 9:20 EDT Heart Rate Monitored 64 bpm bpm Respiratory Rate - Anes 13 br/min br/min Systolic Blood Pressure Non-Invasive 113 mmHg mmHg Diastolic Blood Pressure Non-Invasive 60 mmHg mmHg 03/09/2025 9:17 EDT Systolic Blood Pressure Non-Invasive 146 mmHg mmHg Diastolic Blood Pressure Non-Invasive 72 mmHg mmHg 03/09/2025 8:35 EDT Temperature Temporal Artery 36.5 DegC Peripheral Pulse Rate 62 bpm Respiratory Rate 14 br/min Systolic Blood Pressure Non-Invasive 154 mmHg HI Diastolic Blood Pressure Non-Invasive 66 mmHg , Measurements from flowsheet . Mental status: alert & oriented x 4. Respiratory function: respirations are non-labored. Respiratory support: none. CV function: Normal rate. Cardiovascular support: none. Pain. Nausea status: see nursing documentation of medications. Postoperative hydration status: within normal limits. Digitally Signed by EVANS MISHRANorris ORELLANA on 03/09/2025 09:33 AM [facility]05-05-2025 Anesthesiology Consult note Patient: EVANS MICHAUD Age: 74 years Sex: Male : 1950 Associated Diagnoses: None Author: EVANS MISHRANorris ORELLANA Preoperative Information Time of last food or liquid consumption: 03/09/2025 06:00:00 Time of last solid food intake: 03/09/2025 00:00:00 Time of last clear liquid intake: 03/09/2025 06:00:00 Anesthesia history Patient's history: negative. Family's history: negative. Health Status Allergies: Allergic Reactions (Selected) NKA, Allergies (1) ActiveSeverityReaction NKANone Documented Current medications: (Selected) Inpatient Medications Ordered 0.9% NaCl 500 mL 500 mL: 20 mL/hr, Intravenous Documented Medications Documented atenolol 50 mg oral tablet: Take 1 tablet (50 mg) by mouth daily. busPIRone 10 mg oral tablet: TAKE 1 TABLET BY MOUTH TWICE DAILY lisinopril 40 mg oral tablet: 40 mg, 1 tab(s), Oral, Daily, 100 tab(s), 0 Refill(s) tamsulosin 0.4 mg oral capsule: Take 2 capsules (0.8 mg) by mouth daily., Medications (1) Active Scheduled: (0) Continuous: (1) Sodium Chloride 0.9% intravenous solution 500 mL 500 mL, Intravenous, 20 mL/hr PRN: (0) Problem list: No qualifying data available Histories Past Medical History: No active or resolved past medical history items have been selected or recorded. Family History: No family history items have been selected or recorded. Procedure history: Colonoscopy ([id number]). Cataract ([id number]). Comments: 03/09/2025 8:33 Venus Callejas RN bilateral Spinal ([id number]). Social History: Social & Psychosocial Habits Alcohol 03/09/2025 Use: Current Frequency: 3-5 times per week Substance Abuse 03/09/2025 Use: Never Tobacco 03/09/2025 Tobacco Use: Never (less than 100 in l Nutrition/Health 03/09/2025 Type of diet: Regular Physical Examination Vital Signs 03/09/2025 8:35 EDT Temperature Temporal Artery 36.5 DegC Peripheral Pulse Rate 62 bpm Respiratory Rate 14 br/min Systolic Blood Pressure Non-Invasive 154 mmHg HI Diastolic Blood Pressure Non-Invasive 66 mmHg Vital Signs (last 24 hrs) Last Charted Temp Iqvzfafu93.5 DegC (MARCH 09 08:35) SBPH 154 mmHg (MARCH 09 08:35) DBP66 mmHg (MARCH 09 08:35) BMI25.87 (MARCH 09 08:35) Measurements from flowsheet : Measurements 03/09/2025 8:35 EDT Height 175.3 cm Height in inches 69 inch(es) Admission Weight 79.5 kg Weight Lbs 174.9 lb Weight Method Stated [place] Body Weight 70.74 kg BSA Admission 1.95 Body Mass Index 25.87 kg/m2 Pain assessment: Pain Assessment 03/09/2025 8:35 EDT Primary Pain Intensity 0 Pain Scale Type 0-10 Pain scale . General: Alert and oriented. Airway: Normal temporomandibular joint mobility, Normal mouth, Normal neck range of motion. Mallampati classification: II (soft palate, fauces, uvula visible). Dentition Evaluation: Denies loose/chipped teeth. Respiratory: Respirations are non-labored. Cardiovascular: Normal rate. Neurologic: Alert, Oriented. Review / Management Results review: No qualifying data available , Lab results 03/09/2025 9:16 EDT SN - GCD - ASA Class 3 03/09/2025 9:15 EDT [place] History and Physical 03/09/2025 8:35 EDT Designated Person #1 We May Share PHI Designated Person #1 We May Share PHI Designated Person #1 Relationship Spouse Privacy Restrictions Requested None Height 175.3 cm Height in inches 69 inch(es) Admission Weight 79.5 kg Weight Lbs 174.9 lb Weight Method Stated [place] Body Weight 70.74 kg BSA Admission 1.95 Body Mass Index 25.87 kg/m2 Temperature Temporal Artery 36.5 DegC Peripheral Pulse Rate 62 bpm Respiratory Rate 14 br/min Systolic Blood Pressure Non-Invasive 154 mmHg HI Diastolic Blood Pressure Non-Invasive 66 mmHg Primary Pain Intensity 0 Pain Scale Type 0-10 Pain scale Respirations Unlabored Respiratory Pattern Regular Oxygen Therapy Room air Oxygen Saturation 97 % Status N/A Forearm Right 03/09/2025 22 gauge Peripheral IV Activity: Insert new site Peripheral IV Dressing Condition: Clean, Dry, Intact Peripheral IV Dressing Activity: Applied, Transparent dressing Peripheral IV Line Status/Patency: Flushes easily, Continuous infusion Peripheral IV Site Condition: No complications Peripheral IV Number of Attempts: 1 Level of Consciousness Alert Affect/Behavior Appropriate, Calm, Cooperative Orientation Oriented x 4 Sensory Deficits None Infectious Disease Symptoms Patient states no symptoms Infectious Disease Recent Exposure No Alcohol and Drug Use No Employee of Institutional Living No Health Care Employee No History of Exposure to TB No History of Positive Chest X-Ray for TB No History of Positive TB Skin Test No Homeless No Known Immunosuppression No Recent Immigrant No Resident of Institutional Living No Bloody Sputum No Fatigue No Fever No Loss of Appetite No Night Sweats No Persistent Cough > 3 Weeks No Weight Loss No Allergies Yes Consent Form Signed Yes History & Physical On Chart Yes Obstructive Sleep Apnea Assess Completed Yes GI Prep Sutab GI Prep Completed Yes GI Prep Results Watery, Yellow Lele Motor (2) Moves 4 extremities voluntarily or on command Lele Respirations (2) Spontaneous respiration without support, RR > 10 Lele Blood Pressure (2) BP 20% above or below preanesthetic level Lele Pulse (2) Pulse 20% above or below preanesthetic level Lele Oxygen Saturation (2) 94% or more Lele Level of Consciousness (2) Fully awake Lele III Score 12 Barriers to Learning None evident Teaching Method Explanation, Printed materials Preferred Spoken Language Venezuelan Preferred Written Language Venezuelan Patient's Current Physicians CANDICE KLEIN APRN Discharge To, Anticipated Home independently Activity Status ADL Awake NPO Status Maintained Standard Safety ID band on, Call device within reach, Bed in low position, Wheels locked, Visitor at bedside, Safety level maintained Prev Test Positive/Diagnosis w/COVID-19 No Current Quarantine/Isolated any Illness No Any Contact with Sick Animals/Birds No Traveled Anywhere in Last 30 Days No Patient ID Band on and Verified Yes Implants Verified Yes Pacemaker/AICD Verified Yes Site Verified by Patient/Family Yes N/A Personal Devices, Patient Valuables Glasses Admission Note-Nursing Procedure/Therapy Intake 03/09/2025 8:30 EDT SN - Proc - Anesthesia Type MAC SN - Proc - EBL 0 mL SN - Proc - Actual Procedure COLONOSCOPY 03/09/2025 8:29 EDT SN - PP - Body Position Lateral Right Side-up Standard Intra-op 03/09/2025 8:28 EDT SN - GCD - Post-operative Diagnosis SCREENING, HISTORY OF COLON POLYPS SN - GCD - Case Level OPD Level 3 03/09/2025 8:27 EDT SN - CAt - Case Attendee SN - CAt - Case Attendee SN - CAt - Case Attendee SN - CAt - Case Attendee SN - CAt - Case Attendee SN - CAt - Case Attendee SN - CAt - Case Attendee SN - CAt - Case Attendee SN - CAt - Role Performed HEEL SEAT TRIMMER SN - CAt - Role Performed Procedure Nurse SN - CAt - Role Performed [place] SN - CAt - Role Performed Primary Surgeon . Assessment and Plan [place] [employer]esthesi[employer] (ASA) physical status classification: Class III. Anesthetic Preoperative Plan Anesthetic technique: MAC. Informed consent: signed by patient. Digitally Signed by EVANS MISHRA on 03/09/2025 09:19 AM [facility]05-05-2025 Note [place] ADMISSION HISTORY AND PHYSICIAL CHIEF COMPLAINT: HISTORY OF PRESENT ILLNESS: REVIEW OF SYSTEMS: ACTIVE PROBLEMS: No qualifying data available for Problems MEDICATIONS: Active Inpt Meds: None Active PRN Meds: None One Time Meds: None Active IV Meds: Sodium Chloride 0.9% intravenous solution 500 mL (0.9% NaCl 500 mL 500 mL) Start: 03/09/25 8:26:00 EDT, Rate: 20 mL/hr, 03/09/25 8:26:00 EDT ALLERGIES: (1) NKA FAMILY HISTORY: SOCIAL HISTORY: PHYSICAL EXAM: VITALS: [id number](kg) 03/09 08:3536.5--[id number]/05 79.5 24 Hr Tmax: 36.5 at 03/09 08:35 36 Hr Tmax: 36.5 at 03/09 08:35 Vital Signs are the last 5 in the past 48 hours. Weights display the last 5 within 7 days. Initial Wt: 03/09 79.5 kg 175 lb Current Wt: 03/09 79.5 kg 175 lb GENERAL: HEENT: CARDIOVASCULAR: RESPIRATORY: ABDOMEN: EXREMETIES: NEUROLOGICAL: PSYCHIATRIC: LABS: No 36hr Lab Data DIAGNOSTICS: IMPRESSION: PLAN: History and Physical Update I have examined the patient; reviewed the H&P and there are no changes to the H&P unless noted below. Digitally Signed by JAMIL HERZOG MD on 03/09/2025 09:18 AM [facility]04-29-2025 Telephone encounter Note* Telephone Encounter - KENZIE Leung CNP - 03/03/2025 1:35 PM EDT Reviewed chart. Refill appropriate. RX sent. [id number] Miscellaneous Notes* Telephone Encounter - KENZIE Leung CNP - 03/03/2025 1:35 PM EDT Reviewed chart. Refill appropriate. RX sent. * Telephone Encounter - Annette Mallory MA - 03/03/2025 1:04 PM EDT Prescription Request: Last medication check: 07/14/2024 Last physical exam: 01/16/2025 Next scheduled appointment: 07/24/2025 Last date of refill on this medication: 08/21/2024 documented in this [facility]04-29-2025 Telephone encounter Note* Telephone Encounter - Annette Mallory MA - 03/03/2025 1:04 PM EDT Prescription Request: Last medication check: 07/14/2024 Last physical exam: 01/16/2025 Next scheduled appointment: 07/24/2025 Last date of refill on this medication: 08/21/2024 [place] [id number] NoteHNO ID: [id number] Author: SASHA KAUR, WIN Service: ? Author Type: CONTACT AND SERVICE CLERKS SUPERVISOR Type: Progress Notes Filed: 02/12/2025 10:55 Note Text: 1. Pseudophakia of both eyes (Primary) 2. Combined forms of age-related cataract of both eyes S/p PC IOL both eyes January [address] Miller at [facility] Looks good 3. Photophobia of both eyes Patient still taking prednisolone twice daily to help with photophobia Patient is greatly affected by photophobia both indoors and outdoors 4. Presbyopia Finalized spec rx and recommended transitions first, then FL-41 or faye tinted lenses if not sufficient for photophobia 5. Dermatochalasis of both upper eyelids Stable Monitor Follow-up in 1 year or sooner as needed Sasha Kaur, OD February 12, 2025 10:43 [facility]03-25-2025 Instructions* Patient Instructions* Horace Lubin PA-C - 01/27/2025 11:36 AM EDT > If having trouble emptying bladder call office and will start Proscar (Finasteride) 5 mg and have you follow-up in 3 months > 1 year Appt w/ BTRI Pruitt MT, PA-C with PSA prior order is placed for 2025 [facility] NoteHNO ID: [id number] Author: RADHA TIRADO LPN Service: ? Author Type: LICENSED NURSE Type: Progress Notes Filed: 01/27/2025 16:32 Note Text: Verified name and date of . CC Post Void Residual HPI: Evans Michaud is a 74 year old male. The patient is here now for an appointment with TRI Mccabe MT, PA-COV. Procedure: Explained procedure to patient and verbalizes understanding. Performed a PVR. Patient urinated and instructed to empty bladder as much as possible just prior to having PVR done using bladder ultrasound scanner. Results of scan: 0 mL The patient tolerated the procedure well. Plan: Appointment with Horace.[facility]03-25-2025 History of Present illness Narrative* Radha Tirado LPN - 01/27/2025 10:58 AM EDT Verified name and date of . CC Post Void Residual HPI: Eavns Michaud is a 74 year old male. The patient is here now for an appointment with TRI Mccabe, KEVAN, VINCENZO. Procedure: Explained procedure to patient and verbalizes understanding. Performed a PVR. Patient urinated and instructed to empty bladder as much as possible just prior to having PVR done using bladder ultrasound scanner. Results of scan: 0 mL The patient tolerated the procedure well. Plan: Appointment with Horace. * Horace Lubin PA-C - 01/27/2025 10:45 AM EDT Images from the original note were not included. [facility] EST PATIENT CLINIC NOTE (M) Some elements copied from his previous note, which have been updated where appropriate, and all reflect current medical decision making from date of this visit. SERVICE DATE: January 27, 2025 NAME: Evans Michaud GENDER: male CHIEF COMPLAINT: Elevated PSA Follow-up HISTORY OF PRESENT ILLNESS: Evans Michaud is a 74 year old male patient here following up for has been following with Dr. Krause but lives in town and easier to follow-up here for follow ups Will send patient back to Dr Krause if procedures or surgery is needed The patient reports no change in LUTS > PSA 5.68 > with 2 previous prostate biopsies were benign LUTS: No New LUTS LABS: PSA (ng/mL) Date Value 01/23/2025 5.68 10/31/2023 7.38 PSA Screening (ng/mL) Date Value 01/11/2018 3.3 12/29/2016 3.0 Creatinine Date Value Ref Range Status 01/11/2018 1.06 0.67 - 1.17 mg/dL Final 07/23/2017 1.00 0.73 - 1.22 mg/dL Final 04/17/2017 1.07 0.67 - 1.17 mg/dL Final No results found for: TESTOST Hematocrit (%) Date Value 01/11/2018 44.5 12/29/2016 40.2 PSA (ng/mL) Date Value 01/23/2025 5.68 10/31/2023 7.38 PSA Screening (ng/mL) Date Value 01/11/2018 3.3 12/29/2016 3.0 MEDICATIONS: melatonin 10 mg cap Take by mouth. celecoxib (CELEBREX) 200 mg capsule TAKE 1 CAPSULE BY MOUTH TWICE DAILY WITH FOOD NEEDED (Patient not taking: Reported on 11/24/2024) lisinopril (ZESTRIL) 10 mg tablet Take 20 mg by mouth once daily. iv contrast (will be provided with radiology test) MRI Prostate Inject, intravenously, once for 1 dose. No IV access, insert saline lock prior to the beginning of sedation, infusion, injection of imaging exam. Discontinue saline lock post exam. If Pt. has a central line or IVAD, may access for administration according to line specific nursing protocol. Once exam is complete flush line and de-access according to line specific nursing protocol in the MR contrast administration guidelines link. gabapentin (NEURONTIN) 300 mg capsule Take 300 mg by mouth three times a day. (Patient not taking: Reported on 11/24/2024) busPIRone (BUSPAR) 15 mg tablet Take by mouth. tamsulosin (FLOMAX) 0.4 mg Take 1 tablet by mouth once daily. atenolol (TENORMIN) 50 mg tablet Take 1 tablet by mouth once daily. DULoxetine (CYMBALTA) 30 mg capsule Take 1 capsule by mouth once daily. (Patient not taking: Reported on 11/24/2024) PAST MEDICAL HISTORY: PAST MEDICAL HISTORY Diagnosis Date Anxiety Enlarged prostate History of kidney stones Hypertension Spinal stenosis REVIEW OF SYSTEMS: GENERAL: No fever, chills, weight loss, or fatigue. PHYSICAL EXAMINATION: There were no vitals taken for this visit. GENERAL: WNL nutrition, no deformities, healthy appearing PROBLEM LIST REVIEW: Yes LABS: Results for orders placed or performed in visit on 01/23/25 PSA/PROSTSPECAG DIAG Result Value Ref Range PSA 5.68 (H) <2.60 ng/mL IMAGING: MRI Prostate - 12/26/2023 IMPRESSION: PIRADS 2, no suspicious pelvic lesions although evaluation is degraded due to susceptibility from rectal gas. No suspicious osseous lesion or lymphadenopathy. ASSESSMENT/PLAN: 1. BPH with obstruction/lower urinary tract symptoms - ICD9: 600.01, 599.69, ICD10: N40.1, N13.8 (primary diagnosis) 2. Elevated prostate specific antigen (PSA) - ICD9: 790.93, ICD10: R97.20 3. Screening for genitourinary condition - ICD9: V81.6, ICD10: Z13.89 > PSA - 5.68 Chronic stable, well > If having trouble emptying bladder call office and will start Proscar (Finasteride) 5 mg and have you follow-up in 3 months > 1 year Appt w/ BTRI Pruitt MT, PA-C with PSA prior order is placed for 2025 TRI Mccabe MT, PA-C [facility]25 NoteHNO ID: [id number] Author: HORACE LUBIN PA-C Service: ? Author Type: Physician Carrier Loader Type: Progress Notes Filed: 01/27/2025 16:32 Note Text: [facility] PATIENT CLINIC NOTE (M) Some elements copied from his previous note, which have been updated where appropriate, and all reflect current medical decision making from date of this visit. SERVICE DATE: January 27, 2025 NAME: Evans Michaud GENDER: male CHIEF COMPLAINT: Elevated PSA Follow-up HISTORY OF PRESENT ILLNESS: Evans Michaud is a 74 year old male patient here following up for has been following with Dr. Krause but lives in town and easier to follow-up here for follow ups Will send patient back to Dr Krause if procedures or surgery is needed The patient reports no change in LUTS > PSA 5.68 > with 2 previous prostate biopsies were benign LUTS: No New LUTS LABS: PSA (ng/mL) Date Value 01/23/2025 5.68 10/31/2023 7.38 PSA Screening (ng/mL) Date Value 01/11/2018 3.3 12/29/2016 3.0 Creatinine Date Value Ref Range Status 01/11/2018 1.06 0.67 - 1.17 mg/dL Final 07/23/2017 1.00 0.73 - 1.22 mg/dL Final 04/17/2017 1.07 0.67 - 1.17 mg/dL Final No results found for: TESTOST Hematocrit (%) Date Value 01/11/2018 44.5 12/29/2016 40.2 PSA (ng/mL) Date Value 01/23/2025 5.68 10/31/2023 7.38 PSA Screening (ng/mL) Date Value 01/11/2018 3.3 12/29/2016 3.0 MEDICATIONS: melatonin 10 mg cap Take by mouth. celecoxib (CELEBREX) 200 mg capsule TAKE 1 CAPSULE BY MOUTH TWICE DAILY WITH FOOD NEEDED (Patient not taking: Reported on 11/24/2024) lisinopril (ZESTRIL) 10 mg tablet Take 20 mg by mouth once daily. iv contrast (will be provided with radiology test) MRI Prostate Inject, intravenously, once for 1 dose. No IV access, insert saline lock prior to the beginning of sedation, infusion, injection of imaging exam. Discontinue saline lock post exam. If Pt. has a central line or IVAD, may access for administration according to line specific nursing protocol. Once exam is complete flush line and de-access according to line specific nursing protocol in the MR contrast administration guidelines link. gabapentin (NEURONTIN) 300 mg capsule Take 300 mg by mouth three times a day. (Patient not taking: Reported on 11/24/2024) busPIRone (BUSPAR) 15 mg tablet Take by mouth. tamsulosin (FLOMAX) 0.4 mg Take 1 tablet by mouth once daily. atenolol (TENORMIN) 50 mg tablet Take 1 tablet by mouth once daily. DULoxetine (CYMBALTA) 30 mg capsule Take 1 capsule by mouth once daily. (Patient not taking: Reported on 11/24/2024) PAST MEDICAL HISTORY: PAST MEDICAL HISTORY Diagnosis Date Anxiety Enlarged prostate History of kidney stones Hypertension Spinal stenosis REVIEW OF SYSTEMS: GENERAL: No fever, chills, weight loss, or fatigue. PHYSICAL EXAMINATION: There were no vitals taken for this visit. GENERAL: WNL nutrition, no deformities, healthy appearing PROBLEM LIST REVIEW: Yes LABS: Results for orders placed or performed in visit on 01/23/25 PSA/PROSTSPECAG DIAG Result Value Ref Range PSA 5.68 (H) <2.60 ng/mL IMAGING: MRI Prostate - 12/26/2023 IMPRESSION: PIRADS 2, no suspicious pelvic lesions although evaluation is degraded due to susceptibility from rectal gas. No suspicious osseous lesion or lymphadenopathy. ASSESSMENT/PLAN: 1. BPH with obstruction/lower urinary tract symptoms - ICD9: 600.01, 599.69, ICD10: N40.1, N13.8 (primary diagnosis) 2. Elevated prostate specific antigen (PSA) - ICD9: 790.93, ICD10: R97.20 3. Screening for genitourinary condition - ICD9: V81.6, ICD10: Z13.89 > PSA - 5.68 Chronic stable, well > If having trouble emptying bladder call office and will start Proscar (Finasteride) 5 mg and have you follow-up in 3 months > 1 year Appt w/ B. TRI Lubin MT, ARNIE-C with PSA prior order is placed for 2025 TRI Mccabe MT, ARNIE-[facility]03-14-2025 History of Present illness Narrative* Candice Frank, KENZIE - MELANGEUR OPERATOR - 01/16/2025 10:40 AM EDT Images from the original note were not included. [address] [address] Dept: [phone] Dept Chief Complaint: Evans Michaud is an 74 y.o. male here for an annual wellness visit. Assessment/Plan : Problem List Items Addressed This Visit Anxiety Relevant Orders Comprehensive metabolic panel CBC Stable but not at goal. Would like to continue on current dose of Buspar at this time. Discussed signs and symptoms warranting sooner follow up- verbalized understanding. Degenerative spondylolisthesis Relevant Orders Comprehensive metabolic panel CBC Stable. Follow up with specialist as directed. Essential hypertension Relevant Orders Comprehensive metabolic panel CBC BP mildly elevated today, but home readings are stable. Will continue on current dose of medications and continue to monitor BP at home. Low back pain Relevant Orders Comprehensive metabolic panel CBC Stable. Follow up with specialist as directed. Benign prostatic hyperplasia with nocturia Relevant Orders Comprehensive metabolic panel CBC Stable. Follow up with specialist as directed. Major depressive disorder, recurrent, mild (HCC) Relevant Orders Comprehensive metabolic panel CBC Stable off of Lexapro at this time. Other Visit Diagnoses Routine general medical examination at health care facility - Primary Encouraged a healthy diet low in cholesterol and saturated fats. Encouraged regular exercise. Screening for diabetes mellitus Relevant Orders Comprehensive metabolic panel Will notify of blood work results. Screening for deficiency anemia Relevant Orders CBC Will notify of blood work results. Screening for ischemic heart disease Relevant Orders Lipid panel Will notify of blood work results. Screening for colon cancer Relevant Orders External referral to Gastroenterology I have reviewed and reconciled the medication list with the patient today. Current Outpatient Medications Medication Sig Dispense Refill atenolol (Tenormin) 50 MG tablet Take 1 tablet (50 mg) by mouth daily. 90 tablet 1 busPIRone (Buspar) 10 MG tablet TAKE 1 TABLET BY MOUTH TWICE DAILY 180 tablet 1 lisinopril 40 MG tablet Take 1 tablet (40 mg) by mouth daily. 90 tablet 1 sildenafil (Viagra) 100 MG tablet Take 0.5 tablets (50 mg) by mouth Daily as needed for erectile dysfunction. 30 tablet 1 tamsulosin (Flomax) 0.4 MG 24 hr capsule Take 2 capsules (0.8 mg) by mouth daily. 180 capsule 0 No current facility-administered medications for this visit. Also reviewed during this visit: The following health maintenance schedule was reviewed with the patient and provided in printed form in the after visit summary: Health Maintenance Topic Date Due Medicare Advantage Annual Wellness Visit 11/05/2024 Depression Monitoring 07/16/2025 Diabetes Screening 01/08/2027 Lipid Panel 07/14/2029 Colorectal Cancer Screening 09/16/2031 DTaP/Tdap/Td Vaccines (2 - Td or Tdap) 02/07/2033 RSV Immunization for Adults Completed Influenza Vaccine Completed Pneumococcal Vaccine: 50+ Years Completed Hepatitis C Screening Completed COVID-19 Vaccine Completed RSV Immunization under 20 Months Aged Out HIB Vaccines Aged Out IPV Vaccines Aged Out Hepatitis A Vaccines Aged Out Meningococcal Vaccine Aged Out Rotavirus Vaccines Aged Out HPV Vaccines Aged Out Hepatitis B Vaccines Discontinued Zoster Vaccines Discontinued List of current healthcare providers: Patient Care Team: Mumtaz Kennedy MD as PCP - General (Family Medicine) Yomi Castro MD as Surgeon (Urology) Orders Placed This Encounter Procedures Comprehensive metabolic panel Standing Status: Future Number of Occurrences: 1 Standing Expiration Date: 01/16/2026 Lipid panel Standing Status: Future Number of Occurrences: 1 Standing Expiration Date: 01/16/2026 CBC Standing Status: Future Number of Occurrences: 1 Standing Expiration Date: 01/16/2026 External referral to Gastroenterology Standing Status: Future Standing Expiration Date: 07/19/2025 Referral Priority: Routine Referral Type: Consultation Referral Reason: Specialty Services Required Referred to Provider: Jamil Herzog MD Requested Specialty: Gastroenterology Number of Visits Requested: 1 Review of Systems Constitutional: Negative for chills and fever. HENT: Negative for hearing loss and trouble swallowing. Eyes: Negative for pain. Respiratory: Negative for cough, chest tightness, shortness of breath and wheezing. Cardiovascular: Negative for chest pain, palpitations and leg swelling. Gastrointestinal: Negative for abdominal distention, abdominal pain, blood in stool, constipation and diarrhea. Endocrine: Negative for polydipsia, polyphagia and polyuria. Genitourinary: Positive for difficulty urinating (difficulty fully emptying). Negative for dysuria and hematuria. Musculoskeletal: Positive for back pain. Skin: Negative for color change, pallor, rash and wound. Neurological: Negative for dizziness, syncope, weakness and headaches. Hematological: Does not bruise/bleed easily. Psychiatric/Behavioral: Positive for dysphoric mood. Negative for self-injury and suicidal ideas. The patient is nervous/anxious. Physical Exam Constitutional: General: Not in acute distress. Appearance: Not ill-appearing or diaphoretic. HENT: Head: Normocephalic and atraumatic. Right Ear: Tympanic membrane, ear canal and external ear normal. There is no impacted cerumen. Left Ear: Tympanic membrane, ear canal and external ear normal. There is no impacted cerumen. Nose: Nose normal. No congestion or rhinorrhea. Mouth/Throat: Mouth: Mucous membranes are moist. Pharynx: Oropharynx is clear. No oropharyngeal exudate or posterior oropharyngeal erythema. Eyes: General: No scleral icterus. Extraocular Movements: Extraocular movements intact. Pupils: Pupils are equal, round, and reactive to light. Neck: Thyroid: No thyroid mass or thyromegaly. Vascular: No carotid bruit. Cardiovascular: Rate and Rhythm: Normal rate and regular rhythm. Pulses: Normal pulses. Heart sounds: Normal heart sounds. No murmur heard. No friction rub. Pulmonary: Effort: Pulmonary effort is normal. Breath sounds: Normal breath sounds. No wheezing, rhonchi or rales. Abdominal: General: Bowel sounds are normal. There is no distension. Palpations: Abdomen is soft. There is no hepatomegaly, splenomegaly or mass. Tenderness: There is no abdominal tenderness. There is no guarding or rebound. Musculoskeletal: General: No deformity. Limited ROM lower back. Cervical back: Normal range of motion and neck supple. Right lower leg: No edema. Left lower leg: No edema. Lymphadenopathy: Cervical: No cervical adenopathy. Skin: General: Skin is warm and dry. Capillary Refill: Capillary refill takes less than 2 seconds. Coloration: Skin is not jaundiced or pale. Findings: No erythema or rash. Neurological: Mental Status: Alert and oriented to person, place, and time. Motor: No weakness. Coordination: Coordination normal. Gait: Gait normal. Psychiatric: Mood and Affect: Anxious mood. Behavior: Behavior normal. Thought Content: Thought content normal. Judgment: Judgment normal. Objective : BP (!) 144/72 Pulse 53 Ht 5' 9 (1.753 m) Wt 173 lb (78.5 kg) SpO2 97% BMI 25.55 kg/m No results found. Subjective : Evans presents today for his annual Medicare physical and fasting blood work. Hypertension: Checks blood pressure at home and states it averages 120-130/80's. BP is mildly elevated today at 144/72. Takes his Atenolol and Lisinopril daily as prescribed. Depression/Anxiety: Stopped taking his Lexapro due to side effects of dizziness and not tolerating the medication well. Continues to take his Buspar 10 mg twice a day and feels his symptoms have not been as well controlled. However, he does not want to try any new medications at this time and wouldlike to continue with the Buspar for the time being. BPH: Actively follows up with urology- next appointment is on 01/27/25. Continues to take Tamsulosin. Had a biopsy of the prostate on 01/16/24 and was told everything was clear. Most recent PSA was 7.38 ng/mL on 10/31/23. Had an MRI completed with normal findings. States he will get his PSA level checked through his urologist. Chronic Low Back Pain: Had back surgery 08/06/[address] Lu. States he was in a lot of pain fromthe back surgery and has some ongoing discomfort. Not due to follow up with the surgeon again untilOctober. Will take Tylenol as needed for pain- does not need often. Health Maintenance: Had a Tdap vaccination 02/07/23. Declines his second Shingrix vaccination due to side effects from his initial dose. Vaccinated for COVID-19 x7 with most recent dose on 07/17/24. Fluvaccination current: 09/05/24. Has received an RSV vaccination 07/17/24. Colonoscopy: 09/16/21- due for repeat (3 years was recommended)- would like to see Dr. Herzog in [place]. Is fully immunized for pneumonia. Health Risk Assessment: General: General In general, how would you say your health is?: (!) Fair In the past 7 days, have you experienced any of the following: New or Increased Pain, New or Increased Fatigue, Loneliness, Social Isolation, Stress or Anger?: No Do you get the social and emotional suppport you need?: Yes Interventions: Poor self-assessment of health status: See HPI Health Habits/Nutrition: Health Habits / Nutrition On average, how many days per week do you engage in moderate to strenous exercise (like a brisk walk)?: 7 days On average, how man minutes do you engage in exercise at this level?: 30 min Have you lost any weight without trying in the past 3 months? : Yes Have you seen the dentist within the past year?: Yes Hearing/ Vision: Hearing / Vision Do you or your family notice any trouble with your hearing that hasn't been managed with hearing aids?: No Do you have difficulty driving, watching TV, or doing any of your daily activities because of your eyesight?: (!) Yes Have you had an eye exam within the past year?: Yes No results found. Interventions: Vision concerns: Patient encouraged to make appointment with his / her eyeglass lens cutter Safety: Safety Do you have a working smoke detector?: Yes Do you have any tripping hazards - loose or unsecured carpets or rugs?: No Do you have any tripping hazards - clutter in doorways, halls, or stairs?: No Do you have either shower bars, grab bars, non-slip mats or non-slip surfaces in your shower or bathtub? : Yes Do all your stairways have a railing or banister? : Yes Do you fasten your seatbelt when you are in a car?: Yes ADL: ADL In the past 7 days, did you need help from others to perform any of the following everyday activities: Eating, dressing, grooming,bathing, toileting, or walking / balance? : No In the past 7 days, did you need help from others to take care of any of the following: laundry, housekeeping, banking / finances,shopping, telephone use, food preparation, transportation, or taking medications? : No Living Will: Living Will Do you have a living will?: No Interventions: Informational packet provided with forms. Cognitive: Cognitive Screening: Mini-Cog Clock Drawing Test (CDT): 2 Words Recalled: 3 Total Score: 5 Total Score Interpretation: Normal Mini-Cog Hypertension: Yes Fall Risk: Fall Risk One or more falls in the last year:: Yes Advised to use a cane or walker to get around safely:: No Feels unsteady when walking:: No Steadies self on furniture while walking at home:: No Worried about falling:: No Interventions: Home safety tips provided Depression Screening: Over the past 2 weeks, how often have you been bothered by any of the following problems? Little interest or pleasure in doing things: (Patient-Rptd) Several days Feeling down, depressed, or hopeless: (Patient-Rptd) Several days Patient Health Questionnaire-2 Score: (Patient-Rptd) 2 Interventions: See HPI Tobacco Use: Social History Tobacco Use Smoking Status Former Current packs/day: 0.00 Average packs/day: 1 pack/day for 20.0 years (20.0 ttl pk-yrs) Types: Cigarettes Start date: 11/05/1974 Quit date: 11/05/1994 Years since quittin.2 Smokeless Tobacco Never documented in this [facility]03-14-2025 Instructions* Patient Instructions* KENZIE Dickens CNP - 01/16/2025 10:[address] Jamil Herzog- Gastroenterology [address] [facility] [address] P: [phone] Personalized Preventative Plan for Evans Michaud - 01/16/2025 Medicare offers a range of preventative health benefits. Some of the tests and screenings are paid in full while others may be subject to a deductible, co- insurance, and / or copay. Some of these benefits include a comprehensive review of your medical history including lifestyle, illnesses that mayrun in your family, and various assessments and screenings as appropriate. After reviewing your medical record and screening and assessments performed today, your provider may have ordered immunizations, labs, imaging, and / or referrals for you. A list of these orders (if applicable) as well as your Preventative Care list are included within your After Visit Summary for your review. Other Preventative Recommendations: A preventive eye exam by an eyeglass lens cutter is recommended every 1-2 years to screen for glaucoma, cataracts, macular degeneration, and other eye disorders. A preventive dental visit is recommended every 6 months. Try to get at least 150 minutes of exercise per week or 10,000 steps per day on a pedometer. You need 1200-1500mg of calcium and 7757-4140 international units of vitamin D per day. It is possible to meet your calcium requirement with diet alone, but a vitamin D supplement is usually necessary to meet this goal. When exposed to the sun, use a sunscreen that protects against both UVA and UVB radiation with an SPF of 30 or greater. Reapply every 2-3 hours or after sweating, drying off with a towel, or swimming. Always wear a seat belt when traveling in a car. Always wear a helmet when riding a bicycle or a motorcycle * Attachments The following attachments cannot be sent through Care Everywhere. * Preventing Falls in Older Adults ([place]) documented in this [facility]02-27-2025 Telephone encounter Note* Telephone Encounter - KENZEI Leung CNP - 01/01/2025 11:33 AM EST Reviewed chart. Refill appropriate. RX sent. [id number] Miscellaneous Notes* Telephone Encounter - KENZIE Leung CNP - 01/01/2025 11:33 AM EST Reviewed chart. Refill appropriate. RX sent. * Telephone Encounter - Coleen Tucker MA - 01/01/2025 10:50 AM EST Prescription Request: Last medication check: 07/14/2024 Last physical exam: 01/09/24 Next scheduled appointment: 01/16/2025 Last date of refill on this medication 07/14/24 [address] [id number] Telephone encounter Note* Telephone Encounter - Coleen Tucker MA - 01/01/2025 10:50 AM EST Prescription Request: Last medication check: 07/14/2024 Last physical exam: 01/09/24 Next scheduled appointment: 01/16/2025 Last date of refill on this medication 07/14/24 [id number] Evaluation + Plan note* Assessment & Plan Note - KENZIE Leung CNP - 12/02/2024 12:21 PM ESTAssociated Problem(s): Benign prostatic hyperplasia with nocturia Continues to have urinary frequency, has been seen by urology. UA unremarkable for urinary tract infection. Will increase Flomax to 0.8 mg/day, recommend following up with urology sooner if able [facility] [id number] Miscellaneous Notes* Assessment & Plan Note - KENZIE Leung CNP - 12/02/2024 12:21 PM ESTAssociated Problem(s): Benign prostatic hyperplasia with nocturia Continues to have urinary frequency, has been seen by urology. UA unremarkable for urinary tract infection. Will increase Flomax to 0.8 mg/day, recommend following up with urology sooner if able * Assessment & Plan Note - KENZIE Leung CNP - 12/02/2024 12:20 PM ESTAssociated Problem(s): Viral URI with cough Improving. Consistent with viral URI. Continue Mucinex [id number] as directed follow-up for worsening or failure for symptoms to continue to improve documented in this [facility]SM[facility] [id number] Miscellaneous Notes* Assessment & Plan Note - KENZIE Leung CNP - 12/02/2024 12:21 PM ESTAssociated Problem(s): Benign prostatic hyperplasia with nocturia Continues to have urinary frequency, has been seen by urology. UA unremarkable for urinary tract infection. Will increase Flomax to 0.8 mg/day, recommend following up with urology sooner if able * Assessment & Plan Note - KENZIE Leung CNP - 12/02/2024 12:20 PM ESTAssociated Problem(s): Viral URI with cough Improving. Consistent with viral URI. Continue Mucinex [id number] as directed follow-up for worsening or failure for symptoms to continue to improve * Addendum Note - KENZIE Leung CNP - 12/02/2024 10:40 AM EST Addended by: KIMBERLEY DURÁN on: 12/04/2024 05:10 PM Modules accepted: Level of Service documented in this [facility]01-28-2025 Evaluation + Plan note* Assessment & Plan Note - KENZIE Leung CNP - 12/02/2024 12:20 PM ESTAssociated Problem(s): Viral URI with cough Improving. Consistent with viral URI. Continue Mucinex [id number] as directed follow-up for worsening or failure for symptoms to continue to improve [facility] [id number] History of Present illness Narrative* Abbey Michaels - 12/02/2024 10:40 AM EST Patient was identified by name and Date of . Patient identified by name and date of . Urine specimen cup labeled with patient name and dateof . Urine cup and wipe given to patient. Clean catch urine collected from patient. POCT Urineordered and signed by provider. POCT urine results entered and were sent to provider. Will send bp readings via [facility] in 2 weeks. * KENZIE Leung CNP - 12/02/2024 10:40 AM EST Images from the original note were not included. 12/02/2024 Evans Michaud (: 1950) is a 74 y.o. male , Established patient, here for evaluation of the following chief complaint(s): Nocturia, Difficulty Urinating, Urinary Retention, Urinary Frequency (Started a little over week ago worse at night), Cough, and Nasal Congestion ASSESSMENT/PLAN: 1. Benign prostatic hyperplasia with nocturia Assessment & Plan: Continues to have urinary frequency, has been seen by urology. UA unremarkable for urinary tract infection. Will increase Flomax to 0.8 mg/day, recommend following up with urology sooner if able Orders: - tamsulosin (Flomax) 0.4 MG 24 hr capsule; Take 2 capsules (0.8 mg) by mouth daily., Starting 12/02/2024, Until 03/02/2025, Normal 2. Urinary tract infection symptoms - POCT urinalysis dipstick manually resulted 3. Viral URI with cough Assessment & Plan: Improving. Consistent with viral URI. Continue Mucinex [id number] as directed follow-up for worsening or failure for symptoms to continue to improve Follow up for with specialist. SUBJECTIVE/OBJECTIVE: DIANE Michaud (: 1950) is a 74 y.o. male , Established patient, here for the evaluation of the following chief complaint(s): Nocturia, Difficulty Urinating, Urinary Retention, Urinary Frequency (Started a little over week ago worse at night), Cough, and Nasal Congestion Is getting over a uri that he got about 1 week ago. No fever for past 2 days. Those symptoms are improving and he is not concerned about it. He mostly came in today for a urination issue. Urination problem- reports getting up several times a night and increased frequency with low volumnand bladder discomfort slight, has mild dysuria when urinating. No hematuria. He is established with a urologist and has another appt with them in [place] in January. He is on flomax 0.4 mg daily for BPH. States it was helping for awhile and seems to have stopped working as well. Prior to Admission medications Medication Sig Start Date End Date Taking? Authorizing Provider atenolol (Tenormin) 50 MG tablet Take 1 tablet (50 mg) by mouth daily. 10/30/24 Yes KENZIE Leung CNP busPIRone (Buspar) 10 MG tablet Take 1 tablet (10 mg) by mouth 2 times daily. 07/14/24 Yes KENZIE Dickens CNP lisinopril 40 MG tablet Take 1 tablet (40 mg) by mouth daily. 08/21/24 Yes Mumtaz Kennedy MD tamsulosin (Flomax) 0.4 MG 24 hr capsule Take 1 capsule (0.4 mg) by mouth daily. 10/30/24 Yes KENZIE Leung CNP gabapentin (Neurontin) 300 MG capsule Take 300 mg by mouth 3 times daily. Patient not taking: Reported on 12/02/2024 Historical Provider, sildenafil (Viagra) 100 MG tablet Take 0.5 tablets (50 mg) by mouth Daily as needed for erectile dysfunction. 10/23/23 10/22/24 KENZIE Leung CNP Review of Systems Constitutional: Negative for activity change, chills, fatigue and fever. Respiratory: Positive for cough (improving). Negative for shortness of breath and wheezing. Cardiovascular: Negative for chest pain. Gastrointestinal: Negative. Genitourinary: Positive for difficulty urinating, dysuria and frequency. Negative for flank pain and hematuria. Vitals: 12/02/24 1043 12/02/24 1111 BP: (!) 174/81 (!) 164/71 Pulse: 63 81 Resp: 24 Temp: 37 C (98.6 F) TempSrc: Infrared SpO2: 94% Weight: 175 lb (79.4 kg) Physical Exam Constitutional: General: He is not in acute distress. Appearance: Normal appearance. He is not ill-appearing. HENT: Head: Normocephalic and atraumatic. Nose: Congestion present. Mouth/Throat: Mouth: Mucous membranes are moist. Pharynx: Oropharynx is clear. No posterior oropharyngeal erythema. Cardiovascular: Rate and Rhythm: Normal rate and regular rhythm. Pulmonary: Effort: Pulmonary effort is normal. No respiratory distress. Breath sounds: Rhonchi (few scattered- clear with cough) present. No wheezing. Comments: Speaking full sentences without difficulty Abdominal: General: Abdomen is flat. Bowel sounds are normal. There is no distension. Palpations: Abdomen is soft. Lymphadenopathy: Cervical: No cervical adenopathy. Skin: General: Skin is warm and dry. Neurological: Mental Status: He is alert and oriented to person, place, and time. An electronic signature was used to authenticate this note. KENZIE Valenzuela CNP 12/02/2024 12:21 PM documented in this encounterSumma [id number] History of Present illness Narrative* Abbey Michaels - 12/02/2024 10:40 AM EST Patient was identified by name and Date of . Patient identified by name and date of . Urine specimen cup labeled with patient name and dateof . Urine cup and wipe given to patient. Clean catch urine collected from patient. POCT Urineordered and signed by provider. POCT urine results entered and were sent to provider. Will send bp readings via [employer] in 2 weeks. * KENZIE Leung CNP - 12/02/2024 10:40 AM EST Images from the original note were not included. 12/02/2024 Evans Michaud (: 1950) is a 74 y.o. male , Established patient, here for evaluation of the following chief complaint(s): Nocturia, Difficulty Urinating, Urinary Retention, Urinary Frequency (Started a little over week ago worse at night), Cough, and Nasal Congestion ASSESSMENT/PLAN: 1. Benign prostatic hyperplasia with nocturia Assessment & Plan: Continues to have urinary frequency, has been seen by urology. UA unremarkable for urinary tract infection. Will increase Flomax to 0.8 mg/day, recommend following up with urology sooner if able Orders: - tamsulosin (Flomax) 0.4 MG 24 hr capsule; Take 2 capsules (0.8 mg) by mouth daily., Starting 12/02/2024, Until 03/02/2025, Normal 2. Urinary tract infection symptoms - POCT urinalysis dipstick manually resulted 3. Viral URI with cough Assessment & Plan: Improving. Consistent with viral URI. Continue Mucinex [id number] as directed follow-up for worsening or failure for symptoms to continue to improve Follow up for with specialist. SUBJECTIVE/OBJECTIVE: HPI - Evans Michaud (: 1950) is a 74 y.o. male , Established patient, here for the evaluation of the following chief complaint(s): Nocturia, Difficulty Urinating, Urinary Retention, Urinary Frequency (Started a little over week ago worse at night), Cough, and Nasal Congestion Is getting over a uri that he got about 1 week ago. No fever for past 2 days. Those symptoms are improving and he is not concerned about it. He mostly came in today for a urination issue. Urination problem- reports getting up several times a night and increased frequency with low volumnand bladder discomfort slight, has mild dysuria when urinating. No hematuria. He is established with a urologist and has another appt with them in [place] in January. He is on flomax 0.4 mg daily for BPH. States it was helping for awhile and seems to have stopped working as well. Prior to Admission medications Medication Sig Start Date End Date Taking? Authorizing Provider atenolol (Tenormin) 50 MG tablet Take 1 tablet (50 mg) by mouth daily. 10/30/24 Yes KENZIE Leung CNP busPIRone (Buspar) 10 MG tablet Take 1 tablet (10 mg) by mouth 2 times daily. 07/14/24 Yes KENZIE Dickens CNP lisinopril 40 MG tablet Take 1 tablet (40 mg) by mouth daily. 08/21/24 Yes Mumtaz Kennedy MD tamsulosin (Flomax) 0.4 MG 24 hr capsule Take 1 capsule (0.4 mg) by mouth daily. 10/30/24 Yes KENZIE Leung CNP gabapentin (Neurontin) 300 MG capsule Take 300 mg by mouth 3 times daily. Patient not taking: Reported on 12/02/2024 Historical Provider, sildenafil (Viagra) 100 MG tablet Take 0.5 tablets (50 mg) by mouth Daily as needed for erectile dysfunction. 10/23/23 10/22/24 KENZIE Leung CNP Review of Systems Constitutional: Negative for activity change, chills, fatigue and fever. Respiratory: Positive for cough (improving). Negative for shortness of breath and wheezing. Cardiovascular: Negative for chest pain. Gastrointestinal: Negative. Genitourinary: Positive for difficulty urinating, dysuria and frequency. Negative for flank pain and hematuria. Vitals: 12/02/24 1043 12/02/24 1111 BP: (!) 174/81 (!) 164/71 Pulse: 63 81 Resp: 24 Temp: 37 C (98.6 F) TempSrc: Infrared SpO2: 94% Weight: 175 lb (79.4 kg) Physical Exam Constitutional: General: He is not in acute distress. Appearance: Normal appearance. He is not ill-appearing. HENT: Head: Normocephalic and atraumatic. Nose: Congestion present. Mouth/Throat: Mouth: Mucous membranes are moist. Pharynx: Oropharynx is clear. No posterior oropharyngeal erythema. Cardiovascular: Rate and Rhythm: Normal rate and regular rhythm. Pulmonary: Effort: Pulmonary effort is normal. No respiratory distress. Breath sounds: Rhonchi (few scattered- clear with cough) present. No wheezing. Comments: Speaking full sentences without difficulty Abdominal: General: Abdomen is flat. Bowel sounds are normal. There is no distension. Palpations: Abdomen is soft. Lymphadenopathy: Cervical: No cervical adenopathy. Skin: General: Skin is warm and dry. Neurological: Mental Status: He is alert and oriented to person, place, and time. An electronic signature was used to authenticate this note. KENZIE Valenzuela CNP 12/02/2024 12:21 PM documented in this [facility]01-28-2025 Note* Addendum Note - KENZIE Leung CNP - 12/02/2024 10:40 AM ESTAddended by: KIMBERLEY DURÁN on: 12/04/2024 05:10 PM Modules accepted: Level of Service [facility] [id number] NoteHNO ID: [id number] Author: SASHA KAUR OD Service: ? 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 Combined forms of age-related cataract of both eyes OS>OD with visual significance and reduced vision in past 6 months Recommend consult for cataract surgery with Dr. Amador or at [facility] if patient prefers to stay local 2. Dermatochalasis of both upper eyelids Stable- continue to monitor 3. Hyperopia, bilateral 4. Regular astigmatism of both eyes 5. Presbyopia Continue with current glasses for now Follow-up for cat lasha next available Sasha Lundr, OD November 24, 2024 2:[facility] History of Present illness Narrative* Sasha Kaur, OD - 11/24/2024 2:42 PM EST 1. Combined forms of age-related cataract of both eyes OS>OD with visual significance and reduced vision in past 6 months Recommend consult for cataract surgery with Dr. Amador or at [facility] if patient prefers to stay local 2. Dermatochalasis of both upper eyelids Stable- continue to monitor 3. Hyperopia, bilateral 4. Regular astigmatism of both eyes 5. Presbyopia Continue with current glasses for now Follow-up for mariely colby next available Sasha Kaur, OD November 24, 2024 2:42 PM documented in this [facility] Telephone encounter Note * Telephone Encounter - KENZIE Leung CNP - 10/30/2024 8:20 AM EST Reviewed chart. Refill appropriate. RX sent. [facility] [id number] Miscellaneous Notes* Telephone Encounter - KENZIE Leung CNP - 10/30/2024 8:20 AM EST Reviewed chart. Refill appropriate. RX sent. * Telephone Encounter - Sherie Hurst MA - 10/30/2024 8:04 AM EST Prescription Request: Last medication check: 09/03/23 Last physical exam: 01/09/24 Next scheduled appointment: 01/16/25 Last date of refill on this medication 05/15/24 90 day 1 refill documented in this [facility]12-26-2024 Telephone encounter Note* Telephone Encounter - Sherie Hurst MA - 10/30/2024 8:04 AM EST Prescription Request: Last medication check: 09/03/23 Last physical exam: 01/09/24 Next scheduled appointment: 01/16/25 Last date of refill on this medication 05/15/24 90 day 1 refill [id number] Telephone encounter Note* Telephone Encounter - Sherie Hurst MA - 08/21/2024 8:38 AM EDT Prescription Request: Last medication check: 07/14/24 Last physical exam: 01/09/24 Next scheduled appointment: 01/16/25 Last date of refill on this medication 02/20/24 90 and 1 refill [facility] [id number] Miscellaneous Notes* Telephone Encounter - Sherie Hurst MA - 08/21/2024 8:38 AM EDT Prescription Request: Last medication check: 07/14/24 Last physical exam: 01/09/24 Next scheduled appointment: 01/16/25 Last date of refill on this medication 02/20/24 90 and 1 refill documented in this [facility]10-01-2024 [facility] Medical Records Department [address] [place] [address] History Physical Exam 08/05/24812 MR#: [id number] Acct: [id number] Name: EVANS MICHAUD Rep #: [id number] 13 : 1950 74 From: Norberto Lu MD PCP: Candice Zac, [employer]-C Status:ADM IN Location: [facility] History and Physical Date of Admission: 08/05/24 HPI lumbar spine Details: This documentation accurately reflects the service provided and the decisions made by me, Dr. Norberto Lu MD 07/18/24 0959. Part of today???s visit was documented by Rebecca FIGUEROA , acting as scribe. EVANS MICHAUD is a 74 year old M here today for a Pre-op. Patient will be having surgery on 08/05/2024 he is having 360 Lumbar Fusion L4-5. HPI from 05/21/24: EVANS MICHAUD is a 74 year old M here today for lumbar spine pain. Patient rates his pain a 5/10 today and states the pain is affecting his life. Patient describes most of the pain in the lower lumbar spine and states it will extend to his right hip. Patient states his legs feel numb and and states this bothers him more than the pain in the back. Patient denies tingling down the legs. Patient states he does see pain management and he states it has been about 4-5 months since the last injection. Patient states the first injection he had was great but the second one since then did not help him at all. Patient states Dr. Macias prescribed Gabapentin for the lumbar spine pain but he states he does not see a difference since being on this. Patient denies any surgeries to the back. Patient denies any formal physical therapy but states he has been doing Mckayla exercises everyday on his own for several months now and states they have given him some relief. He states he also has an inversion table but the last time he has used it he got very lightheaded so he hasn't used it in a few weeks. Evans had had a bad fall when he was in his early 20s and that seems to be the only injury that he has had related to his lower back. He has had worsening pain recently for which she has undergone injections. The first injection helped but the second 1 did not seem to give any relief. He canceled his third scheduled injection. He has pain radiating to lower extremities as well as difficulty walking distances with neurogenic claudication. Ortho Exam General General: Yes no acute distress Neurologic: Yes alert and Yes oriented x3 Spine SPINE TESTING CERVICAL THORACIC LUMBAR Musculoskeletal Strength 0=absent - 5=normal Details: Examination lower back shows midline and paraspinal tenderness. Neurologic motion of lower extremity shows 5 x 5 power normal shows normal sensations in all dermatomes. Coding Level of Care Code Off vis,est,level 4 Diagnoses Spondylolisthesis, lumbar region M43.16 Time Spent (min) 45 Assessment and Plan Assessment and Plan (1) Spondylolisthesis, lumbar region: Status: Acute Plan Patient here for lumbar fusion L4-L5 preoperative appointment. Again reviewed prior imaging with the patient. He has L4-5 lytic spondylolisthesis grade 1. There is minimal instability on flexion- extension views. Severe foraminal stenosis seen bilaterally at this level on MRI. I explained to him the imaging findings. Discussed the bone stimulator with the patient who says that he is unsure if his insurance will cover it. He has an appointment with Dr. Gordillo about one week before the surgery to establish care. He understands and will not get an injection at that time. Reviewed the benefits and risks of surgery. Risks of surgery include bleeding, infection, visceral injury, ileus, hardware failure, pseudoarthrosis, adjacent segment degeneration, pneumonia, DVT, pulmonary embolism, atelectasis, gait abnormality, persistent pain, stretch injuries, chance for future surgeries. Patient understands and agrees to proceed with surgery. Explained in detail the procedure of the lumbar fusion. Discussed post surgery restrictions such as no bending, lifting, or twisting. Answered all questions that he had today in preparation for August 05. Consent was signed. Patient is in agreement. 08/05/24812 Cosigner Signature (if applicable): CC: KATARINA Frank; Dr. Norberto Lu MD SignedWCleveland [facility]09-09-[facility]24 History of Present illness Narrative * Candice Frank APRN - NORMA - 07/14/2024 1:40 PM EDT Images from the original note were not included. 07/14/2024 Evans Michaud (: 1950) is a 74 y.o. male , Established patient, here for evaluation of the following chief complaint(s): Medication Check, Blood Work, Health Maintenance (7th Covid- has not had most recent one ), Anxiety, and Depression ASSESSMENT/PLAN: 1. Pre-operative clearance - Will await PAT results and sign clearance form accordingly. 2. Essential hypertension - Comprehensive metabolic panel - Stable with Lisinopril and Atenolol. Will continue current treatment plan. 3. Major depressive disorder, recurrent, mild (HCC) - Comprehensive metabolic panel - Stable. 4. Anxiety - Comprehensive metabolic panel - busPIRone (Buspar) 10 MG tablet; Take 1 tablet (10 mg) by mouth 2 times daily., Starting 07/14/2024, Normal - Not at goal. Will increase Buspar to 10 mg twice a day. 5. Benign prostatic hyperplasia with nocturia - Comprehensive metabolic panel - Stable. Follow up with specialist as directed. 6. Elevated PSA, less than 10 ng/ml - Comprehensive metabolic panel - Stable. Follow up with specialist as directed. 7. Chronic low back pain, unspecified back pain laterality, unspecified whether sciatica present - Comprehensive metabolic panel - Stable. Follow up with specialist as directed. 8. Elevated LDL cholesterol level - Lipid panel - Comprehensive metabolic panel - Will notify of blood work results. Follow up in about 3 months (around 10/13/2024) for AWV and fasting blood work. SUBJECTIVE/OBJECTIVE: DIANE Krueger presents today for his 6 month follow up on his chronic health conditions and also forsurgical clearance for a 360 Lumbar Fusion of L4-L5 on 08/05/[address] Lu at [facility]. Hypertension: Checks blood pressure at home and states it averages 120-130/80's. BP is stable todayat 134/86. Takes his Atenolol and Lisinopril daily as prescribed. Depression/Anxiety: Stopped taking his Lexapro due to side effects of dizziness and not tolerating the medication well. Had reduced the dose of his Buspar to 7.5 mg twice a day as well. Would like todecrease the Buspar back to 10 mg twice a day. BPH: Actively follows up with urology. Continues to take Tamsulosin. Had a biopsy of the prostate on 01/16/24 and was told everything was clear. Most recent PSA was 7.38 ng/mL on 10/31/23. Had an MRI completed with normal findings. Chronic Low Back Pain: Scheduled for back surgery 08/06/[address] Lu. Is scheduled for PAT nextweek. Has had surgery in the past with light sedation and tolerated well without complications. His LDL was slightly elevated at his appointment back in January and will recheck his levels today for follow up. Strives for a healthy diet overall but acknowledges he does eat his fair share of baconand butter. Health Maintenance: Had a Tdap vaccination 02/07/23. Declines his second Shingrix vaccination due to side effects from his initial dose. Vaccinated for COVID-19 x6 with most recent dose on 08/23/23- plans to get a booster this fall. Plans to get a flu vaccination at his local pharmacy. Plans to be vaccinated for RSV. Colonoscopy: 09/16/21. Is fully immunized for pneumonia. Review of Systems Constitutional: Negative for chills and fever. HENT: Negative for trouble swallowing. Respiratory: Negative for cough, chest tightness, shortness of breath and wheezing. Cardiovascular: Negative for chest pain, palpitations and leg swelling. Gastrointestinal: Negative for abdominal distention, abdominal pain and blood in stool. Genitourinary: Negative for difficulty urinating, dysuria and hematuria. Skin: Negative for color change, pallor, rash and wound. Neurological: Negative for dizziness, syncope, weakness and headaches. Hematological: Does not bruise/bleed easily. Psychiatric/Behavioral: Negative for dysphoric mood, self-injury and suicidal ideas. The patient isnervous/anxious. Vitals: 07/14/24 1337 BP: 134/86 Pulse: 65 SpO2: 98% Weight: 180 lb 9.6 oz (81.9 kg) Height: 5' 9 (1.753 m) Body mass index is 26.67 kg/m . Last 3 PATRICK-7 Scores 07/14/2024 1400 PATRICK-7 Total Score: 5 Last 3 PHQ-2 Scores 07/14/2024 1404 Patient Health Questionnaire-2 Score: 2 Last 3 PHQ-9 Scores 07/14/2024 1404 Patient Health Questionnaire-9 Score: 4 Physical Exam Constitutional: General: He is not in acute distress. Appearance: He is not ill-appearing or diaphoretic. Neck: Vascular: No carotid bruit. Cardiovascular: Rate and Rhythm: Normal rate and regular rhythm. Pulses: Normal pulses. Heart sounds: Normal heart sounds. No murmur heard. No friction rub. Pulmonary: Effort: Pulmonary effort is normal. Breath sounds: Normal breath sounds. No wheezing, rhonchi or rales. Abdominal: General: Abdomen is flat. Bowel sounds are normal. There is no distension. Palpations: Abdomen is soft. There is no hepatomegaly, splenomegaly or mass. Tenderness: There is no abdominal tenderness. There is no guarding. Musculoskeletal: Cervical back: Neck supple. Right lower leg: No edema. Left lower leg: No edema. Skin: General: Skin is warm and dry. Coloration: Skin is not pale. Findings: No erythema or rash. Neurological: Mental Status: He is alert and oriented to person, place, and time. Psychiatric: Mood and Affect: Mood normal. Behavior: Behavior normal. Thought Content: Thought content normal. Judgment: Judgment normal. An electronic signature was used to authenticate this note. KENZIE Dickens CNP 07/14/2024 2:54 PM * Annette Mallory MA - 07/14/2024 1:40 PM EDT Patient verified by last name and . documented in this encounterSMercy Health St. Vincent Medical [id number] Telephone encounter Note* Telephone Encounter - KENZIE Leung CNP - 07/10/2024 1:48 PM EDT Reviewed chart. Refill appropriate. RX sent. [facility] [id number] Miscellaneous Notes* Telephone Encounter - KENZIE Leung CNP - 07/10/2024 1:48 PM EDT Reviewed chart. Refill appropriate. RX sent. * Telephone Encounter - Sherie Hurst MA - 07/10/2024 1:41 PM EDT Prescription Request: Last medication check: 09/03/23 Last physical exam: 01/09/24 Next scheduled appointment: 07/14/24 Last date of refill on this medication 01/09/24 documented in this [facility]09-05-2024 Telephone encounter Note* Telephone Encounter - Sherie Hurst MA - 07/10/2024 1:41 PM EDT Prescription Request: Last medication check: 09/03/23 Last physical exam: 01/09/24 Next scheduled appointment: 07/14/24 Last date of refill on this medication 01/09/24 [facility] [id number] Telephone encounter Note* Telephone Encounter - Sherie Hurst MA - 05/15/2024 8:47 AM EDT Prescription Request: Last medication check: 09/03/23 Last physical exam: 01/09/24 Next scheduled appointment: 07/14/24 Last date of refill on this medication 11/12/23 [facility] [id number] Miscellaneous Notes* Telephone Encounter - Sherie Hurst MA - 05/15/2024 8:47 AM EDT Prescription Request: Last medication check: 09/03/23 Last physical exam: 01/09/24 Next scheduled appointment: 07/14/24 Last date of refill on this medication 11/12/23 documented [facility] this [facility]06-11-2024 Instructions* Patient Instructions* Kate Ramirez OD - 04/15/2024 1:33 PM EDT ASSESSMENT/PLAN: 1. Combined forms of age-related cataract of both eyes - ICD9: 366.19, ICD10: H25.813 (primary diagnosis) Mild to moderate cataract in both eyes. Well tolerated at this time. Discussed possible future affect on daily activities to watch for. Monitor as instructed. 2. Dermatochalasis of both upper eyelids - ICD9: 374.87, ICD10: H02.831, H02.834 Discussed a referral for further evaluation if he is bothered with the vision 3. Hyperopia, bilateral - ICD9: 367.0, ICD10: H52.03 4. Regular astigmatism of both eyes - ICD9: 367.21, ICD10: H52.223 5. Presbyopia - ICD9: 367.4, ICD10: H52.4 Continue to wear his glasses with the updated prescription given at this visit. Recommended yearly exam, sooner if he has any issues with his vision documented in this encounterL[facility]06-11-2024 History of Present illness Narrative* Kate Ramirez, OD - 04/15/2024 1:30 PM EDT ASSESSMENT/PLAN: 1. Combined forms of age-related cataract of both eyes - ICD9: 366.19, ICD10: H25.813 (primary diagnosis) Mild to moderate cataract in both eyes. Well tolerated at this time. Discussed possible future affect on daily activities to watch for. Monitor as instructed. 2. Dermatochalasis of both upper eyelids - ICD9: 374.87, ICD10: H02.831, H02.834 Discussed a referral for further evaluation if he is bothered with the vision 3. Hyperopia, bilateral - ICD9: 367.0, ICD10: H52.03 4. Regular astigmatism of both eyes - ICD9: 367.21, ICD10: H52.223 5. Presbyopia - ICD9: 367.4, ICD10: H52.4 Continue to wear his glasses with the updated prescription given at this visit. Recommended yearly exam, sooner if he has any issues with his vision Kate Ramirez, WIN I have confirmed and edited as necessary the relevant ophthalmic history, ROS, and the neuro exam findings as obtained by others. documented in this encounterLakehealth [facility] Center03-22-2024 Instructions* Patient Instructions* Shruthi Krause MD - 01/25/2024 10:42 AM EDT INSTRUCTIONS FROM DR. KRAUSE: Psa-12 mo documented in this encounterLakehealth [facility]03-22-2024 History of Present illness Narrative* Shruthi Krause MD - 01/25/2024 10:19 AM EDT ESTABLISHED PATIENT OFFICE VISIT PATIENT INFO: Evans Michaud 73 year old HPI 01/25/2024 CC: bx did okay with the biopsy and presents with his today Biopsies negative Also had the negative MRI finding Remains on Flomax and that helps with prostatism symptoms and he wants to stay on that He lives in [facility] would like to follow-up with someone there so we will have him see Horace Lubin with PSA in 12 months and prostate exam then Discussed his abnormal PSAs but everything else is negative Past Urology Hx: 01/04/2024 CC: bx patient previously seen below by [facility] urology and had previous biopsy in the office that was hard on him Presents with his today Had ISO PSA that was hide MRI did not show a lesion He wants to undergo transperineal ultrasound-guided biopsies of the prostate/random;; all discussedin detail and we will schedule under twilight anesthetic at [facility] center Denies chest pain or shortness of breath ;; October 31, 2023-seen by [facility] urology- 73 year old male with a recent history of elevated PSA who presents for evaluation. He had an elevated PSA for the past 6 years and has been under the care of local urologist Dr. Menezes. Had Prostate Bx 02/28/21 which was negative, and patient found this to be very painful. MRI of prostate in August of 2022 was negative Was recommended by his urologist to undergo another prostate biopsy. Here for second opinion ISOPSA ASSAY FOR UROLOGY USE ONLY - PSA FREE 2. BPH with obstruction/lower urinary tract symptoms - ICD9: 600.01, 599.69, ICD10: N40.1, N13.8 -Patient appears to be doing well on current dosage of tamsulosin 0.4 mg daily. - BLADDER SCAN Follow-up in 1 month RADS: January 16, 2024-transperineal biopsy of prostate-35 [id number] December 25, 2023-MRI prostate- volume 30 cc;no lesion October 31, 2023-PSA-7.79; ISO PSA-15.2 October 11, 2023 PSA 7.6 July 26, 2023 PSA 6.76 January 05, 2023 , [facility], total PSA 4.9 free PSA percentage 6 January 03, 2022 PSA 4.719 August 25, 2022 8.77 June 24, 2021 PSA 4.904 December 24, 2020 PSA 11.290 January 11, 2019 PSA 3.3 December 29, 2016 PSA 3.0 Creatinine Date Value Ref Range Status 01/11/2018 1.06 0.67 - 1.17 mg/dL Final PSA (ng/mL) Date Value 10/31/2023 7.38 PSA Screening (ng/mL) Date Value 01/11/2018 3.3 12/29/2016 3.0 Glucose, Urine (mg/dL) Date Value 04/05/2017 neg Bilirubin, Urine (no units) Date Value 04/05/2017 neg Ketones, Urine (no units) Date Value 04/05/2017 neg Specific Hubbard, Ur (no units) Date Value 04/05/2017 1.015 Hemoglobin/Blood,Ur (no units) Date Value 04/05/2017 neg pH, Urine (no units) Date Value 04/05/2017 6.5 Protein, Urine (mg/dL) Date Value 04/05/2017 neg Nitrites (no units) Date Value 04/05/2017 neg Review of Systems Constitutional: Negative. HENT: Negative. Eyes: Negative. Respiratory: Negative. Cardiovascular: Negative. Gastrointestinal: Negative. Endocrine: Negative. Genitourinary: See HPI Musculoskeletal: Negative. Skin: Negative. Allergic/Immunologic: Negative. Neurological: Negative. Hematological: Negative. Psychiatric/Behavioral: Negative. I reviewed and confirmed ROS obtained by MA HISTORIES PAST MEDICAL HISTORY Diagnosis Date Anxiety Enlarged prostate Hypertension Spinal stenosis FAMILY HISTORY Problem Relation Age of Onset Hypertension Mother Alzheimer's Disease Mother Cancer Father prostate cancer other (MS) Sister Alcohol/Drug Brother SOCIAL HISTORY Social History Tobacco Use Smoking status: Former Types: Cigarettes Start date: 11/05/1967 Quit date: 11/05/1994 Years since quittin.2 Smokeless tobacco: Never Vaping Use Vaping Use: Never used Substance Use Topics Alcohol use: Yes Comment: occasional Drug use: Not Currently Types: Marijuana Comment: Low use- Gummies MEDICATIONS: lisinopril (ZESTRIL) 10 mg tablet Take 20 mg by mouth once daily. gabapentin (NEURONTIN) 300 mg capsule Take 300 mg by mouth three times a day. busPIRone (BUSPAR) 15 mg tablet Take by mouth. tamsulosin (FLOMAX) 0.4 mg Take 1 tablet by mouth once daily. atenolol (TENORMIN) 50 mg tablet Take 1 tablet by mouth once daily. iv contrast (will be provided with radiology test) MRI Prostate Inject, intravenously, once for 1 dose. No IV access, insert saline lock prior to the beginning of sedation, infusion, injection of imaging exam. Discontinue saline lock post exam. If Pt. has a central line or IVAD, may access for administration according to line specific nursing protocol. Once exam is complete flush line and de-access according to line specific nursing protocol in the MR contrast administration guidelines link. DULoxetine (CYMBALTA) 30 mg capsule Take 1 capsule by mouth once daily. Physical Exam HENT: Head: Normocephalic and atraumatic. Nose: Nose normal. Neck: Trachea: No tracheal deviation. Pulmonary: Effort: Pulmonary effort is normal. No respiratory distress. Musculoskeletal: General: No deformity. Normal range of motion. Cervical back: Normal range of motion. Skin: General: Skin is warm. Neurological: Mental Status: He is alert and oriented to person, place, and time. Gait: Gait is intact. Psychiatric: Mood and Affect: Mood and affect normal. Cognition and Memory: Memory normal. Risk/Benefit Discussion: Discussed options alpha sara therapy vs proscar vs surical intervention and risks of these. Alpha bolckers can cause dizzines and falls. 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 FOLLOW UP (1s&1w; 3s): Return in about 1 year (around 01/24/2025) for psa-12 mo. ASSESSMENT/PLAN: 1. Elevated prostate specific antigen (PSA) - ICD9: 790.93, ICD10: R97.20 (primary diagnosis) 2. BPH with obstruction/lower urinary tract symptoms - ICD9: 600.01, 599.69, ICD10: N40.1, N13.8 - PSA/PROSTSPECAG DIAG Shruthi Keegan Krause Please note: This note has been produced using speech recognition software and may contain errors related to that system including grammar, punctuation, spelling, gender and words and phrases that may be inappropriate. documented in this encounterLakehealth [facility] Center2024 History of Present illness Narrative* Coleen Tucker MA - 01/22/2024 11:00 AM EDT Images from the original note were not included. [address] [facility] [address] [facility] [id number] Patient arrived for nurse visit today and was verified by name and . Supervising provider for clinic visit Candice Frank CNP is taking atenolol and lisinopril for hypertension with good compliance and no side effects Shortness of breath no Medication compliance yes Medication Reconciliation yes BP Medication taken prior to visit yes at what time 7:30am B/P Reading taken automatic Home Monitoring yes Patient advised if follow up is needed, outreach will occur in 48 hours documented in this [facility]03-08-2024 Telephone encounter Note* Telephone Encounter - KENZIE Dickens CNP - 01/11/2024 7:28 AM EST Agree. Thank you Abbey. [facility] [id number] Miscellaneous Notes* Telephone Encounter - KENZIE Dickens CNP - 01/11/2024 7:28 AM EST Agree. Thank you Abbey. * Telephone Encounter - Abbey Michaels - 01/10/2024 11:25 AM EST Called patient and advised him he should be taking both per Candice pickett. 2. Essential hypertension - CBC - Comprehensive metabolic panel - lisinopril 10 MG tablet; Take 1 tablet (10 mg) by mouth daily., Starting Sun01/09/2024, Normal - Not at goal. Heart rate was 59 bpm so we will not increase his Atenolol. Will add on once daily Lisinopril and have him return in 2 weeks for a BP check. Home BP log provided to bring back to BP check with home readings for review. - Information provided in AVS on new medication. * Telephone Encounter - Monique Cox - 01/10/2024 11:12 AM EST Name of caller: Evans Contact phone number: [phone] Relationship to Patient: patient Provider: Dr. Kennedy Practice: [facility] Chief Complaint/Reason for Call: Pt seen Candice Frank yesterday 01/09/24 and was started on Nrjvsyixyp93 mg. Pt has a question regarding Atenolol. Was Candice wanting pt to stop Atenolol since starting Lisinopril or continue taking atenolol with lisinopril? Please call pt back to advise. Thank you Best time of day caller can be reached: AM Patient advised that office/PCP has 24-48 business hours to return their call: N/A documented in this [facility]03-07-2024 Telephone encounter Note* Telephone Encounter - Abbey Michaels - 01/10/2024 11:25 AM EST Called patient and advised him he should be taking both per Candice notes. 2. Essential hypertension - CBC - Comprehensive metabolic panel - lisinopril 10 MG tablet; Take 1 tablet (10 mg) by mouth daily., Starting Sun01/09/2024, Normal - Not at goal. Heart rate was 59 bpm so we will not increase his Atenolol. Will add on once daily Lisinopril and have him return in 2 weeks for a BP check. Home BP log provided to bring back to BP check with home readings for review. - Information provided in AVS on new medication. [facility] [id number] Telephone encounter Note* Telephone Encounter - Amayaedy Cox - 01/10/2024 11:12 AM EST Name of caller: Evans Contact phone number: [phone] Relationship to Patient: patient Provider: Dr. Kennedy Practice: [facility] Chief Complaint/Reason for Call: Pt seen Candice Frank yesterday 01/09/24 and was started on [id number] mg. Pt has a question regarding Atenolol. Was Candice wanting pt to stop Atenolol since starting Lisinopril or continue taking atenolol with lisinopril? Please call pt back to advise. Thank you Best time of day caller can be reached: AM Patient advised that office/PCP has 24-48 business hours to return their call: N/A [id number] History of Present illness Narrative* Annette Mallory MA - 01/09/2024 10:00 AM EST Patient verified by last name and . * Candice Frank APRN - MELANGEUR OPERATOR - 01/09/2024 10:00 AM EST Images from the original note were not included. [facility] [address] [facility] [id number] Visit type: Established Patient Reason for Visit: Medicare Annual Wellness Visit Subsequent, Health Maintenance (RSV vaccine-did not get/7th COVID vaccine-did not get), and Blood Work Assessment and Plan 1. Medicare annual wellness visit, subsequent - Encouraged a healthy diet low in cholesterol and saturated fats. - Encouraged regular exercise. 2. Essential hypertension - CBC - Comprehensive metabolic panel - lisinopril 10 MG tablet; Take 1 tablet (10 mg) by mouth daily., Starting Sun01/09/2024, Normal - Not at goal. Heart rate was 59 bpm so we will not increase his Atenolol. Will add on once daily Lisinopril and have him return in 2 weeks for a BP check. Home BP log provided to bring back to BP check with home readings for review. - Information provided in AVS on new medication. 3. Major depressive disorder, recurrent, mild (HCC) - CBC - Comprehensive metabolic panel - Stable off of Lexapro at this time. 4. Anxiety - CBC - Comprehensive metabolic panel - busPIRone (Buspar) 15 MG tablet; Take 0.5 tablets (7.5 mg) by mouth 2 times daily., Starting 01/09/2024, Normal - Stable with daily Buspar. Will reduce dose to 7.5 mg twice a day per request. 5. Benign prostatic hyperplasia with nocturia - CBC - Comprehensive metabolic panel - Stable. Follow up with specialist as directed. 6. Elevated PSA, less than 10 ng/ml - Comprehensive metabolic panel - Stable. Follow up with specialist as directed. 7. Chronic low back pain, unspecified back pain laterality, unspecified whether sciatica present - Stable. Follow up with specialist as directed. 8. Degenerative spondylolisthesis - Stable. Follow up with specialist as directed. 9. Screening for ischemic heart disease - Lipid panel - Will notify of blood work results. 10. Screening for diabetes mellitus - Comprehensive metabolic panel - Will notify of blood work results. Follow up in about 2 weeks (around 01/23/2024) for blood pressure check and then in 6 months for medication maintenance. Riki Krueger presents today for his annual [employer] Medicare physical and fasting blood work. Hypertension: Checks blood pressure at home and states reading have been higher over the past several months. Has been getting averages of 140's/80's. BP is elevated today at 174/79 and 164/72. Takeshis Atenolol daily as prescribed. Depression/Anxiety: Stopped taking his Lexapro due to side effects of dizziness and not tolerating the medication well. Has reduced the dose of his Buspar to 10 mg twice a day as well. Would like to decrease the Buspar back to 7.5 mg twice a day. BPH: Actively follows up with urology. Continues to take Tamsulosin. Is scheduled for a biopsy of the prostate on 01/16/24. Most recent PSA was 7.38 ng/mL on 10/31/23. Had an MRI completed with normalfindings. Chronic Low Back Pain: Has been following up with pain management and has been getting epidural's and these have been helpful. Health Maintenance: Had a Tdap vaccination 02/07/23. Declines his second Shingrix vaccination due to side effects from his initial dose. Vaccinated for COVID-19 x6 with most recent dose on 08/23/23- declines additional doses. Had a flu vaccination at his local pharmacy on 08/13/23. Declines to be vaccinated for RSV. Colonoscopy: 09/16/21. Is fully immunized for pneumonia. I have reviewed and reconciled the medication list with the patient today. Current Outpatient Medications Medication Sig Dispense Refill atenolol (Tenormin) 50 MG tablet Take 1 tablet (50 mg) by mouth daily. 90 tablet 1 gabapentin (Neurontin) 300 MG capsule Take 300 mg by mouth in the morning and 300 mg at noon and 300 mg in the evening. sildenafil (Viagra) 100 MG tablet Take 0.5 tablets (50 mg) by mouth Daily as needed for erectile dysfunction. 30 tablet 1 tamsulosin (Flomax) 0.4 MG 24 hr capsule Take 1 capsule (0.4 mg) by mouth daily. 90 capsule 1 busPIRone (Buspar) 15 MG tablet Take 0.5 tablets (7.5 mg) by mouth 2 times daily. 90 tablet 1 lisinopril 10 MG tablet Take 1 tablet (10 mg) by mouth daily. 30 tablet 0 No current facility-administered medications for this visit. Medications Discontinued During This Encounter Medication Reason busPIRone (Buspar) 10 MG tablet Reorder List of current healthcare providers: Patient Care Team: Mumtaz Kennedy MD as PCP - General (Family Medicine) Yomi Castro MD as Surgeon (Urology) Over the past 2 weeks, how often have you been bothered by any of the following problems? Trouble falling or staying asleep, or sleeping too much: Not at all Feeling tired or having little energy: Not at all Poor appetite or overeating: Not at all Feeling bad about yourself - or that you are a failure or have let yourself or your family down: Not at all Trouble concentrating on things, such as reading the newspaper or watching television: Not at all Moving or speaking so slowly that other people could have noticed? Or the opposite - being so fidgety or restless that you have been moving around a lot more than usual.: Not at all Thoughts that you would be better off or hurting yourself in some way: Not at all Patient Health Questionnaire-9 Score: 0 Over the last 2 weeks, how often have you been bothered by any of the following problems? Feeling nervous, anxious, or on edge: Several days Not being able to stop or control worrying: Several days Worrying too much about different things: Several days Trouble relaxing: Not at all Being so restless that it is hard to sit still: Not at all Becoming easily annoyed or irritable: Not at all Feeling afraid as if something awful might happen: Several days PATRICK-7 Total Score: 4 The following health maintenance schedule was reviewed with the patient and provided in printed form in the after visit summary: Health Maintenance Topic Date Due RSV Immunization aged 60 or older (1 - 1-dose 60+ series) Never done Diabetes Screening 05/12/2023 COVID-19 Vaccine (2022- season) 2023 Depresssion Monitoring 07/10/2024 Lipid Panel 01/06/2028 Colorectal Cancer Screening 09/16/2031 DTaP/Tdap/Td Vaccines (2 - Td or Tdap) 02/07/2033 Medicare Advantage Annual Wellness Visit Completed Influenza Vaccine Completed Pneumococcal Vaccine: 65+ Years Completed Hepatitis C Screening Completed RSV Immunization under 20 Months Aged Out HIB Vaccines Aged Out IPV Vaccines Aged Out Hepatitis A Vaccines Aged Out Meningococcal Vaccine Aged Out Rotavirus Vaccines Aged Out HPV Vaccines Aged Out Hepatitis B Vaccines Discontinued Zoster Vaccines Discontinued Orders Placed This Encounter Procedures Lipid panel Standing Status: Future Number of Occurrences: 1 Standing Expiration Date: 01/07/2025 CBC Standing Status: Future Number of Occurrences: 1 Standing Expiration Date: 01/07/2025 Comprehensive metabolic panel Standing Status: Future Number of Occurrences: 1 Standing Expiration Date: 01/07/2025 Health Risk Assessment: General In general, how would you say your health is?: Good In the past 7 days, have you experienced any of the following: New or Increased Pain, New or Increased Fatigue, Loneliness, Social Isolation, Stress or Anger?: No Do you get the social and emotional suppport you need?: Yes Interventions: N/A Health Habits / Nutrition On average, how many days per week do you engage in moderate to strenous exercise (like a brisk walk)?: 7 days On average, how man minutes do you engage in exercise at this level?: 40 min Have you lost any weight without trying in the past 3 months? : No Have you seen the dentist within the past year?: Yes Interventions: N/A Hearing / Vision Do you or your family notice any trouble with your hearing that hasn't been managed with hearing aids?: No Do you have difficulty driving, watching TV, or doing any of your daily activities because of your eyesight?: No Have you had an eye exam within the past year?: Yes No results found. Interventions: N/A Safety Do you have a working smoke detector?: Yes Do you have any tripping hazards - loose or unsecured carpets or rugs?: No Do you have any tripping hazards - clutter in doorways, halls, or stairs?: No Do you have either shower bars, grab bars, non-slip mats or non-slip surfaces in your shower or bathtub? : Yes Do all your stairways have a railing or banister? : Yes Do you fasten your seatbelt when you are in a car?: Yes Interventions: N/A ADL In the past 7 days, did you need help from others to perform any of the following everyday activities: Eating, dressing, grooming,bathing, toileting, or walking / balance? : No In the past 7 days, did you need help from others to take care of any of the following: laundry, housekeeping, banking / finances,shopping, telephone use, food preparation, transportation, or taking medications? : No Interventions: N/A Living Will Do you have a living will?: No Interventions: Has an informational packet at home, just needs to complete. Cognitive: Cognitive Screening: Mini-Cog Clock Drawing Test (CDT): 2 Words Recalled: 3 Total Score: 5 Total Score Interpretation: Normal Mini-Cog Hypertension: Yes Interventions: N/A Fall Risk: 01/08/2024 1016 Last Filed Value Fall Risk One or more falls in the last year: No No Advised to use a cane or walker to get around safely: No No Feels unsteady when walking: No No Steadies self on furniture while walking at home: No No Worried about falling: Yes Yes Interventions: Home safety tips provided Depression Screening: Over the past 2 weeks, how often have you been bothered by any of the following problems? Little interest or pleasure in doing things: Not at all Feeling down, depressed, or hopeless: Not at all Patient Health Questionnaire-2 Score: 0 Over the past 2 weeks, how often have you been bothered by any of the following problems? Trouble falling or staying asleep, or sleeping too much: Not at all Feeling tired or having little energy: Not at all Poor appetite or overeating: Not at all Feeling bad about yourself - or that you are a failure or have let yourself or your family down: Not at all Trouble concentrating on things, such as reading the newspaper or watching television: Not at all Moving or speaking so slowly that other people could have noticed? Or the opposite - being so fidgety or restless that you have been moving around a lot more than usual.: Not at all Thoughts that you would be better off or hurting yourself in some way: Not at all Patient Health Questionnaire-9 Score: 0 If you checked off any problems on this questionnaire so far, How difficult have these problems made it for you to do your work, take care of things at home, or get along with other people?: Not difficult at all Interventions: N/A Tobacco Use: Social History Tobacco Use Smoking Status Former Packs/day: 1 Types: Cigarettes Start date: 11/05/1974 Quit date: 11/05/1994 Years since quittin.1 Smokeless Tobacco Never Interventions: N/A Alcohol Use: Interventions: N/A Drug Use: Interventions: N/A Review of Systems Constitutional: Negative for chills and fever. HENT: Negative for hearing loss and trouble swallowing. Eyes: Negative for pain and visual disturbance. Respiratory: Negative for cough, chest tightness, shortness of breath and wheezing. Cardiovascular: Negative for chest pain, palpitations and leg swelling. Gastrointestinal: Negative for abdominal distention, abdominal pain, blood in stool, constipation and diarrhea. Endocrine: Negative for polydipsia, polyphagia and polyuria. Genitourinary: Negative for difficulty urinating, enuresis and hematuria. Musculoskeletal: Positive for back pain. Skin: Negative for color change, pallor, rash and wound. Neurological: Negative for dizziness, syncope, weakness and light-headedness. Hematological: Does not bruise/bleed easily. Psychiatric/Behavioral: Negative for dysphoric mood, self-injury and suicidal ideas. The patient isnot nervous/anxious. Immunization History Administered Date(s) Administered Covid-19, Moderna Bivalent Booster, (Age 6y-11y) 08/23/2023 Covid-19, Pfizer Bivalent Booster, (Age 12y+), Im, 30 Mcg/0e 07/21/2022 Influenza, High Dose Seasonal, Preservative Free 09/05/2016, 09/05/2018, 09/01/2019 Influenza, High-dose Seasonal, Quadrivalent, Preservative Free 08/16/2021, 08/13/2023 Influenza, Seasonal, Quadrivalent, Adjuvanted 08/12/2020, 08/11/2022 Influenza, Unspecified 08/05/2013 Influenza, seasonal, injectable 10/10/2012 Influenza, seasonal, injectable, preservative free 08/02/2015 Moderna SARS-CoV-2 Vaccination 12/30/2020, 01/27/2021, 08/26/2021, 02/03/2022 Pneumococcal Conjugate PCV 13 12/20/2015 Pneumococcal Conjugate PCV20, Pf (Prevnar 20) 08/11/2022 Pneumococcal Polysaccharide PPSV23 11/05/2014, 12/16/2014, 06/24/2021 Tdap 02/07/2023 Zoster, Recombinant 10/27/2020 Zoster, live 08/03/2020 No Known Allergies Outpatient Medications Prior to Visit Medication Sig Dispense Refill atenolol (Tenormin) 50 MG tablet Take 1 tablet (50 mg) by mouth daily. 90 tablet 1 gabapentin (Neurontin) 300 MG capsule Take 300 mg by mouth in the morning and 300 mg at noon and 300 mg in the evening. sildenafil (Viagra) 100 MG tablet Take 0.5 tablets (50 mg) by mouth Daily as needed for erectile dysfunction. 30 tablet 1 tamsulosin (Flomax) 0.4 MG 24 hr capsule Take 1 capsule (0.4 mg) by mouth daily. 90 capsule 1 busPIRone (Buspar) 10 MG tablet Take 10 mg by mouth 2 times daily. No facility-administered medications prior to visit. Past Medical History: Diagnosis Date Spondylolisthesis Social History Socioeconomic History Marital status: Tobacco Use Smoking status: Former Packs/day: 1 Types: Cigarettes Start date: 11/05/1974 Quit date: 11/05/1994 Years since quittin.1 Smokeless tobacco: Never Substance and Sexual Activity Alcohol use: Yes Alcohol/week: 3.0 standard drinks of alcohol Drug use: Never Social Determinants of Health Financial Resource Strain: Low Risk (01/08/2024) Overall Financial Resource Strain (CARDIA) Difficulty of Paying Living Expenses: Not hard at all Food Insecurity: No Food Insecurity (01/08/2024) Hunger Vital Sign Worried About Running Out of Food in the Last Year: Never true Ran Out of Food in the Last Year: Never true Transportation Needs: No Transportation Needs (01/08/2024) PRAPARE - Transportation Lack of Transportation (Medical): No Lack of Transportation (Non-Medical): No Physical Activity: Sufficiently Active (01/08/2024) Exercise Vital Sign Days of Exercise per Week: 7 days Minutes of Exercise per Session: 40 min Housing Stability: Low Risk (01/08/2024) Housing Stability Vital Sign Unable to Pay for Housing in the Last Year: No Number of Places Lived in the Last Year: 1 Unstable Housing in the Last Year: No Past Surgical History: Procedure Laterality Date CARPAL TUNNEL RELEASE Bilateral 1987 COLONOSCOPY 09/16/2021 Dr. Bateman, repeat in 3 years Past Surgical History: Procedure Laterality Date CARPAL TUNNEL RELEASE Bilateral 1987 COLONOSCOPY 09/16/2021 Dr. Bateman, repeat in 3 years Family History Problem Relation Name Age of Onset Prostate cancer Father Cancer Brother Objective BP (!) 164/72 Pulse 59 Ht 5' 9 (1.753 m) Wt 177 lb 3.2 oz (80.4 kg) SpO2 96% BMI 26.17 kg/m Physical Exam Constitutional: General: Not in acute distress. Appearance: Not ill-appearing or diaphoretic. HENT: Head: Normocephalic and atraumatic. Right Ear: Tympanic membrane, ear canal and external ear normal. Left Ear: Tympanic membrane, ear canal and external ear normal. Nose: Nose normal. No congestion or rhinorrhea. Mouth/Throat: Mouth: Mucous membranes are moist. Pharynx: Oropharynx is clear. No oropharyngeal exudate or posterior oropharyngeal erythema. Eyes: General: No scleral icterus. Extraocular Movements: Extraocular movements intact. Pupils: Pupils are equal, round, and reactive to light. Neck: Thyroid: No thyroid mass or thyromegaly. Vascular: No carotid bruit. Cardiovascular: Rate and Rhythm: Normal rate and regular rhythm. Pulses: Normal pulses. Heart sounds: Normal heart sounds. No murmur heard. No friction rub. Pulmonary: Effort: Pulmonary effort is normal. Breath sounds: Normal breath sounds. No wheezing, rhonchi or rales. Abdominal: General: Bowel sounds are normal. Palpations: Abdomen is soft. There is no hepatomegaly, splenomegaly or mass. Tenderness: There is no abdominal tenderness. Musculoskeletal: General: No deformity. Normal range of motion. Cervical back: Normal range of motion and neck supple. Right lower leg: No edema. Left lower leg: No edema. Lymphadenopathy: Cervical: No cervical adenopathy. Skin: General: Skin is warm and dry. Coloration: Skin is not jaundiced or pale. Findings: No erythema. Neurological: Mental Status: Alert and oriented to person, place, and time. Motor: No weakness. Gait: Gait normal. Psychiatric: Mood and Affect: Mood normal. Behavior: Behavior normal. Thought Content: Thought content normal. Judgment: Judgment normal. Data Reviewed Labs: Imaging/Testing: KENZIE Dickens CNP 01/09/2024 10:19 AM documented in this [facility]03-06-2024 Miscellaneous Notes* Telephone Encounter - Lanette Flores - 01/09/2024 9:14 AM EST Pt is scheduled for Transperineal prostate Bx MAC with Dr Krause at [facility] on 01/16/24 @ 10:30 (8:30 arrival). Follow up with Dr Krause on 01/25/24. Pt given date, time, prep and arrival instructions in person on 01/04/24. Written info given also. Lanette Flores [facility] Instructions* Patient Instructions* Shruthi Krause MD - 01/04/2024 11:05 AM EST INSTRUCTIONS FROM DR. KRAUSE: we will schedule the transperineal biopsy of the prostate for you PATIENT INFORMATION: For prostate biopsy You may take Baby aspirin if you are on it Do not take high dose aspirin ,ibuprofen or other blood thinner type products for 1 week prior to the biopsy: Blood thinners can include also Advil, Motrin, Naprosyn, naproxen, Aleve, Plavix, Coumadin, etc. MEDICATION INFORMATION ASPIRIN and ADVIL can make you more prone to bleeding after surgery. Please STOP taking these medications at least (7) days before surgery or procedure. Medications can be resumed (1) days after the Prostate Biopsy procedure. NOTE: Please obtain approval to stop any prescribed medication from the prescribing doctor. Some common medications that contain ASPIRIN or act like Aspirin are to be avoided are as follows: This is a list of the medications you should avoid: Advil Clinoril (Sulindac) Naprosyn (Naproxen) Aggrenox Ecotrin NSAID (Non-Steroidal Agrylin Excedrin Anti-Inflammatory Drugs) Aleve (Naproxen) Fish Oil Pepto-Bismol Nalini-Donie Gingko Bilboa Persantine (Dipyridamole) Anacin Glucosamine Chondroitin Plavix (Clopidogrel) Ascriptin Green Tea Plaquenil (Hydroxychloroquine) Aspergum Heparin Pletal (Cilostazol) Aspirin Herbals Ticlid (Ticlopidine) Alo Ibuprofen Trental (Pentoxyfylline) Bextra Indocin (Indomethacin) Vanquish Bufferin Midol Vitamin E (MVI) Coumadin (warfarin) Mobic/Meloxicam Multivitamin (MVI) MEDICATIONS you may SUBSTITUTE: Anacin 3 Plenadol Percocet* Datril Sine-Aide Excedrin PM Tylenol Fioricet* Tylenol with codeine* (*Denotes prescription needed to obtain these medications) [facility] History of Present illness Narrative* Fiorella Serra Cma - 01/04/2024 10:52 AM EST 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 Fiorella Serra Cma * Shruthi Krause MD - 01/04/2024 10:52 AM EST ESTABLISHED PATIENT OFFICE VISIT PATIENT INFO: Evans Michaud 73 year old HPI 01/04/2024 CC: bx patient previously seen below by [facility] urology and had previous biopsy in the office that was hard on him Presents with his today Had ISO PSA that was hide MRI did not show a lesion He wants to undergo transperineal ultrasound-guided biopsies of the prostate/random;; all discussedin detail and we will schedule under [facility] Denies chest pain or shortness of breath Past Urology Hx: October 31, 2023-seen by [facility] urology- 73 year old male with a recent history of elevated PSA who presents for evaluation. He had an elevated PSA for the past 6 years and has been under the care of local urologist Dr. Menezes. Had Prostate Bx 02/28/21 which was negative, and patient found this to be very painful. MRI of prostate in August of 2022 was negative Was recommended by his urologist to undergo another prostate biopsy. Here for second opinion ISOPSA ASSAY FOR UROLOGY USE ONLY - PSA FREE 2. BPH with obstruction/lower urinary tract symptoms - ICD9: 600.01, 599.69, ICD10: N40.1, N13.8 -Patient appears to be doing well on current dosage of tamsulosin 0.4 mg daily. - BLADDER SCAN Follow-up in 1 month RADS: December 25, 2023-MRI prostate- volume 30 cc;no lesion October 31, 2023-PSA-7.79; ISO PSA-15.2 October 11, 2023 PSA 7.6 July 26, 2023 PSA 6.76 January 05, 2023 , [facility], total PSA 4.9 free PSA percentage 6 January 03, 2022 PSA 4.719 August 25, 2022 8.77 June 24, 2021 PSA 4.904 December 24, 2020 PSA 11.290 January 11, 2019 PSA 3.3 December 29, 2016 PSA 3.0 Creatinine Date Value Ref Range Status 01/11/2018 1.06 0.67 - 1.17 mg/dL Final PSA (ng/mL) Date Value 10/31/2023 7.38 PSA Screening (ng/mL) Date Value 01/11/2018 3.3 12/29/2016 3.0 Glucose, Urine (mg/dL) Date Value 04/05/2017 neg Bilirubin, Urine (no units) Date Value 04/05/2017 neg Ketones, Urine (no units) Date Value 04/05/2017 neg Specific Hubbard, Ur (no units) Date Value 04/05/2017 1.015 Hemoglobin/Blood,Ur (no units) Date Value 04/05/2017 neg pH, Urine (no units) Date Value 04/05/2017 6.5 Protein, Urine (mg/dL) Date Value 04/05/2017 neg Nitrites (no units) Date Value 04/05/2017 neg Review of Systems Constitutional: Negative. HENT: Negative. Eyes: Negative. Respiratory: Negative. Cardiovascular: Negative. Gastrointestinal: Negative. Endocrine: Negative. Genitourinary: See HPI Musculoskeletal: Negative. Skin: Negative. Allergic/Immunologic: Negative. Neurological: Negative. Hematological: Negative. Psychiatric/Behavioral: Negative. I reviewed and confirmed ROS obtained by [facility] HISTORIES PAST MEDICAL HISTORY Diagnosis Date Anxiety Enlarged prostate Hypertension FAMILY HISTORY Problem Relation Age of Onset Hypertension Mother Alzheimer's Disease Mother Cancer Father prostate cancer Alcohol/Drug Brother Cancer Brother other (MS) Sister SOCIAL HISTORY Social History Tobacco Use Smoking status: Former Types: Cigarettes Start date: 11/05/1967 Quit date: 11/05/1994 Years since quittin.1 Smokeless tobacco: Never Substance Use Topics Alcohol use: Yes Comment: low use Drug use: Yes Types: Marijuana Comment: Low use- Gummies MEDICATIONS: gabapentin (NEURONTIN) 300 mg capsule Take 300 mg by mouth three times a day. busPIRone (BUSPAR) 15 mg tablet Take by mouth. tamsulosin (FLOMAX) 0.4 mg Take 1 tablet by mouth once daily. atenolol (TENORMIN) 50 mg tablet Take 1 tablet by mouth once daily. iv contrast (will be provided with radiology test) MRI Prostate Inject, intravenously, once for 1 dose. No IV access, insert saline lock prior to the beginning of sedation, infusion, injection of imaging exam. Discontinue saline lock post exam. If Pt. has a central line or IVAD, may access for administration according to line specific nursing protocol. Once exam is complete flush line and de-access according to line specific nursing protocol in the MR contrast administration guidelines link. escitalopram oxalate (LEXAPRO) 5 mg tablet Take 5 mg by mouth once daily. DULoxetine (CYMBALTA) 30 mg capsule Take 1 capsule by mouth once daily. Physical Exam HENT: Head: Normocephalic and atraumatic. Nose: Nose normal. Neck: Trachea: No tracheal deviation. Pulmonary: Effort: Pulmonary effort is normal. No respiratory distress. Musculoskeletal: General: No deformity. Normal range of motion. Cervical back: Normal range of motion. Skin: General: Skin is warm. Neurological: Mental Status: He is alert and oriented to person, place, and time. Gait: Gait is intact. Psychiatric: Mood and Affect: Mood and affect normal. Cognition and Memory: Memory normal. Risk/Benefit Discussion: Prostate Ultrasound With Needle Biopsy Prostate Patient was instructed to stop all aspirin type products 7 days prior to the procedure. I explainedthe options concerning the findings of a prostatic nodule both with and without an elevated PSA, aswell as an elevated PSA without a prostate nodule. I specifically explained the possible complications, and the fact that a negative prostate biopsy does not definitely indicate that there is no prostate cancer present, but only that there was no malignancy found in the biopsy specimens. I explained the possibility of impotency and some incontinence, blood in the urine, stool/possible severe and admition to hospital , and/or semen. He may also experience frequency, urgency, and dysuria after the procedure. I explained the remote possibility of blood loss and the possibility of infection of the prostate and rectum post operatively/sepsis risk. The patient expressed an understanding with regard to possible benefits, risks, complications and outcome. FOLLOW UP (1s&1w; 3s): Return if symptoms worsen or fail to improve. ASSESSMENT/PLAN: 1. Elevated prostate specific antigen (PSA) - ICD9: 790.93, ICD10: R97.20 (primary diagnosis) [facility] center-transperineal biopsy of prostate 2. BPH with obstruction/lower urinary tract symptoms - ICD9: 600.01, 599.69, ICD10: N40.1, N13.8 Shruthi Krause Please note: This note has been produced using speech recognition software and may contain errors related to that system including grammar, punctuation, spelling, gender and words and phrases that may be inappropriate. [facility] Telephone encounter Note * Telephone Encounter - KENZIE Dickens CNP - 11/12/2023 4:23 PM EST Rx sent. Follow up as scheduled. [id number] Miscellaneous Notes* Telephone Encounter - KENZIE Dickens CNP - 11/12/2023 4:23 PM EST Rx sent. Follow up as scheduled. * Telephone Encounter - Nancy Gregory - 11/12/2023 2:34 PM EST Prescription Request: Last medication check: 09-03-23 Last physical exam: 01-05-23 Next scheduled appointment: 01-09-24 Last date of refill on this medication 08-13-[address] [id number] Telephone encounter Note* Telephone Encounter - Nancy Gregory - 11/12/2023 2:34 PM EST Prescription Request: Last medication check: 09-03-23 Last physical exam: 01-05-23 Next scheduled appointment: 01-09-24 Last date of refill on this medication 08-13-23 [id number] Miscellaneous Notes* Telephone Encounter - Jai Yu - 11/08/2023 10:15 AM EST PT was called and scheduled * Telephone Encounter - Shruthi Krause MD - 11/07/2023 4:23 PM EST Patient has MRI of the prostate being scheduled Have the patient see me in the office about 1 week after he gets the MRI done to discuss options * Telephone Encounter - Shruthi Krause MD - 11/07/2023 4:23 PM EST ----- Message from Josh Gonzalez MD sent at 11/07/2023 10:17 AM EST ----- Regarding: MRI Fusion Bx Hi Doc, This patient has a high PSA >7, and IsoPSA >15. Negative biopsy in 2021 by former urologist. Was suggested to have another Bx because of rising PSA. See my note from 10/31 I ordered another MRI. Can you get him in to see you for the biopsy? Thanks, Josh Gonzalez MD, MS Associate Staff [facility] [place] [facility] documented in this encounterL[facility]12-19-2023 Telephone encounter Note * Telephone Encounter - KENZIE Leung CNP - 10/23/2023 11:45 AM EST Reviewed chart. Refill appropriate. RX sent. [id number] Miscellaneous Notes* Telephone Encounter - KENZIE Leung CNP - 10/23/2023 11:45 AM EST Reviewed chart. Refill appropriate. RX sent. * Telephone Encounter - Sherie Hurst MA - 10/23/2023 11:22 AM EST Prescription Request: Last medication check: 09/03/23 Last physical exam: 01/05/23 Next scheduled appointment: 01/09/24 Last date of refill on this medication 01/05/23 30 tablets 1 refill documented in this [facility]12-19-2023 Telephone encounter Note* Telephone Encounter - Sherie Hurst MA - 10/23/2023 11:22 AM EST Prescription Request: Last medication check: 09/03/23 Last physical exam: 01/05/23 Next scheduled appointment: 01/09/24 Last date of refill on this medication 01/05/23 30 tablets 1 refill [id number] Telephone encounter Note* Telephone Encounter - Mary Stein - 10/16/2023 2:24 PM EST Pt called in looking for a second opinion for elevated PSA. Referred by PCP, pt requesting DR Castro and to be seen in [facility] or [place]. Pt not satisfied with appt availability. First avail appt avail with [facility] 11/08/23. Pt expressed his concerns with wanting a longer appt time and stated he would be calling [facility] to hopefully be seen sooner. [facility] [id number] Miscellaneous Notes* Telephone Encounter - Mary Stein - 10/16/2023 2:24 PM EST Pt called in looking for a second opinion for elevated PSA. Referred by PCP, pt requesting DR Castro and to be seen in [facility] or [place]. Pt not satisfied with appt availability. First avail appt avail with [facility] 11/08/23. Pt expressed his concerns with wanting a longer appt time and stated he would be calling [facility] to hopefully be seen sooner. documented in this [facility]10-30-2023 History of Present illness Narrative* Candice Frank APRN - MELANGEUR OPERATOR - 09/03/2023 2:00 PM EDT Images from the original note were not included. 09/03/2023 Evans Michaud (: 1950) is a 73 y.o. male , Established patient, here for evaluation of the following chief complaint(s): Follow-up (6 month med check) ASSESSMENT/PLAN: 1. Essential hypertension - Stable with Atenolol. Will continue current treatment plan. 2. Major depressive disorder, recurrent, mild (HCC) - Stable with Buspar. Will continue current treatment plan. 3. Anxiety - Stable with Buspar. Will continue current treatment plan. 4. Benign prostatic hyperplasia with nocturia - Follow up with specialist as scheduled. 5. Elevated PSA, less than 10 ng/ml - Follow up with specialist as scheduled. 6. Chronic low back pain, unspecified back pain laterality, unspecified whether sciatica present - Follow up with specialist as scheduled. 7. Degenerative spondylolisthesis - Follow up with specialist as scheduled. Follow up in about 6 months (around 03/04/2024) for AWV and fasting blood work. SUBJECTIVE/OBJECTIVE: DIANE - Evans presents today for his 6 month follow up on his chronic health conditions. Hypertension: Checks blood pressure at home and states it averages 130's/80's. BP is stable today at 136/82. Takes his Atenolol daily as prescribed. Depression/Anxiety: Stopped taking his Lexapro due to side effects of dizziness and not tolerating the medication well. Has reduced the dose of his Buspar to 10 mg twice a day as well. Feels current symptoms are stable with current dosing. BPH: Actively follows up with urology. Continues to take Tamsulosin. Is scheduled to follow up withurology in about 1 month. His main concern is ongoing concerns of chronic back pain. Saw a specialist in [place] and did not feel it was a good visit. Saw a back specialist in [place] last week and it was recommended he get an MRI completed. Health Maintenance: Had a Tdap vaccination 02/07/23. Declines his second Shingrix vaccination due to side effects from his initial dose. Vaccinated for COVID-19 x6 with most recent dose on 08/23/23. Had a flu vaccination at his local pharmacy on 08/13/23. Review of Systems Constitutional: Negative for chills and fever. Respiratory: Negative for chest tightness and shortness of breath. Cardiovascular: Negative for chest pain, palpitations and leg swelling. Gastrointestinal: Negative for abdominal distention, abdominal pain and blood in stool. Musculoskeletal: Positive for back pain. Skin: Negative for color change, pallor, rash and wound. Psychiatric/Behavioral: Positive for dysphoric mood. Negative for self-injury and suicidal ideas. The patient is nervous/anxious. Vitals: 09/03/23 1402 09/03/23 1422 BP: (!) 179/92 136/82 Pulse: 63 Temp: 36.4 C (97.5 F) Weight: 172 lb (78 kg) Height: 5' 9 (1.753 m) Body mass index is 25.4 kg/m . Physical Exam Constitutional: General: He is not in acute distress. Appearance: He is not ill-appearing or diaphoretic. Neck: Vascular: No carotid bruit. Cardiovascular: Rate and Rhythm: Normal rate and regular rhythm. Heart sounds: Normal heart sounds. No murmur heard. No friction rub. Pulmonary: Effort: Pulmonary effort is normal. Breath sounds: Normal breath sounds. No wheezing, rhonchi or rales. Abdominal: General: Bowel sounds are normal. Palpations: Abdomen is soft. There is no hepatomegaly, splenomegaly or mass. Tenderness: There is no abdominal tenderness. Musculoskeletal: Cervical back: Neck supple. Skin: General: Skin is warm and dry. Coloration: Skin is not pale. Findings: No erythema. Neurological: Mental Status: He is alert and oriented to person, place, and time. Psychiatric: Mood and Affect: Mood normal. Behavior: Behavior normal. Thought Content: Thought content normal. Judgment: Judgment normal. An electronic signature was used to authenticate this note. KENZIE Dickens CNP 09/03/2023 2:30 PM documented in this [facility]03-03-2023 History of Present illness Narrative* KENZIE Dickens CNP - 01/05/2023 10:20 AM EST Images from the original note were not included. [facility] [address] [id number] Visit type: Established Patient Reason for Visit: Medicare Annual Wellness Visit Initial and Health Maintenance (Hep C--declines, Hep B--declines, Tdap--would need at pharmacy, Shingles--would need at pharmacy) Assessment and Plan 1. Medicare annual wellness visit, subsequent - Encouraged a healthy diet low in cholesterol and saturated fats. - Encouraged regular exercise. 2. Essential hypertension - CBC - Comprehensive metabolic panel - atenolol (Tenormin) 50 MG tablet; Take 1 tablet (50 mg) by mouth daily., Starting Sun01/05/2023, Normal - Stable with Atenolol. Will continue current treatment plan. 3. Erectile dysfunction, unspecified erectile dysfunction type - CBC - Comprehensive metabolic panel - sildenafil (Viagra) 100 MG tablet; Take 0.5 tablets (50 mg) by mouth Daily as needed for erectiledysfunction., Starting Sun01/05/2023, Until 01/05/2024 at 2359, Normal - Stable with PRN Viagra. Will continue current treatment plan. 4. Benign prostatic hyperplasia with nocturia - CBC - Comprehensive metabolic panel - PSA, total and free - Stable. Follow up with specialist as directed. 5. Elevated PSA, less than 10 ng/ml - CBC - Comprehensive metabolic panel - PSA, total and free - Stable. Follow up with specialist as directed. 6. Major depressive disorder, recurrent, mild (HCC) - CBC - Comprehensive metabolic panel - escitalopram (Lexapro) 10 MG tablet; Take 1 tablet (10 mg) by mouth daily., Starting Sun01/05/2023, Normal - Not as well controlled. Will increase Lexapro to 10 mg daily and do a close follow up in 3 weeks. 7. Anxiety - CBC - Comprehensive metabolic panel - escitalopram (Lexapro) 10 MG tablet; Take 1 tablet (10 mg) by mouth daily., Starting Sun01/05/2023, Normal - Not as well controlled. Will increase Lexapro to 10 mg daily and do a close follow up in 3 weeks. 8. Chronic pain of right hip - CBC - Comprehensive metabolic panel - XR hip right 2 or 3 views - Will obtain imaging for further evaluation. 9. Chronic bilateral low back pain with right-sided sciatica - CBC - Comprehensive metabolic panel - XR lumbar spine complete 4+ views - Will obtain imaging for further evaluation. 10. Need for Tdap vaccination - Tdap (BoostRIX) 5-2.5-18.5 LF-MCG/0.5 injection; Inject 0.5 mL into the shoulder, thigh, or buttocks Once for 1 dose., Starting 01/05/2023, Normal - Rx sent to local pharmacy. 11. Screening for ischemic heart disease - Lipid panel - Will notify of blood work results. Follow up in about 3 weeks (around 01/26/2023) for follow up on anxiet and depression- increased Lexapro. Riki Krueger presents today for his annual [employer] physical and blood work. Hypertension: Takes his Atenolol daily as prescribed. BP is stable today at 120/76. Checks his BP at home and is not sure how accurate his readings are. Had 144/81 this morning. ED: Continues to use Viagra as needed and this works well for him. BPH/Elevated PSA: Actively following up with urology, Dr. Menezes, and states most recent PSA levelshave been elevated. Had an MRI ordered for further evaluation and was told it had normal findings. Had a normal ultrasound as well. Continues to take his Tamsulosin as prescribed. Would like his PSA level checked today while he is here. Depression/Anxiety: Feels symptoms have not been as well controlled. Currently having a lot of stress with family members. Interested in having the dose of his Lexapro increased. Has been experiencing low back and right hip pain for several years. Would like an x-ray of his back and hip for further evaluation. Does not want to see an orthopaedic specialist at this time. Denies history of back injuries or surgeries. Ibuprofen OTC as needed will help with his pain. Will have pain that radiates down his right leg. Health Maintenance: Flu vaccination current: 08/11/22. Would like a Tdap vaccination. Declines a second Shingrix vaccination. Fully vaccinated for pneumonia. Had a positive Cologuard on 07/18/21- had adiagnostic colonoscopy with Dr. Bateman and had several polyps removed and is due for repeat colonoscopy in 3 years. AAA screenin07/19/21. Vaccinated for COVID-19 x5 with most recent dose on 07/21/22. Declines top be vaccinated for Hep B. Declines screening for Hep C. I have reviewed and reconciled the medication list with the patient today. Current Outpatient Medications Medication Sig Dispense Refill busPIRone (Buspar) 15 MG tablet TAKE 1/2 TABLET BY MOUTH TWICE A DAY 90 tablet 1 tamsulosin (Flomax) 0.4 MG 24 hr capsule TAKE 1 CAPSULE BY MOUTH EVERY DAY 90 capsule 1 atenolol (Tenormin) 50 MG tablet Take 1 tablet (50 mg) by mouth daily. 90 tablet 1 escitalopram (Lexapro) 10 MG tablet Take 1 tablet (10 mg) by mouth daily. 30 tablet 0 sildenafil (Viagra) 100 MG tablet Take 0.5 tablets (50 mg) by mouth Daily as needed for erectile dysfunction. 30 tablet 1 Tdap (BoostRIX) 5-2.5-18.5 LF-MCG/0.5 injection Inject 0.5 mL into the shoulder, thigh, or buttocksOnce for 1 dose. 0.5 mL 0 No current facility-administered medications for this visit. Medications Discontinued During This Encounter Medication Reason atenolol (Tenormin) 50 MG tablet Reorder escitalopram (Lexapro) 5 MG tablet Reorder List of current healthcare providers: Patient Care Team: KENZIE Dickens CNP as PCP - General Over the last 2 weeks, how often have you been bothered by any of the following problems? Feeling nervous, anxious, or on edge: More than half the days Not being able to stop or control worrying: Nearly every day Worrying too much about different things: More than half the days Trouble relaxing: More than half the days Being so restless that it is hard to sit still: Not at all Becoming easily annoyed or irritable: Several days Feeling afraid as if something awful might happen: More than half the days PATRICK-7 Total Score: 12 The following health maintenance schedule was reviewed with the patient and provided in printed form in the after visit summary: Health Maintenance Topic Date Due DTaP/Tdap/Td Vaccines (1 - Tdap) Never done Zoster Vaccines (3 of 3) 12/22/2020 Hepatitis C Screening 01/06/2024 (Originally 1968) Lipid Panel 01/03/2027 Colorectal Cancer Screening 09/16/2031 Influenza Vaccine Completed Pneumococcal Vaccine: 65+ Years Completed COVID-19 Vaccine Completed HIB Vaccines Aged Out IPV Vaccines Aged Out Hepatitis A Vaccines Aged Out Meningococcal Vaccine Aged Out Rotavirus Vaccines Aged Out HPV Vaccines Aged Out Hepatitis B Vaccines Discontinued Orders Placed This Encounter Procedures XR hip right 2 or 3 views Standing Status: Future Standing Expiration Date: 01/06/2024 XR lumbar spine complete 4+ views Standing Status: Future Standing Expiration Date: 01/06/2024 CBC Standing Status: Future Number of Occurrences: 1 Standing Expiration Date: 01/06/2024 Lipid panel Standing Status: Future Number of Occurrences: 1 Standing Expiration Date: 01/06/2024 Comprehensive metabolic panel Standing Status: Future Number of Occurrences: 1 Standing Expiration Date: 01/06/2024 PSA, total and free Standing Status: Future Number of Occurrences: 1 Standing Expiration Date: 01/06/2024 Health Risk Assessment: General In general, how would you say your health is?: Fair In the past 7 days, have you experienced any of the following: New or Increased Pain, New or Increased Fatigue, Loneliness, Social Isolation, Stress or Anger?: (!) Yes Select all that apply: Stress Do you get the social and emotional suppport you need?: Yes Interventions: Anger: Dealing with family stress- will adjust Lexapro dose today and continues to attend counseling Health Habits / Nutrition On average, how many days per week do you engage in moderate to strenous exercise (like a brisk walk)?: 7 days On average, how man minutes do you engage in exercise at this level?: 60 min Have you lost any weight without trying in the past 3 months? : Yes (has lost 20 pounds over the last 2 years) Have you seen the dentist within the past year?: Yes Interventions: N/A Hearing / Vision Do you or your family notice any trouble with your hearing that hasn't been managed with hearing aids?: (!) Yes Do you have difficulty driving, watching TV, or doing any of your daily activities because of your eyesight?: (!) Yes (driving at night) Have you had an eye exam within the past year?: Yes No results found. Interventions: Hearing concerns: Has bilateral hearing aids and Vision concerns: Patient encouraged to make appointment with his / her eyeglass lens cutter Safety Do you have a working smoke detector?: Yes Do you have any tripping hazards - loose or unsecured carpets or rugs?: No Do you have any tripping hazards - clutter in doorways, halls, or stairs?: No Do you have either shower bars, grab bars, non-slip mats or non-slip surfaces in your shower or bathtub? : Yes Do all your stairways have a railing or banister? : Yes Do you fasten your seatbelt when you are in a car?: Yes Interventions: N/A ADL In the past 7 days, did you need help from others to perform any of the following everyday activities: Eating, dressing, grooming,bathing, toileting, or walking / balance? : No In the past 7 days, did you need help from others to take care of any of the following: laundry, housekeeping, banking / finances,shopping, telephone use, food preparation, transportation, or taking medications? : No Interventions: N/A Living Will Do you have a living will?: No Interventions: Has forms at home, but has not completed this yet Cognitive: Cognitive Screening: Mini-Cog Clock Drawing Test (CDT): 2 Words Recalled: 3 Total Score: 5 Total Score Interpretation: Normal Mini-Cog Hypertension: Yes Interventions: N/A Fall Risk: 01/05/2023 1027 Fall Risk One or more falls in the last year: No Advised to use a cane or walker to get around safely: No Feels unsteady when walking: Yes Steadies self on furniture while walking at home: No Worried about falling: Yes Interventions: Home safety tips provided Depression Screening: Over the past 2 weeks, how often have you been bothered by any of the following problems? Little interest or pleasure in doing things: Not at all Feeling down, depressed, or hopeless: Several days Patient Health Questionnaire-2 Score: 1 If you checked off any problems on this questionnaire so far, How difficult have these problems made it for you to do your work, take care of things at home, or get along with other people?: Not difficult at all Interventions: Medication adjusted today Tobacco Use: Social History Tobacco Use Smoking Status Former Packs/day: 1.00 Types: Cigarettes Start date: 11/05/1974 Quit date: 11/05/1994 Years since quittin.1 Smokeless Tobacco Never Interventions: N/A Alcohol Use: Audit Alcohol Screening Q1: How often do you have a drink containing alcohol?: 4 or more times a week Q2: How many drinks containing alcohol do you have on a typical day when you are drinking?: 1 or 2 Q3: How often do you have six or more drinks on one occasion?: Never Audit-C Score: 4 Skip to questions 9-10?: 1 Q4: How often during the last year have you found that you were not able to stop drinking once you had started?: Never Q5: How often during the last year have you failed to do what was normally expected from you because of drinking?: Never Q6: How often during the last year have you needed an alcoholic drink first thing in the morning toget yourself going after a night of heavy drinking?: Never Q7: How often during the last year have you had a feeling of guilt or remorse after drinking?: Never Q8: How often during the last year have you been unable to remember what happened the night before because you had been drinking?: Never Q9: Have you or someone else been injured as a result of your drinking?: No Q10: Has a relative, friend, doctor, or another health professional expressed concern about your drinking or suggested you cut down?: No Audit Total Score: 4 Interventions: N/A Drug Use: Drug Abuse Screening Test (DAST-10) Have you used drugs other than those required for medical reasons?: No Do you use more than one drug at a time?: No Are you always able to stop using drugs when you want to?: No Have you had blackouts or flashbacks as a result of drug use?: No Do you ever feel bad or guilty about your drug use?: No Does your spouse (or parents) ever complain about your involvement with drugs?: No Have you ever neglected your family or missed work because of your use of drugs?: No Have you engaged in illegal activities in order to obtain drugs?: No Have you ever experienced withdrawal symptoms as a result of heavy drug intake?: No Have you had medical problems as a result of your drug use (e.g., memory loss, hepatitis, convulsions, bleeding, etc.)?: No DAST-10 Score: 1 Interventions: N/A Review of Systems Constitutional: Negative for chills and fever. HENT: Negative for hearing loss and trouble swallowing. Eyes: Negative for pain and visual disturbance. Respiratory: Negative for cough, chest tightness, shortness of breath and wheezing. Cardiovascular: Negative for chest pain, palpitations and leg swelling. Gastrointestinal: Negative for abdominal distention, abdominal pain, blood in stool, constipation and diarrhea. Endocrine: Negative for polydipsia, polyphagia and polyuria. Genitourinary: Negative for difficulty urinating, dysuria and hematuria. Musculoskeletal: Positive for arthralgias. Negative for myalgias. Skin: Negative for color change, pallor, rash and wound. Neurological: Negative for dizziness, syncope, weakness and headaches. Hematological: Does not bruise/bleed easily. Psychiatric/Behavioral: Negative for dysphoric mood, self-injury and suicidal ideas. The patient isnot nervous/anxious. Immunization History Administered Date(s) Administered Covid-19, Pfizer Bivalent Booster, (Age 12y+), Im, 30 Mcg/0e 07/21/2022 Influenza, High Dose Seasonal, Preservative Free 09/05/2016, 09/05/2018, 09/01/2019 Influenza, High-dose Seasonal, Quadrivalent, Preservative Free 08/16/2021 Influenza, Seasonal, Quadrivalent, Adjuvanted 08/12/2020, 08/11/2022 Moderna SARS-CoV-2 Vaccination 12/30/2020, 01/27/2021, 08/26/2021, 02/03/2022 Pneumococcal Conjugate PCV20, Pf (Prevnar 20) 08/11/2022 Pneumococcal Polysaccharide PPSV23 11/05/2014, 06/24/2021 Zoster, Recombinant 10/27/2020 Zoster, live 08/03/2020 No Known Allergies Outpatient Medications Prior to Visit Medication Sig Dispense Refill busPIRone (Buspar) 15 MG tablet TAKE 1/2 TABLET BY MOUTH TWICE A DAY 90 tablet 1 tamsulosin (Flomax) 0.4 MG 24 hr capsule TAKE 1 CAPSULE BY MOUTH EVERY DAY 90 capsule 1 atenolol (Tenormin) 50 MG tablet TAKE 1 TABLET BY MOUTH EVERY DAY 90 tablet 1 escitalopram (Lexapro) 5 MG tablet TAKE 1 TABLET BY MOUTH EVERY DAY 90 tablet 1 No facility-administered medications prior to visit. Past Medical History: Diagnosis Date Spondylolisthesis Social History Socioeconomic History Marital status: Tobacco Use Smoking status: Former Packs/day: 1.00 Types: Cigarettes Start date: 11/05/1974 Quit date: 11/05/1994 Years since quittin.1 Smokeless tobacco: Never Substance and Sexual Activity Alcohol use: Yes Alcohol/week: 3.0 standard drinks Drug use: Never Past Surgical History: Procedure Laterality Date CARPAL TUNNEL RELEASE Bilateral 1987 COLONOSCOPY 09/16/2021 Dr. Bateman, repeat in 3 years Past Surgical History: Procedure Laterality Date CARPAL TUNNEL RELEASE Bilateral 1987 COLONOSCOPY 09/16/2021 Dr. Bateman, repeat in 3 years Family History Problem Relation Name Age of Onset Prostate cancer Father Cancer Brother Objective BP 120/76 Pulse 57 Ht 5' 8 (1.727 m) Wt 172 lb (78 kg) SpO2 98% BMI 26.15 kg/m Physical Exam Constitutional: General: Not in acute distress. Appearance: Not ill-appearing or diaphoretic. HENT: Head: Normocephalic and atraumatic. Right Ear: Tympanic membrane, ear canal and external ear normal. Left Ear: Tympanic membrane, ear canal and external ear normal. Nose: Nose normal. No congestion or rhinorrhea. Mouth/Throat: Mouth: Mucous membranes are moist. Pharynx: Oropharynx is clear. No oropharyngeal exudate or posterior oropharyngeal erythema. Eyes: General: No scleral icterus. Extraocular Movements: Extraocular movements intact. Pupils: Pupils are equal, round, and reactive to light. Neck: Thyroid: No thyroid mass or thyromegaly. Vascular: No carotid bruit. Cardiovascular: Rate and Rhythm: Normal rate and regular rhythm. Pulses: Normal pulses. Heart sounds: Normal heart sounds. No murmur heard. No friction rub. Pulmonary: Effort: Pulmonary effort is normal. Breath sounds: Normal breath sounds. No wheezing, rhonchi or rales. Abdominal: General: Bowel sounds are normal. Palpations: Abdomen is soft. There is no hepatomegaly, splenomegaly or mass. Tenderness: There is no abdominal tenderness. Musculoskeletal: General: No deformity. Normal range of motion. Cervical back: Normal range of motion and neck supple. Right lower leg: No edema. Left lower leg: No edema. Lymphadenopathy: Cervical: No cervical adenopathy. Skin: General: Skin is warm and dry. Coloration: Skin is not jaundiced or pale. Findings: No erythema. Neurological: Mental Status: Alert and oriented to person, place, and time. Motor: No weakness. Gait: Gait normal. Psychiatric: Mood and Affect: Anxious mood. Behavior: Behavior normal. Thought Content: Thought content normal. Judgment: Judgment normal. Data Reviewed Labs: Imaging/Testing: KENZIE Dickens CNP 01/05/2023 11:26 AM documented in this [facility]02-27-2023 History of Present illness Narrative* Sasha Kaur, OD - 01/01/2023 3:41 PM EST 1. Combined forms of age-related cataract of both eyes Mild visual significance Recommended anti-reflective coating on glasses to decrease glare Monitor 2. Regular astigmatism of both eyes 3. Presbyopia Finalized spec rx Follow-up in 1 year or sooner as needed Sasha Kaur, OD January 01, 2023 3:41 PM [facility] Tele[facility] encounter Note * Telephone Encounter - Sherie Hurst MA - 12/25/2022 11:13 AM EST Prescription Request: Last medication check: 08/11/22 Last physical exam: 01/03/22 Next scheduled appointment: 01/05/23 CSA on file (date): na Last urine drug screen: na Last date of refill on this medication 08/04/22 90 day 1 refill [id number] Miscellaneous Notes* Telephone Encounter - Sherie Hurst MA - 12/25/2022 11:13 AM EST Prescription Request: Last medication check: 08/11/22 Last physical exam: 01/03/22 Next scheduled appointment: 01/05/23 CSA on file (date): na Last urine drug screen: na Last date of refill on this medication 08/04/22 90 day 1 refill documented in this [facility]02-20-2023 Telephone encounter Note* Telephone Encounter - Sherie Hurst MA - 12/25/2022 11:11 AM EST Prescription Request: Last medication check: 08/11/22 Last physical exam: 01/03/22 Next scheduled appointment: 01/05/23 CSA on file (date): na Last urine drug screen: na Last date of refill on this medication 08/08/22 90 day 1 refill [id number] Miscellaneous Notes* Telephone Encounter - Sherie Hurst MA - 12/25/2022 11:11 AM EST Prescription Request: Last medication check: 08/11/22 Last physical exam: 01/03/22 Next scheduled appointment: 01/05/23 CSA on file (date): na Last urine drug screen: na Last date of refill on this medication 08/08/22 90 day 1 refill [id number] Telephone encounter Note* Telephone Encounter - KENZIE Dickens CNP - 12/06/2022 10:48 AM EST Rx sent. Follow up as scheduled. [id number] Miscellaneous Notes* Telephone Encounter - KENZIE Dickens CNP - 12/06/2022 10:48 AM EST Rx sent. Follow up as scheduled. * Telephone Encounter - Abbey Michaels - 12/06/2022 8:54 AM EST Prescription Request: Last medication check: 08/11/22 Last physical exam: 01/03/22 Next scheduled appointment: 01/05/23 Last date of refill on this medication 06/12/[id number] Telephone encounter Note* Telephone Encounter - Abbey Michaels - 12/06/2022 8:54 AM EST Prescription Request: Last medication check: 08/11/22 Last physical exam: 01/03/22 Next scheduled appointment: 01/05/23 Last date of refill on this medication 06/12/22 [id number] History of Past illness Narrative* Problem Noted Date Resolved Date Neuralgia 07/16/2017 05/27/2018 Salivary gland inflammation 07/02/201707/2018 Lymphadenopathy 04/05/2017 05/27/2018 Disorder of left eustachian tube 03/20/2017 07/02/2017 documented as of this encounter (statuses as of 01/02/2023) [facility] History of Past illness Narrative* Problem Noted Date Diagnosed Date Resolved Date Neuralgia 07/16/2017 05/27/2018 Salivary gland inflammation 07/02/2017 01/11/2018 Lymphadenopathy 04/05/2017 05/27/2018 Disorder of left eustachian tube 03/20/2017 07/02/2017 documented as of this encounter (statuses as of 12/26/2023) [facility] History of Past illness Narrative* Problem Noted Date Diagnosed Date Resolved Date Neuralgia 07/16/2017 05/27/2018 Salivary gland inflammation 07/02/2017 01/11/2018 Lymphadenopathy 04/05/2017 05/27/2018 Disorder of left eustachian tube 03/20/2017 07/02/2017 documented as of this encounter (statuses as of 01/05/2024) [facility] History of Past illness Narrative* Problem Noted Date Diagnosed Date Resolved Date Neuralgia 07/16/2017 05/27/2018 Salivary gland inflammation 07/02/2017 01/11/2018 Lymphadenopathy 04/05/2017 05/27/2018 Disorder of left eustachian tube 03/20/2017 07/02/2017 documented as of this encounter (statuses as of 01/09/2024) [place] [id number] History of Past illness Narrative* Problem Noted Date Diagnosed Date Resolved Date Neuralgia 07/16/2017 05/27/2018 Salivary gland inflammation 07/02/2017 01/11/2018 Lymphadenopathy 04/05/2017 05/27/2018 Disorder of left eustachian tube 03/20/2017 07/02/2017 documented as of this encounter (statuses as of 01/10/2024) [facility] History of Past illness Narrative* Problem Noted Date Diagnosed Date Resolved Date Neuralgia 07/16/2017 05/27/2018 Salivary gland inflammation 07/02/2017 01/11/2018 Lymphadenopathy 04/05/2017 05/27/2018 Disorder of left eustachian tube 03/20/2017 07/02/2017 documented as of this encounter (statuses as of 01/25/2024) [facility] note* Diagnosis Encounter for screening for cardiovascular disorders Screening for other and unspecified cardiovascular conditions Screening for AAA (abdominal aortic aneurysm) Screening for other and unspecified cardiovascular conditions documented in this encounter [facility] Work Phone: Evaluation noteNo assessment information available [facility] Work Phone: Evaluation note* Diagnosis Combined forms of age-related cataract of both eyes- Primary Other and combined forms of senile cataract Regular astigmatism of both eyes Regular astigmatism Presbyopia documented in this encounter [facility] note* Diagnosis Essential hypertension- Primary Unspecified essential hypertension Major depressive disorder, recurrent, mild (HCC) Major depressive disorder, recurrent episode, mild Anxiety Anxiety state, unspecified Benign prostatic hyperplasia with nocturia Elevated PSA, less than 10 ng/ml Chronic low back pain, unspecified back pain laterality, unspecified whether sciatica present Degenerative spondylolisthesis Acquired spondylolisthesis documented in this encounter [facility]* Diagnosis Onset Date Resolution Status Degenerative spondylolisthesis acute [facility] Work Phone: Evaluation note* Diagnosis Elevated PSA, less than 10 ng/ml- Primary Benign prostatic hyperplasia with nocturia documented in this encounter [facility]* Diagnosis Erectile dysfunction, unspecified erectile dysfunction type documented in this encounter [facility]* Diagnosis Essential hypertension Unspecified essential hypertension documented [facility] this [facility]* Diagnosis Encounter for observation for other suspected diseases and conditions ruled out [facility]* Diagnosis Elevated prostate specific antigen (PSA)- Primary BPH with obstruction/lower urinary tract symptoms Hypertrophy of prostate with urinary obstruction and other lower urinary tract symptoms (LUTS) documented in this [facility]* Diagnosis Medicare annual wellness visit, subsequent- Primary Essential hypertension Unspecified essential hypertension Major depressive disorder, recurrent, mild (HCC) Major depressive disorder, recurrent episode, mild Anxiety Anxiety state, unspecified Benign prostatic hyperplasia with nocturia Elevated PSA, less than 10 ng/ml Chronic low back pain, unspecified back pain laterality, unspecified whether sciatica present Degenerative spondylolisthesis Acquired spondylolisthesis Screening for ischemic heart disease Screening for diabetes mellitus documented in this encounter [facility]* Diagnosis Elevated prostate specific antigen (PSA)- Primary BPH with obstruction/lower urinary tract symptoms Hypertrophy of prostate with urinary obstruction and other lower urinary tract symptoms (LUTS) documented [facility]* Diagnosis Combined forms of age-related cataract of both eyes- Primary Other and combined forms of senile cataract Dermatochalasis of both upper eyelids Hyperopia, bilateral Regular astigmatism of both eyes Regular astigmatism Presbyopia [facility]* Diagnosis Essential hypertension Unspecified essential hypertension [facility]* Diagnosis Anxiety Anxiety state, unspecified documented [facility]* Diagnosis Pre-operative clearance- Primary Unspecified pre-operative examination Essential hypertension Unspecified essential hypertension Major depressive disorder, recurrent, mild (HCC) Major depressive disorder, recurrent episode, mild Anxiety Anxiety state, unspecified Benign prostatic hyperplasia with nocturia Elevated PSA, less than 10 ng/ml Chronic low back pain, unspecified back pain laterality, unspecified whether sciatica present Elevated LDL cholesterol level documented in this encounter [facility]* Diagnosis Hyponatremia- Primary Hyposmolality and/or hyponatremia documented in this encounter [facility]* Diagnosis Onset Date Resolution Status Degenerative spondylolisthesis acute Degenerative spondylolisthesis acute [facility] Work Phone: Evaluation note* Diagnosis Anxiety disorder, unspecified Major depressive disorder, recurrent, mild (HCC) Major depressive disorder, recurrent episode, mild [facility]* Diagnosis Medicare annual wellness visit, subsequent- Primary Essential hypertension Unspecified essential hypertension Erectile dysfunction, unspecified erectile dysfunction type Benign prostatic hyperplasia with nocturia Elevated PSA, less than 10 ng/ml Major depressive disorder, recurrent, mild (HCC) Major depressive disorder, recurrent episode, mild Anxiety Anxiety state, unspecified Chronic pain of right hip Chronic bilateral low back pain with right-sided sciatica Need for Tdap vaccination Need for prophylactic vaccination with combined [id number] (DTP) vaccine Screening for ischemic heart disease [facility]* Diagnosis Essential hypertension Unspecified essential hypertension [facility]* Diagnosis Combined forms of age-related cataract of both eyes- Primary Other and combined forms of senile cataract Dermatochalasis of both upper eyelids Hyperopia, bilateral Regular astigmatism of both eyes Regular astigmatism Presbyopia documented in this encounter [facility] note* Diagnosis Benign prostatic hyperplasia with nocturia- Primary Urinary tract infection symptoms Viral URI with cough [facility] this [facility]* Diagnosis Benign prostatic hyperplasia with nocturia- Primary Urinary tract infection symptoms Viral URI with cough documented in this encounter [facility]* Diagnosis Benign prostatic hyperplasia with nocturia- Primary Urinary tract infection symptoms Viral URI with cough Anxiety Anxiety state, unspecified documented in this [facility]* Diagnosis Benign prostatic hyperplasia with nocturia- Primary Urinary tract infection symptoms Viral URI with cough Routine general medical examination at health care facility- Primary Routine general medical examination at a health care facility Essential hypertension Unspecified essential hypertension Major depressive disorder, recurrent, mild (HCC) Major depressive disorder, recurrent episode, mild Anxiety Anxiety state, unspecified Benign prostatic hyperplasia with nocturia Chronic low back pain, unspecified back pain laterality, unspecified whether sciatica present Degenerative spondylolisthesis Acquired spondylolisthesis Screening for diabetes mellitus Screening for deficiency anemia Screening for other and unspecified deficiency anemia Screening for ischemic heart disease Screening for colon cancer Special screening for malignant neoplasms, colon documented in this encounter [facility] note* Diagnosis Elevated prostate specific antigen (PSA)- Primary BPH with obstruction/lower urinary tract symptoms Hypertrophy of prostate with urinary obstruction and other lower urinary tract symptoms (LUTS) Screening for genitourinary condition Screening for other and unspecified genitourinary condition documented in this encounter [facility] note* Diagnosis Benign prostatic hyperplasia with nocturia- Primary Urinary tract infection symptoms Viral URI with cough Essential hypertension Unspecified essential hypertension [facility]* Diagnosis Benign prostatic hyperplasia with nocturia- Primary Urinary tract infection symptoms Viral URI with cough Anxiety- Primary Anxiety state, unspecified Major depressive disorder, recurrent, mild (HCC) Major depressive disorder, recurrent episode, mild [facility] Narrative No data available for this section [facility] Instructions* Attachments The following attachments cannot be sent through Care Everywhere. * Preventing Falls in Older Adults ([place]enezuelan) * Lisinopril, ADULT ([place]) [facility]* Attachments The following attachments cannot be sent through Care Everywhere. * Preventing Falls in Older Adults ([place]) [facility] Consultation (Routine) - Pending Review Specialty Diagnoses / Procedures Referred By Tyra palmer Referred To Contact Urology Diagnoses Elevated PSA, less than 10 ng/ml Benign prostatic hyperplasia with nocturia Procedures [place] OFFICE/OUTPATIENT [facility] 60-74 MINUTES Candice Frank APRN - CNP [address] [place] [address] [place] [address] [facility] [address] [place] [address] Referral ID Status Reason Start Date Expiration Date Visits Requested Visits Authorized [id number] Pending Review Specialty Services Required 3 10/14/2024 1 1 [facility] Summary Purpose Family History Sibling Name Dates Details Family history of malignant neoplasm of prostate(V16.42, Z80.42) Status:Active Family history of alcoholism (V17.0, Z81.1) Status:Active Family history of liver dise ase(V18.59, Z83.79) Status:Active Grandparent Name Dates Details Family history of malignant neoplasm of prostate(V16.42, Z80.42) Status:Active Mother Name Dates Details Family history of hypertensi on(V17.49, Z82.49) Status:Active Father Name Dates Details Family history of malignant neoplasm of prostate(V16.42, Z80.42) Status:Active Sibling Name Dates Details Family history of malignant neoplasm of prostate(V16.42, Z80.42) Status:Active Family history of alcoholism (V17.0, Z81.1) Status:Active Family history of liver dise ase(V18.59, Z83.79) Status:Active Grandparent Name Dates Details Family history of malignant neoplasm of prostate(V16.42, Z80.42) Status:Active Mother Name Dates Details Family history of hypertensi on(V17.49, Z82.49) Status:Active Father Name Dates Details Family history of malignant neoplasm of prostate(V16.42, Z80.42) Status:Active Relationship Condition Age at Onset Recorded Date/T nory father Malignant neoplasm Unknown brother Malignant neoplasm Unknown sister Malignant neoplasm Unknown Advance Directives No Advanced Directives Records FoundNo Advanced Directives Records FoundNo Advanced Directives Records FoundNo Advanced Directives Records FoundNo Advanced Directives Records FoundNo Advanced Directives Records FoundNo Advanced Directives Records FoundNo Advanced Directives Records FoundNo Advanced Directives Records FoundNo Advanced Directives Records FoundNo Advanced Directives Records Found Reason for Referral Status Reason Specialty Diagnoses / Procedures Referre d By Contact Referred To Contact [facility] Diagnoses Screening for AAA (abdominal aortic aneurysm) Procedures VL AAA SCREENING Candice Frank, HYDRAULIC PRESS TENDER - MELANGEUR OPERATOR [address] [place] [address] Chief Complaint and Reason for Visit Chief Complaint PSA ELEVATED PSA Chief Complaint LUMBAR SPINE Reason for Visit Degenerative spondyl olisthesis Chief Complaint LUMBAR SPINE PSA SPONDYLOLISTHESIS Reason for Visit Degenerative spondyl olisthesis Chief Complaint LUMBAR SPINE PSA SPONDYLOLISTHESIS LUMBAR SPINE Reason for Visit Degenerative spondyl olisthesis Degenerative spondylolisthesis Medications Administered Section Active Administered Medications - up to 3 most recent administrations Medication Order MAR Action Action Date Dose Rate Site PHENYLephrine 2.5 % 1 Drop (AK-DILATE, JUAN-SYNEPHRINE) 1 Drop, BOTH EYES, DIRECTED, Starting on Sun01/01/23 at 1500, Until Sun01/02/23 at 0259, Administer for dilation PROTECT FROM LIGHT Given 01/01/2023 3:00 PM EST 1 Drop proparacaine 0.5 % 1 Drop (ALCAINE) 1 Drop, BOTH EYES, DIRECTED, Starting on Sun01/01/23 at 1500, Until Sun01/02/23 at 0259, Administer for pneumo tonometry, tonopen tonometry, or pachymetry. In the event of a proparacaine shortage, administer tetracaine 0.5% ophthalmic drops 1 drop in the left eye as directed for pneumo tonometry, tonopen tonometry, or pachymetry Given 01/01/2023 3:00 PM EST 1 Drop tropicamide 1 % 1 Drop (MYDRIACYL) 1 Drop, BOTH EYES, DIRECTED, Starting on Sun01/01/23 at 1500, Until Sun01/02/23 at 0259, Administer for dilation Given 01/01/2023 3:00 PM EST 1 Drop Additional Source Comments (unrecognized sect ion and content) No Status Records FoundNo Status Records FoundNo Status Records FoundNo Status Records FoundNo Status Records FoundNo Status Records FoundNo Status Records FoundNo Status Records FoundNo Status Records FoundNo Status Records FoundNo Status Records Found INFORMATION SOURCE (unrecogn ized section and content) DATE CREATED AUTHOR 04/26/2018 [facility] DATE CREATED AUTHOR AUTHOR'S ORGANIZ ATION 05/01/2018 [facility] DATE CREATED AUTHOR AUTHOR'S ORGANIZ ATION 11/26/2020 [facility] DATE CREATED AUTHOR AUTHOR'S ORGANIZ ATION 12/05/2020 [employer] DATE CREATED AUTHOR AUTHOR'S ORGANIZ ATION 07/22/2021 [facility] DATE CREATED AUTHOR AUTHOR'S ORGANIZ ATION 11/02/2023 [facility] DATE CREATED AUTHOR AUTHOR'S ORGANIZ ATION 11/26/2024 [facility] DATE CREATED AUTHOR AUTHOR'S ORGANIZ ATION 01/25/2025 [facility] DATE CREATED AUTHOR AUTHOR'S ORGANIZ ATION 04/12/2025 [facility] DATE CREATED AUTHOR AUTHOR'S ORGANIZ ATION 05/07/2025 [facility] DATE CREATED AUTHOR AUTHOR'S ORGANIZ ATION 05/07/2025 [facility] Goals (unrecognized section and content) Goals may be documented in a n alternate sectionGoals may be documented in an alternate sectionGoals may be documented in an alternate sectionGoals may be documented in an alternate sectionGoals may be documented in an alternate sectionGoals may be documented in an alternate sectionGoals may be documented in an alternate sectionGoals may be documented in an alternate section No data available for this section Source Comments (unrecognize d section and content) In the event this informatio n is protected by the Federal Confidentiality of Alcohol and Drug Abuse Patient Records regulations: The Federal rules restrict any use of the information to criminally investigate or prosecute any alcohol or drug abuse patient.[facility] Center[facility] the event this information is protected by the Federal Confidentiality of Alcohol and Drug Abuse Patient Records regulations: The Federal rules restrict any use of the information to criminally investigate or prosecute any alcohol or drug abuse patient.[facility] CenterIn the event this information is protected by the Federal Confidentiality of Alcohol and Drug Abuse Patient Records regulations: The Federal rules restrict any use of the information to criminally investigate or prosecute any alcohol or drug abuse patient.[facility] Center[facility] the event this information is protected by the Federal Confidentiality of Alcohol and Drug Abuse Patient Records regulations: The Federal rules restrict any use of the information to criminally investigate or prosecute any alcohol or drug abuse patient.[facility] Center[facility] the event this information is protected by the Federal Confidentiality of Alcohol and Drug Abuse Patient Records regulations: The Federal rules restrict any use of the information to criminally investigate or prosecute any alcohol or drug abuse patient.[facility] CenterIn the event this information is protected by the Federal Confidentiality of Alcohol and Drug Abuse Patient Records regulations: The Federal rules restrict any use of the information to criminally investigate or prosecute any alcohol or drug abuse patient.[facility] CenterIn the event this information is protected by the Federal Confidentiality of Alcohol and Drug Abuse Patient Records regulations: The Federal rules restrict any use of the information to criminally investigate or prosecute any alcohol or drug abuse patient.[facility] CenterIn the event this information is protected by the Federal Confidentiality of Alcohol and Drug Abuse Patient Records regulations: The Federal rules restrict any use of the information to criminally investigate or prosecute any alcohol or drug abuse patient.[facility] CenterIn the event this information is protected by the Federal Confidentiality of Alcohol and Drug Abuse Patient Records regulations: The Federal rules restrict any use of the information to criminally investigate or prosecute any alcohol or drug abuse patient.[facility] CenterIn the event this information is protected by the Federal Confidentiality of Alcohol and Drug Abuse Patient Records regulations: The Federal rules restrict any use of the information to criminally investigate or prosecute any alcohol or drug abuse patient.[facility] CenterIn the event this information is protected by the Federal Confidentiality of Alcohol and Drug Abuse Patient Records regulations: The Federal rules restrict any use of the information to criminally investigate or prosecute any alcohol or drug abuse patient.[facility] CenterIn the event this information is protected by the Federal Confidentiality of Alcohol and Drug Abuse Patient Records regulations: The Federal rules restrict any use of the information to criminally investigate or prosecute any alcohol or drug abuse patient.[facility] Reason for Visit (unrecogniz ed section and content) Reason Comments Blurred Vision Both Eyes While watching television Glare Around headlights at night time New glasses Reason Comments Follow-up 6 month med check Reason Onset Date Comments Med Refill 10/23/2023 Reason Onset Date Comments Med Refill 11/12/2023 Specialty Diagnoses / Procedures Referred By Tyra palmer Referred To Contact [facility] Diagnoses Encounter for observation for other suspected diseases and conditions ruled out Procedures MRI PROSTATE WO/W IVCON MRI PELVIS W/O & W/CONTRAST MATERIAL Josh Gonzalez MD [address] [place] [address] [place] [address] Referral ID Status Reason Start Date Expiration Date V isits Requested Visits Authorized [id number] Closed Auto-Generate d Referral 11/29/2023 01/28/2024 1 1 Reason Comments PSA Reason Comments Medicare Annual Wellness Visit Subsequen t Health Maintenance RSV vaccine-did not get7th COVID vaccine-did not get Blood Work Reason Comments Surgery Scheduled Reason Onset Date Comments Medication Question 01/10/2024 Reason Comments Blood Pressure Check Reason Comments Blurred Vision Both Eyes Reason Onset Date Comments Med Refill 05/15/2024 Reason Onset Date Comments Med Refill 07/10/2024 Reason Comments Medication Check Blood Work Health Maintenance 7th Covid- has not h ad most recent one Anxiety Depression Reason Comments Med Refill Reason Comments Medicare Annual Wellness Visit Initial Health Maintenance Hep C--declines, Hep B--declines, Tdap--would need at pharmacy, Shingles--would need at pharmacy Reason Comments Nocturia Difficulty Urinating Urinary Retention Urinary Frequency Started a little ove r week ago worse at night Cough Nasal Congestion Reason Comments Medicare Annual Wellness Visit Subsequen t Blood Work Reason Comments Follow Up Benign Prostatic Hypertrophy Elevated PSA Reason Onset Date Comments Med Refill 03/03/2025 Reason Onset Date Comments Other 03/16/2025 03/24/25: per pat ient, stop messages re referral for gastroColonoscopy done 03/09/25 Reason Onset Date Comments Med Refill 05/05/2025 Reason Comments Anxiety Depression Care Teams (unrecognized sec tion and content) Team Status: Active Member Role Status Dates Candice Frank SERVICE STATION EQUIPMENT MECHANIC, SERVICE STATION EQUIPMENT MECHANIC-C Primary Care Provider Active Team Status: Inactive Member Role Status Dates Candice Frank SERVICE STATION EQUIPMENT MECHANIC, SERVICE STATION EQUIPMENT MECHANIC-C Primary Care Provider, Attending Provider Active Analysis Internship Relationship Specialty Start Date End Date Mumtaz Kennedy MD [address] [place] [address] [id number] PCP - General Family Medicine 01/17/23 Team Status: Inactive Member Role Status Dates Candice Frank SERVICE STATION EQUIPMENT MECHANIC, SERVICE STATION EQUIPMENT MECHANIC-C Primary Care Provider, Referring Provider Active Dr. Andriy Rizzo DO Attending Provider Active Team Status: Inactive Member Role Status Dates Candice Frank SERVICE STATION EQUIPMENT MECHANIC, SERVICE STATION EQUIPMENT MECHANIC-C Primary Care Provider Active Dr. Glenn Macias MD Attending Provider, Referrin g Provider Active Team Status: Inactive Member Role Status Gia Frank SERVICE STATION EQUIPMENT MECHANIC, SERVICE STATION EQUIPMENT MECHANIC-C Primary Care Provider Active Dr. Oskar Jimenez MD Attending Provider Active Analysis Internship Relationship Specialty Start Date End Date Mumtaz Kennedy MD [address] [place] [id number] PCP - [facility] Family Medicine 01/17/23 Team Status: Active Member Role Status Gia Frank SERVICE STATION EQUIPMENT MECHANIC, SERVICE STATION EQUIPMENT MECHANIC-C Primary Care Provider Active Dr. Andriy Rizzo DO Attending Provider, Referring P too Active Team Status: Inactive Member Role Status Gia Frank SERVICE STATION EQUIPMENT MECHANIC, SERVICE STATION EQUIPMENT MECHANIC-C Primary Care Provider Active Dr. Stu Menezes MD Attending Provider, Referr ing Provider Active Analysis Internship Relationship Specialty Start Date End Date Mumtaz Kennedy MD [address] [place] [address] PCP - General Family Medicine 01/17/23 Yomi Castro MD [address] [place] [address] Surgeon Urology 10/16/23 Analysis Internship Relationship Specialty Start Date End Date Mumtaz Kennedy MD [address] [place] [phone] PCP - General Family Medicine 01/17/23 Yomi Castro MD [address] [place] [address] Surgeon Urology 10/16/23 Analysis Internship Relationship Specialty Start Date End Date Candice Frank CNP [address] [place] [address] PCP - General Family Medicine 01/04/24 Analysis Internship Relationship Specialty Start Date End Date Mumtaz Kennedy MD [address] [place] [phone] PCP - General Family Medicine 01/17/23 Yomi Castro MD [address] [place] [address] Surgeon Urology 10/16/23 Analysis Internship Relationship Specialty Start Date End Date Candice Frank CNP [address] [place] [address] PCP - General Family Medicine 01/04/24 Analysis Internship Relationship Specialty Start Date End Date Mumtaz Kennedy MD [address] [place] [phone] PCP - General Family Medicine 01/17/23 Yomi Castro MD 95 [facility] [address] [place] [address] Surgeon Urology 10/16/23 Analysis Internship Relationship Specialty Start Date End Date Mumtaz Kennedy MD [address] [place] [id number] PCP - General Family Medicine 01/17/23 Yomi Castro MD [address] [place] [address] [place] [address] Surgeon Urology 10/16/23 Analysis Internship Relationship Specialty Start Date End Date Candice Frank CNP [address] [place] [address] PCP - General Family Medicine 01/04/24 Analysis Internship Relationship Specialty Start Date End Date Candice Frank CNP [address] [place] [address] PCP - General Family Medicine 01/04/24 Analysis Internship Relationship Specialty Start Date End Date Mumtaz Kennedy MD [address] [place] [phone] PCP - General Family Medicine 01/17/23 Yomi Castro MD 95 [facility] [address] [place] [address] Surgeon Urology 10/16/23 Analysis Internship Relationship Specialty Start Date End Date Mumtaz Kennedy MD [address] [place] [phone] PCP - General Family Medicine 01/17/23 Yomi Castro MD [address] [place] [address] Surgeon Urology 10/16/23 Analysis Internship Relationship Specialty Start Date End Date Mumtaz Kennedy MD [address] [place] [phone] PCP - General Family Medicine 01/17/23 Yomi Castro MD [address] [place] [address] Surgeon Urology 10/16/23 Analysis Internship Relationship Specialty Start Date End Date Mumtaz Kennedy MD [address] [place] [address] [id number] PCP - General Family Medicine 01/17/23 Yomi Castro MD [address] [place] [address] Surgeon Urology 10/16/23 Team Status: Inactive Member Role Status Dates Candice Frank SERVICE STATION EQUIPMENT MECHANIC, SERVICE STATION EQUIPMENT MECHANIC-C Primary Care Provider Active Dr. Andriy Rizzo , Attending Provider, Lucien gage Active Analysis Internship Relationship Specialty Start Date End Date Candice Frank HYDRAULIC PRESS TENDER - MELANGEUR OPERATOR [address] [place] [address] PCP - General 07/06/21 Analysis Internship Relationship Specialty Start Date End Date Candice Frank HYDRAULIC PRESS TENDER - MELANGEUR OPERATOR [address] [place] [address] PCP - General 07/06/21 Analysis Internship Relationship Specialty Start Date End Date Candice Frank, KENZIE - MELANGEUR OPERATOR [address] [place] [address] PCP - General 07/06/21 Analysis Internship Relationship Specialty Start Date End Date Mumtaz Kennedy MD [address] [place] [address] PCP - General Family Medicine 01/17/23 Yomi Castro MD 95 [facility] [address] [place] [address] Surgeon Urology 10/16/23 Analysis Internship Relationship Specialty Start Date End Date Candice Frank CNP [address] [place] [address] PCP - General Family Medicine 01/04/24 Analysis Internship Relationship Specialty Start Date End Date Mumtaz Kennedy MD [address] [place] [address] PCP - General Family Medicine 01/17/23 Yomi Castro MD 95 [facility] [address] [place] [address] Surgeon Urology 10/16/23 Analysis Internship Relationship Specialty Start Date End Date Mutmaz Kennedy MD [address] [place] [address] PCP - General Family Medicine 01/17/23 Yomi Castro MD 95 [facility] [address] [place] [address] Surgeon Urology 10/16/23 Analysis Internship Relationship Specialty Start Date End Date Mumtaz Kennedy MD [facility] [place] [address] PCP - General Family Medicine 01/17/23 Yomi Castro MD [address] [address] Surgeon Urology 10/16/23 Analysis Internship Relationship Specialty Start Date End Date Mumtaz Kennedy MD [address] [facility] [place] [address] PCP - General Family Medicine 01/17/23 Yomi Castro MD [address] [address] Surgeon Urology 10/16/23 Analysis Internship Relationship Specialty Start Date End Date Candice Frank CNP 25 [facility] [place] [address] PCP - General Family Medicine 01/04/24 Analysis Internship Relationship Specialty Start Date End Date Mumtaz Kennedy MD [address] [facility] [place] [address] PCP - General Family Medicine 01/17/23 Yomi Castro MD 95 [facility] [address] [place] [address] Surgeon Urology 10/16/23 Analysis Internship Relationship Specialty Start Date End Date Mumtaz Kennedy MD 25 [facility] [place] [address] PCP - General Family Medicine 01/17/23 Yomi Castro MD 95 [facility] [address] [place] [address] Surgeon Urology 10/16/23 Candice Frank APRN - MELANGEUR OPERATOR [address] [facility] [place] [phone] Nurse Practitioner Nurse Practitioner Family 05/05/25 Analysis Internship Relationship Specialty Start Date End Date Candice Frank CNP [address] [facility] [place] [phone] PCP - General Family Medicine 01/04/24 Analysis Internship Relationship Specialty Start Date End Date Candice Frank CNP [address] [place], [place] [id number] PCP - General Family Medicine 01/04/24 Analysis Internship Relationship Specialty Start Date End Date Mumtaz Kennedy MD [facility] [place] [phone] PCP - General Family Medicine 01/17/23 Yomi Castro MD [address] [address] Surgeon Urology 10/16/23 Candice Frank APRN - MELANGEUR OPERATOR [address] [place] [address] Nurse Practitioner Nurse Practitioner Family 05/05/25 FOR RECORDS PERTAINING TO PATIENTS WHO ARE OR HAVE BEEN ENROLLED IN A CHEMICAL DEPENDENCY/SUBSTANCEABUSE PROGRAM, SOME INFORMATION MAY BE OMITTED. This clinical summary was aggregated from multiple sources. Caution should be exercised in using it in the provision of clinical care. This summary normalizes information from multiple sources, and as a consequence, information in this document may materially change the coding, format and clinical context of patient data. In addition, data may be omitted in some cases. CLINICAL DECISIONS SHOULD BE BASED ON THE PRIMARY CLINICAL RECORDS. [facility] [facility]. provides no warranty or guarantee of the accuracy or completeness of information in this document.
--- NOTE | 2025-05-14 06:27 | RAD_ITS ---
PROCEDURE: FOOT MIN 3 VIEWS 05/14/2025 REASON FOR EXAM: PAIN TECHNIQUE: FOOT MIN 3 VIEWS COMPARISON: None FINDINGS: Bones: No visible fracture. No suspicious bone lesion. Joints: Normal alignment. Mild degenerative changes. Soft tissues: Soft tissues are unremarkable. Other: Incidental note of Disal fibula acute fracture. RAD/Foot min 3 Views IMPRESSION: No acute foot bones fractures. Incidental note of Disal fibula acute fracture Reading [facility]
--- NOTE | 2025-05-14 06:27 | RAD_ITS ---
PROCEDURE: ANKLE MIN 3 VIEWS 05/14/2025 REASON FOR EXAM: PAIN TECHNIQUE: ANKLE MIN 3 VIEWS COMPARISON: None FINDINGS: Acute distal fibula oblique fracture line is seen with mild soft tissue swelling. Calcifications is seen against the medial malleolus. Preserved ankle mortise is noted. RAD/Ankle min 3 Views IMPRESSION: Acute distal fibula fracture with mild soft tissue swelling Reading Location: [facility]
[2025-05-14 07:05] VITALS: BP 166/63; PULSE 74; RESP 16; O2SAT 96
--- NOTE | 2025-05-14 07:11 | EDS_ITS ---
HPI History of Present Illness Chief Complaint: Syncope Informant: patient, spouse/S.O. and EMS Narrative Narrative: Patient is a 75-year-old male with past medical history of hypertension BPH and anxiety. He states that he also drinks daily to control his anxiety symptoms. He states that this evening he was in his chair and when he stood up he had a syncopal event causing him to injure his leg. EMS was called and when they were able to stand him up he had a secondary syncopal episode and therefore was brought in for evaluation [facility] Medical History Wears hearing aid Wears glasses Wears partial dentures Depression Anxiety Alcohol use Arthritis Prostate disease Back pain Restless legs Former smoker History of pain when walking Hypertension Home Medications ?Medication ?Instructions ?Recorded ?Last Taken ?Type atenolol 50 mg tablet 50 mg PO DAILY BP 08/31/23 1 History melatonin 10 mg capsule 10 mg PO HS PRN sleep 08/04/24 History tamsulosin 0.4 mg capsule 0.4 mg PO 1500 PROSTATE 08/0608/04/24 History buspirone 10 mg tablet 10 mg PO BID ANXIETY 4 08/05/24 History lisinopril 40 mg tablet 40 mg PO QDAY BP 05/21/24 History magnesium 200 mg tablet 200 mg PO DAILY SUPPLEMENT 0 05/21/24 08/04/24 History acetaminophen 500 mg tablet 500 mg PO Q6H #30 tabs 12/29 Unknown Rx lorazepam 0.5 mg tablet 0.5 mg PO TID PRN PRN anxiet y 05/14/25 Unknown History oxycodone 5 mg tablet 5 mg PO Q6H PRN pain 3 days #12 05/14/25 Unknown Rx tabs sertraline 50 mg tablet 50 mg PO Q24H 05/14/25 Unkno wn History Allergy/AdvReac Type Severity Reaction Status Date / Time No Known Allergies Allergy Verified 05/16/25 06:50 Family History Father Cancer Brother Cancer Sister Cancer Surgical History Hx of colonoscopy Hx of prostate biopsy History of carpal tunnel surgery of right wrist History of carpal tunnel surgery of left wrist Social History Smoking Status: Former smoker Tobacco: How many years used: 20 alcohol intake: current alcohol intake frequency: a few times a week Alcohol type: beer ROS ROS ED Constitutional Constitutional ED: Denies chills or fever(s) ENT ENT ED: Denies sore throat Cardiovascular Cardiovascular: Reports other Details: Positive syncope ; Denies chest pain, palpitations or racing heartbeat Respiratory/Chest Respiratory/Chest: Denies cough or dyspnea Gastrointestinal Gastrointestinal: Denies abdominal pain, diarrhea, nausea or vomiting Genitourinary Genitourinary ED: Denies dysuria Musculoskeletal Musculoskeletal: Reports other Details: Positive right leg pain ; Denies back pain or neck pain Integumentary Denies rash Neurologic Neurologic: Reports weakness; Denies headache(s) Psychiatric Psychiatric: Reports anxiety; Denies suicidal ideation or suicidal thoughts Hematologic/Lymphatic Hematologic/Lymphatic: Denies easy bleeding or easy bruising EXAM Physical Exam Const Vital Signs: 05/14/25 05:02 05/14/25 05:26 05/14/25 07:05 Temperature 97.5 F L Temperature Source Oral Pulse Rate 65 74 Pulse Rate [Lying] 63 Pulse Rate [Sitting (for 1 minute prior to obtaining)] 71 Pulse Rate [Standing (for 1 minute prior to obtaining)] 70 Respiratory Rate 16 16 Blood Pressure 135/69 H 166/63 H Blood Pressure [Lying] 138/66 H Blood Pressure [Sitting (for 1 minute prior to obtaining)] 151/77 H Blood Pressure [Standing (for 1 minute prior to obtaining)] 131/64 H Blood Pressure Mean 91 97 Blood Pressure Mean [Lying] 90 Blood Pressure Mean [Sitting (for 1 minute prior to obtaining)] 101 Blood Pressure Mean [Standing (for 1 minute prior to obtaining)] 86 Pulse Ox 98 96 Oxygen Delivery Method Room Air Positive well nourished and well developed General Appearance ED: well developed HEENT Reports dry mucous membranes HEENT Narrative: No tongue or lip swelling no oral lesions no airway edema or compromise Mucous membranes are dry and tacky No signs of depressed or basilar skull fracture Patient does have an abrasion and 1 x 2 cm hematoma along the right side of his forehead/face consistent with fall/head injury. Mouth ED: Yes dry mucous membranes Mouth: dry mucous membranes Eyes PERRL and EOMs intact bilaterally General Eye ED: Negative for scleral icterus Neck supple Neck Narrative: No bony deformity or step-off of the cervical spine no midline tenderness to palpation Chest Wall palpation of chest normal Chest Narrative: No bony deformity or subcutaneous emphysema Resp normal respiratory effort and clear to auscultation bilaterally Cardio regular rate and regular rhythm GI non-tender, non-distended and no masses GI Narrative: Soft nontender nondistended with hypoactive bowel sounds. No voluntary guarding or rigidity or pulsatile mass Auscultation: hypoactive bowel sounds Palpation: soft Back/Spine Back/Spine Narrative: No bony deformity or step-off of the thoracic or lumbar spine no midline tenderness to palpation Extremity Extremity Narrative: Pelvis is stable there is no shortening or external rotation of either lower extremity There is soft tissue swelling with ecchymosis and pain on palpation along the lateral malleolus of the right ankle. No proximal tibia pain with palpation. there is apparent ligamentous laxity with stressing of the ATFL compared to the left as well All compartments are soft and compressible going against compartment syndrome Neuro oriented x3, CN's II-XII intact bilaterally and no sensory deficits noted Sensorium / Orientation: alert Motor Exam: strength 5/5 throughout Psych Mood & Affect: anxious and tearful Skin No skin turgor normal Skin Narrative: Skin turgor is increased Soft tissue trauma to the right ankle and face/head as documented above without secondary findings of infection General Skin Exam: Negative for jaundice MDM MDM MDM Narrative Medical decision making narrative: Patient arrived to the ER awake and alert with normal neurologic exam and stable vitals. He reported a passing out event after standing up. His history of daily alcohol use coupled with his exam is consistent with dehydration leading to orthostasis. In order to ensure he does not have an underlying skull fracture or brain bleed a head CT was obtained. To rule out acute blood loss anemia or acute kidney injury basic labs are ordered as well. Labs revealed a low sodium of 121. Chart review reveals that his baseline is approximately 129. However he does admit to being a daily drinker which will drive the sodium further and therefore I do not feel there is need for further intervention regarding this value. The patient's orthostatic vital signs were positive and therefore he was given IV fluid. After these were completed repeat Ortho's were obtained and were negative. His right distal fibular fracture was braced in a Ortho-Glass sugar-tong splint for stabilization of the fracture fragment as documented below. At this time the patient is awake and alert with normal neurologic exam he has no signs of depressed or basilar skull fracture his right ankle fracture is closed and he remains neurovascularly intact. His sodium is low but he runs chronically low and the fact he is a daily drinker will drive the value even farther and therefore do not feel there is need for intervention at this time regarding the low value. The patient is now able to stand without bouts of dizziness/syncope and therefore there is no need for admission and he is otherwise safe for discharge The right ankle fracture was stabilized using a Ortho-Glass splint placed in a sugar-tong position. The splint fit the fracture fragment well and provided good stabilization. After application his capillary refill remained less than 3 seconds. Patient tolerated the procedure well without complication History & Record Review Discussion w/independent historian: Patient and Significant other Lab Data Attestation: I reviewed the patient's lab results. Labs: Laboratory Results - last 24 hr 05/14/25 04:45 WBC 7.3 RBC 3.94 L Hgb 13.8 Hct 37.3 L MCV 94.7 H MCH 35.0 H MCHC 37.0 H RDW Std Deviation 39.8 RDW Coeff of Servando 11.5 L Plt Count 236 MPV 9.1 Immature Gran % (Auto) 0.700 Neut % (Auto) 48.5 Lymph % (Auto) 37.0 [place] % (Auto) 10.8 H Eos % (Auto) 2.7 Baso % (Auto) 0.3 Absolute Neuts (auto) 3.6 Absolute Lymphs (auto) 2.71 Nucleated RBC % 0 Sodium 121 L Potassium 3.7 Chloride 85 L Carbon Dioxide 20.1 L Anion Gap 16 H BUN 10 Creatinine 0.87 Estim Creat Clear Calc 70.98 Est GFR (MDRD) Non-Af 90 BUN/Creatinine Ratio 11.0 Glucose 109 H Calcium 8.7 Magnesium 1.7 Radiography Diagnostic Testing: Clinical Impression(s) from Imaging Studies Brain CT 05/14/25 05:49 IMPRESSION: No acute cerebrovascular abnormalities. If there is high clinical suspicion, correlate to MRI No intra or extra-axial acute hemorrhage. Bilateral cerebral microvascular ischemic changes with age matches brain involutional changes. Reading Location: [id number] Ankle X-Ray 05/14/25 06:27 IMPRESSION: Acute distal fibula fracture with mild soft tissue swelling Reading Location: [id number] Foot X-Ray 05/14/25 06:27 IMPRESSION: No acute foot bones fractures. Incidental note of Disal fibula acute fracture Reading Location: [id number] Right ankle x-ray as interpreted by the emergency medicine physician reveals an acute nondisplaced distal fibula fracture Right foot x-rays interpreted by the emergency medicine physician reveals no acute fracture or dislocation Discharge Plan Triage Chief Complaint: Syncope ED Provider: Gerardo Narayan Dx/Rx/DC Orders Clinical Impression: Orthostatic syncope, Closed head injury, Closed fracture of distal end of right fibula, Hyponatremia Instructions: Orthostatic Hypotension, ED Head Injury (Adult), ED Ankle Fracture, Distal Fibula Prescriptions: New oxycodone 5 mg tablet 5 mg PO Q6H PRN (Reason: pain) 3 Days Qty: 12 0RF No Action atenolol 50 mg tablet 50 mg PO DAILY Patient Comments: Take 1 tablet (50 mg) by mouth daily. tamsulosin 0.4 mg capsule 0.4 mg PO 1500 Patient Comments: TAKE 1 CAPSULE BY MOUTH EVERY DAY melatonin 10 mg capsule 10 mg PO HS PRN (Reason: sleep) buspirone 10 mg tablet 10 mg PO BID Patient Comments: TAKE 1 TABLET BY MOUTH TWICE DAILY lisinopril 40 mg tablet 40 mg PO QDAY magnesium 200 mg tablet 200 mg PO DAILY lorazepam 0.5 mg tablet 0.5 mg PO TID PRN PRN (Reason: anxiety) sertraline 50 mg tablet 50 mg PO Q24H acetaminophen 500 mg Tablet 500 mg PO Q6H Qty: 30 0RF Primary Care Provider: Jessica Frank NP Referrals: Evans Ortiz DO [Med Staff - Active Staff] - (Right distal fibula fracture) Jessica Frank NP, HOUSEKEEPING ATTENDANT-C [Primary Care Provider] - Activity Restrictions/Additional Instructions: Please keep yourself well-hydrated to help prevent any further bouts of syncope /passing out. And electrolytes secondary to your low sodium. Follow-up with orthopedics to discuss need for casting versus boot for your ankle fracture. Return to the ER should you have any further concerns Print Language: Turkish Disposition Disposition: Home, Self Care Discharge Date/Time: 05/14/25 08:05
[2025-05-14 07:23] VITALS: BP 151/58; BP 172/80; BP 181/82; PULSE 68; PULSE 73; PULSE 74
[2025-05-14 07:32] VITALS: BP 172/80; PULSE 70; RESP 10; TEMP 36.4; O2SAT 98
== END 2025-05-14 08:05 | disposition home or self-care (01) ==
PROVIDERS: Emergency Provider Emergency Medicine; PCP Registered Nurse; Visit Provider Emergency Medicine
DX: R55 Syncope and collapse (principal); S09.90XA Unspecified injury of head, initial encounter; Z87.891 Personal history of nicotine dependence; E87.1 Hypo-osmolality and hyponatremia; F41.9 Anxiety disorder, unspecified; S82.831A Other fracture of upper and lower end of right fibula, initial encounter for closed fracture; I10 Essential (primary) hypertension; Z79.899 Other long term (current) drug therapy; N40.0 Benign prostatic hyperplasia without lower urinary tract symptoms; F32.A Depression, unspecified; X58.XXXA Exposure to other specified factors, initial encounter
CPT/HCPCS: 29515; 70450; 73610; 73630; 80048; 83735; 85025; 93005; 96361; 96374; 99285; A4216

== ENCOUNTER 2025-05-16 06:37 | Emergency (ER) | payer MEDICARE, SELFPAY ==
[2025-05-16] VITALS (21 sets, daily range): BP systolic 130–172; BP diastolic 61–84; PULSE 64–91; RESP 10–18; TEMP 36.8–37; O2SAT 97–99; BMI 27.0
--- NOTE | 2025-05-16 06:57 | EX.ED.DYSGE1 ---
HPI History of Present Illness Chief Complaint: Mental Health Narrative Narrative: Patient is a 75-year-old male with past medical history of alcohol use, anxiety, depression, hypertension who presents to the emergency department the chief complaint of depression and anxiety. Patient states that he feels like he is also withdrawing from finasteride and states that he believes that this could be leading to his depression and anxiety as well. Patient notes that he was just here recently and he broke his right lower extremity. He states that he does not have any specific plans and he has never tried to kill himself in the past. He states that he just wants help. [facility] Medical History Wears hearing aid Wears glasses Wears partial dentures Depression Anxiety Alcohol use Arthritis Prostate disease Back pain Restless legs Former smoker History of pain when walking Hypertension Home Medications ?Medication ?Instructions ?Recorded ?Last Taken ?Type atenolol 50 mg tablet 50 mg PO DAILY BP 08/31/23 08/05/24 History melatonin 10 mg capsule 10 mg PO HS PRN sleep 08/31/23 08/04/24 History tamsulosin 0.4 mg capsule 0.4 mg PO 1500 PROSTATE 08/31/23 08/04/24 History buspirone 10 mg tablet 10 mg PO BID ANXIETY 05/21/24 08/05/24 History lisinopril 40 mg tablet 40 mg PO QDAY BP 05/21/24 08/05/24 History magnesium 200 mg tablet 200 mg PO DAILY SUPPLEMENT 05/21/24 08/04/24 History acetaminophen 500 mg tablet 500 mg PO Q6H #30 tabs 08/06/24 Unknown Rx lorazepam 0.5 mg tablet 0.5 mg PO TID PRN PRN anxiety 05/14/25 Unknown History oxycodone 5 mg tablet 5 mg PO Q6H PRN pain 3 days #12 05/14/25 Unknown Rx tabs sertraline 50 mg tablet 50 mg PO Q24H 05/14/25 Unknown History Allergy/AdvReac Type Severity Reaction Status Date / Time No Known Allergies Allergy Verified 05/16/25 06:50 Family History Father Cancer Brother Cancer Sister Cancer Surgical History Hx of colonoscopy Hx of prostate biopsy History of carpal tunnel surgery of right wrist History of carpal tunnel surgery of left wrist Social History Smoking Status: Former smoker Tobacco: How many years used: 20 alcohol intake: current alcohol intake frequency: a few times a week Alcohol type: beer ROS ROS ED ROS Narrative Constitutional: Denies headache, lightness, dizziness, fevers, chills Eyes: Denies change in vision double vision blurred vision Cardiovascular: Denies chest pain Respiratory: Shortness of breath Abdomen: Denies nausea vomit diarrhea : Denies any urinary symptoms Neurological: Denies any numbness, weakness, tingling Musculoskeletal: States that he has a splint on his right leg from a broken leg Skin: Denies any rashes or lesions EXAM Physical Exam Narrative Exam Narrative: General: Patient was lying in bed rest comfortably did not appear to be acute distress Head: Atraumatic, normocephalic Eyes: PERRL bilaterally, EOMI by, no conjunctival injection noted Neck: Soft, supple, trachea midline Cardiovascular: Regular rate and rhythm Respiratory: Clear to auscultation bilaterally Abdomen: No tenderness to palpation Musculoskeletal: Patient has splint applied to the right lower extremity Extremities: +5/5 strength noted in the bilateral upper and lower extremities, radial pulses +2/4 in the bilateral extremities Neurological: Patient following commands knew that he was at [facility] the year is 2024 Skin: Warm, dry, intact no rashes or lesions noted Const Vital Signs: 05/16/25 06:38 Temperature 98.5 F Temperature Source Temporal Pulse Rate 83 Respiratory Rate 16 Blood Pressure 161/84 H Blood Pressure Mean 109 Pulse Ox 98 MDM MDM MDM Narrative Medical decision making narrative: Patient is a 75-year-old male who presented to the emergency department with a chief complaint of worsening anxiety, depression and overall not feeling well. On the differential diagnose includes but not limited to electrolyte abnormality, depression, anxiety. Once the patient is medically cleared we will have social work evaluate the patient. Collateral information will be obtained from patient's when she arrives as he states that she is on her way. Patient's case will be signed out to oncoming provider to follow-up on results and make ultimate disposition see addendum for further details. Discharge Plan Triage Chief Complaint: Mental Health ED Provider: Dillon Eastman Dx/Rx/DC Orders Prescriptions: No Action atenolol 50 mg tablet 50 mg PO DAILY Patient Comments: Take 1 tablet (50 mg) by mouth daily. tamsulosin 0.4 mg capsule 0.4 mg PO 1500 Patient Comments: TAKE 1 CAPSULE BY MOUTH EVERY DAY melatonin 10 mg capsule 10 mg PO HS PRN (Reason: sleep) buspirone 10 mg tablet 10 mg PO BID Patient Comments: TAKE 1 TABLET BY MOUTH TWICE DAILY lisinopril 40 mg tablet 40 mg PO QDAY magnesium 200 mg tablet 200 mg PO DAILY lorazepam 0.5 mg tablet 0.5 mg PO TID PRN PRN (Reason: anxiety) sertraline 50 mg tablet 50 mg PO Q24H oxycodone 5 mg tablet 5 mg PO Q6H PRN (Reason: pain) 3 Days Qty: 12 0RF acetaminophen 500 mg Tablet 500 mg PO Q6H Qty: 30 0RF Primary Care Provider: Jessica Frank NP Referrals: Jessica Frank NP, PRESSURE TESTER-C [Primary Care Provider] - Print Language: Bahamian
--- OUTSIDE RECORDS SUMMARY | 2025-05-16 07:07 | XMS RPT_ITS | CCD ---
Author Organization [facility] Care Team Providers Care Host/Hostess Restaurant Name Role Phone JONI LAROSE Unavailable Unavailable [...] Pal, Oma Unavailable Unavailable Unavailable Unavailable Unavailable Marcia SAUCEDA, Mumtaz Estrada Primary Care Provider Unavailable Primary Care Provider UnavailMumtaz Taylor MD Primary Care Provider Zac PHOTOCOPIER TECHNICIAN, PHOTOCOPIER TECHNICIAN-C Candice Primary Care Provider Zac BA, PHOTOCOPIER TECHNICIAN-C Candice Referring Provider Dr. Andriy Rizzo Attending Provider Yomi Castro MD Unavailable JOSH GONZALEZ Referring UnavailCandice Zamora CNP Primary Care Provider [phone] Yomi Castro MD Unavailable Candice Frank CNP Primary Care Provider Candice Franco APRN, CNP Primary Care Provider Candice Frank CNP Primary Care Provider Zac BA, Candice Primary Care Unavailable Hever Marcial Attending Unavailable Norberto Lu Admitting Unavailable Norberto Lu Referring Unavailable Zca BA Candice Primary Care Unavailable Coy Burkett Unavailable Fred Shepherd Attending Unavailable Lu, Norberto Consulting Unavailable Zac PHOTOCOPIER TECHNICIAN, [place] Primary Care Unavailable Lu, Norberto Attending Unavailable Lu, Norberto Referring Unavailable Zac PHOTOCOPIER TECHNICIAN, [place] Primary Care Unavailable Zac PHOTOCOPIER TECHNICIAN, Candice Referring Unavailable Mable Swanson Attending Unavailable Zac PHOTOCOPIER TECHNICIAN, [place] Primary Care Unavailable AggieDanielWinfield Attending Unavailable Zac PHOTOCOPIER TECHNICIAN, Candice Referring Unavailable Zac PHOTOCOPIER TECHNICIAN, [place] Primary Care Unavailable Lu, Norberto Attending Unavailable Zac PHOTOCOPIER TECHNICIAN, [place] Primary Care Unavailable Aggie, Hever Attending Unavailable Zac PHOTOCOPIER TECHNICIAN, Candice Referring Unavailable Lu, Norberto Attending Unavailable Zac PHOTOCOPIER TECHNICIAN, [place] Primary Care Unavailable Zac PHOTOCOPIER TECHNICIAN, Candice Referring Unavailable Lu, Norberto Attending Unavailable Zac PHOTOCOPIER TECHNICIAN, [place] Primary Care Unavailable Aggie, Winfield Attending Unavailable Zac PHOTOCOPIER TECHNICIAN, [place] Primary Care Unavailable Lu, Norberto Referring Unavailable Zac PHOTOCOPIER TECHNICIAN, [place] Primary Care Unavailable Chele Chaudhary Attending Unavailable Lu, Norberto Attending Unavailable Lu, Norberto Consulting Unavailable Lu, Norberto Admitting Unavailable Lu, Norberto Referring Unavailable Zac PHOTOCOPIER TECHNICIAN, [place] Primary Care Unavailable Lu, Norberto Admitting Unavailable Lu, Norberto Referring Unavailable Zac PHOTOCOPIER TECHNICIAN, [place] Primary Care Unavailable Coy Burkett Consulting Unavailable Coy Burkett Attending Unavailable Lu, Norberto Consulting Unavailable Fred Shepherd Attending Unavailable Fred Shepherd Consulting Unavailable Mable Swanson Attending Unavailable Zac PHOTOCOPIER TECHNICIAN, [facility] Care Unavailable Zac PHOTOCOPIER TECHNICIAN, [place] Referring Unavailable Mable Swanson Attending Unavailable [facility] Primary Care Unavailable SHRUTHI KRAUSE Referring Unavailkeke FRANK EAR NOSE THROAT PHYSICIAN-PHOTOCOPIER TECHNICIAN, [facility] Primary Care Physician [phone] ROSENDA SAUCEDA, DR DAILY Attending Unavailkeke FRANK EAR NOSE THROAT PHYSICIAN-PHOTOCOPIER TECHNICIAN, [facility] Primary Care Unavailab dar Frank EAR NOSE THROAT PHYSICIAN - REVERSE LOGISTICS ANALYST, [facility] Unavailable SASHA KAUR Attending Unavailable CANDICE FRANK Primary Care Unavailable HORACE LUBIN Attending Unavailable ZAC CANDICEGabrielle GILLIAM Primary Care Unavailable SASHA KAUR Attending Unavailable SELF Referring Unavailable ZAC CANDICE MANE Primary Care Unavailable [facility], MUMTAZ Primary Care Unavailable MARCELINO DURÁN Attending Unavailable CANDICE FRANK Attending Unavailable MARCIA, MUMTAZ Primary Care Unavailable MARCIA, MUMTAZ Primary Care Unavailable MARCIA, MUMTAZ Primary Care Unavailable PATRICIOAL, MARCELINO Attending Unavailable MARCIA, MUMTAZ Primary Care Unavailable CANDICE FRANK Attending Unavailable Allergies Allergy Classification Reported Allergen(s) Allergy Type Date of Onset Reaction(s) Facility (1 source) Finasteride Drug Allergy 05-11-2025 Anxiety [facility] Medications Current Medications Medication Drug Class(es) Dates [...] Start: 12-24-2018 take 0.5 tablet by m outh twice daily busPIRone HCl - 15 MG [...] on above: Take 1 capsule by mo ut once daily. escitalopram 10 mg oral tablet [...] 01/22/2024 Discontinued (Reorder) take 2 tablets by [facility] once daily lisinopril (ZESTRIL) 10 mg tablet [...] 08-31-2023 Episodic Other aftercare (1 source) Other skilled nursing (current) drug therapy; Translations: [OTH PEN[facility] CURRENT DR] Onset: 07-19-2017 Episodic Other connective [...] Name Value Interpretation Reference Range Facility 36on 05-11-2025 36 Noted. Agree with recommendation. [facility] 36 S: Patient spoke wit h CAC nurse regarding anxiety and depression. B: Onset of symptoms/concern 10 days A: High anxiety and depression for the last 10 days. Pt endorses started taking Proscar in March, and noted increase anxiety/panic attacks approximately 3 weeks after starting medications. stopped taking Proscar 8 days ago. Pt endorses has thoughts of sucide with no noted plan. Denises - chest pain, palpitations, R: scheduled same day 05/11/25, advise to arrive 10 min early with ID, insurance card and list of current medications. No known COVID/Flu exposure, current symptoms or recent vaccines. Home care advise given for depression, Mental health hotline #[phone] and Crisis Hotline # Oure 127 given to patient at this time. Pt states I have thoughts but I wouldn't do anything. Patient understands care advice. No further needs at this time. Patient instructed to call back with new or worsening symptoms. Reason for Disposition Suicide thoughts, threats, attempts, or questions Patient wants to be seen Protocols used: Anxiety and Panic Woyugv-CNEVG-NZ, Suicide Osesddlj-KODAP-HG [facility] 37on 05-11-2025 37 Send us blood pressu re numbers in 2 weeks via Chinese Online [facility] Office Visiton 05-11-2025 Follow-up visit [id number] Lakhwinder Michaud 1950 M Date Provider Department Center 05/11/2025 [id number] DURÁN [facility] Family History Problem Relation Age of Onset Prostate cancer Father Cancer Brother Alcohol abuse Brother Drug abuse Brother Family Status - Relation Status Age at Father Brother Notes: liver cancer Brother Level of Service:38313 [place] OFFICE/OUTPATIENT ESTABLISHED MOD MDM 30 MIN Reason for Visit and Comments: Anxiety [9] Depression [32] [facility] Progress Noteon 05-11-2025 Progress Note Start sertraline as directed, continue BuSpar twice [...] only. Close follow-up in about 3 weeks Normal [facility] Progress Note Will start sertralin e 50 mg, half tablet daily x 7 days then increase to 1 tab daily Denies any active suicidal or homicidal ideation Normal [facility] Progress Note 05/11/2025 Evans Michaud (: 1950) is a [...] Pulse: 57 84 Resp: 24 Temp: 36.9 ?C (98.4 ?F) TempSrc: Infrared SpO2: 96% Weight: 174 lb [...] signature was used to authenticate this note. Marcelino Durán APRN - NOMRA 05/11/2025 6:30 PM [1] Current Outpatient Medications [...] 7 days, then increase to 1 tab colin (more content not included)... Normal [facility] Progress Note Patient was identifi ed by name and Date of . [facility] 36on 05-05-2025 36 Prescription Request : atenolol (Tenormin) 50 MG tablet Last medication check: 07/14/24 Last physical exam: 01/16/25 Next scheduled appointment: 07/24/25 Last date of refill on this medication 10/30/24 ( qty 90 refill 1) [facility] CNPNon 05-05-2025 NORMAN Telephone (UROLWS) -- EVANS MICHAUD ([id number]) 1950 M Date Time Provider Department 05/05/25 [...] he can try? Patient's preferred pharmacy is [facility] in [place]. Ankita Link MA 05/05/2025 11:43 AM Signed Patient called office again stating he is in a bad way he wants to know when the provider is going to respond back to him. I advised that the provider is seeing patients in the office and has not been able to respond yet. Patient sent in a Zvents message as well. Allergies As of Date: [...] Encounter Status:Closed by RADHA TIRADO on 05/05/25 [facility] 36on 03-26-2025 36 Called for office note [facility] 36 Are we able to close this? [facility] 36on 03-24-2025 36 Patient's further questions if applicable: Patient phoned 03/24/25 demanding we stop sending messages re his 01/16/25 referral to Gastro. He saw Dr Jamil Herzog, had colonoscopy, all was okay. (Only thing I can think of is he's getting messages from Zvents because referral status is Pending. Perhaps the referral can be closed so the messages will stop? I am not authorized to close referral. MELY @ [facility] Access Center 03/24/25) [facility] CNPNon 03-24-2025 CNPN Telephone (BOOKERExpandly) -- EVANS MICHAUD ([id number]) 1950 M Date Time Provider Department 03/24/25 [...] down symptoms are worse. Patient's pharmacy is [facility] Please review and advise ALYSON Arrieta Laurie, MA 03/24/2025 4:19 PM Signed Horace Lubin PA-C Proscar sent, will need a follow-up with PVR with me in 3 months Horace Lubin MPAS, MT, Johnnie Yang MA 03/24/2025 4:19 PM Signed Pt notified and verbalizes understanding. Transferred to scheduling. Johnnie Snow MA Allergies As of Date: 03/24/2025 (No Known Allergies) Date Reviewed: 02/12/2025 Reviewed by: Sasha Kaur OD - Fully Assessed Reason for Visit: [...] Encounter Status:Closed by JOHNNIE SNOW on 03/24/25 [place] [address]on 03-16-2025 [address] Herzog's office [place] [address] I am not sure what messages they have been receiving, however, we have not received results yet from Dr. Herzog's office. Please request records and we can update his health maintenance. [facility] 36 Name of caller: Shelby Contact phone number: [phone] Relationship to Patient: spouse Provider: Marcia Practice: [facility] Chief Complaint/Reason for Call: Patient already had the colonoscopy with Dr. Herzog 5.03.29 and the records should have been sent. Please stop all messages regarding this. Best time of day caller can be reached: any Patient advised that office/PCP has 24-48 business hours to return their call: N/A [facility] [id number] 03-12-2025 [id number] Requested report [facility] 36on 03-11-2025 36 Please request colon oscopy report from Dr. Herzog to update health maintenance. [place] 3841403-03-2025 36 Reviewed chart. Refi ll appropriate. RX sent. [facility] 36 Prescription Request : Last medication check: 07/14/2024 Last physical exam: 01/16/2025 Next scheduled appointment: 07/24/2025 Last date of refill on this medication: 08/21/[address] [facility] CNOVon 01-27-2025 CNOV Office Visit (UROLWS ) -- EVANS MICHAUD ([id number]) 1950 M Date Time Provider Department 01/27/25 10:30 AM HORACE LUBIN During your visit today, we recorded the following information about you: Temperature Pulse Respiration Blood pressure 97.3 degrees 92/minute 14/minute 176/76 Weight Height 78 kg 1.753 m Horace Lubin PA-C 01/27/2025 4:32 PM Signed [facility] EST PATIENT CLINIC NOTE [...] in 3 months > 1 year Appt wTRI Duarte MT, CHELA with PSA prior order is placed for 2025 TRI Mccabe MT, PA-C Clay, Kimberly, LPN 01/27/2025 4:32 [...] the procedure well. Plan: Appointment with Horace. Horace Lubin PA-C 01/27/2025 11:36 AM Signed > If having trouble emptying bladder bird (more content not included)... Normal [facility] UA DIP, URINE (POC)on 2024 BILIRUBIN UA (POCT) Negative Negative [facility] CLARITY UA (POCT) Clear [facility] COLOR UA (POCT) Yellow [facility] GLUCOSE UA (POCT) Negative Negative mg/dL [facility] Hemoglobin Ql (U) Negative [facility] KETONE UA (POCT) Negative Negative mg/dL [facility] LEUKOCYTES UA (POCT) Negative Negative [facility] NITRITE UA (POCT) Negative Negative [facility] PH UA (POCT) 7 4.5 - 8.0 [facility] Protein Ql (U) Negative Negative mg/dL [facility] SPECIFIC GRAVITY UA (POCT) 1.015 1.005 - 1.030 [facility] UROBILINOGEN UA (POCT) 0.2 Normal E.U./dL [facility] Location:[facility], [address], [place], [place], [id number] [place] [address] POINT OF CARE [facility] PSA SerPl-ncon 01-23-2025 Prostate specific Ag [Mass/Vol] 5.68 ng/mL High <2.60 [facility] Comment on above: Order Comment: Speci men Type: BLOOD SPECIMEN Ordering Facility: [facility] Address: [address] [place] [id number] Result Comment: Sumit mccauley PSA test methodology used is the Electrochemiluminescence [...] Prateek Jeffery M.D., Radha Healy, M.P.H., Nancy Becerra Sc.D. Effect of Verification Bias on Screening for Prostate Cancer by Measurement of Prostatic Specific Antigen. N Engl J Med 2003,349:335-42. Performed By: #### 2 857-1 #### [facility] CLIA [id number] [address] [place] [id number] [facility] 36on 01-19-2025 36 Seen by patient Lakhwinder Michaud on 01/19/2025 9:52 AM Canarahart message sent to patient inquiring any further questions or concerns. See TE. Normal [facility] 36 ----- Message from Maddi Kennedy MD sent at 01/18/2025 8:09 PM EDT ----- Blood sugar is good, chemistry is normal except borderline low sodium which is stable. CBC is normal no anemia. Cholesterol is excellent. Continue low-fat low-cholesterol diet Normal [facility] 37on 01-16-[address] Jamil Herzog- Gastroenterology [address] [facility] [address] P: [phone] Personalized Preventative Plan for Evans Michaud - [...] Recommendations: A preventive eye exam by an hvac specialist is recommended every 1-2 years to screen for glaucoma, cataracts, macular degeneration, and other eye disorders. A preventive dental visit is recommended every 6 months. Try to get at least 150 minutes of exercise per week or 10,000 steps per day on a pedometer. You need 1200-1500mg of calcium and 9286-5811 international units of vitamin D per day. [...] when riding a bicycle or a motorcycle Normal [facility] Office Visiton 01-16-2025 Follow-up visit [id number] Lakhwinder Michaud 1950 M Date Provider Department Center 01/16/2025 [id number] FRANK [facility] Family History Problem Relation Age of Onset Prostate cancer Father Cancer Brother Alcohol abuse Brother Drug abuse Brother Family Status - Relation Status Age at Father Brother Notes: liver cancer Brother Level of Service:G0439 [place] PPPS, SUBSEQ VISIT Reason for Visit and Comments: Medicare Annual Wellness Visit Subsequent [887] Blood Work [383148] Normal [facility] Progress Noteon 01-16-2025 Progress Note [address] [address] Dept: [phone] Dept Chief Complaint: Evans Michaud is an [...] and hematuria. Musculoskeleta (more content not included)... [facility] 3601-01-2025 36 Reviewed chart. Refi ll appropriate. RX sent. [facility] 36 Prescription Request : Last medication check: 07/14/2024 Last physical exam: 01/09/24 Next scheduled appointment: 01/16/2025 Last date of refill on this medication 07/14/[address] [facility] 36on 12-17-2024 36 Blood pressure is mi ldly elevated based on reading provided in message. Please schedule a nurse visit for a BP check. Thank you. [facility] 2912-02-2024 29 Addended by: MARCELINO SHAW on: 12/04/2024 05:10 PM Modules accepted: Level of Service [facility] 3612-02-20[address] [facility] Office Visiton 12-02-2024 Follow-up visit [id number] Lakhwinder Michaud 1950 M Date Provider Department Center 12/02/2024 [id number]-RLFOWBQSZQMARCELINO DURÁN [facility] Family History Problem Relation Age of Onset Prostate cancer Father Cancer Brother Family Status - Relation Status Age at Father Brother Notes: liver cancer Level of Service:11560 [place] OFFICE/OUTPATIENT ESTABLISHED MOD MDM 30 MIN Reason for Visit and Comments: Nocturia [334] Difficulty Urinating [017472] Urinary Retention [883969] Urinary Frequency [589893] - Started a little over week ago worse at night Cough [28] Nasal Congestion [742319] Normal [facility] Progress Noteon 12-02-2024 Progress Note Continues to have ur inary frequency, has been seen by urology. UA unremarkable for urinary tract infection. Will increase Flomax to 0.8 mg/day, recommend following up with urology sooner if able Normal [facility] Progress Note Improving. Consisten t with viral URI. Continue Mucinex czrm-axx-pagemst as directed follow-up for worsening or failure for symptoms to continue to improve Normal [facility] Progress Note Patient was identifi ed by [...] to provider. Will send bp readings via Chinese Online in 2 weeks. Normal [facility] Progress Note 12/02/2024 Evans Michaud (: 1950) [...] Improving. Consistent with viral URI. Continue Mucinex cdtk-rqx-dixdiln as directed follow-up for worsening or failure [...] and has another appt with them in [place] in January. He is on flomax 0.4 mg daily for BPH. States it was helping for awhile and seems to have stopped working as well. Prior to Admission medications Medication Sig Start Date End Date Taking? Authorizing Provider atenolol (Tenormin) 50 MG tablet Take 1 tablet (50 mg) by mouth daily. 10/30/24 Yes Marcelino Durán APRN - NORMA busPIRone (Buspar) 10 MG tablet Take 1 [...] as needed for erectile dysfunction. 10/23/23 10/22/24 Marcelino Durán APRN - NORMA Review of Systems Constitutional: Negative for activity [...] signature was used to authenticate this note. Marcelino Durán, KENZIE - NORMA 12/02/2024 12:[address] [facility] Urinalysis macro (dipstick) panel (U)on 12-02-2024 Bilirubin, UA Negative [facility] Blood, UA Negative [facility] Glucose, UA Negative [facility] Ketones, POC (mg/dL) 5 mg/dL [facility] Leukocytes, UA Negative [facility] Nitrite, UA Negative [facility] pH, UA 7.0 [facility] Protein, UA Negative [facility] Spec Grav, UA 1.015 [facility] Urobilinogen, [facility] 0.2 [facility]th [facility] 36on 11-11-2024 36 Rx refused, this was sent in 1 week ago have him check with the pharmacy Normal [facility] 36 Prescription Request : Last medication check: 07/14/2024 Last physical exam: 01/09/24 Next scheduled appointment: 01/16/2025 Last date of refill on this medication 10/30/[address] [facility] Lumbar Spine 2 or 3 Viewson 11-03-2024 Lumbar Spine 2 or 3 Views [facility] [address] [place] [address] Lumbar Spine 2 or 3 Views MR#: [id number] Acct: [id number] Name: EVANS MICHAUD Jr. Rep #: [id number] : 1950 M 74 From: Vitaliy Elaine MD PCP: KATARINA Patel Status: DEP AMB Study: Lumbar Spine 2 or 3 Views Date of Exam: Exam# [id number] Ordering Dr: Mable Swanson [id number] STUDY: X-RAY - LUMBAR SPINE REASON FOR [...] EST , CC: KATARINA Frank; ARNIE Russo Warp Trucker: Signed Normal [facility] Orthopedic Visit Reporton Orthopedic Visit Report [facility] [address] [place] [address] OFFICE VISIT Date of Service: 11/03/24 MR#: [id number] Acct: [id number] Name: EVANS MICHAUD Jr. Rep #: [id number] : 1950 Provider: ARNIE Russo Age/Sex: 74/M Location: [facility] Status: Signed Intake Vital Signs 08/21/24 11:25 [...] fallen in the past year?: No 11/03/24 1205 Date Mable GAITAN Cosign Signature: Date (if applicable) CC: RACHELC Candice Frank [facility] 36on 10-30-2024 36 Reviewed chart. Refi ll appropriate. RX sent. Normal [facility] 36 Prescription Request : Last medication check: 09/03/23 Last physical exam: 01/09/24 Next scheduled appointment: 01/16/25 Last date of refill on this medication 05/15/24 90 day [address] [facility] Lumbar Spine 2 or 3 Viewson 09-18-2024 Lumbar Spine 2 or 3 Views [facility] [address] [place] [address] Lumbar Spine 2 or 3 Views MR#: [id number] Acct: [id number] Name: EVANS MICHAUD Rep #: [id number] : 1950 M 74 From: Merna simons MD PCP: KATARINA Patel Status: DEP [facility] Study: Lumbar Spine 2 or 3 Views Date of Exam: Exam# [id number] Ordering Dr: Mable Swanson [id number] HISTORY: s/p fusion -- please do upright [...] Signed: Merna Chang MD at 11:20 EST Reading Location ID and State: [facility] / [place] Tel , Service support , CC: KATARINA Frank; ARNIE Russo Warp Trucker: Signed Normal [facility] Orthopedic Visit Reporton Orthopedic Visit Report [facility] [address] [place] [address] OFFICE VISIT Date of Service: 09/18/24 MR#: [id number] Acct: [id number] Name: EVANS MICHAUD Rep #: [id number] : 1950 Provider: ARNIE Russo Age/Sex: 74/M Location: [facility] Status: Signed Intake Vital Signs 08/05/24 07:01 [...] decisions made by me, ARNIE Russo 09/18/24 9815. Part of today???s visit was documented by [...] Continue no bending (more content not included)... [facility] 36on 09-05-2024 36 Just refilled to [facility] on 08/21/24 for a 90 day supply plus one refill. [facility] 36 Prescription Request : Sent 08/21/24 90 day [address] [facility] Inital Evaluation (1) - PTon 09-01-2024 Inital Evaluation (1) - PT [facility] [address] [place] [address] / REHABILITATION SERVICES INITIAL EVALUATION MR#: [id number] Acct: [id number] Name: EVANS MICHAUD Jr. Rep #: [id number] : 1950 74 From: Eloy SMITHT, OCS, CSCS Referring Dr.: Dr. Norberto Lu MD Status: REG RCR Insurance: [employer] SELF PAY INSURANCE [...] day outdoors with a little gardening in [employer], used to golf and fish but not [...] oxygenation perfu (more content not included)... Normal [facility] 36on 08-21-2024 36 Prescription Request : Last medication check: 07/14/24 Last physical exam: 01/09/24 Next scheduled appointment: 01/16/25 Last date of refill on this medication 02/20/24 [address] [facility] Lumbar Spine 2 or 3 Viewson 08-21-2024 Lumbar Spine 2 or 3 Views [facility] [address] [place] [address] Lumbar Spine 2 or 3 Views MR#: [id number] Acct: [id number] Name: EVANS MICHAUD Jr. Rep #: [id number] : 1950 M 74 From: Juan Linda PCP: KATARINA Patel Status: DEP AMB Study: Lumbar Spine 2 or 3 Views Date of Exam: Exam# [id number] Ordering Dr: Mable Swanson [id number] STUDY: X-RAY - LUMBAR SPINE REASON FOR [...] EDT , CC: KATARINA Frank; ARNIE Russo Warp Trucker: Signed Normal [facility] Orthopedic Visit Reporton Orthopedic Visit Report [facility] [address] [place] [address] OFFICE VISIT Date of Service: 08/21/24 MR#: [id number] Acct: [id number] Name: EVANS MICHAUD JrNorris Rep #: [id number] : 1950 Provider: Dr. Norberto Lu MD Age/Sex: 74/M Location: [facility] [place] Status: Signed Intake Vital Signs 05/21/24 09:24 [...] past year?: No 08/23/24 1335 Date Norberto Lu MD Cosigner Signature: Date (if applicable) CC: KATARINA Frank Normal [facility] Basic Metabolic Profile (BMP )on 08-06-2024 BUN/CRE 11.3 RATIO Normal 08-24 [facility] Comment on above: Performed By: #### L 500.2500, L100.0500 ####[facility] [address] [place], [address] CA,Total 8.6 mg/dL Normal 8.5-10.1 [facility] Comment on above: Performed By: #### L 500.2500, L100.0500 ####[facility] [address] [place], [address] Chloride [Moles/Vol] 96 mmol/L Low 98-107 [facility] Comment on above: Performed By: #### L 500.2500, L100.0500 ####[facility] [address] [place], [address] CO2 [Moles/Vol] 26.0 mmol/L Normal 21.0-32.0 [facility] Comment on above: Performed By: #### L 500.2500, L100.0500 ####[facility] [address] [place], [address] Creatinine [Mass/Vol] 1.06 mg/dL Normal 0.70-1.30 [facility] Comment on above: Result Comment: The validity of the calculated GFR GFRAA in patients over 70 years has not been determined. Clinical correlation is essential. Performed By: #### L 500.2500, L100.0500 ####[facility] [address] [place], [address] ECRCL 61.14 ml/min Normal [facility] Comment on above: Performed By: #### L 500.2500, L100.0500 ####[facility] [address] [place], [address] EST GFR - AA 88 mL/min Normal >60 [facility] Comment on above: Result Comment: Afri can [place] Citizen GFR Calc Performed By: #### L 500.2500, L100.0500 ####[facility] [address] [place], [address] GAP 6 Normal 5-15 [facility] Comment on above: Performed By: #### L 500.2500, L100.0500 ####[facility] [address] [place], [address] GFR/1.73 sq M.predicted among non-blacks MDRD (S/P/Bld) [Vol rate/Area] 73 mL/min/{1.73_m2} Normal >60 [facility] Comment on above: Result Comment: Non- GFR Calc Performed By: #### L 500.2500, L100.0500 ####[facility] [address] [place], [address] Glucose [Mass/Vol] 131 mg/dL High 74-106 [facility] Comment on above: Result Comment: Fast ing Glucose result greater than or equal to 126 mg/dL suggests DIABETES MELLITUS per A.D.A. criteria. Performed By: #### L 500.2500, L100.0500 ####[facility] [address] [place], [address] Potassium [Moles/Vol] 4.3 mmol/L Normal 3.5-5.1 [facility] Comment on above: Performed By: #### L 500.2500, L100.0500 ####[facility] [address] [place], [address] Sodium [Moles/Vol] 129 mmol/L Low 136-145 [facility] Comment on above: Performed By: #### L 500.2500, L100.0500 ####[facility] [address] [place], [address] Urea nitrogen [Mass/Vol] 12 mg/dL Normal 7-18 [facility] Comment on above: Performed By: #### L 500.2500, L100.0500 ####[facility] [address] [place], [address] CBC-Complete Blood Cnt No Di ffon 08-06-2024 Erythrocyte distribution width (RBC) [Ratio] 11.3 % Low 11.6-14.6 [facility] Comment on above: Performed By: #### L 500.2500, L100.0500 ####[facility] [address] [place], [address] Hematocrit (Bld) [Volume fraction] 35.7 % Low 40-54 [facility] Comment on above: Performed By: #### L 500.2500, L100.0500 ####[facility] [address] [place], [address] Hemoglobin (Bld) [Mass/Vol] 12.3 g/dL Low 13.0-16.5 [facility] Comment on above: Performed By: #### L 500.2500, L100.0500 ####[facility] [address] [place], [address] MCH (RBC) [Entitic mass] 34.1 pg High 27.0-32.0 [facility] Comment on above: Performed By: #### L 500.2500, L100.0500 ####[facility] [address] [place], [address] MCHC (RBC) [Mass/Vol] 34.5 g/dL Normal 32-36 [facility] Comment on above: Performed By: #### L 500.2500, L100.0500 ####[facility] [address] [place], [address] MCV (RBC) [Entitic vol] 98.9 fL High 80-94 [facility] Comment on above: Performed By: #### L 500.2500, L100.0500 ####[facility] [address] [place], [address] Platelet mean volume (Bld) [Entitic vol] 9.5 fL Normal 6.2-12.0 [facility] Comment on above: Performed By: #### L 500.2500, L100.0500 ####[facility] [address] [place], [address] Platelets (Bld) [#/Vol] 203 10*3/uL Normal 150-450 [facility] Comment on above: Performed By: #### L 500.2500, L100.0500 ####[facility] [address] [place], [address] RBC (Bld) [#/Vol] 3.61 10*6/uL Low 4.6-6.2 [facility] Comment on above: Performed By: #### L 500.2500, L100.0500 ####[facility] [address] [place], [address] RDW SD 41.5 fl Normal 35.1-43.9 [facility] Comment on above: Performed By: #### L 500.2500, L100.0500 ####[facility] [address] [place], [address] WBC (Bld) [#/Vol] 8.3 10*3/uL Normal 4.4-11.0 [facility] Comment on above: Performed By: #### L 500.2500, L100.0500 ####[facility] [address] [place], [address] Lumbar Spine 2 or 3 Viewson 08-06-2024 Lumbar Spine 2 or 3 Views [facility] Imaging Services [address] [place] [address] Lumbar Spine 2 or 3 Views MR#: [id number] Acct: [id number] Name: EVANS MICHAUDKIMMIE Garcia Rep #: [id number] : 1950 M 74 From: Erlinda Linda PCP: KATARINA Patel Status: DIS IN Study: Lumbar Spine 2 or 3 Views Date of Exam: Exam# [id number] Ordering Dr: Mable Swanson PA [id number] INDICATION: s/p lumbar fusion -- please do [...] L4-5 with minimal anterolisthesis. Electronically Signed: Erlinda Napoles MD at 8:11 EDT , CC: KATARINA Frank; ARNIE Russo Warp Trucker: Signed Normal [facility] Bedside Glucoseon 08-05-2024 FINGERSTICK GLU 101 mg/dL Normal 74-106 [facility] Comment on above: Result Comment: ANANDA GEMENT OF PATIENT CARE PER NURSING PROTOCOL Performed By: #### L 501.080 ####[facility] [address] [place], [address] Consultation - Hospitaliston 08-05-2024 Consultation - Hospitalist [facility] Medical Records Department [address] [place] [address] Consultation - Hospitalist 08/05/24 1549 MR#: [id number] Acct: [id number] Name: EVANS MICHAUD Rep #: [id number] : 1950 74 From: Coy Burkett DO PCP: KATARINA Patel Status:ADM IN Location: [place] GN313-9 Assessment Plan Assessment/Plan (1) Spondylolisthesis, lumbar region: (2) S/P lumbar fusion: PLAN: Plan Patient is a 74-year-old male who presented to [facility] on 08/05/2024 for planned lumbar spine procedure. [...] is a 74 M who presented to [facility] on 08/05/2024 for planned lumbar spine procedure. [...] No other acute concerns at this time. FORMERLY [facility], [facility]–1983 Medical History Wears hearing aid Wears glasses [...] Denies dizzine (more content not included)... Normal [facility] Lumbar Spine 2 or 3 Viewson 08-05-2024 Lumbar Spine 2 or 3 Views [facility] Imaging Services [address] [place] [address] Lumbar Spine 2 or 3 Views MR#: [id number] Acct: [id number] Name: EVANS MICHAUD JrNorris Rep #: [id number] : 1950 M 74 From: Vitaliy Elaine MD PCP: KATARINA Patel Status: ADM IN Study: Lumbar Spine 2 or 3 Views Date of Exam: Exam# [id number] Ordering Dr: Norberto Lu MD [id number] PROCEDURE: Lumbar spine Technique: 1:57 minutes of fluoroscopy of the lumbar spine and visualized upper arm during discectomy, interbody fusion, and transpedicular fixation and 12 images are limited for interpretation. RAD/Lumbar Spine 2 or 3 Views IMPRESSION: Fluoroscopy during lumbar spine surgery. Electronically Signed: Vitaliy Elaine MD at 13:58 EDT Reading Location ID and State: [address] [place] [address] Tel , Service support , CC: KATARINA Frank; Dr. Norberto Lu MD Warp Trucker: Signed [facility] MR/POSTOP.ANEon 08-05-2024 MR/POSTOP.[facility] Medical Records Department [address] [place] [address] Anesthesia Postop Eval I 08/05/24 1229 MR#: [id number] Acct: [id number] Name: EVANS MICHAUD JrNorris Rep #: [id number] : 1950 74 From: Jennifer Fitzgerald PCP: Candice Zac, PHOTOCOPIER TECHNICIAN-C Status:ADM IN Y Race: C Location: [place] [address] Anesthesia: Postop Eval I Current Vital Signs [...] 1 completed: Yes 08/05/24 1241 Date Jennifer Hawkinsellenopal Cosigner Signature: Date CC: Signed Normal [facility] MR/GEKBIJRJ7xe 08-05-2024 MR/POSTOPAN2 [facility] Medical Records Department [address] [place] [address] Anesthesia Postop Eval II 08/05/24 1634 MR#: [id number] Acct: [id number] Name: EVANS MICHAUD JrNorris Rep #: [id number] : 1950 74 From: Daniele Clinton MD PCP: KATARINA Patel Status:ADM IN Y Race: C Location: [place] MO043-2 Anesthesia Postop Eval I Sum Postop Eval Completion status Anesthesia document: Postop Eval 1 completed: Yes Anesthesia Postop Eval I Summary Anesthesia Postop Eval I Summary: Anesthesia Postop Eval I: Assessment Summary Airway patent Yes 08/05/24 12:41 NEEDLE LEADER.GDOTT Spontaneous unlabored Yes 08/05/24 12:41 NEEDLE LEADER.GDOTT respirations Mental status Awake,Calm 08/05/24 12:41 NEEDLE LEADER.GDOTT nausea No 08/05/24 12:41 NEEDLE LEADER.GDOTT Vomiting No 08/05/24 12:41 NEEDLE LEADER.GDOTT Anesthesia Postop Eval I: Fluid Summary Crystalloid volume administer 1,300 08/05/24 12:41 NEEDLE LEADER.GDOTT (ml) Colloids volume administered ( ml) Blood Product volume administered (ml) Total IV fluid infused 1,300 08/05/24 12:41 NEEDLE LEADER.GDOTT Anesthesia Postop Eval I: Summary Notes Anesthesia Complication No 08/05/24 12:41 NEEDLE LEADER.GDOTT Anesthesia Complication Comment: Post-operative progress note Anesthesia: Postop Eval II Evaluation Mental status: Awake and Calm Pain Level: 2 nausea: No Vomiting: No Complications Anesthesia Complication: No 08/05/24 1637 Date Daniele Clinton MD Cosigner Signature: Date CC: Signed Normal [facility] Operative Reporton 4 Operative Report [facility] Medical Records Department [address] [place] [address] Operative Report 08/05/24 1203 MR#: [id number] Acct: [id number] Name: EVANS MICHAUD JrNorris Rep #: [id number] : 1950 74 From: Norberto Lu MD PCP: KATARINA Patel Status:ADM IN Location: [place] [address] Report of Operation Date of Procedure: 08/05/24 Description of Surgical Findings:: Preoperative diagnosis: L4-5 spondylolisthesis, stenosis with neurogenic claudication Postoperative diagnosis: Same Name of procedures: L4-5 posterior percutaneous pedicle screw instrumented fusion, prone: ??? L4-5 posterior spinal fusion ??? L4-5 posterior pedicle screw instrumentation ??? Allograft cancellous chips Attending Surgeon: Dr. [...] to the screws with the help of TIDAL PETROLEUMer instrumentation system on both sides. AP and [...] procedure well and no complications occurred. Depuy [place] cage Viper Prime minimally invasive pedicle screw instrumentation system was utilized in this case. No dural tear was identified intraoperatively. I was present for the entirety of the case and performed the surgery. Surgeon: Norberto Lu wine consultant: Mable Swanson Procedures Musculoskeletal 20xxx-29xxx: Other Procedure See Report 08/05/24 1205 Cosigner Signature (if applicable): CC: PHOTOCOPIER TECHNICIAN-C Candice Frank; Dr. Norberto Lu MD Signed Normal [facility] Operative Report [facility] Medical Records Department [address] [place] [address] Operative Report 08/05/24 1159 MR#: [id number] Acct: [id number] Name: EVANS MICHAUD Jr. Rep #: [id number] : 1950 74 From: Norberto Lu MD PCP: KATARINA Patel Status:ADM IN [facility] Report of Operation Date of Procedure: 08/05/24 Description of Surgical Findings:: Preoperative diagnosis: L4-5 spondylolisthesis, stenosis with neurogenic claudication Postoperative diagnosis: Same Name of procedures L4-5 oblique lumbar interbody fusion (OLIF), minimally invasive left sided approach, lateral decubitus: ??? L4-5 anterolateral spinal fusion [address] ??? L4-5 insertion of cage ??? Bone [...] utilized to move the bowel and peritoneum xbd-pg-fjx-way and psoas muscle was exposed staying within the retroperitoneal plane. Centage Corporationframe retractor system was positioned and the retractor [...] with the allograft bone chips. A Depuy [place] cage of size of the 18 x [...] all mu (more content not included)... Normal [facility] Progress Noteon 07-31-2024 Progress Note Venipuncture complet ed by [facility]. Normal [facility] Hepatitis A AB, Totalon 07-07 HEPATITIS A,TOT Positive Abnormal Negative [facility] Comment on above: Result Comment: Comm ent: The HAV total antibody assay detects both IgG and IgM but does not differentiate between them. A negative result suggests susceptibility to infection. A positive result could be due to vaccination, previously resolved infection or active infection. Testing for HAV IgM should be performed if active HAV infection is suspected. [facility] offers profiles that will automatically reflex positive HAV total antibody results to IgM (e.g., panel #[id number] HAV Antibody w/ Rfx). Performed at: [address] [id number] Radiation Monitor: Jamil Meléndez PhD, Phone: [phone] Performed By: #### L 3890.6300, M100.651, L100.0100, L3890.6005, BTSPAT, L3890.6200, L3100.0300, L500.2500 ####[facility] [address] [facility] [place], [address] MRSA/SAID NASAL SCREENon MRSA+SAID SCRN Reason for Exam: PRE OP MRSA MRSA Negative S. AUREUS S. aureus Negative [facility] Comment on above: Performed By: #### L 3890.6300, M100.651, L100.0100, L3890.6005, BTSPAT, L3890.6200, L3100.0300, L500.2500 ####[facility] [address] [facility]. [place], [place], [id number] 12 Lead EKGon 07-24-2024 12 Lead [facility] Cardiovascular Services [address] [place] [address] 12 Lead EKG 07/24/24 1101 MR#: [id number] Acct: [id number] Name: EVANS MICHAUD Jr. Rep #: [id number] : 1950 74 From: Chele Chaudhary MD Attending Dr: Dr. Norberto Lu MD Status: PRE IN Ordering Dr: Norberto Lu MD Date: 07/24/24 Location: [facility] Sex: M C Admitted: Test Reason : PRE OP Blood Pressure : / mmHG Vent. Rate : 054 BPM Atrial Rate : 054 BPM P-R Int : 168 ms QRS Dur : 090 ms QT Int : 422 ms P-R-T Axes : 042 -11 056 degrees QTc Int : 400 ms Sinus bradycardia Otherwise normal ECG Confirmed by Chele Chaudhary ([id number]), newspaper copy editor NANCIE LOAIZA ([id number]) on 07/28/2024 10:17:47 AM Referred By: GLORIA Confirmed By:Chele Chaudhary 07/28/24 1017 Date Chele Chaudhary MD CC: KATARINA Frank; Dr. Norberto Lu MD Signed Normal [facility] Basic Metabolic Profile (BMP )on 07-24-2024 BUN/CRE 11.8 RATIO Normal 10-20 [facility] Comment on above: Performed By: #### L 3890.6300, M100.651, L100.0100, L3890.6005, BTSPAT, L3890.6200, L3100.0300, L500.2500 #### [facility] Laboratory [address] [place], [address] CA,Total 9.9 mg/dL Normal 8.5-10.1 [facility] Comment on above: Performed By: #### L 3890.6300, M100.651, L100.0100, L3890.6005, BTSPAT, L3890.6200, L3100.0300, L500.2500 #### [facility] [address] [place], [address] Chloride [Moles/Vol] 97 mmol/L Low 98-107 [facility] Comment on above: Performed By: #### L 3890.6300, M100.651, L100.0100, L3890.6005, BTSPAT, L3890.6200, L3100.0300, L500.2500 #### [facility] [address] [place], [address] CO2 [Moles/Vol] 27.0 mmol/L Normal 21.0-32.0 [facility] Comment on above: Performed By: #### L 3890.6300, M100.651, L100.0100, L3890.6005, BTSPAT, L3890.6200, L3100.0300, L500.2500 #### [facility] [address] [place], [address] Creatinine [Mass/Vol] 0.94 mg/dL Normal 0.70-1.30 [facility] Comment on above: Result Comment: The validity of the calculated GFR GFRAA in patients over 70 years has not been determined. Clinical correlation is essential. Performed By: #### L 3890.6300, M100.651, L100.0100, L3890.6005, BTSPAT, L3890.6200, L3100.0300, L500.2500 #### [facility] [address] [place], [address] EST GFR - AA 101 mL/min Normal >60 [facility] Comment on above: Result Comment: Afri can [place] Citizen GFR Calc Performed By: #### L 3890.6300, M100.651, L100.0100, L3890.6005, BTSPAT, L3890.6200, L3100.0300, L500.2500 #### [facility] [address] [place], [address] GAP 7 Normal 5-15 [facility] Comment on above: Performed By: #### L 3890.6300, M100.651, L100.0100, L3890.6005, BTSPAT, L3890.6200, L3100.0300, L500.2500 #### [facility] [address] [place], [address] GFR/1.73 sq M.predicted among non-blacks MDRD (S/P/Bld) [Vol rate/Area] 84 mL/min/{1.73_m2} Normal >60 [facility] Comment on above: Result Comment: Non- GFR Calc Performed By: #### L 3890.6300, M100.651, L100.0100, L3890.6005, BTSPAT, L3890.6200, L3100.0300, L500.2500 #### [facility] [address] [place], [address] Glucose [Mass/Vol] 99 mg/dL Normal 74-106 [facility] Comment on above: Performed By: #### L 3890.6300, M100.651, L100.0100, L3890.6005, BTSPAT, L3890.6200, L3100.0300, L500.2500 #### [facility] [address] [place], [address] Potassium [Moles/Vol] 4.2 mmol/L Normal 3.5-5.1 [facility] Comment on above: Performed By: #### L 3890.6300, M100.651, L100.0100, L3890.6005, BTSPAT, L3890.6200, L3100.0300, L500.2500 #### [facility] [address] [place], [address] Sodium [Moles/Vol] 131 mmol/L Low 136-145 [facility] Comment on above: Performed By: #### L 3890.6300, M100.651, L100.0100, L3890.6005, BTSPAT, L3890.6200, L3100.0300, L500.2500 #### [facility] [address] [place], [address] Urea nitrogen [Mass/Vol] 11 mg/dL Normal 7-18 [facility] Comment on above: Performed By: #### L 3890.6300, M100.651, L100.0100, L3890.6005, BTSPAT, L3890.6200, L3100.0300, L500.2500 #### [facility] [address] [place], [address] CBC W/Diff, Automatedon 07-06 Absolute Lymph 1.25 X10 3/uL Normal 0.83-4.51 [facility] Comment on above: Performed By: #### L 3890.6300, M100.651, L100.0100, L3890.6005, BTSPAT, L3890.6200, L3100.0300, L500.2500 #### [facility] [address] [place], [address] Absolute Neut 2.6 X10 3/uL Normal 2.0-7.7 [facility] Comment on above: Performed By: #### L 3890.6300, M100.651, L100.0100, L3890.6005, BTSPAT, L3890.6200, L3100.0300, L500.2500 #### [facility] [address] [place], [address] Basophils/100 WBC (Bld) 0.7 % Normal 0-1 [facility] Comment on above: Performed By: #### L 3890.6300, M100.651, L100.0100, L3890.6005, BTSPAT, L3890.6200, L3100.0300, L500.2500 #### [facility] [address] [place], [address] Eosinophils/100 WBC (Bld) 2.7 % Normal 0-5 [facility] Comment on above: Performed By: #### L 3890.6300, M100.651, L100.0100, L3890.6005, BTSPAT, L3890.6200, L3100.0300, L500.2500 #### [facility] [address] [place], [address] Erythrocyte distribution width (RBC) [Ratio] 11.2 % Low 11.6-14.6 [facility] Comment on above: Performed By: #### L 3890.6300, M100.651, L100.0100, L3890.6005, BTSPAT, L3890.6200, L3100.0300, L500.2500 #### [facility] [address] [place], [address] Hematocrit (Bld) [Volume fraction] 46.0 % Normal 40-54 [facility] Comment on above: Performed By: #### L 3890.6300, M100.651, L100.0100, L3890.6005, BTSPAT, L3890.6200, L3100.0300, L500.2500 #### [facility] [address] [place], [address] Hemoglobin (Bld) [Mass/Vol] 15.7 g/dL Normal 13.0-16.5 [facility] Comment on above: Performed By: #### L 3890.6300, M100.651, L100.0100, L3890.6005, BTSPAT, L3890.6200, L3100.0300, L500.2500 #### [facility] [address] [place], [address] IG% 0.200 Normal 0.0-0.9 [facility] Comment on above: Result Comment: IG% - Immature Granulocytes (promyelocytes, myelocytes and metamyelocytes) > 1% indicates that a LEFT SHIFT is Present. Performed By: #### L 3890.6300, M100.651, L100.0100, L3890.6005, BTSPAT, L3890.6200, L3100.0300, L500.2500 #### [facility] [address] [place], [address] Lymphocytes/100 WBC (Bld) 28.6 % Normal 19-41 [facility] Comment on above: Performed By: #### L 3890.6300, M100.651, L100.0100, L3890.6005, BTSPAT, L3890.6200, L3100.0300, L500.2500 #### [facility] [address] [place], [address] MCH (RBC) [Entitic mass] 34.1 pg High 27.0-32.0 [facility] Comment on above: Performed By: #### L 3890.6300, M100.651, L100.0100, L3890.6005, BTSPAT, L3890.6200, L3100.0300, L500.2500 #### [facility] [address] [place], [address] MCHC (RBC) [Mass/Vol] 34.1 g/dL Normal 32-36 [facility] Comment on above: Performed By: #### L 3890.6300, M100.651, L100.0100, L3890.6005, BTSPAT, L3890.6200, L3100.0300, L500.2500 #### [facility] [address] [place], [address] MCV (RBC) [Entitic vol] 99.8 fL High 80-94 [facility] Comment on above: Performed By: #### L 3890.6300, M100.651, L100.0100, L3890.6005, BTSPAT, L3890.6200, L3100.0300, L500.2500 #### [facility] [address] [place], [address] Monocytes/100 WBC (Bld) 8.9 % Normal 0-10 [facility] Comment on above: Performed By: #### L 3890.6300, M100.651, L100.0100, L3890.6005, BTSPAT, L3890.6200, L3100.0300, L500.2500 #### [facility] [address] [place], [address] Neutrophils/100 WBC (Bld) 58.9 % Normal 47-70 [facility] Comment on above: Performed By: #### L 3890.6300, M100.651, L100.0100, L3890.6005, BTSPAT, L3890.6200, L3100.0300, L500.2500 #### [facility] [address] [place], [address] Nucleated RBC (Bld) [#/Vol] 0 10*3/uL Normal 0-5 [facility] System Comment on above: Performed By: #### L 3890.6300, M100.651, L100.0100, L3890.6005, BTSPAT, L3890.6200, L3100.0300, L500.2500 #### [facility] [address] [place], [address] Platelet mean volume (Bld) [Entitic vol] 9.3 fL Normal 6.2-12.0 [facility] Comment on above: Performed By: #### L 3890.6300, M100.651, L100.0100, L3890.6005, BTSPAT, L3890.6200, L3100.0300, L500.2500 #### [facility] [address] [place], [address] Platelets (Bld) [#/Vol] 248 10*3/uL Normal 150-450 [facility] Comment on above: Performed By: #### L 3890.6300, M100.651, L100.0100, L3890.6005, BTSPAT, L3890.6200, L3100.0300, L500.2500 #### [facility] [address] [place], [address] RBC (Bld) [#/Vol] 4.61 10*6/uL Normal 4.6-6.2 [facility] Comment on above: Performed By: #### L 3890.6300, M100.651, L100.0100, L3890.6005, BTSPAT, L3890.6200, L3100.0300, L500.2500 #### [facility] [address] [place], [address] RDW SD 40.7 fl Normal 35.1-43.9 [facility] Comment on above: Performed By: #### L 3890.6300, M100.651, L100.0100, L3890.6005, BTSPAT, L3890.6200, L3100.0300, L500.2500 #### [facility] [address] [place], [address] WBC (Bld) [#/Vol] 4.4 10*3/uL Normal 4.4-11.0 [facility] Comment on above: Performed By: #### L 3890.6300, M100.651, L100.0100, L3890.6005, BTSPAT, L3890.6200, L3100.0300, L500.2500 #### [facility] [address] [place], [address] HIV - Hon 07-24-2024 HIV Non-Reactive Normal Nonreactive [facility] Comment on above: Order Comment: Reaso n for Exam: PAT Performed By: #### L 3890.6300, M100.651, L100.0100, L3890.6005, BTSPAT, L3890.6200, L3100.0300, L500.2500 ####[facility] [address] [place], [address] Hepatitis B Surface Antibody on 07-24-2024 HEP B Surf Ab Non-Reactive Normal [facility] Comment on above: Order Comment: Reaso n for Exam: PAT Result Comment: Non Reactive: Inconsistent with immunity less than <10 mIU/mL Reactive: Consistent with immunity greater than or equal to 10 mIU/mL Performed By: #### L 3890.6300, M100.651, L100.0100, L3890.6005, BTSPAT, L3890.6200, L3100.0300, L500.2500 ####[facility] [address] [place], [address] Hepatitis C Antibodyon 07-24 Hepatitis C AB Non-Reactive Normal Nonreactive [facility] Comment on above: Order Comment: Reaso n for Exam: PAT Result Comment: Non Reactive: < 0.8 Equivocal: >/= 0.8 to < 1.0 Reactive: >/= 1.0 The CDC requires that a reactive/equivocal HCV antibody result be sent out for confirmation. HCV Quant by PCR testing. Performed By: #### L 3890.6300, M100.651, L100.0100, L3890.6005, BTSPAT, L3890.6200, L3100.0300, L500.2500 ####[facility] [address] [place], [address] Liver Profileon 07-24-2024 Albumin [Mass/Vol] 4.0 g/dL Normal 3.2-5.0 [facility] Comment on above: Performed By: #### L 300.4310, L501.5200, L500.3400, L300.3900 ####[facility] [address] [place], [address] ALK P 43 U/L Low 45-117 [facility] Comment on above: Performed By: #### L 300.4310, L501.5200, L500.3400, L300.3900 ####[facility] [address] [place], [address] ALT [Catalytic activity/Vol] 21 U/L Normal 16-61 [facility] Comment on above: Performed By: #### L 300.4310, L501.5200, L500.3400, L300.3900 ####[facility] [address] [place], [address] AST [Catalytic activity/Vol] 22 U/L Normal 15-37 [facility] Comment on above: Performed By: #### L 300.4310, L501.5200, L500.3400, L300.3900 ####[facility] [address] [place], [address] Bilirubin [Mass/Vol] 0.80 mg/dL Normal 0.20-1.00 [facility] Comment on above: Result Comment: For patients on eltrombopag therapy, use of Dimension [place] TBIL is not recommended. Performed By: #### L 300.4310, L501.5200, L500.3400, L300.3900 ####[facility] [address] [place], [address] Bilirubin.direct [Mass/Vol] 0.24 mg/dL Normal 0.00-0.30 [facility] Comment on above: Performed By: #### L 300.4310, L501.5200, L500.3400, L300.3900 ####[facility] [address] [place], [address] Globulin (S) [Mass/Vol] 3.8 g/dL Normal 2.2-4.2 [facility] Comment on above: Performed By: #### L 300.4310, L501.5200, L500.3400, L300.3900 ####[facility] [address] [place], [address] T PROT 7.8 g/dL Normal 6.4-8.2 [facility] Comment on above: Performed By: #### L 300.4310, L501.5200, L500.3400, L300.3900 ####[facility] [address] [place], [address] Magnesiumon 07-24-2024 Magnesium [Mass/Vol] 1.8 mg/dL Normal 1.6-2.6 [facility] Comment on above: Performed By: #### L 300.4310, L501.5200, L500.3400, L300.3900 ####[facility] [address] [place], [address] Partial Thromboplast Timeon 07-24-2024 aPTT Coag (Bld) [Time] 27.3 s Normal 24.1-36.2 [facility] Comment on above: Performed By: #### L 300.4310, L501.5200, L500.3400, L300.3900 ####[facility] [address] [place], [address] Prothrombin Time w/INRon INR Coag (PPP) [Relative time] 1.1 {INR} Normal [facility] Comment on above: Performed By: #### L 300.4310, L501.5200, L500.3400, L300.3900 ####[facility] [address] [place], [address] PT Coag (PPP) [Time] 13.9 s Normal 11.7-14.9 [facility] Comment on above: Performed By: #### L 300.4310, L501.5200, L500.3400, L300.3900 ####[facility] [address] [place], [address] Type AND Screen - PAT ONLYon 07-24-2024 ABO and Rh group Nom (Bld) Blood group B Rh(D) positive Normal [facility] Comment on above: Order Comment: Surge ry Date: 08/05/24Reason for Laboratory Test [id number] LUMBAR FUSION L4-5 Performed By: #### L 3890.6300, M100.651, L100.0100, L3890.6005, BTSPAT, L3890.6200, L3100.0300, L500.2500 ####[facility] [address] [place], [address] Orthopedic Visit Reporton Orthopedic Visit Report [facility] [address] [place] [address] 5 [place] [address] OFFICE VISIT Date of Service: 07/18/24 MR#: [id number] Acct: [id number] Name: EVANS MICHAUD Rep #: [id number] : 1950 Provider: Dr. Norberto Lu MD Age/Sex: 74/M Location: [facility] Status: Signed Intake Vital Signs 05/21/24 09:24 [...] that time. Revi (more content not included)... Normal [facility] 36on 07-14-2024 36 Noted. Will await PA T results and sign clearance form accordingly. [facility] 36 Name of caller: Ankita Contact phone number: [phone] Relationship to Patient: [facility] Provider: Candice Frank CNP Practice: [facility] Chief Complaint/Reason for Call: Ankita state that Lab work will not be available until next week. Pt is scheduled to come in for PAT next week. PAL did not get clarity on the exact testing or dates; ANKITA does have our fax to send results when available and states that she missed a call from a Mane. Best time of day caller can be reached: any Patient advised that office/PCP has 24-48 business hours to return their call: Yes Normal [facility] Office Visiton 07-14-2024 Follow-up visit [id number] Lakhwinder Michaud 1950 M Date Provider Department Center 07/14/2024 65091-PRUVHCANDICE FRANK [facility] Family History Problem Relation Age of Onset Prostate cancer Father Cancer Brother Family Status - Relation Status Age at Father Brother Notes: liver cancer Level of Service:34596 [place] OFFICE/OUTPATIENT ESTABLISHED MOD MDM 30 MIN Reason for Visit and Comments: Medication Check [6237174365] Blood Work [142477] Health Maintenance [872] - 7th Covid- has not had most recent one Anxiety [9] Depression [32] Normal [facility] Progress Noteon 07-14-2024 Progress Note 07/14/2024 Evans Michaud (: 1950) [...] L4-L5 on 08/05/[address] Lu at [facility]. Hypertension: Checks blood pressure at home [...] There is no (more content not included)... Normal [facility] Progress Note Patient verified by last name and . [facility] 36on 07-10-2024 36 Reviewed chart. Refi ll appropriate. RX sent. [facility] 36 Prescription Request : Last medication check: 09/03/23 Last physical exam: 01/09/24 Next scheduled appointment: 07/14/24 Last date of refill on this medication 01/09/[address] [facility] Progress Noteon 06-23-2024 Progress Note Patient verified by last name and . [facility] Progress Note This encounter was c reated in error - please disregard. [facility] L/S Spine Bending Flex/Reading 05-21-2024 L/S Spine Bending Flex/Ext [facility] [address] [place] [address] L/S Spine Bending Flex/Ext MR#: [id number] Acct: [id number] Name: EVANS MICHAUD Jr. Rep #: [id number] : 1950 M 74 From: Vitaliy Elaine MD PCP: KATARINA Patel Status: DEP AMB Study: L/S Spine Bending Flex/Ext Date of Exam: 05/21 Exam# [id number] Ordering Dr: Norberto Lu MD [id number] STUDY: X-RAY - LUMBAR SPINE REASON FOR [...] CC: KATARINA Frank; Dr. Norberto Lu MD Warp Trucker: Signed Normal [facility] Orthopedic Visit Reporton Orthopedic Visit Report [facility] [address] [place] [address] [address] [place] [address] OFFICE VISIT Date of Service: 05/21/24 MR#: [id number] Acct: [id number] Name: EVANS MICHAUD Jr. Rep #: [id number] : 1950 Provider: Dr. Norberto Lu MD Age/Sex: 74/M Location: [facility] Status: Signed Intake Vital Signs 08/31/23 11:09 [...] made by me, Dr. Norberto Lu MD 05/21/24 0922. Part of today???s visit was documented by [...] He lovett (more content not included)... Normal [facility] 36on 05-15-2024 36 Prescription Request : Last medication check: 09/03/23 Last physical exam: 01/09/24 Next scheduled appointment: 07/14/24 Last date of refill on this medication 11/12/23 Normal [facility] Free PSA [Mass/Vol]on 2022 Free PSA/Total PSA [Mass fraction] 5 % Normal [facility] Comment on above: Order Comment: Speci men Type: BLOOD SPECIMEN Ordering Facility: [facility] Address: [address] [place] [address] Result Comment: Tota l and free PSA [...] 15.8% Performed By: #### 1 0886-0 #### [facility] CLIA [id number] [address] [facility] [address] [id number] [address] [place] Prostate specific Ag [Mass/Vol] 7.38 ng/mL High <2.60 [facility] Comment on above: Order Comment: Speci men Type: BLOOD SPECIMEN Ordering Facility: [facility] Address: [address] [place] [address] Result Comment: Tota l PSA test methodology used is the Electrochemiluminescence [...] Jeffery M.D., Radha Healy, M.P.H., Nancy Becerra, Sc.Maddi. Effect of Verification Bias on Screening for Prostate Cancer by Measurement of Prostatic Specific Antigen. N Engl J Med 2003,349:335-42. Performed By: #### 1 0886-0 #### [facility] CLIA [id number] [address] [place] [address] [place] ISOPSA ASSAY FOR UROLOGY USE ONLYon 10-31-2023 INTERPRETATION View results in Scan yuridia Documents link when available. [facility] Comment on above: Order Comment: Speci men Type: BLOOD SPECIMEN Ordering Facility: [facility] Address: [address] [place] [address] Performed By: #### I SOPSA #### [facility] CLIA [id number] [address] [place] [address] [place] [address] ISOPSA INDEX 15.2 [facility] Comment on above: Order Comment: Speci men Type: BLOOD SPECIMEN Ordering Facility: [facility] Address: [address] [place] [address] Performed By: #### I SOPSA #### [facility] CLIA [id number] [facility] [id number] TPSA RESULTS 7.790 Normal [facility] Comment on above: Order Comment: Speci men Type: BLOOD SPECIMEN Ordering Facility: [facility] Address: [place] [id number] Performed By: #### I SOPSA #### [facility] CLIA [id number] [address] [id number] No Panel InformationOrdered By: Stu Menezes on 10-11-2023 Prostate Specific Antigen Total 7.60 ng/mL 0.0-4.0 [facility] Comment on above: This test was perfor med using the TPSA assay method for [employer] chemistry system. Values obtained with differentassay methods cannot be used interchangably.When changing PSA assays in the course of monitoring apatient, additional sequential testing should be carriedout to confirm baseline values. PSA, total and freeOrdered B y: Mane Garrett on 10-11-2023 [facility] Absolute lymphocyte countOrd ered By: Oskar Jimenez on 07-26-2023 Lymphocytes Auto (Unsp spec) [#/Vol] 1.08 10*3/uL 0.83-4.51 [facility] Basophil percentageOrdered B y: Oskar Jimenez on 07-26-2023 Basophils/100 WBC (Bld) 0.4 % 0-1 [facility] Bilirubin [Mass/Vol] 0.60 mg/dL 0.20-1.00 [facility] Comment on above: For patients on eltr ombopag therapy, use of Dimension [place] TBIL is not recommended. Chloride [Moles/Vol] 97 mmol/L 98-107 [facility] Eosinophils/100 WBC (Bld) 1.8 % 0-5 [facility] Glucose [Mass/Vol] 106 mg/dL 74-106 [facility] Comment on above: Fasting Glucose resu lt from 100 to 125 mg/dL suggests IMPAIRED HOMEOSTASIS per A.D.A. criteria. Neutrophils (Bld) [#/Vol] 3.1 10*3/uL 2.0-7.7 [facility] Neutrophils/100 WBC (Bld) 62.3 % 47-70 [facility] Potassium [Moles/Vol] 4.5 mmol/L 3.5-5.1 [facility] Protein [Mass/Vol] 8.2 g/dL 6.4-8.2 [facility] Sodium [Moles/Vol] 130 mmol/L 136-145 [facility] WBC (Bld) [#/Vol] 5.0 10*3/uL 4.4-11.0 [facility] Blood erythrocytes count (nu mber/volume)Ordered By: Oskar Jimenez on 07-26-2023 RBC (Bld) [#/Vol] 4.55 10*6/uL 4.6-6.2 [facility] Blood hemoglobin measurement (mass/volume)Ordered By: Oskar Jimenez on 07-26-2023 Hemoglobin (Bld) [Mass/Vol] 16.0 g/dL 13.0-16.5 [facility] Blood lymphocytes/100 leukoc ytesOrdered By: Oskar Jimenez on 07-26-2023 Lymphocytes/100 WBC (Bld) 21.4 % 19-41 [facility] Blood monocytes/100 leukocyt esOrdered By: Oskar Jimenez on 07-26-2023 Monocytes/100 WBC (Bld) 13.7 % 0-10 [facility] Blood platelet mean volumeOr dered By: Oskar Jimenez on 07-26-2023 Platelet mean volume (Bld) [Entitic vol] 9.5 fL 6.2-12.0 [facility] Determination of erythrocyte mean corpuscular volume (MCV)Ordered By: Oskar Jimenez on 07-26-2023 MCV (RBC) [Entitic vol] 102.9 fL 80-94 [facility] Hematocrit Auto (Bld) [Volum e fraction]Ordered By: Oskar Jimenez on 07-26-2023 Hematocrit (Bld) [Volume fraction] 46.8 % 40-54 [facility] - Chemistry and C hemistry - challengeOrdered By: Oskar Jimenez on 07-26-2023 ALP [Catalytic activity/Vol] 39 U/L 45-117 [facility] ALT [Catalytic activity/Vol] 29 U/L 16-61 [facility] CO2 [Moles/Vol] 27.0 mmol/L 21.0-32.0 [facility] Globulin (S) [Mass/Vol] 3.9 g/dL 2.2-4.2 [facility] Urea nitrogen/Creatinine [Mass ratio] 12.6 mg/mg 10-20 [facility] - Hematology and Cell countsOrdered By: Oskar Jimenez on 07-26-2023 Erythrocyte distribution width (RBC) [Entitic vol] 46.3 fL 35.1-43.9 [facility] Erythrocyte distribution width (RBC) [Ratio] 12.1 % 11.6-14.6 [facility] Immature granulocytes/100 WBC (Bld) 0.400 % 0.0-0.9 [facility] Comment on above: IG% - Immature Granu locytes (promyelocytes, myelocytes and metamyelocytes) > 1% indicates that a LEFT SHIFT is Present. MCH (RBC) [Entitic mass] 35.2 pg 27.0-32.0 [facility] Nucleated RBC/100 WBC (Bld) [Ratio] 0 % 0-5 [facility] MCHC Auto (RBC) [Mass/Vol]Or dered By: Oskar Jimenez on 07-26-2023 MCHC (RBC) [Mass/Vol] 34.2 g/dL 32-36 [facility] No Panel InformationOrdered By: Oskar Jimenez on 07-26-2023 Estimated GFR (MDRD) Amer 91 mL/min >60 [facility] Comment on above: GFR Calc Estimated GFR (MDRD) Non-Af Amer 75 mL/min >60 [facility] Comment on above: Non- GFR Calc Hepatitis C Antibody Non-Reactive Nonreactive [facility] Comment on above: Non Reactive: < 0.8 Equivocal: >/= 0.8 to < 1.0 Reactive: >/= 1.0The CDC recommends that a reactive/equivocal HCV antibody result be followed up by the HCV Nucleic Acid Amplificationtest (449063) Prostate Specific Antigen Screen 6.76 ng/mL 0.00-4.00 [facility] Comment on above: This test was perfor med using the TPSA assay method for theSmart MuseumSingular chemistry system. Values obtained with differentassay methods cannot be used interchangably.When changing PSA assays in the course of monitoring apatient, additional sequential testing should be carriedout to confirm baseline values. Thyroid Stimulating Hormone (TSH) 2.02 uIU/mL 0.358-3.74 [facility] Vitamin D 25-Hydroxy 53.2 ng/mL [facility] Comment on above: Vitamin D 25(OH) Sta tus Range Deficiency <20 ng/mL (50nmol/L) Insufficiency 20 - 30 ng/mL (50 - 75 nmol/L) Sufficiency 30 - 100 ng/mL (75 - 250 nmol/L) Toxicity >100 ng/mL (>250 nmol/L) Platelets bldOrdered By: Oskar Jimenez on 07-26-2023 Platelets (Bld) [#/Vol] 230 10*3/uL 150-450 [facility] Serum or plasma albumin adri urement (mass/volume)Ordered By: Oskar Jimenez on 07-26-2023 Albumin [Mass/Vol] 4.3 g/dL 3.2-5.0 [facility] Serum or plasma albumin/glob ulin mass ratioOrdered By: Oskar Jimenez on 07-26-2023 Albumin/Globulin [Mass ratio] 1.1 {ratio} 0.9-2.4 [facility] Serum or plasma calcium adri urement (mass/volume)Ordered By: Oskar Jimenez on 07-26-2023 Calcium [Mass/Vol] 9.4 mg/dL 8.5-10.1 [facility] Serum or plasma creatinine m easurement (mass/volume)Ordered By: Oskar Jimenez on 07-26-2023 Creatinine [Mass/Vol] 1.03 mg/dL 0.70-1.30 [facility] Comment on above: The validity of the calculated GFR & GFRAA in patients over 70 years has not been determined. Clinical correlation is essential. Serum or plasma urea nitroge n measurement (mass/volume)Ordered By: Oskar Jimenez on 07-26-2023 Urea nitrogen [Mass/Vol] 13 mg/dL 7-18 [facility] Thin prep Papanicolaou smear with manual screeningOrdered By: Oskar Jimenez 07-26-2023 Thin prep Papanicolaou smear with manual screening 22 U/L 15-37 [facility] Thin prep Papanicolaou smear with manual screening 6 5-15 [facility] Basophil percentageon 2021 Creatinine [Mass/Vol] 1.1 mg/dL 0.70-1.30 [facility] Work Phone: No Panel Informationon 08-25 Bedside Estimated GFR (eGFR) > 60.0000 mL/min >60 [facility] Work Phone: Prostate Specific Antigen Total 8.77 ng/mL 0.0-4.0 [facility] Work Phone: Comment on above: This test was perfor med using the TPSA assay method for theDimension chemistry system. Values obtained with differentassay methods cannot be used interchangably.When changing PSA assays in the course of monitoring apatient, additional sequential testing should be carriedout to confirm baseline values. No Panel Informationon 07-27 Prostate Specific Antigen Total 6.52 ng/mL 0.0-4.0 [facility] Work Phone: Comment on above: This test was perfor med using the TPSA assay method for theDimensiSingular chemistry system. Values obtained with differentassay methods cannot be used interchangably.When changing PSA assays in the course of monitoring apatient, additional sequential testing should be carriedout to confirm baseline values. VL Aorta Iliac Duplex Scr fo r Medicareon 07-19-2021 VL Aorta Iliac Duplex Scr for Medicare Patient Name: EVANS MICHAUD Ultrasound ACCESSION EXAM DATE/TIME PROCEDURE ORDERING PROVIDER [id number] 07/19/2021 11:30 EDT VL Aorta Iliac Duplex NORMA FRANK HOLLY S Scr for Medicare CPT code 21306 Reason For Exam (VL Aorta Iliac Duplex [...] 07/20/2021 1:07 Cardiovascular ACCESSION EXAM DATE/TIME PROCEDURE [id number] 07/19/2021 11:30 EDT VL Aorta Iliac Duplex Scr for Medicare CPT code 38665 Reason For Exam (VL Aorta Iliac Duplex [...] Transcribed Date and Time: 07/20/2021 1:07 Normal [facility] COMPREHENSIVE PANELon 2019 Albumin [Mass/Vol] 4.6 g/dL Normal 3.4 - 5.0 [facility] Comment on above: Performed By: #### C MP #### [facility] [address] [place] [address] ALP [Catalytic activity/Vol] 33 U/L Normal 33 - 136 [facility] Comment on above: Performed By: #### C MP #### [facility] [address] [place] [address] ALT [Catalytic activity/Vol] 18 U/L Normal 10 - 52 [facility] Comment on above: Result Comment: Jana ents treated with Sulfasalazine may generate falsely decreased results for ALT. Performed By: #### C MP #### [facility] [address] [place] [address] Anion gap [Moles/Vol] 14 mmol/L Normal 10 - 20 [facility] Comment on above: Performed By: #### C MP #### [facility] [address] [place] [address] AST [Catalytic activity/Vol] 22 U/L Normal 9 - 39 [facility] Comment on above: Performed By: #### C MP #### [facility] [address] [place] [address] Bilirubin [Mass/Vol] 0.8 mg/dL Normal 0.0 - 1.2 [facility] Comment on above: Performed By: #### C MP #### [facility] [address] [place] [address] Calcium [Mass/Vol] 10.0 mg/dL Normal 8.6 - 10.6 [facility] Comment on above: Performed By: #### C MP #### [place] [address] [place] [address] Chloride [Moles/Vol] 100 mmol/L Normal 98 - 107 [facility] Comment on above: Performed By: #### C MP #### [facility] [address] [place] [address] Creatinine [Mass/Vol] 1.03 mg/dL Normal 0.50 - 1.30 [facility] Comment on above: Performed By: #### C MP #### [place] [address] [place] [address] GFR- AM. >60 Normal >60 [facility] Comment on above: Result Comment: CALC ULATIONS OF ESTIMATED GFR ARE PERFORMED USING THE MDRD STUDY EQUATION FOR THE IDMS-TRACEABLE CREATININE METHODS. CLIN CHEM 2007;53:766-72 Performed By: #### C MP #### [facility] [address] [place] [address] GFR-NON AM. >60 Normal >60 [facility] Comment on above: Performed By: #### C MP #### [facility] [address] [place] [address] Glucose [Mass/Vol] 87 mg/dL Normal 74 - 99 [facility] Comment on above: Performed By: #### C MP #### [facility] [address] [place] [address] HCO3 (Bld) [Moles/Vol] 29 mmol/L Normal 21 - 32 [facility] Comment on above: Performed By: #### C MP #### [facility] [address] [place] [address] Potassium [Moles/Vol] 4.8 mmol/L Normal 3.5 - 5.3 [facility] Comment on above: Performed By: #### C MP #### [facility] [id number] [place] [address] Protein [Mass/Vol] 7.3 g/dL Normal 6.4 - 8.2 [facility] Comment on above: Performed By: #### C MP #### [facility] [address] [place] [address] Sodium [Moles/Vol] 138 mmol/L Normal 136 - 145 [facility] Comment on above: Performed By: #### C MP #### [facility] [address] [place] [address] Urea nitrogen [Mass/Vol] 12 mg/dL Normal 6 - 23 [facility] Comment on above: Performed By: #### C MP #### [facility] [address] [place] [address] LIPID PANEL (CORONARY RISK 2 )on 01-23-2020 Cholesterol [Mass/Vol] 204 mg/dL High 0 - 199 [facility] Comment on above: Result Comment: . AGE [...] dosing. Performed By: #### L IPID #### [facility] [address] [place] [address] Cholesterol in HDL [Mass/Vol] 61.3 mg/dL Normal [facility] Comment on above: Result Comment: . AGE VERY LOW LOW NORMAL HIGH 0-19 Y < 35 < 40 40-45 ---- 20-24 Y ---- < 40 >45 ---- >24 Y ---- < 40 40-60 >60 . Performed By: #### L IPID #### [facility] [address] [place] [address] Cholesterol in LDL [Mass/Vol] 129 mg/dL High 0 - 99 [facility] Comment on above: Result Comment: . NEAR BORD AGE DESIRABLE OPTIMAL HIGH HIGH VERY HIGH 0-19 Y 0 - 109 --- 110-129 >/= 130 ---- 20-24 Y 0 - 119 --- 120-159 >/= 160 ---- >24 Y 0 - 99 100-129 130-159 160-189 >/=190 . Performed By: #### L IPID #### [facility] [id number] [place] [address] Cholesterol in VLDL [Mass/Vol] 14 mg/dL Normal 0 - 40 [facility] Comment on above: Performed By: #### L IPID #### [facility] [address] [place] [address] Cholesterol.total/Ch olesterol in HDL [Mass ratio] 3.3 {ratio} Normal [facility] Comment on above: Result Comment: REF VALUES DESIRABLE < 3.4 HIGH RISK > 5.0 Performed By: #### L IPID #### [facility] [id number] [place] [address] Triglyceride [Mass/Vol] 70 mg/dL Normal 0 - 149 [facility] Comment on above: Result Comment: . AGE [...] Performed By: #### L IPID #### [facility] [id number] [place] [address] PROSTATE SPEC.AG,SCREENon PROSTATE SPEC.AG,SCREEN 3.74 ng/mL Normal 0.00 - 4.00 [facility] Comment on above: Result Comment: The FDA requires that the method used for PSA assay be reported to the physician. Values obtained with different assay methods must not be used interchangeably. This test was performed at [facility] using the [employer] PSA method, which is a sandwich immunoassay using chemiluminescence for quantitation. The assay is approved for measurement of prostate-specific antigen (PSA) in serum and may be used in conjunction with a digital rectal examination in men 50 years and older as an aid in detection of prostate cancer. 7-Byows-pwprzluyn inhibitors (e.g. Proscar, Finasteride, Avodart, Dutasteride and Aysha) for the treatment of BPH have been shown to lower PSA levels by an average of 50% after 6 months of treatment. Performed By: #### P [facility] #### [facility] [address] [place] [address] Comprehensive Panelon 2017 Albumin 4.3 g/dL Normal 3.4-5.0 [facility] Comment on above: Performed By: #### L P14 ####[place] [address] Alkaline phosphatase (ALP) 45 U/L Low 46-116 [facility] Comment on above: Performed By: #### L P14 ####[place] [address] ALT-SGPT Blood 23 U/L Normal 12-78 [facility] Comment on above: Performed By: #### L P14 ####[address] [address] Anion gap 11 mmol/L Normal 8-20 [facility] Comment on above: Performed By: #### L P14 ####[address] [address] AST-SGOT Blood 19 U/L Normal 15-37 [facility] Comment on above: Performed By: #### L P14 ####[place] [address] Bilirubin Ql (U) 0.8 mg/dL Normal 0.2-1.0 [facility] Comment on above: Performed By: #### L P14 ####[place] [id number] BUN (urea nitrogen) 16 mg/dL Normal 7-25 [facility] Comment on above: Performed By: #### L P14 ####[facility] [place], [place] [address] BUN/Creatinine Ratio 15 mg/mg Normal 10-20 [facility] Comment on above: Performed By: #### L P14 ####[facility] [place], [place] [address] Calcium 9.6 mg/dL Normal 8.5-10.1 [facility] Comment on above: Performed By: #### L P14 ####[address] [address] Chloride 98 mmol/L Normal 98-107 [facility] Comment on above: Performed By: #### L P14 ####[place] [address] CO2 29 mmol/L Normal 21-32 [facility] Comment on above: Performed By: #### L P14 ####[place] [address] Creatinine 1.06 mg/dL Normal 0.67-1.17 [facility] Comment on above: Performed By: #### L P14 ####[address] [address] Glucose mass conc 105 mg/dL High 70-99 [facility] Comment on above: Performed By: #### L P14 ####[place] [address] Potassium molar conc 4.6 mmol/L Normal 3.5-5.1 [facility] Comment on above: Performed By: #### L P14 ####[place] [address] Protein 7.9 g/dL Normal 6.4-8.2 [facility] Comment on above: Performed By: #### L P14 ####[address] [address] Sodium 133 mmol/L Low 136-145 [facility] Comment on above: Performed By: #### L P14 ####[facility] [place] [address] Hemogramon 01-11-2018 Erythrocyte distribution width Auto Ratio (RBC) 12.0 % Normal 11.5-15.9 [facility] Comment on above: Performed By: #### L CBC ####[place] [address] Erythrocytes (RBC) 4.54 mil/cmm Low 4.60-6.20 [facility] Comment on above: Performed By: #### L CBC ####[place] [address] Hematocrit (HCT) 44.5 % Normal 42.0-52.0 [facility] Comment on above: Performed By: #### L CBC ####[place] [address] Hemoglobin mass conc (Bld) 15.7 g/dL Normal 14.0-18.0 [facility] Comment on above: Performed By: #### L CBC ####[place] [address] MCH 34.6 pg High 27.0-31.0 [facility] Comment on above: Performed By: #### L CBC ####[place] [address] MCHC mass conc (RBC) 35.3 % Normal 32.0-36.0 [facility] Comment on above: Performed By: #### L CBC ####[place] [address] MCV 98.0 fL High 80.0-94.0 [facility] Comment on above: Performed By: #### L CBC ####[place] [address] Platelet mean volume (PMV) 9.7 fL Normal 7.1-10.5 [facility] Comment on above: Performed By: #### L CBC ####[place] [address] Platelets 257 thou/cmm Normal 150-400 [facility] Comment on above: Performed By: #### L CBC ####[facility] [place], [place] [address] WBC (Leukocytes) 5.1 thou/cmm Normal 4.8-10.8 [facility] Comment on above: Performed By: #### L CBC ####[address] [address] Lipid Profileon 01-11-2018 Cholesterol 189 mg/dL Normal 0-199 [facility] Comment on above: Performed By: #### R F1 ####[address] [address] Cholesterol to HDL Ratio 2.6 {ratio} Normal 2.1-7.3 [facility] Comment on above: Performed By: #### R F1 ####[address] [address] HDL Cholesterol 74 mg/dL Normal >40 [facility] Comment on above: Performed By: #### R F1 ####[address] [address] LDL Cholesterol 110 mg/dL Normal 0-150 [facility] Comment on above: Performed By: #### R F1 ####[address] [address] Risk Factor 2.6 Normal [facility] Comment on above: Result Comment: Card iac [...] >23.4 >11.0 Performed By: #### R F1 ####[place] [address] [place], [place] [address] Triglyceride Blood 26 mg/dL Normal 0-149 [facility] Comment on above: Performed By: #### R F1 ####[facility] [place], [place] [address] MDRD eGFRon 01-11-2018 eGFR (non-black) mL/min/{1.73_m2} Normal >60mL/m in/1. 73m2 [facility] Comment on above: Result Comment: If t he patient is , multiply the result by 1.210. Performed By: #### R F1 ####[address] [address] PSA Screenon 01-11-2018 PSA Screen 3.3 ng/mL Normal 0.0-3.9 [facility] Comment on above: Performed By: #### R F1 ####[address] [address] Creatinineon 07-23-2017 Creatinine 1.00 mg/dL Normal 0.73-1.22 [facility] eGFR (non-black) mL/min/{1.73_m2} Normal So [facility] Comment on above: Result Comment: eGFR (Estimated [...] LAWRENCE MD on Jul 23 2017 4:44PM [id number] [facility] CT CERVICAL SPINE W/O CONTRA STon 07-19-2017 CT CERVICAL SPINE W/O CONTRAST Performed at [facility] APPROVED BY: Candido Galicia MD EXAMINATION: CT [...] above. Mild bilateral carotid bulb calcifications. Normal [facility] CT HEAD W/O CONTRASTon 07-19 CT HEAD W/O CONTRAST Performed at [facility] APPROVED BY: Candido Galicia MD EXAMINATION: CT [...] above. Mild bilateral carotid bulb calcifications. Normal [facility] SCOUT by IFA with Reflex (Rheu m)on 07-03-2017 SCOUT by IFA with Reflex (Rheum) SEE BELOW Normal [facility] Comment on above: Result Comment: SCOUT Positive A NEGATNormal range : negative at <1:80 serum dilution.SCOUT Titer 1:80 A NEGATANA Pattern SpeckledPerforming Laboratory:[facility] [place] [id number] Performed By: #### A NAPX ####[place] [address] DS-DNA Abon 07-03-2017 DS-DNA Ab SEE BELOW Normal [facility] Comment on above: Result Comment: DNA Antibody w/ Conf. <12 <30 IU/mLNegative for ds DNA Antibodies Negative: <30 IU/mL Equivocal: 30-74 IU/mL Positive: >74 IU/mLPerforming Laboratory:[place] [address] Performed By: #### D NADX ####[place] [address] BITA Antibody Panelon 017 BITA Antibody Panel SEE BELOW Normal [facility] Comment on above: Result Comment: Sm A [...] <0.2 <1.0 AINegativeNegative: <1.0 AIPositive: >0.9 AIRibosomal APRICOT PACKER <0.2 <1.0 AINegativeNegative: <1.0 AIPositive: >0.9 AIChromatin Antibody <0.2 <1.0 AINegativeNegative: <1.0 AIPositive: >0.9 AIPerforming Laboratory:[place] [address] Performed By: #### E NIDX ####[place] [address] Sjogren Antibodieson 017 Sjogren Antibodies SEE BELOW Normal [facility] Comment on above: Result Comment: SSA Antibody <0.2 <1.0 AINegativeNegative: <1.0 AIPositive: >0.9 AISSB Antibody <0.2 <1.0 AINegativeNegative: <1.0 AIPositive: >0.9 AIPerforming Laboratory:[facility] [id number] [place] [address] Performed By: #### S JOX ####[place] [address] Rheumatoid Factoron 06-28-20 17 Rheumatoid Factor < 10.0 Normal 0.0-15.0 [facility] Comment on above: Performed By: #### R F1 ####[place] [address] Sed Rateon 06-28-2017 Sed Rate 3 mm/hr Normal 0-15 [facility] Comment on above: Performed By: #### L ESR ####[place] [address] Culture, urine Bacteria identified Cx Nom (U) Presumptive E. coli [facility] Work Phone: Vital Signs Date Time Vital Sign Value Performing Clinician Facility 05-11-2025 11:21-0400 Diastolic blood pressure 69 mm[Hg] Marcelino Bridenthal EAR NOSE THROAT PHYSICIAN - REVERSE LOGISTICS ANALYST Work Phone: [facility] 05-11-2025 11:21-0400 Heart rate 84 /min Marcelino Bridenthal EAR NOSE THROAT PHYSICIAN - REVERSE LOGISTICS ANALYST Work Phone: [facility] 05-11-2025 11:21-0400 Systolic blood pressure 147 mm[Hg] Marcelino Bridenthal EAR NOSE THROAT PHYSICIAN - REVERSE LOGISTICS ANALYST Work Phone: [facility] 05-11-2025 10:29-0400 Body mass index (BMI) [Ratio] 25.75 kg/m2 Marcelino Bridenthal EAR NOSE THROAT PHYSICIAN - REVERSE LOGISTICS ANALYST Work Phone: [facility] 05-11-2025 10:29-0400 Body temperature 98.4 [degF] Marcelino Bridenthal EAR NOSE THROAT PHYSICIAN - REVERSE LOGISTICS ANALYST Work Phone: [facility] 05-11-2025 10:29-0400 Body weight 79.11 kg Marcelino Bridenthal EAR NOSE THROAT PHYSICIAN - REVERSE LOGISTICS ANALYST Work Phone: [facility] 05-11-2025 10:29-0400 Respiratory rate 24 /min Marcelino Kehindeenthal EAR NOSE THROAT PHYSICIAN - REVERSE LOGISTICS ANALYST Work Phone: [facility] 05-11-2025 10:29-0400 SaO2% (BldA) [Mass fraction] 96 % Marcelino Bridenthal EAR NOSE THROAT PHYSICIAN - REVERSE LOGISTICS ANALYST Work Phone: [facility] 03-09-2025 10:05-0400 Diastolic Blood Pressure Non-Invasive 66 mm[Hg] DR JAMIL HERZOG MD [facility] 03-09-2025 10:05-0400 Heart rate 67 /min DR JAMIL HERZOG MD [facility] 03-09-2025 10:05-0400 Respiratory rate 18 /min DR JAMIL HERZOG MD [facility] 03-09-2025 10:05-0400 Systolic Blood Pressure Non-Invasive 101 mm[Hg] DR JAMIL HERZOG MD [facility] 03-09-2025 09:48-0400 Diastolic Blood Pressure Non-Invasive 79 mm[Hg] DR JAMIL HERZOG MD [facility] 03-09-2025 09:48-0400 Heart rate 66 /min DR JAMIL HERZOG MD [facility] 03-09-2025 09:48-0400 Respiratory rate 20 /min DR JAMIL HERZOG MD [facility] 03-09-2025 09:48-0400 Systolic Blood Pressure Non-Invasive 103 mm[Hg] DR JAMIL HERZOG MD [facility] 03-09-2025 09:43-0400 Diastolic Blood Pressure Non-Invasive 63 mm[Hg] DR JAMIL HERZOG MD [facility] 03-09-2025 09:43-0400 Heart rate 60 /min DR JAMIL HERZOG MD [facility] 03-09-2025 09:43-0400 Respiratory rate 16 /min DR JAMIL HERZOG MD [facility] 03-09-2025 09:43-0400 Systolic Blood Pressure Non-Invasive 109 mm[Hg] DR JAMIL HERZOG MD [facility] 03-09-2025 09:30-0400 Respiratory Rate - Anes 19 br/min DR JAMIL HERZOG MD [facility] 03-09-2025 09:25-0400 Respiratory Rate - Anes 24 br/min DR JAMIL HERZOG MD [facility] 03-09-2025 09:20-0400 Respiratory Rate - Anes 13 br/min DR JAMIL HERZOG MD [facility] 03-09-2025 08:35-0400 Body height 175.[address] JAMIL HERZOG MD [facility] 03-09-2025 08:35-0400 Body temperature 97.7 [degF] DR JAMIL HERZOG MD [facility] 03-09-2025 08:35-0400 Body weight 79.[address] JAMIL HERZOG MD [facility] 03-09-2025 08:35-0400 Body weight 25.87 kg/m2 DR JAMIL HERZOG MD [facility] 03-09-2025 08:35-0400 Heart rate 62 /min DR JAMIL HERZOG MD [facility] 01-27-2025 10:48-0400 Body height 175.3 cm Horace Lubin PA-C Work Phone: [facility] 01-27-2025 10:48-0400 Body mass index (BMI) [Ratio] 25.4 kg/m2 Horace Lubin PA-C Work Phone: [facility] 01-27-2025 10:48-0400 Body temperature 97.3 [degF] Horace Lubin PA-C Work Phone: [facility] 01-27-2025 10:48-0400 Body weight 78.02 kg Horace Lubin PA-C Work Phone: [facility] 01-27-2025 10:48-0400 Diastolic blood pressure 76 mm[Hg] Horace Lubin PA-C Work Phone: [facility] Comment on above: Patient did not want blood pressure nena Gutiérrez notified of blood pressure. 01-27-2025 10:48-0400 Heart rate 92 /min Horace Lubin PA-C Work Phone: [facility] 01-27-2025 10:48-0400 Respiratory rate 14 /min Horace Lubin PA-C Work Phone: [facility] 01-27-2025 10:48-0400 SaO2% (BldA) [Mass fraction] 94 % Horace Lubin PA-C Work Phone: [facility] 01-27-2025 10:48-0400 Systolic blood pressure 176 mm[Hg] Horace Lubin PA-C Work Phone: [facility] Comment on above: Patient did not want blood pressure nena Gutiérrez notified of blood pressure. 01-16-2025 11:04-0400 Diastolic blood pressure 72 mm[Hg] Candice Frank EAR NOSE THROAT PHYSICIAN - REVERSE LOGISTICS ANALYST Work Phone: [employer] 01-16-2025 11:04-0400 Systolic blood pressure 144 mm[Hg] Candice rFank EAR NOSE THROAT PHYSICIAN - REVERSE LOGISTICS ANALYST Work Phone: [employer] 01-16-2025 10:43-0400 Body height 175.3 cm Candice Frank EAR NOSE THROAT PHYSICIAN - REVERSE LOGISTICS ANALYST Work Phone: [facility] 01-16-2025 10:43-0400 Body mass index (BMI) [Ratio] 25.55 kg/m2 Candice Frank EAR NOSE THROAT PHYSICIAN - REVERSE LOGISTICS ANALYST Work Phone: [employer] 01-16-2025 10:43-0400 Body weight 78.47 kg Candice Frank EAR NOSE THROAT PHYSICIAN - REVERSE LOGISTICS ANALYST Work Phone: [employer] 01-16-2025 10:43-0400 Heart rate 53 /min Candice Frank EAR NOSE THROAT PHYSICIAN - REVERSE LOGISTICS ANALYST Work Phone: [facility] 01-16-2025 10:43-0400 SaO2% (BldA) [Mass fraction] 97 % Candice Frank EAR NOSE THROAT PHYSICIAN - REVERSE LOGISTICS ANALYST Work Phone: [facility] 12-02-2024 11:11-0500 Diastolic blood pressure 71 mm[Hg] Marcelino Bridenthal EAR NOSE THROAT PHYSICIAN - REVERSE LOGISTICS ANALYST Work Phone: [facility] 12-02-2024 11:11-0500 Heart rate 81 /min Marcelino Bridenthal EAR NOSE THROAT PHYSICIAN - REVERSE LOGISTICS ANALYST Work Phone: [employer] 12-02-2024 11:11-0500 Systolic blood pressure 164 mm[Hg] Marcelino Bridenthal EAR NOSE THROAT PHYSICIAN - REVERSE LOGISTICS ANALYST Work Phone: [facility] 12-02-2024 10:43-0500 Body mass index (BMI) [Ratio] 25.84 kg/m2 Marcelino Bridenthal EAR NOSE THROAT PHYSICIAN - REVERSE LOGISTICS ANALYST Work Phone: [employer] 12-02-2024 10:43-0500 Body temperature 98.6 [degF] Marcelino Bridenthal EAR NOSE THROAT PHYSICIAN - REVERSE LOGISTICS ANALYST Work Phone: [facility] 12-02-2024 10:43-0500 Body weight 79.38 kg Marcelino Bridenthal EAR NOSE THROAT PHYSICIAN - REVERSE LOGISTICS ANALYST Work Phone: [facility] 12-02-2024 10:43-0500 Respiratory rate 24 /min Marcelino Flemingal EAR NOSE THROAT PHYSICIAN - REVERSE LOGISTICS ANALYST Work Phone: [facility] 12-02-2024 10:43-0500 SaO2% (BldA) [Mass fraction] 94 % Marcelino Busbyenthal EAR NOSE THROAT PHYSICIAN - REVERSE LOGISTICS ANALYST Work Phone: [facility] 07-14-2024 13:37-0400 Body height 175.3 cm Candice Frank EAR NOSE THROAT PHYSICIAN - REVERSE LOGISTICS ANALYST Work Phone: [facility] 07-14-2024 13:37-0400 Body mass index (BMI) [Ratio] 26.67 kg/m2 Candice Frank EAR NOSE THROAT PHYSICIAN - REVERSE LOGISTICS ANALYST Work Phone: [facility] 07-14-2024 13:37-0400 Body weight 81.92 kg Candice Frank EAR NOSE THROAT PHYSICIAN - REVERSE LOGISTICS ANALYST Work Phone: [facility] 07-14-2024 13:37-0400 Diastolic blood pressure 86 mm[Hg] Candice Frank EAR NOSE THROAT PHYSICIAN - REVERSE LOGISTICS ANALYST Work Phone: [facility] 07-14-2024 13:37-0400 Heart rate 65 /min Candice Frank EAR NOSE THROAT PHYSICIAN - REVERSE LOGISTICS ANALYST Work Phone: [facility] 07-14-2024 13:37-0400 SaO2% (BldA) [Mass fraction] 98 % Candice Frank EAR NOSE THROAT PHYSICIAN - REVERSE LOGISTICS ANALYST Work Phone: [facility] 07-14-2024 13:37-0400 Systolic blood pressure 134 mm[Hg] Candice Frank EAR NOSE THROAT PHYSICIAN - REVERSE LOGISTICS ANALYST Work Phone: [facility] 01-25-2024 10:18-0400 Body height 175.3 cm Shruthi Krause MD Work Phone: [facility] 01-25-2024 10:18-0400 Heart rate 57 /min Shruthi Krause MD Work Phone: [facility] 01-25-2024 10:18-0400 SaO2% (BldA) [Mass fraction] 98 % Shruthi Krause MD Work Phone: [facility] 01-22-2024 10:59-0400 Diastolic blood pressure 77 mm[Hg] Schedule Fp [facility] 01-22-2024 10:59-0400 Systolic blood pressure 190 mm[Hg] Schedule Fp [facility] 01-22-2024 10:51-0400 Heart rate 58 /min Schedule Fp [facility] 01-09-2024 10:10-0500 Diastolic blood pressure 72 mm[Hg] Candice Frank EAR NOSE THROAT PHYSICIAN - REVERSE LOGISTICS ANALYST Work Phone: [facility] 01-09-2024 10:10-0500 Systolic blood pressure 164 mm[Hg] Candice Frank EAR NOSE THROAT PHYSICIAN - REVERSE LOGISTICS ANALYST Work Phone: [facility] [facility] 01-09-2024 09:53-0500 Body height 175.3 cm Candice Frank EAR NOSE THROAT PHYSICIAN - REVERSE LOGISTICS ANALYST Work Phone: [facility] 01-09-2024 09:53-0500 Body mass index (BMI) [Ratio] 26.17 kg/m2 Candice Frank EAR NOSE THROAT PHYSICIAN - REVERSE LOGISTICS ANALYST Work Phone: [employer] 01-09-2024 09:53-0500 Body weight 80.38 kg Candice Frank EAR NOSE THROAT PHYSICIAN - REVERSE LOGISTICS ANALYST Work Phone: [facility] 01-09-2024 09:53-0500 Heart rate 59 /min Candice Frank EAR NOSE THROAT PHYSICIAN - REVERSE LOGISTICS ANALYST Work Phone: [employer] 01-09-2024 09:53-0500 SaO2% (BldA) [Mass fraction] 96 % Candice rFank EAR NOSE THROAT PHYSICIAN - REVERSE LOGISTICS ANALYST Work Phone: [facility] 01-04-2024 10:50-0500 Body height 175.3 cm Shruthi Krause MD Work Phone: [facility] 09-03-2023 14:22-0400 Diastolic blood pressure 82 mm[Hg] Candice Frank EAR NOSE THROAT PHYSICIAN - REVERSE LOGISTICS ANALYST Work Phone: [employer] 09-03-2023 14:22-0400 Systolic blood pressure 136 mm[Hg] Candice Frank EAR NOSE THROAT PHYSICIAN - REVERSE LOGISTICS ANALYST Work Phone: [facility] 09-03-2023 14:02-0400 Body height 175.3 cm Candice Frank EAR NOSE THROAT PHYSICIAN - REVERSE LOGISTICS ANALYST Work Phone: [facility] 09-03-2023 14:02-0400 Body mass index (BMI) [Ratio] 25.4 kg/m2 Candice Frank EAR NOSE THROAT PHYSICIAN - REVERSE LOGISTICS ANALYST Work Phone: [facility] 09-03-2023 14:02-0400 Body temperature 97.5 [degF] Candice Frank EAR NOSE THROAT PHYSICIAN - REVERSE LOGISTICS ANALYST Work Phone: [facility] 09-03-2023 14:02-0400 Body weight 78.02 kg Candice Frank EAR NOSE THROAT PHYSICIAN - REVERSE LOGISTICS ANALYST Work Phone: [facility] 09-03-2023 14:02-0400 Heart rate 63 /min Candice Frank EAR NOSE THROAT PHYSICIAN - REVERSE LOGISTICS ANALYST Work Phone: [facility] 08-31-2023 11:09-0400 Body height 175.26 cm PHOTOCOPIER TECHNICIAN-C Candice Frank PHOTOCOPIER TECHNICIAN Work Phone: [facility] 08-31-2023 11:09-0400 Body mass index (BMI) [Ratio] 25.4 kg/m2 PHOTOCOPIER TECHNICIAN-C Candice Frank PHOTOCOPIER TECHNICIAN Work Phone: [facility] 08-31-2023 11:09-0400 Body weight 78.18 kg PHOTOCOPIER TECHNICIAN-C Candice Frank PHOTOCOPIER TECHNICIAN Work Phone: [facility] 01-05-2023 10:19-0500 Body height 172.7 cm Candice Frank EAR NOSE THROAT PHYSICIAN - REVERSE LOGISTICS ANALYST Work Phone: [facility] 01-05-2023 10:19-0500 Body mass index (BMI) [Ratio] 26.15 kg/m2 Candice Frank EAR NOSE THROAT PHYSICIAN - REVERSE LOGISTICS ANALYST Work Phone: [facility] 01-05-2023 10:19-0500 Body weight 78.02 kg Candice Frank EAR NOSE THROAT PHYSICIAN - REVERSE LOGISTICS ANALYST Work Phone: [facility] 01-05-2023 10:19-0500 Diastolic blood pressure 76 mm[Hg] Candice Frank EAR NOSE THROAT PHYSICIAN - REVERSE LOGISTICS ANALYST Work Phone: [facility] 01-05-2023 10:19-0500 Heart rate 57 /min Candice Frank EAR NOSE THROAT PHYSICIAN - REVERSE LOGISTICS ANALYST Work Phone: [facility] 01-05-2023 10:19-0500 SaO2% (BldA) [Mass fraction] 98 % Candice Frank EAR NOSE THROAT PHYSICIAN - REVERSE LOGISTICS ANALYST Work Phone: [facility] 01-05-2023 10:19-0500 Systolic blood pressure 120 mm[Hg] Candice Frank EAR NOSE THROAT PHYSICIAN - REVERSE LOGISTICS ANALYST Work Phone: [facility] 10-20-2019 11:20-0500 BMI (Body Mass Index) 28.32 kg/m2 Annel Aguillon [facility] Work Phone: 10-20-2019 11:20-0500 Body Temperature 98.2 [degF] Oma Stuart [facility] Work Phone: 10-20-2019 11:20-0500 Body weight 85.73 kg Oma Stuart [facility] Work Phone: 10-20-2019 11:20-0500 BP Diastolic 74 mm[Hg] [facility] Work Phone: 10-20-2019 11:20-0500 BP Systolic 126 mm[Hg] Oma Pal [facility] Work Phone: 10-20-2019 11:20-0500 BSA (Body Surface Area) 2.01 m2 Oma Stuart [facility] Work Phone: 10-20-2019 11:20-0500 Height 173.99 cm Annel Aguillon [facility] Work Phone: Encounters Encounter Date Encounter Type Care Provider Facility Start: 05-11-2025 End: 05-11-2025 Office outpatient visit 25 minutes Marcelino Durán EAR NOSE THROAT PHYSICIAN - REVERSE LOGISTICS ANALYST [facility] Comment on above: Anxiety (Primary Dx) ; Major depressive disorder, recurrent, mild (HCC) Start: 05-11-2025 End: 05-11-2025 ambulatory [facility] Start: 05-05-2025 End: 05-05-2025 Refill Mumtaz Kennedy MD Work Phone: [facility] Comment on above: Essential hypertensi on proscar Start: 03-16-2025 End: 03-17-2025 Telephone encounter Mumtaz Kennedy MD Work Phone: [facility] Comment on above: Other (03/24/25: per patient, stop messages re referral for gastro/Colonoscopy done 03/09/25 ) Start: 03-09-2025 End: 03-09-[address] JAMIL HERZOG MD Facility:[facility] Start: 03-03-2025 End: 03-03-2025 Refill Candice Frank EAR NOSE THROAT PHYSICIAN - REVERSE LOGISTICS ANALYST Work Phone: [facility] Comment on above: Essential hypertensi on Start: 02-12-2025 End: 02-12-2025 ambulatory SASHA KAUR Facility:[facility] Start: 01-27-2025 End: 01-27-2025 ambulatory HORACE LUBIN Facility:[facility] Start: 01-27-2025 End: 01-27-2025 Patient encounter procedure Horace Lubin PA-C Work Phone: Urology Comment on above: Elevated prostate sp ecific antigen (PSA) (Primary Dx); BPH with obstruction/lower urinary tract symptoms; Screening for genitourinary condition Start: 01-23-2025 End: 01-23-2025 ambulatory CANDICE FRANK Facility:[facility] Start: 01-16-2025 End: 01-16-2025 ambulatory [facility] Start: 01-16-2025 End: 01-16-2025 Assay of hemosiderin, quant Candice Frank EAR NOSE THROAT PHYSICIAN - REVERSE LOGISTICS ANALYST Work Phone: [facility] Start: 01-16-2025 End: 01-16-2025 Encounter for general adult medical examination without abnormal findings CANDICE ZAC [facility] Start: 01-16-2025 End: 01-16-2025 Patient encounter procedure Candice S Zac EAR NOSE THROAT PHYSICIAN - REVERSE LOGISTICS ANALYST Work Phone: [facility] Comment on above: Routine general medi bird [...] cancer Start: 01-01-2025 End: 01-01-2025 Refill Candice Vora Zac EAR NOSE THROAT PHYSICIAN - REVERSE LOGISTICS ANALYST Work Phone: [facility] Comment on above: Anxiety Start: 12-02-2024 End: 12-02-2024 Office outpatient visit 15 minutes Marcelino Claudia EAR NOSE THROAT PHYSICIAN - REVERSE LOGISTICS ANALYST Work Phone: [facility] Comment on above: Benign prostatic hyp erplasia with nocturia (Primary Dx); Urinary tract infection symptoms; Viral URI with cough Start: 12-02-2024 End: 12-02-2024 Office outpatient visit 25 minutes Marcelino [facility] EAR NOSE THROAT PHYSICIAN - REVERSE LOGISTICS ANALYST Work Phone: [facility] Comment on above: Benign prostatic hyp erplasia with nocturia (Primary Dx); Urinary tract infection symptoms; Viral URI with cough Start: 12-02-2024 End: 12-02-2024 ambulatory MUMTAZ KENNEDY [facility] Start: 11-24-2024 End: 11-24-2024 ambulatory SASHA KAUR Facility:[facility] Start: 11-24-2024 End: 11-24-2024 Patient encounter procedure Sasha Kaur OD Work Phone: Ophthalmology Comment on above: Combined forms of ag e-related cataract of both eyes (Primary Dx); Dermatochalasis of both upper eyelids; Hyperopia, bilateral; Regular astigmatism of both eyes; Presbyopia Start: 11-05-2024 End: 03-09-[address] JAMIL HERZOG [facility] Start: 11-03-2024 End: 11-03-2024 ambulatory Candice Frank PHOTOCOPIER TECHNICIAN Facility:[facility] Start: 10-30-2024 End: 10-30-2024 Refill Mumtaz Kennedy MD Work Phone: [facility] Comment on above: Essential hypertensi on Start: 09-23-2024 End: 09-23-2024 ambulatory Candice Frank PHOTOCOPIER TECHNICIAN Facility:[facility] Start: 09-18-2024 End: 09-18-2024 ambulatory Candice Frank PHOTOCOPIER TECHNICIAN Facility:[facility] Start: 08-29-2024 Encounter for other preprocedural examination [facility] Start: 08-21-2024 End: 08-21-2024 Refill Candice Frank EAR NOSE THROAT PHYSICIAN - REVERSE LOGISTICS ANALYST Work Phone: [facility] Comment on above: Essential hypertensi on Start: 08-21-2024 End: 08-21-2024 ambulatory Candice Frank PHOTOCOPIER TECHNICIAN Facility:[facility] Start: 08-05-2024 ambulatory Norbertoden Lu Facility:[facility] Start: 08-05-2024 End: 08-06-2024 Evaluation and management of inpatient Norbertoden Lu Facility:[facility] Start: 08-05-2024 ambulatory Norberto Lu Facility:[facility] Start: 07-31-2024 End: 07-31-2024 ambulatory MUMTAZ KENNEDY [facility] Start: 07-30-2024 End: 07-30-2024 Orders Only Candice Frank EAR NOSE THROAT PHYSICIAN - REVERSE LOGISTICS ANALYST Work Phone: [facility] Comment on above: Hyponatremia (Primar y Dx) Start: 07-24-2024 End: 07-24-2024 ambulatory Norberto Lu Facility:[facility] Start: 07-18-2024 End: 07-18-2024 ambulatory Candice Frank PHOTOCOPIER TECHNICIAN Facility:[facility] Start: 07-14-2024 End: 07-14-2024 Office outpatient visit 25 minutes Candice Frank EAR NOSE THROAT PHYSICIAN - REVERSE LOGISTICS ANALYST Work Phone: [facility] Comment on above: Pre-operative cleara nce (Primary Dx); Essential hypertension; Major depressive disorder, recurrent, mild (HCC); Anxiety; Benign prostatic hyperplasia with nocturia; Elevated PSA, less than 10 ng/ml; Chronic low back pain, unspecified back pain laterality, unspecified whether sciatica present; Elevated LDL cholesterol level Start: 07-14-2024 End: 07-14-2024 Preoperative state Candice Chris Zac EAR NOSE THROAT PHYSICIAN - REVERSE LOGISTICS ANALYST Work Phone: [facility] Work Phone: Start: 07-14-2024 End: 07-14-2024 ambulatory CANDICE ZAC [facility] Start: 07-10-2024 End: 07-10-2024 Refill Candice Frank EAR NOSE THROAT PHYSICIAN - REVERSE LOGISTICS ANALYST Work Phone: [facility] Comment on above: Anxiety Start: 05-21-2024 End: 05-21-2024 ambulatory Candice Frank PHOTOCOPIER TECHNICIAN Facility:[facility] Start: 05-20-2024 E-mail encounter fro m caregiver [facility] Start: 05-20-2024 Patient encounter procedure [facility] Comment on above: Instructions for you r upcoming appointment Start: 05-15-2024 End: 05-15-2024 Refill Candice Chris Zac EAR NOSE THROAT PHYSICIAN - REVERSE LOGISTICS ANALYST Work Phone: [facility] Comment on above: Essential hypertensi on Start: 04-15-2024 End: 04-15-2024 Patient encounter procedure Kate Ramirez OD Work Phone: Ophthalmology Comment on above: Combined forms of ag e-related cataract of both eyes (Primary Dx); Dermatochalasis of both upper eyelids; Hyperopia, bilateral; Regular astigmatism of both eyes; Presbyopia Start: 01-25-2024 End: 01-25-2024 Patient encounter procedure Shruthi Krause MD Work Phone: [facility] Comment on above: Elevated prostate sp ecific antigen (PSA) (Primary Dx); BPH with obstruction/lower urinary tract symptoms Start: 01-22-2024 End: 01-22-2024 Clinical Support Schedule Deborah Melony [facility] Start: 01-16-2024 Patient encounter status Wilmer Krause MD Work Phone: [facility] Work Phone: Start: 01-10-2024 Telephone encounter Mumtaz Lopes MD Work Phone: [facility] Clinical Communication Comment on above: Medication Question Start: 01-09-2024 Telephone encounter Shruthi Krause MD Work Phone: [facility] Comment on above: Surgery Scheduled Start: 01-09-2024 End: 01-09-2024 Patient encounter procedure Candice Vora Zac EAR NOSE THROAT PHYSICIAN - REVERSE LOGISTICS ANALYST Work Phone: [facility] Comment on above: Medicare annual well [facility] visit, subsequent (Primary Dx); Essential hypertension; Major depressive disorder, recurrent, mild (HCC); Anxiety; Benign prostatic hyperplasia with nocturia; Elevated PSA, less than 10 ng/ml; Chronic low back pain, unspecified back pain laterality, unspecified whether sciatica present; Degenerative spondylolisthesis; Screening for ischemic heart disease; Screening for diabetes mellitus Start: 01-04-2024 End: 01-04-2024 Patient encounter procedure Shruthi Krause MD Work Phone: [facility] Comment on above: Elevated prostate sp ecific antigen (PSA) (Primary Dx); BPH with obstruction/lower urinary tract symptoms Start: 12-25-2023 End: 12-25-2023 Subsequent hospital visit by physician Mri [facility] (I-Stat/Lg Bore/3t) [facility] Comment on above: Encounter for observ ation for other suspected diseases and conditions ruled out [Z03.89] Start: 11-12-2023 Refill Mumtaz Kennedy MD Work Phone: [facility] Comment on above: Essential hypertensi on Start: 11-07-2023 Telephone encounter Shruthi Krause MD Work Phone: [facility] Start: 10-31-2023 End: 11-01-2023 ambulatory JOSH GONZALEZ Facility:[facility] Start: 10-23-2023 Refill Candice Frank EAR NOSE THROAT PHYSICIAN - REVERSE LOGISTICS ANALYST Work Phone: [facility] Comment on above: Erectile dysfunction , unspecified erectile dysfunction type Start: 10-17-2023 End: 10-17-2023 Patient encounter procedure PHOTOCOPIER TECHNICIAN-C Candice Frank PHOTOCOPIER TECHNICIAN Work Phone: [facility] Work Phone: Start: 10-16-2023 Telephone encounter Yomi dior MD Work Phone: [facility] Start: 10-15-2023 End: 10-15-2023 Orders Only Candice Frank EAR NOSE THROAT PHYSICIAN - REVERSE LOGISTICS ANALYST Work Phone: [facility] Comment on above: Elevated PSA, less t bansal 10 ng/ml (Primary Dx); Benign prostatic hyperplasia with nocturia Start: 10-15-2023 End: 10-15-2023 Patient encounter procedure PHOTOCOPIER TECHNICIAN-C Candice Frank PHOTOCOPIER TECHNICIAN Work Phone: [facility] Work Phone: Start: 10-11-2023 End: 10-11-2023 ambulatory PHOTOCOPIER TECHNICIAN-C Candice Frank PHOTOCOPIER TECHNICIAN Work Phone: [facility] Work Phone: Start: 10-11-2023 End: 10-11-2023 Patient encounter procedure PHOTOCOPIER TECHNICIAN-C Candice Frank PHOTOCOPIER TECHNICIAN Work Phone: [facility] Work Phone: Start: 09-13-2023 End: 09-13-2023 ambulatory PHOTOCOPIER TECHNICIAN-C Candice Frank PHOTOCOPIER TECHNICIAN Work Phone: [facility] Work Phone: Start: 09-13-2023 End: 09-13-2023 Patient encounter procedure PHOTOCOPIER TECHNICIAN-C Candice Frank PHOTOCOPIER TECHNICIAN Work Phone: [facility] Work Phone: Start: 09-03-2023 End: 09-03-2023 Office outpatient visit 25 minutes Candice Frank EAR NOSE THROAT PHYSICIAN - REVERSE LOGISTICS ANALYST Work Phone: [facility] Comment on above: Essential hypertensi on (Primary Dx); Major depressive disorder, recurrent, mild (HCC); Anxiety; Benign prostatic hyperplasia with nocturia; Elevated PSA, less than 10 ng/ml; Chronic low back pain, unspecified back pain laterality, unspecified whether sciatica present; Degenerative spondylolisthesis Start: 08-31-2023 End: 08-31-2023 Patient encounter procedure KATARINA Frank PHOTOCOPIER TECHNICIAN Work Phone: [facility] Work Phone: Start: 07-26-2023 End: 07-26-2023 Patient encounter procedure KATARINA Frank PHOTOCOPIER TECHNICIAN Work Phone: [facility], Phy Office 3rd Mtr Start: 01-15-2023 End: 01-15-2023 ambulatory [facility] Work Phone: Start: 01-15-2023 End: 01-15-2023 Patient encounter procedure [facility]-Radiology, [facility] Start: 01-05-2023 End: 01-05-2023 Patient encounter procedure Candice Frank EAR NOSE THROAT PHYSICIAN - REVERSE LOGISTICS ANALYST Work Phone: [facility] Comment on above: Medicare annual well ness [...] Start: 12-24-2022 Shannan Kennedy MD Work Phone: [facility] Comment on above: Anxiety disorder, un specified; Major depressive disorder, recurrent, mild (HCC) Start: 12-06-2022 Shannan Frank EAR NOSE THROAT PHYSICIAN - REVERSE LOGISTICS ANALYST Work Phone: [facility] Start: 08-31-2022 End: 08-31-2022 ambulatory [facility] Work Phone: Start: 08-31-2022 End: 08-31-2022 Patient encounter procedure [facility]-Cat Scan, [facility] Start: 08-25-2022 End: 08-25-2022 ambulatory [facility] Work Phone: Start: 08-25-2022 End: 08-25-2022 Patient encounter procedure [facility]-MRI - [facility] Start: 08-10-2022 End: 08-10-2022 ambulatory [facility] Work Phone: Start: 08-10-2022 End: 08-10-2022 Patient encounter procedure [facility]Laboratory, Specimen Start: 07-27-2022 End: 07-27-2022 ambulatory [facility] Work Phone: Start: 07-27-2022 End: 07-27-2022 Patient encounter procedure [facility] Start: 07-19-2021 End: 07-19-2021 Subsequent hospital visit by physician Candice Frank EAR NOSE THROAT PHYSICIAN - REVERSE LOGISTICS ANALYST Work Phone: [facility] Comment on above: Encounter for screen ing for cardiovascular disorders; Screening for AAA (abdominal aortic aneurysm) Start: 10-20-2019 Patient encounter procedure Anenl Aguillon [facility] Work Phone: Start: 05-20-2019 Patient encounter procedure Annel Aguillon [facility] Work Phone: Start: 01-20-2019 Patient encounter procedure Annel Aguillon [facility] Work Phone: Start: 12-24-2018 [facility] Work Phone: Start: 07-23-2017 Ambulatory [facility] Start: 07-23-2017 Ambulatory [facility] Start: 07-19-2017 End: 07-19-2017 Emergency department patient visit JONI LAROSE Facility:[facility] Start: 06-28-2017 End: 06-29-[address] Facility:[facility] Procedures Date Procedure Procedure Detail Performing Clinician Start: 03-09-[address] JAMIL HERZOG MD Start: 01-27-2025 Urnls dip stick/tabl et rgnt auto w/o microscopy Horace Lubin PA-C Work Phone: Start: 01-16-2025 Lipid 1996 panel - S saul or Plasma Horace Lubin PA-C Work Phone: Start: 12-02-2024 Urnls dip stick/tabl et rgnt non-auto w/o micrscp Marcelino Kehindeentheverton EAR NOSE THROAT PHYSICIAN - REVERSE LOGISTICS ANALYST Work Phone: Start: 07-14-2024 Lipid 1996 panel - S saul or Plasma Candice Frank EAR NOSE THROAT PHYSICIAN - REVERSE LOGISTICS ANALYST Work Phone: Start: 01-09-2024 Lipid 1996 panel - S saul or Plasma Mumtaz Kennedy MD Work Phone: Start: 10-15-2023 MRI of lumbar spine PHOTOCOPIER TECHNICIAN- C Candice Frank NP Work Phone: Start: 10-11-2023 Assay of prostate sp ecific antigen total Historical Provider Work Phone: Start: 01-15-2023 Plain x-ray of pelvi s and lower extremity Start: 01-15-2023 X-ray of lumbosacral spine Start: 01-05-2023 Lipid 1996 panel - S saul or Plasma Candice Frank EAR NOSE THROAT PHYSICIAN - REVERSE LOGISTICS ANALYST Work Phone: Start: 08-31-2022 Computed tomography of abdomen and pelvis with contrast Start: 08-25-2022 MRI of pelvis with contrast Start: 01-03-2022 Lipid 1996 panel - S saul or Plasma Candice Zac EAR NOSE THROAT PHYSICIAN - REVERSE LOGISTICS ANALYST Work Phone: Start: 09-16-2021 Colonoscopy Candice Norrismaxx vora EAR NOSE THROAT PHYSICIAN - REVERSE LOGISTICS ANALYST Work Phone: Start: 11-25-2020 Follow-up visit Start: 02-23-2020 Follow-up visit Start: 02-19-2020 End: 02-19-2020 Follow-up visit Start: 01-22-2020 Medicare Annual Well ness Visit Start: 12-06-2010 Colonoscopy Sasha Oli rolando OD Work Phone: Cataract (disorder) DR KATY HERZOG MD Comment on above: bilateral Decompression of med mikki nerve Oma Pal Spinal bone screw head DR CRISTOBAL HERZOG MD Urine culture Plan of Treatment Date Care Activity Detail Author Start: 03-09-2035 Screening for malignant neoplasm of colon [facility] Start: 02-07-2033 DTaP/Tdap/Td Vaccines (2 - Td or Tdap) DTaP/Tdap/Td Vaccines (2 - Td or Tdap) [facility] Start: 02-07-2033 Urine microalbumin profile DTaP,Tdap,Td Vaccine (2 - Td or Tdap) [facility] Start: 09-16-2031 Screening for malignant neoplasm of colon [facility] Start: 01-16-2030 Lipid panel [facility] Start: 07-14-2029 Lipid panel [facility] Start: 01-08-2029 Lipid panel [facility] Start: 01-17-2028 Diabetes Screening Diabetes Screening [facility] Start: 01-06-2028 Lipid panel [facility] Start: 07-14-2027 Diabetes Screening Diabetes Screening [facility] Start: 01-08-2027 Diabetes mellitus screening Diabetes Screening [facility] Start: 01-08-2027 Diabetes Screening Diabetes Screening [facility] Start: 01-03-2027 Lipid panel Lipid Panel [facility] Start: 02-15-2026 End: 02-15-2026 Patient encounter procedure 02/15/2026 10:15 AM EDT Office Visit [facility] [address] [place] [address] Sasha Kaur, OD [address] [place] [address] 1 year follow up for complete eye exam Ophthalmology Comment on above: 1 year follow up for complete eye exam Start: 02-02-2026 End: 02-02-2026 Patient encounter procedure 02/02/2026 10:30 AM EDT Office Visit Urology [address] [place] [address] Horace Lubin PA-C [address] [place] [address] 1 year follow up Urology Comment on above: 1 year follow up Start: 01-27-2026 End: 04-28-2026 Prostate specific Ag [Mass/volume] in Serum or Plasma PROSTATE-SPECIFIC ANTIGEN DIAGNOSTIC Lab Routine Elevated prostate specific antigen (PSA) Expected: 01/27/2026 (Approximate), Expires: 04/28/2026 [facility] Comment on above: Expected: 01/27/2026 (Approximate), Expi res: 04/28/2026 Start: 01-20-2026 End: 01-20-2026 Patient encounter procedure 01/20/2026 11:20 AM EDT Office Visit [facility] [address] [place] [address] [place] [address] Candice Frank, EAR NOSE THROAT PHYSICIAN - REVERSE LOGISTICS ANALYST [address] [place] [address] [place] [address] [facility] Start: 01-05-2026 Diabetes Screening Diabetes Screening [facility] Start: 12-24-2025 Lipid panel Lipid screen [facility] Work Phone: Start: 07-24-2025 End: 07-24-2025 Patient encounter procedure 07/24/2025 10:40 AM EDT Office Visit [facility] [address] [place] [address] [place] [address] Candice Frank, EAR NOSE THROAT PHYSICIAN - REVERSE LOGISTICS ANALYST [address] [place] [address] [facility] Start: 07-16-2025 Depression Monitoring Depression Monitoring [facility] Start: 07-06-2025 Influenza vaccination Influenza Vaccine (#1) [facility] Start: 06-30-2025 End: 06-30-2025 Patient encounter procedure 06/30/2025 11:30 AM EDT Office Visit Urology [address] [place] [address] Horace Lubin PA-C [address] [place], [place] [id number] 3m f/u Urology Comment on above: 3m f/u Start: 06-04-2025 End: 06-04-2025 Patient encounter procedure 06/04/2025 11:00 AM EDT Office Visit [facility] [address] [place] [address] Marcelino Durán, EAR NOSE THROAT PHYSICIAN - REVERSE LOGISTICS ANALYST [address] [place] [address] [facility] Start: 06-02-2025 End: 06-02-2025 Patient encounter procedure 06/02/2025 3:30 PM EDT Office Visit [facility] [address] [place] [address] Shruthi Krause MD [address] [place] [address] [facility] Comment on above: [facility] Start: 05-12-2025 Diabetes mellitus screening Diabetes Screening [facility] Start: 05-11-2025 End: 05-11-2026 Thyrotropin [Units/volume] in Serum or Plasma TSH Lab Routine Anxiety Expected: 05/11/2025 (Approximate), Expires: 05/11/2026 [facility] Work Phone: Comment on above: Expected: 05/11/2025 (Approximate), Expi res: 05/11/2026 Start: 2025 RSV Immunization for Adults (1 - 1-dose 75+ series) RSV Immunization for Adults (1 - 1-dose 75+ series) [facility] Start: 2025 RSV Vaccine (1 - 1-dose 75+ series) RSV Vaccine (1 - 1-dose 75+ series) [facility] Start: 01-27-2025 End: 01-27-2025 Patient encounter procedure 01/27/2025 10:30 AM EDT Office Visit Urology [address] [place], [place] [id number] Horace Lubin PA-C [address] [place] [address] 12 months psa prior Urology Comment on above: 12 months psa prior Start: 01-24-2025 End: 04-25-2025 Prostate specific Ag [Mass/volume] in Serum or Plasma PSA/PROSTSPECAG DIAG Lab Routine BPH with obstruction/lower urinary tract symptoms Expected: 01/24/2025 (Approximate), Expires: 04/25/2025 [facility] Work Phone: Comment on above: Expected: 01/24/2025 (Approximate), Expi res: 04/25/2025 Start: 01-16-2025 End: 01-16-2026 CBC panel - Blood by Automated count CBC Lab Routine Essential hypertension Major depressive disorder, recurrent, mild (HCC) Anxiety Benign prostatic hyperplasia with nocturia Chronic low back pain, unspecified back pain laterality, unspecified whether sciatica present Degenerative spondylolisthesis Screening for deficiency anemia Expected: 01/16/2025 (Approximate), Expires: 01/16/2026 [facility] Comment on above: Expected: 01/16/2025 (Approximate), Expi res: 01/16/2026 Start: 01-16-2025 End: 01-16-2026 Comprehensive metabolic 1998 panel - Serum or Plasma Comprehensive metabolic panel Lab Routine Essential hypertension Major depressive disorder, recurrent, mild (HCC) Anxiety Benign prostatic hyperplasia with nocturia Chronic low back pain, unspecified back pain laterality, unspecified whether sciatica present Degenerative spondylolisthesis Screening for diabetes mellitus Expected: 01/16/2025 (Approximate), Expires: 01/16/2026 [facility] Work Phone: Comment on above: Expected: 01/16/2025 (Approximate), Expi res: 01/16/2026 Start: 01-16-2025 End: 01-16-2026 Lipid 1996 panel - Serum or Plasma Lipid panel Lab Routine Screening for ischemic heart disease Expected: 01/16/2025 (Approximate), Expires: 01/16/2026 [facility] Comment on above: Expected: 01/16/2025 (Approximate), Expi res: 01/16/2026 Start: 01-16-2025 End: 01-16-2025 Patient encounter procedure [facility] Medicine Start: 01-14-2025 COVID-19 Vaccine () COVID-19 Vaccine () [facility] Start: 01-11-2025 Depression Monitoring Depression Monitoring [facility] Start: 01-08-2025 Diabetes mellitus screening Diabetes Screening [facility] Start: 01-08-2025 RSV Immunization aged 60 or older (1 - 1-dose 60+ series) RSV Immunization aged 60 or older (1 - 1-dose 60+ series) [facility] Comment on above: Postponed from 2010 (Patient Refus ed) Start: 12-17-2024 End: 12-17-2024 Patient encounter procedure 12/17/2024 3:15 PM EST Office Visit [facility] [address] [place] [address] Leonard Amador MD [address] [place] [address] for cataract consultation Ophthalmology Comment on above: for cataract consultation Start: 11-05-2024 Advance Directive Discussion Advance Directive Discussion [facility] Start: 11-05-2024 Medicare Advantage Annual Wellness Visit Medicare Advantage Annual Wellness Visit [facility] Start: 08-30-2024 Screening for malignant neoplasm of colon FIT-DNA [facility] Start: 07-31-2024 End: 07-31-2024 Clinical Support 07/31/2024 10:00 AM EDT Clinical Support [facility] [address] [place] [address] [place] [address] [facility] Start: 07-30-2024 End: 07-30-2025 Sodium [Moles/volume] in Serum or Plasma Sodium Lab Routine Hyponatremia Expected: 07/30/2024 (Approximate), Expires: 07/30/2025 [facility] Work Phone: Comment on above: Expected: 07/30/2024 [...] cholesterol level Expected: 07/14/2024 (Approximate), Expires: 07/14/2025 [facility] Comment on above: Expected: 07/14/2024 (Approximate), Expi res: 07/14/2025 Start: 07-14-2024 End: 07-14-2025 Lipid 1996 panel - Serum or Plasma Lipid panel Lab Routine Elevated LDL cholesterol level Expected: 07/14/2024 (Approximate), Expires: 07/14/2025 [facility] Work Phone: Comment on above: Expected: 07/14/2024 (Approximate), Expi res: 07/14/2025 Start: 07-14-2024 End: 07-14-2024 Patient encounter procedure 07/14/2024 1:40 PM EDT Office Visit [facility] [address] [place] [address] [place] [address] Candice Frank, EAR NOSE THROAT PHYSICIAN - REVERSE LOGISTICS ANALYST [address] [place] [address] [facility] Start: 07-12-2024 Screening for malignant neoplasm of colon [facility] Start: 07-10-2024 Depression Monitoring Depression Monitoring [facility] Start: 07-10-2024 Depresssion Monitoring Depresssion Monitoring [facility] Start: 07-06-2024 COVID-19 Vaccine ( season) COVID-19 Vaccine () [facility] Comment on above: Postponed from 10/18/2023 (Other Medical Reasons) Start: 07-06-2024 COVID-19 Vaccine () COVID-19 Vaccine () [facility] Start: 07-06-2024 Influenza vaccination Influenza Vaccine (#1) [facility] Start: 05-26-2024 End: 05-26-2024 Patient encounter procedure 05/26/2024 11:00 AM EDT Office Visit Pain Management [address] [address] [place] [address] Vinny Trevizo MD [address] [facility] [place] [address] Low b[facility] Comment on above: Low bACK PAIN Start: 03-04-2024 Depresssion Monitoring Depresssion Monitoring [facility] Start: 02-05-2024 Medicare Advantage Annual Wellness Visit (AWV) Medicare Advantage Annual Wellness Visit (AWV) [facility] Start: 02-05-2024 End: 02-05-2024 Clinical Support 02/05/2024 10:30 AM EDT Clinical Support [facility] [address] [place] [address] [facility] Start: 01-22-2024 End: 01-22-2024 Clinical Support 01/22/2024 11:00 AM EDT Clinical Support [address] [address] [facility] Start: 01-09-2024 End: 01-07-2025 CBC panel - Blood by Automated count CBC Lab Routine Essential hypertension Major depressive disorder, recurrent, mild (HCC) Anxiety Benign prostatic hyperplasia with nocturia Expected: 01/09/2024 (Approximate), Expires: 01/07/2025 [facility] Comment on above: Expected: 01/09/2024 (Approximate), Expi res: 01/07/2025 Start: 01-09-2024 End: 01-07-2025 Comprehensive metabolic 1998 panel - Serum or Plasma Comprehensive metabolic panel Lab Routine Essential hypertension Major depressive disorder, recurrent, mild (HCC) Anxiety Benign prostatic hyperplasia with nocturia Elevated PSA, less than 10 ng/ml Screening for diabetes mellitus Expected: 01/09/2024 (Approximate), Expires: 01/07/2025 [facility] Comment on above: Expected: 01/09/2024 (Approximate), Expi res: 01/07/2025 Start: 01-09-2024 End: 01-07-2025 Lipid 1996 panel - Serum or Plasma Lipid panel Lab Routine Screening for ischemic heart disease Expected: 01/09/2024 (Approximate), Expires: 01/07/2025 [facility] Work Phone: Comment on above: Expected: 01/09/2024 (Approximate), Expi res: 01/07/2025 Start: 01-09-2024 End: 01-09-2024 Patient encounter procedure [facility] Start: 01-06-2024 Hepatitis C screening Hepatitis C Screening [facility] Comment on above: Postponed from 1968 (Patient Refus ed) Start: 11-05-2023 Advance Directive Discussion Advance Directive Discussion [facility] Start: 11-05-2023 Behavioral Health Screening Behavioral Health Screening [facility] Start: 11-05-2023 Depression Assessment Depression Assessment [facility] Start: 10-18-2023 COVID-19 Vaccine () COVID-19 Vaccine () [facility] Start: 07-06-2023 Covid-19 Vaccine () Covid-19 Vaccine () [facility] Start: 07-06-2023 Influenza vaccination Influ[facility] Start: 05-12-2023 Diabetes mellitus screening Diabetes Screening [facility] Start: 01-26-2023 End: 01-26-2023 Patient encounter procedure 01/26/2023 Office Visit Family Medicine Candice Farnk S, EAR NOSE THROAT PHYSICIAN - REVERSE LOGISTICS ANALYST [address] [place] [address] [facility] Start: 01-11-2023 LIPID SCREEN LIPID SCREEN [facility] Start: 01-05-2023 End: 01-06-2024 CBC panel - Blood by Automated count CBC Lab Routine Major depressive disorder, recurrent, mild (HCC) Essential hypertension Erectile dysfunction, unspecified erectile dysfunction type Elevated PSA, less than 10 ng/ml Anxiety Benign prostatic hyperplasia with nocturia Chronic pain of right hip Chronic bilateral low back pain with right-sided sciatica Expected: 01/05/2023 (Approximate), Expires: 01/06/2024 [facility] Work Phone: Comment on above: Expected: 01/05/2023 [...] right-sided sciatica Expected: 01/05/2023 (Approximate), Expires: 01/06/2024 [facility] Comment on above: Expected: 01/05/2023 (Approximate), Expi res: 01/06/2024 Start: 01-05-2023 End: 01-06-2024 Lipid 1996 panel - Serum or Plasma Lipid panel Lab Routine Screening for ischemic heart disease Expected: 01/05/2023 (Approximate), Expires: 01/06/2024 [facility] Comment on above: Expected: 01/05/2023 (Approximate), Expi res: 01/06/2024 Start: 01-05-2023 End: 01-06-2024 PSA, total and free PSA, total and free Lab Routine Elevated PSA, less than 10 ng/ml Benign prostatic hyperplasia with nocturia Expected: 01/05/2023 (Approximate), Expires: 01/06/2024 [facility] Comment on above: Expected: 01/05/2023 (Approximate), Expi res: 01/06/2024 Start: 01-05-2023 End: 01-06-2024 XR Hip - right 3 Views XR hip right 2 or 3 views Imaging Routine Chronic pain of right hip Expected: 01/05/2023, Expires: 01/06/2024 [employer] Comment on above: Expected: 01/05/2023, Expires: Start: 01-05-2023 End: 01-06-2024 XR Lumbar spine 4 Views XR lumbar spine complete 4+ views Imaging Routine Chronic bilateral low back pain with right-sided sciatica Expected: 01/05/2023, Expires: 01/06/2024 [employer] [facility] Comment on above: Expected: 01/05/2023, Expires: Start: 01-05-2023 End: 01-05-2023 Patient encounter procedure 01/05/2023 Office Visit Family Medicine Candice Frank, EAR NOSE THROAT PHYSICIAN - REVERSE LOGISTICS ANALYST [address] [place] [address] [facility] Start: 11-05-2022 ADVANCE DIRECTIVE DISCUSSION ADVANCE DIRECTIVE DISCUSSION [facility] Start: 11-05-2022 DEPRESSION ASSESSMENT DEPRESSION ASSESSMENT [facility] Start: 07-06-2022 Influenza vaccination INFLUENZA (#1) [facility] Start: 06-24-2022 Creatinine measurement Creatinine monitoring [facility] Work Phone: Start: 06-24-2022 DTaP/Tdap/Td vaccine (1 - Tdap) DTaP/Tdap/Td vaccine (1 - Tdap) [employer] Work Phone: Comment on above: Postponed from 1969 (Patient Refus ed) Start: 06-24-2022 Pneumococcal Vaccine: 65+ Years (2 - PCV) Pneumococcal Vaccine: 65+ Years (2 - PCV) [facility] Start: 06-24-2022 Potassium monitoring Potassium monitoring [employer] Work Phone: Start: 06-24-2022 Prostate specific antigen measurement PSA counseling [employer] Work Phone: Start: 03-31-2022 COVID-19 VACCINE (5 - Booster for Moderna series) COVID-19 VACCINE (5 - Booster for Moderna series) [facility] Start: 01-03-2022 End: 01-03-2022 Patient encounter procedure 01/03/2022 Office Visit Family Medicine Mumtaz Kennedy MD [address] [place] [address] [phone] [facility] Start: 12-28-2021 End: 12-28-2021 Patient encounter procedure 12/28/2021 Office Visit Urology Yomi Castro MD [address] [place] [address] [phone] [facility] [place] Start: 12-25-2021 Annual Wellness Visit (AWV) Annual Wellness Visit (AWV) [facility] Work Phone: Start: 07-06-2021 Influenza vaccination Flu vaccine (#1) [facility] Work Phone: Start: 01-11-2021 DIABETES SCREEN DIABETES SCREEN [facility] Start: 12-22-2020 Shingles Vaccine (3 of 3) Shingles Vaccine (3 of 3) [facility] Work Phone: Start: 12-22-2020 Shingrix Vaccine (3 of 3) Shingrix Vaccine (3 of 3) [facility] Start: 12-22-2020 Zoster Vaccines (3 of 3) Zoster Vaccines (3 of 3) [facility] Start: 09-05-2019 ANNUAL PCP TEAM CHRONIC DISEASE VISIT ANNUAL PCP TEAM CHRONIC DISEASE VISIT [facility] Start: 11-05-2015 PNEUMOCOCCAL: 65+ (2 - PCV) PNEUMOCOCCAL: 65+ (2 - PCV) [facility] Start: 12-06-2011 Colonoscopy COLONOSCOPY [facility] Start: 12-06-2011 COLORECTAL CANCER SCREENING COLORECTAL CANCER SCREENING [facility] Start: 12-06-2011 Screening for malignant neoplasm of colon [facility] Start: 2010 RSV Immunization aged 60 or older (1 - 1-dose 60+ series) RSV Immunization aged 60 or older (1 - 1-dose 60+ series) [facility] Start: 2010 RSV Vaccine (1 - 1-dose 60+ series) RSV Vaccine (1 - 1-dose 60+ series) [facility] Start: 2000 SHINGRIX VACCINE (1 of 2) SHINGRIX VACCINE (1 of 2) [facility] Start: 1995 COLOGUARD (FIT-DNA) COLOGUARD (FIT-DNA) [facility] Start: [address] COLONOGRAPHY [facility] Start: 1995 FECAL OCCULT BLOOD FECAL OCCULT BLOOD [facility] Start: 1995 Screening for malignant neoplasm of colon [facility] Start: 1995 SIGMOIDOSCOPY SIGMOIDOSCOPY [facility] Start: 1969 DTaP/Tdap/Td Vaccines (1 - Tdap) DTaP/Tdap/Td Vaccines (1 - Tdap) [facility] Start: 1969 Urine microalbumin profile DTAP,TDAP,TD (1 - Tdap) [facility] Start: 1968 Annual PCP Team Chronic Disease Visit Annual PCP Team Chronic Disease Visit [facility] Start: 1968 Anxiety Screening Anxiety Screening [facility] Start: 1968 BP CONTROLLED (<130/80) BP CONTROLLED (<130/80) [facility] Start: 1968 Depression Screening Depression Screening [facility] Start: 1968 HEPATITIS C SCREENING HEPATITIS C SCREENING [facility] Start: 1968 Hepatitis C screening Hepatitis C Screening [facility] Start: 1950 Abdominal aortic aneurysm screening [facility] Start: 1950 ABDOMINAL AORTIC ANEURYSM SCREENING ABDOMINAL AORTIC ANEURYSM SCREENING [facility] Start: 1950 Hepatitis B Vaccines (1 of 3 - 3-dose series) Hepatitis B Vaccines (1 of 3 - 3-dose series) [facility] Start: 1950 Medicare Advantage Annual Wellness Visit (AWV) Medicare Advantage Annual Wellness Visit (AWV) [facility] Start: 1950 Screening for malignant neoplasm of colon [facility] MR Prostate WO and W contrast IV MRI PROSTATE WO/W IVCON Radiology Routine Encounter for observation for other suspected diseases and conditions ruled out 12/25/2023 10:30 AM EST [facility] Work Phone: MR Unspecified body region 3D post processing MRI 3D POST PROCESSING Radiology Routine Encounter for observation for other suspected diseases and conditions ruled out 12/25/2023 10:30 AM EST [facility] Work Phone: POST VOID RESIDUAL POST VOID RES IDUAL Procedures Routine Elevated prostate specific antigen (PSA) BPH with obstruction/lower urinary tract symptoms Screening for genitourinary condition Ordered: 01/27/2025 [facility] Work Phone: Comment on above: Ordered: 01/27/2025 End: 07-19-2021 VL AAA SCREENING VL AAA SCREENING Imaging Routine Screening for AAA (abdominal aortic aneurysm) 1 Occurrences starting 07/19/2021 until 07/19/2021 [facility] Work Phone: Comment on above: 1 Occurrences starting 07/19/2021 until 07/19/2021 VL AAA SCREENING VL AAA SCREENIN G Imaging Routine Screening for AAA (abdominal aortic aneurysm) 07/19/2021 11:30 AM EDT [facility] Work Phone: [facility] Immunizations Immunization Date Immunization Notes Care Provider [facility] 09-05-2024 influenza virus vacc ine, unspecified formulation Mumtaz Kennedy MD Work Phone: [facility] 08-23-2023 Covid-19, Moderna Bivalent Booster, (Age 6y-11y) Candice Frank EAR NOSE THROAT PHYSICIAN - REVERSE LOGISTICS ANALYST Work Phone: [facility] 08-13-2023 Influenza, High-dose Seasonal, Quadrivalent, Preservative Free Candice Frank EAR NOSE THROAT PHYSICIAN - REVERSE LOGISTICS ANALYST Work Phone: [facility] 08-13-2023 influenza virus vacc ine, unspecified formulation Candice Frank EAR NOSE THROAT PHYSICIAN - REVERSE LOGISTICS ANALYST Work Phone: [facility] 02-07-2023 tetanus toxoid, redu leonor diphtheria toxoid, and acellular pertussis vaccine, adsorbed Candice Frank EAR NOSE THROAT PHYSICIAN - REVERSE LOGISTICS ANALYST Work Phone: [facility] 01-05-2023 diphtheria, tetanus toxoids and acellular pertussis vaccine, unspecified formulation Candice Frank EAR NOSE THROAT PHYSICIAN - REVERSE LOGISTICS ANALYST Work Phone: [facility] 08-11-2022 Influenza, Seasonal, Quadrivalent, Adjuvanted Candice Zac EAR NOSE THROAT PHYSICIAN - REVERSE LOGISTICS ANALYST Work Phone: [facility] 08-11-2022 Pneumococcal Conjuga te PCV20, Pf (Prevnar 20) Candice Zac EAR NOSE THROAT PHYSICIAN - REVERSE LOGISTICS ANALYST Work Phone: [facility] 08-11-2022 influenza virus vacc ine, unspecified formulation Mri Bore/3t) [facility] 07-21-2022 Covid-19, Pfizer Bivalent Booster, (Age 12y+), Im, 30 Mcg/0e Candicegabrielle Frank EAR NOSE THROAT PHYSICIAN - REVERSE LOGISTICS ANALYST Work Phone: [facility] 08-16-2021 Influenza, High-dose Seasonal, Quadrivalent, Preservative Free Candicegabrielel Frank EAR NOSE THROAT PHYSICIAN - REVERSE LOGISTICS ANALYST Work Phone: [facility] 06-24-2021 pneumococcal polysaccharide vaccine, 23 valent Candice Frank EAR NOSE THROAT PHYSICIAN - REVERSE LOGISTICS ANALYST Work Phone: [facility] 10-27-2020 zoster vaccine recombinant Candice Zac EAR NOSE THROAT PHYSICIAN - REVERSE LOGISTICS ANALYST Work Phone: [facility] 08-12-2020 Influenza, Quadv, adjuvanted, 65 yrs +, IM, PF (Fluad) Candice Zac EAR NOSE THROAT PHYSICIAN - REVERSE LOGISTICS ANALYST Work Phone: [facility] 08-03-2020 zoster vaccine, live Candice snyder EAR NOSE THROAT PHYSICIAN - REVERSE LOGISTICS ANALYST Work Phone: [facility] Work Phone: 09-01-2019 influenza, high dose seasonal, preservative-free Candice Frank EAR NOSE THROAT PHYSICIAN - REVERSE LOGISTICS ANALYST Work Phone: [facility] 09-05-2018 influenza, high dose seasonal, preservative-free Candice Frank EAR NOSE THROAT PHYSICIAN - REVERSE LOGISTICS ANALYST Work Phone: [facility] 09-05-2016 influenza, high dose seasonal, preservative-free Candice Frank EAR NOSE THROAT PHYSICIAN - REVERSE LOGISTICS ANALYST Work Phone: [facility] 12-20-2015 pneumococcal conjuga te vaccine, 13 valent Candice Frank EAR NOSE THROAT PHYSICIAN - REVERSE LOGISTICS ANALYST Work Phone: [facility] 08-02-2015 influenza, seasonal, injectable, preservative free Candice Frank EAR NOSE THROAT PHYSICIAN - REVERSE LOGISTICS ANALYST Work Phone: [facility] 12-16-2014 pneumococcal polysaccharide vaccine, 23 valent Candice Frank EAR NOSE THROAT PHYSICIAN - REVERSE LOGISTICS ANALYST Work Phone: [facility] 11-05-2014 pneumococcal polysaccharide vaccine, 23 valent Candice Frank EAR NOSE THROAT PHYSICIAN - REVERSE LOGISTICS ANALYST Work Phone: [facility] 08-05-2013 influenza virus vacc ine, unspecified formulation Candice Frank EAR NOSE THROAT PHYSICIAN - REVERSE LOGISTICS ANALYST Work Phone: [facility] 10-10-2012 influenza, seasonal, injectable Candice Frank EAR NOSE THROAT PHYSICIAN - REVERSE LOGISTICS ANALYST Work Phone: [facility] Payers Date Payer Category Payer Unknown [id number] 2024 Self-pay [id number] 2022 Medicare O [id number] 2020 Medicare [id number] 2020 [place] [id number] 2020 Medicare [id number] 1950 Unknown [id number]. 2.627 Medicare [id number] Unknown [id number]. 2.462 Unknown [id number]. 2.462 Unknown [id number]. 2.462 Unknown [id number]. 2.462 Unknown [id number]. 2.462 Unknown [id number] [id number]. 2.462 Unknown [id number]. 2.462 Unknown [id number] [id number]. 2.462 Unknown [id number] [id number]. 2.462 Unknown [id number] [id number]. 2.462 Unknown [id number] [id number]. 2.462 Unknown [id number] [id number]. 2.462 Unknown [id number]. 2.462 Unknown [id number]. [id number] Unknown [id number]. [id number] Unknown [id number]. [id number] Social History Date Type Detail Facility Start: 06-24-2021 End: 06-23-2024 Tobacco smoking status NHIS Former smoker [facility] Start: 11-05-1967 End: 11-05-1994 History of tobacco use Current smoker [facility] Work Phone: Start: 06-24-2021 End: 07-14-2024 Cigarettes smoked current (pack per day) - Reported [facility] Work Phone: Start: 06-24-2021 End: 06-23-2024 Tobacco use and exposure Never used [facility] Work Phone: Start: 06-24-2021 End: 05-11-2025 Alcohol intake Current drinker of alcohol (finding) [facility] Work Phone: Start: 12-24-2020 History SDOH Physica l Activity DPW 7 [employer] Work Phone: Start: 12-24-2020 History SDOH Physica l Activity MPS 3 [employer] Work Phone: Start: 12-24-2020 End: 01-05-2023 History SDOH Financial 5 [facility] Work Phone: Start: 12-24-2020 End: 01-05-2023 History SDOH Food Worry 1 [employer] Work Phone: Start: 12-24-2020 History SDOH Transpo rt Med 2 [employer] Work Phone: Start: 12-23-2020 Alcohol Comment 3-4 beers a day [facility] Work Phone: Start: 1950 Sex Assigned At Not on file S [facility] Work Phone: Start: 12-25-2022 End: 01-04-2023 Exposure to SARS-CoV-2 (event) Not sure [facility] Start: 1950 Sex Assigned At Male [facility] Start: 11-05-1967 End: 11-05-1994 History of tobacco use Cigarette Smoker [facility] Start: 01-05-2023 End: 07-14-2024 Alcohol Use Disorder Identification Test - Consumption [AUDIT-C] [facility] How often to you hav e a drink containing alcohol? 4 or more times a week [facility] How many standard dr inks containing alcohol do you have on a typical day? 1 or 2 [facility] How often do you hav e 6 or more drinks on 1 occasion? Never [facility] Adolescent depressio n screening assessment 3 [facility] Start: 08-31-2023 End: 10-17-2023 Tobacco smoking status NHIS Unknown if ever smoked [facility] Start: 01-04-2024 Alcohol Comment low use [facility] (I/We) worried wheth er (my/our) food would run out before (I/we) got money to buy more. Never true [facility] In the past 12 month s, was there a time when you were not able to pay the mortgage or rent on time? No [facility] Start: 01-08-2024 Alcohol Comment occasional [facility] Start: 06-23-2024 Alcohol Comment [facility] Start: 06-05-2022 End: 02-04-2025 Sex Male (finding) [facility] Start: 03-09-2025 Tobacco smoking status Never s moked tobacco (finding) [facility] Sexual Orientation [facility] ospital [facility] NEGATED: Highlighted row - - [facility] Work Phone: Medical Equipment Procedure Code Equipment Code Equipment Origin al Text Equipment Identifier Dates Unknown Unknown 03/13/[address] [facility] Start: 03-13-2023 Goals Date Patient Goal Desired [...] Date Assessment Result Facility 03-09-2025 Functional Status Maintained [facility] NEGATED: Highlighted row Functional performance Functional status health issues are not documented Disease [facility] Work Phone: Mental Status Date Assessment Result Facility 03-09-2025 Mental Status Orientation Ori nted x 4 [facility] 03-09-2025 Mental Status [facility] NEGATED: Highlighted row Cognitive function [Interpretation] Cognitive status health issues are not documented Disease [facility] Physician [facility] Work Phone: Clinical Notes 07-16-2017 to 05-11-2025 [...] only. Close follow-up in about 3 weeks [facility] 05-11-2025 Miscellaneous Notes Associate d Problem(s): Anxiety [...] or homicidal ideation documented in this encounter [facility] 05-11-2025 Evaluation + Plan note Associated Problem(s): Major depressive disorder, recurrent, mild (HCC) Will start sertraline 50 mg, half tablet daily x 7 days then increase to 1 tab daily Denies any active suicidal or homicidal ideation [facility] 05-11-2025 History of Presen t illness Narrative [...] for Follow-up in about 3 weeks. SUBJECTIVE/OBJECTIVE: DIANE Michaud (: 1950) is a 75 y.o. [...] signature was used to authenticate this note. Marcelino Durán, KENZIE - NORMA 05/11/2025 6:30 PM [...] for this visit. documented in this encounter [facility] 05-11-2025 Instructions Abbey Michaels - 05/11/2025 10:20 AM EDT Send us blood pressure numbers in 2 weeks via SurIDxt documented in this encounter [facility] 05-05-2025 Telephone encount er Note Images from the original note were not included. Prescription Request: atenolol (Tenormin) 50 MG tablet Last medication check: 07/14/24 Last physical exam: 01/16/25 Next scheduled appointment: 07/24/25 Last date of refill on this medication 10/30/24 ( qty 90 refill 1) [facility] 05-05-2025 Miscellaneous Notes Formattin g of this note is different from the original. Images from the original note were not included. Prescription Request: atenolol (Tenormin) 50 MG tablet Last medication check: 07/14/24 Last physical exam: 01/16/25 Next scheduled appointment: 07/24/25 Last date of refill on this medication 10/30/24 ( qty 90 refill 1) documented in this encounter [facility] 05-05-2025 Telephone encount er Note Patient called office again stating he is in a bad way he wants to know when the provider is going to respond back to him. I advised that the provider is seeing patients in the office and has not been able to respond yet. Patient sent in a openPeoplet message as well. [facility] 05-05-2025 Miscellaneous Notes Formattin g of this note might be different from the original. Patient called office again stating he is in a bad way he wants to know when the provider is going to respond back to him. I advised that the provider is seeing patients in the office and has not been able to respond yet. Patient sent in a Zvents message as well. Patient calling and states he is having an intolerance to the Proscar. States he is having anxiety and depression since taking it. Feels it is not help his frequent urination. Patient states he stopped taking it yesterday. Anything else he can try? Patient's preferred pharmacy is [facility] in [place]. documented in this encounter [facility] 05-05-2025 Telephone encount er Note Patient called office stating he is in a bad way he wants to know when the provider is going to respond back to him. I advised that the provider is seeing patients in the office and has not been able to respond yet. [facility] 05-05-2025 Miscellaneous Notes Formattin g of this note might be different from the original. Patient called office stating he is in a bad way he wants to know when the provider is going to respond back to him. I advised that the provider is seeing patients in the office and has not been able to respond yet. documented in this encounter [facility] 05-05-2025 Telephone encount er Note Patient calling and states he is having an intolerance to the Proscar. States he is having anxiety and depression since taking it. Feels it is not help his frequent urination. Patient states he stopped taking it yesterday. Anything else he can try? Patient's preferred pharmacy is [facility] in [place]. [facility] 03-26-2025 Note Referral is now comp leted and closed. [facility] 03-26-[address] Herzog's office and they sent me his colonoscopy report from [facility] on 03/09/25 - this is taken care of and are you able to close this referral? He is getting phone calls and is upset [facility] 03-24-2025 Telephone encount er Note Patient's further questions if applicable: Patient phoned 03/24/25 demanding we stop sending messages re his 01/16/25 referral to Gastro. He saw Dr Jamil Herzog, had colonoscopy, all was okay. (Only thing I can think of is he's getting messages from openPeoplet because referral status is Pending. Perhaps the referral can be closed so the messages will stop? I am not authorized to close referral. MELY @ [facility] [place] 03/24/25) [facility] 03-24-2025 Miscellaneous Notes Formattin g of this note might be different from the original. Patient's further questions if applicable: Patient phoned 03/24/25 demanding we stop sending messages re his 01/16/25 referral to Gastro. He saw Dr Jamil Herzog, had colonoscopy, all was okay. (Only thing I can think of is he's getting messages from Zvents because referral status is Pending. Perhaps the referral can be closed so the messages will stop? I am not authorized to close referral. MELY @ [facility] [place] 03/24/25) Faxed request to Dr Herzog's office I am not sure what messages they have been receiving, however, we have not received results yet from Dr. Herzog's office. Please request records and we can update his health maintenance. Name of caller: Shelby Contact phone number: [phone] Relationship to Patient: spouse Provider: Marcia Practice: [facility] Chief Complaint/Reason for Call: Patient already had the colonoscopy with Dr. Herzog 5.. and the records should have been sent. Please stop all messages regarding this. Best time of day caller can be reached: any Patient advised that office/PCP has 24-48 business hours to return their call: N/A documented in this encounter [facility] 03-16-2025 Telephone encount er Note Faxed request to Dr Herzog's office [facility] 03-16-2025 Telephone encount er Note I am not sure what messages they have been receiving, however, we have not received results yet from Dr. Herzog's office. Please request records and we can update his health maintenance. [facility] 03-16-2025 Telephone encount er Note Name of caller: Shelby Contact phone number: [phone] Relationship to Patient: spouse Provider: Marcia Practice: [facility] Chief Complaint/Reason for Call: Patient already had the colonoscopy with Dr. Herzog 5..25 and the records should have been sent. Please stop all messages regarding this. Best time of day caller can be reached: any Patient advised that office/PCP has 24-48 business hours to return their call: N/A [facility] 03-09-2025 Evaluation + Plan note Extrac ibrahima from: Title:Clinical Document Author:ROSENDA JAMIL Linda Date:03/09/25 [place] ADMISSION HISTORY AN D PHYSICIAL CHIEF COMPLAINT: [...] FAMILY HISTORY: SOCIAL HISTORY: PHYSICAL EXAM: VITALS: YmjqttTiatIHTdzhmAHOiD2ANN0KcghHt(kg) 03/09 08:3536.5--180267KJ46/05 79.5 24 Hr Tmax: 36.5 at 03/09 [...] changes to the H&P unless noted below. [facility] 05-05-2025 Hospital Discharge instructions Patient Education 03/09/2025 [...] until you are awake and alert. Take ymqn-gpq-hqkmsxc and prescription medicines only as told by [...] 08/12/2014 Document Revised: 10/04/2018 Document Reviewed: 02/10/2017 [employer] Patient Education 2020 [employer]. 03/09/2025 09:36:55 Colonoscopy, Adult, Care After, Hlqu-fq-Xcej Colonoscopy, Adult, Care After This sheet gives [...] are soft and easy to digest. Take ruck-ylf-bpehuvm or prescription medicines only as told by [...] 11/24/2011 Document Revised: 08/22/2018 Document Reviewed: 07/16/2017 [employer] Patient Education 2020 [employer] Follow Up Care 02/04/2025 11:15:39 With:JAMIL HERZOG MD Address: Mal[place] CRAMER [address] [address] [phone] When: Unknown [facility] 05-05-2025 Note Date of Service 03/09/2025 Procedure Name Screening colonoscopy Consent Taken before procedure Indication History of colon polyps high risk screening colonoscopy Location [facility] Pre-Procedure Exam High risk screening colonoscopy [...] JAMIL HERZOG MD on 03/09/2025 09:42 AM [facility]05-05-2025 Note Discharge Instructions Thank you for allowing [facility] to assist you with your healthcare needs. The following is importantdischarge information regarding your hospital visit. Your Care Team CANDICE FRANK EAR NOSE THROAT PHYSICIAN-PHOTOCOPIER TECHNICIAN DR. HERZOG What to do next Follow Up Appointments Follow Up with JAMIL HERZOG MD Where:[address] [place] [phone] Allergies NKA Medications Please ask your primary [...] until you are awake and alert. Take vcmw-ukm-taygsle and prescription medicines only as told by [...] 08/12/2014 Document Revised: 10/04/2018 Document Reviewed: 02/10/2017 [employer] Patient Education 2020 [employer]. Colonoscopy, Adult, Care After This sheet gives [...] are soft and easy to digest. Take pswc-iof-yqemspl or prescription medicines only as told by [...] 11/24/2011 Document Revised: 08/22/2018 Document Reviewed: 07/16/2017 [employer] Patient Education 2020 [employer]. Additional Information VACCINATE! IT SAVES LIVES! Members of the community who have not yet received the COVID-19 vaccine and would like to receive it can visit one of [facility] vaccine clinics. There are many vaccine clinic locations within the [facility]. For locations and available times, please visit [email or web address].[place].gov/. It is important to note that some COVID mobile vaccine clinics are held outdoors and may be canceled in rainy or stormy conditions. To learn more about pediatric vaccinations (ages 5-11), we invite you to visit the [facility] webpage. [email or web address] learn more about the COVID-19 vaccine, we invite you to visit the CDC website for a list of frequently asked questions.https://www.cdc.gov/coronavirus/2019-ncov/vaccines/faq.html [employer] Patient Portal Access Instructions: Stay connected with your healthcare team and access your personal medical information anytime with the [employer] Patient Portal. Please follow the directions below to create your [employer] account: 1.Access the email account you provided upon registration to the hospital/physician office.2.Look for an invitation email from [facility].3.Open the email and access the invitation link: AcceptInvitation to [facility].4.Fill in the required zee to create your account. To access your account, visit [email or web address]. Click the blue button labeled Access Patient Portal and then log in with the username and password that you created in the steps above. You will be able to view your test results, lab results, a summary of your visits, upcoming appointments and more. There is also a convenient messaging option where you can send secure messages to your p rovider. In addition, you will have the ability to download any documents or summaries to your computer and/or send the information securely to a physician. Remember that your healthcare information is confidential, so carefully consider who you will allowto register on the [facility] Patient Portal for access to your information. You can also access the [facility] [employer] Patient Portal on the [facility] curly. Simply click on Patient Portal and then log into your account. If you would like to receive a full copy of your medical records, please contact the [facility] Medical Records Department by calling [phone], Sunday through Sunday between 8 a.m. and [...] Call your local pharmacy or go to http://bit.ly/5K5Kp8j to find one close to you.3.Make use of household items: Use cat litter or old coffee grounds to dispose medications if other options arenot available. Mix your drugs with these household products, seal them in an airtight container andthrow it into the garbage. Call [facility]: [phone] to be sure your drugs can be [...] Adult, Care After Colonoscopy, Adult, Care After, Qikp-uz-Afov Medication Leaflets My discharge plan and instructions have been reviewed and explained to me and I,EVANS MICHAUD understand my current condition and have read and understand these discharge instructions. I have received a written copy of the plan/instructions. If I have questions, I am aware that I should contact my doctor. Patient/Health Safety And Environment Manager Signature: Date/Time: Relationship to Patient: Witness Name/Signature: Date/Time: [facility]05-05-2025 Anesthesiology Consult note Patient: EVANS MICHAUD Age: 74 years Sex: Male : 1950 Associated Diagnoses: None Author: EVANS MISHRA Assessment Postanesthesia assessment Vitals: Vital signs from [...] within normal limits. Digitally Signed by EVANS MISHRA on 03/09/2025 09:33 AM [facility]05-05-2025 Anesthesiology Consult note Patient: EVANS MICHAUD Age: 74 years Sex: Male : 1950 Associated Diagnoses: None Author: EVANS MISHRA Preoperative Information Time of last food or [...] been selected or recorded. Procedure history: Colonoscopy ([id number]). Cataract ([id number]). Comments: 03/09/2025 8:33 EDT - Venus Ramirez RN bilateral Spinal ([id number]). Social History: Social & Psychosocial Habits Alcohol [...] Signs (last 24 hrs) Last Charted Temp Dajyonyj10.5 DegC (MARCH 09 08:35) SBPH 154 mmHg (MARCH 09 08:35) DBP66 mmHg (MARCH 09 08:35) BMI25.87 (MARCH 09 08:35) Measurements from flowsheet : Measurements 03/09/2025 8:35 EDT Height 175.3 cm Height in inches 69 inch(es) Admission Weight 79.5 kg Weight Lbs 174.9 lb Weight Method Stated Buhl Body Weight 70.74 kg BSA Admission 1.95 [...] available , Lab results 03/09/2025 9:16 EDT [facility] - ASA Class 3 03/09/2025 9:15 EDT [place] History and Physical 03/09/2025 8:35 EDT Designated Person #1 We May Share PHI Designated Person #1 We May Share PHI Designated Person #1 Relationship Spouse Privacy Restrictions Requested None Height 175.3 cm Height in inches 69 inch(es) Admission Weight 79.5 kg Weight Lbs 174.9 lb Weight Method Stated Buhl Body Weight 70.74 kg BSA Admission 1.95 [...] Method Explanation, Printed materials Preferred Spoken Language Slovak Preferred Written Language Slovak Patient's Current Physicians CANDICE KLEIN APRN Discharge [...] Attendee SN - CAt - Role Performed NEEDLE LEADER SN - CAt - Role Performed Procedure Nurse SN - CAt - Role Performed Drapery And Upholstery Measurer SN - CAt - Role Performed Primary Surgeon . Assessment and Plan [place] Citizen Society of Anesthesiologists (ASA) physical status classification: Class III. Anesthetic Preoperative Plan Anesthetic technique: MAC. Informed consent: signed by patient. Digitally Signed by EVANS MISHRA on 03/09/2025 09:19 AM [facility]05-05-2025 Note [place] ADMISSION HISTORY AND PHYSICIAL CHIEF COMPLAINT: HISTORY [...] FAMILY HISTORY: SOCIAL HISTORY: PHYSICAL EXAM: VITALS: NppkbsLbfiXAHupxhXZBwW1ZYV8LpxdWy(kg) 03/09 08:3536.5--488624WU85/05 79.5 24 Hr Tmax: 36.5 at 03/09 [...] JAMIL HERZOG MD on 03/09/2025 09:18 AM [facility]04-29-2025 Telephone encounter Note* Telephone Encounter - KENZIE Leung CNP - 03/03/2025 1:35 PM EDT Reviewed chart. Refill appropriate. RX [facility]. [facility] Miscellaneous Notes* Telephone Encounter - KENZIE Leung CNP - 03/03/2025 1:35 PM EDT Reviewed chart. Refill appropriate. RX sent. * Telephone Encounter - Annette Mallory MA - 03/03/2025 1:04 PM EDT Prescription Request: Last medication check: 07/14/2024 Last physical exam: 01/16/2025 Next scheduled appointment: 07/24/2025 Last date of refill on this medication: 08/21/2024 documented in this [facility]04-29-2025 Telephone encounter Note* Telephone Encounter - Annette Mallory MA - 03/03/2025 1:04 PM EDT Prescription Request: Last medication check: 07/14/2024 Last physical exam: 01/16/2025 Next scheduled appointment: 07/24/2025 Last date of refill on this medication: 08/21/2024 [facility]91 NoteHNO ID: [id number] Author: SASHA KAUR OD Service: ? Author Type: ADVERTISING OPERATIONS MANAGER Type: Progress Notes Filed: 02/12/2025 10:55 Note Text: 1. Pseudophakia of both eyes (Primary) 2. Combined forms of age-related cataract of both eyes S/p PC IOL both eyes January [address] Miller at [facility] Looks good 3. Photophobia of [...] Sasha Kaur, OD February 12, 2025 10:43 [facility]03-25-2025 Instructions* Patient Instructions* Horace Lubin PA-C - 01/27/2025 11:36 AM EDT > If having trouble emptying bladder call office and will start Proscar (Finasteride) 5 mg and have you follow-up in 3 months > 1 year Appt w/ B. TRI Lubin MT, PA-C with PSA prior order is placed for 2025 [facility] NoteHNO ID: [id number] Author: RADHA TIRADO LPN Service: ? Author [...] tolerated the procedure well. Plan: Appointment with Horace.[facility]03-25-2025 History of Present illness Narrative* Radha [...] from the original note were not included. [facility] [place] EST PATIENT CLINIC NOTE [...] TRI Mccabe MT, PA-C [facility]25 NoteHNO ID: [id number] Author: HORACE LUBIN PA-C Service: ? Author Type: Physician Senior Accounts Payable Specialist Type: Progress Notes Filed: 01/27/2025 16:32 Note Text: [facility] PATIENT CLINIC NOTE (M) Some elements [...] is placed for 2025 TRI Mccabe MT, ARNIE-[facility]03-14-2025 History of Present illness Narrative* aCndice Frank, EAR NOSE THROAT PHYSICIAN - REVERSE LOGISTICS ANALYST - 01/16/2025 10:40 AM EDT Images from the original note were not included. [facility] [address] [facility] [address] Dept: [phone] Dept Chief Complaint: Evans Michaud is an [...] would like to see Dr. Herzog in [place]. Is fully immunized for pneumonia. Health Risk [...] to make appointment with his / her hvac specialist Safety: Safety Do you have a working [...] quittin.2 Smokeless Tobacco Never documented in this [facility]03-14-2025 Instructions* Patient Instructions* KENZIE Dickens CNP - 01/16/2025 10:[address] Jamil Herzog- Gastroenterology [address] [facility] [address] P: [phone] Personalized Preventative Plan for Evans Michaud - [...] Recommendations: A preventive eye exam by an hvac specialist is recommended every 1-2 years to screen for glaucoma, cataracts, macular degeneration, and other eye disorders. A preventive dental visit is recommended every 6 months. Try to get at least 150 minutes of exercise per week or 10,000 steps per day on a pedometer. You need 1200-1500mg of calcium and 0790-3292 international units of vitamin D per day. [...] Everywhere. * Preventing Falls in Older Adults (Slovak) documented in this [facility]SPremier [facility] HospitalJbapyb19-25-0706 Telephone encounter Note* Telephone Encounter - KENZIE Leung CNP - 01/01/2025 11:33 AM EST Reviewed chart. Refill appropriate. RX sent. [facility]Urlnrd43-78-6931 Miscellaneous Notes* Telephone Encounter - KENZIE Leung CNP - 01/01/2025 11:33 AM EST Reviewed chart. Refill appropriate. RX sent. * Telephone Encounter - Mane Tucker MA - 01/01/2025 10:50 AM EST Prescription Request: Last medication check: 07/14/2024 Last physical exam: 01/09/24 Next scheduled appointment: 01/16/2025 Last date of refill on this medication 07/14/24 documented in this [facility]02-27-2025 Telephone encounter Note* Telephone Encounter - Mane Tucker MA - 01/01/2025 10:50 AM EST Prescription Request: Last medication check: 07/14/2024 Last physical exam: 01/09/24 Next scheduled appointment: 01/16/2025 Last date of refill on this medication 07/14/24 [facility]Lmjeyk42-52-2588 Evaluation + Plan note* Assessment & Plan Note - KENZIE Leung CNP - 12/02/2024 12:21 PM ESTAssociated Problem(s): Benign prostatic hyperplasia with nocturia Continues to have urinary frequency, has been seen by urology. UA unremarkable for urinary tract infection. Will increase Flomax to 0.8 mg/day, recommend following up with urology sooner if able [facility]Qzzgls22-86-6788 Miscellaneous Notes* Assessment & Plan Note - [...] Improving. Consistent with viral URI. Continue Mucinex juix-irf-htcpubx as directed follow-up for worsening or failure for symptoms to continue to improve documented in this [facility]01-28-2025 Miscellaneous Notes* Assessment & Plan Note - [...] Improving. Consistent with viral URI. Continue Mucinex ocmb-hhh-gypewgt as directed follow-up for worsening or failure for symptoms to continue to improve * Addendum Note - KENZIE Leung CNP - 12/02/2024 10:40 AM EST Addended by: MARCELINO DURÁN on: 12/04/2024 05:10 PM Modules accepted: Level of Service documented in this [facility]01-28-2025 Evaluation + Plan note* Assessment & Plan Note - KENZIE Leung CNP - 12/02/2024 12:20 PM ESTAssociated Problem(s): Viral URI with cough Improving. Consistent with viral URI. Continue Mucinex kdzz-nvu-jscwzku as directed follow-up for worsening or failure for symptoms to continue to improve [facility] MemorialYlacva96-13-3655 History of Present illness Narrative* Abbey Michaels [...] to provider. Will send bp readings via Chinese Online in 2 weeks. * KENZIE Leung CNP [...] Improving. Consistent with viral URI. Continue Mucinex thhe-vxg-zmsyywm as directed follow-up for worsening or failure [...] and has another appt with them in [place] in January. He is on flomax 0.4 [...] CNP 12/02/2024 12:21 PM documented in this [facility]01-28-2025 History of Present illness Narrative* Abbey Michaels [...] to provider. Will send bp readings via Chinese Online in 2 weeks. * KENZIE Leung CNP [...] capsules (0.8 mg) by mouth daily., Starting Sun12/02/2024, Until Sun03/02/2025, Normal 2. Urinary tract infection symptoms - POCT urinalysis dipstick manually resulted 3. Viral URI with cough Assessment & Plan: Improving. Consistent with viral URI. Continue Mucinex tthm-jfa-dndqvpo as directed follow-up for worsening or failure [...] and has another appt with them in [place] in January. He is on flomax 0.4 [...] CNP 12/02/2024 12:21 PM documented in this [facility]01-28-2025 Note* Addendum Note - KENZIE Leung CNP - 12/02/2024 10:40 AM ESTAddended by: MARCELINO DURÁN on: 12/04/2024 05:10 PM Modules accepted: Level of Service [facility]Pxjkzk12-30-5165 NoteHNO ID: [id number] Author: SASHA KAUR OD Service: ? Author Type: ADVERTISING OPERATIONS MANAGER Type: Progress Notes Filed: 11/24/2024 14:43 Note Text: 1. Combined forms of age-related cataract of both eyes OS>OD with visual significance and reduced vision in past 6 months Recommend consult for cataract surgery with Dr. Amador or at [facility] if patient prefers to stay local 2. Dermatochalasis of both upper eyelids Stable- continue to monitor 3. Hyperopia, bilateral 4. Regular astigmatism of both eyes 5. Presbyopia Continue with current glasses for now Follow-up for cat eval next available Sasha Kaur, OD November 24, 2024 2:42 [facility]01-20-2025 History of Present illness Narrative* Sasha Kaur, OD - 11/24/2024 2:42 PM EST 1. Combined forms of age-related cataract of both eyes OS>OD with visual significance and reduced vision in past 6 months Recommend consult for cataract surgery with Dr. Amador or at [facility] if patient prefers to stay local 2. Dermatochalasis of both upper eyelids Stable- continue to monitor 3. Hyperopia, bilateral 4. Regular astigmatism of both eyes 5. Presbyopia Continue with current glasses for now Follow-up for cat eval next available Sasha Kaur OD November 24, 2024 2:42 PM documented in this encounterPark[facility]12-[facility] Telephone encounter Note * Telephone Encounter - KENZIE Leung CNP - 10/30/2024 8:20 AM EST Reviewed chart. Refill appropriate. RX sent. [facility] [id number] Miscellaneous Notes* Telephone Encounter - KENZIE Leung CNP - 10/30/2024 8:20 AM EST Reviewed chart. Refill appropriate. RX sent. * Telephone Encounter - Sherie Hurst MA - 10/30/2024 8:04 AM EST Prescription Request: Last medication check: 09/03/23 Last physical exam: 01/09/24 Next scheduled appointment: 01/16/25 Last date of refill on this medication 05/15/24 90 day 1 refill documented in this encounterSPremier Health [facility] HospitalBoztev19-55-0316 Telephone encounter Note* Telephone Encounter - Sherie Hurst MA - 10/30/2024 8:04 AM EST Prescription Request: Last medication check: 09/03/23 Last physical exam: 01/09/24 Next scheduled appointment: 01/16/25 Last date of refill on this medication 05/15/24 90 day 1 [facility]ill [facility] MemorialHovmkk47-56-6974 Telephone encounter Note* Telephone Encounter - Sherie Hurst MA - 08/21/2024 8:38 AM EDT Prescription Request: Last medication check: 07/14/24 Last physical exam: 01/09/24 Next scheduled appointment: 01/16/25 Last date of refill on this medication 02/20/24 90 and 1 refill [facility] MemorialSgpfsy37-21-5245 Miscellaneous Notes* Telephone Encounter - Sherie Hurst MA - 08/21/2024 8:38 AM EDT Prescription Request: Last medication check: 07/14/24 Last physical exam: 01/09/24 Next scheduled appointment: 01/16/25 Last date of refill on this medication 02/20/24 90 and 1 refill documented in this [facility]10-01-2024 [facility] Medical Records Department [address] [place] [id number] History Physical Exam 08/05/24 0813 MR#: [id number] Acct: [id number] Name: EVANS MICHAUD Jr. Rep #: [id number] 13 : 1950 74 From: Norberto Lu MD PCP: KATARINA Patel Status:ADM IN Location: [place] [address] History and Physical Date of Admission: 08/05/24 [...] CC: KATARINA Frank; Dr. Norberto Lu MD [facility]09-09-2024 History of Present illness Narrative * Candice Frank, KENZIE - REVERSE LOGISTICS ANALYST - 07/14/2024 1:40 PM EDT Images from [...] L4-L5 on 08/05/[address] Lu at [facility]. Hypertension: Checks blood pressure at home [...] last name and . documented in this [facility]09-05-2024 Telephone encounter Note* Telephone Encounter - KENZIE Leung CNP - 07/10/2024 1:48 PM EDT Reviewed chart. Refill appropriate. RX sent. [facility] MemorialFdyzwt08-49-1528 Miscellaneous Notes* Telephone Encounter - KENZIE Leung CNP - 07/10/2024 1:48 PM EDT Reviewed chart. Refill appropriate. RX sent. * Telephone Encounter - Sherie Hurst MA - 07/10/2024 1:41 PM EDT Prescription Request: Last medication check: 09/03/23 Last physical exam: 01/09/24 Next scheduled appointment: 07/14/24 Last date of refill on this medication 01/09/24 documented in this [facility]09-05-2024 Telephone encounter Note* Telephone Encounter - Sherie Hurst MA - 07/10/2024 1:41 PM EDT Prescription Request: Last medication check: 09/03/23 Last physical exam: 01/09/24 Next scheduled appointment: 07/14/24 Last date of refill on this medication 01/09/24 [facility] MemorialCtiqxb10-57-3942 Telephone encounter Note* Telephone Encounter - Sherie Hurst MA - 05/15/2024 8:47 AM EDT Prescription Request: Last medication check: 09/03/23 Last physical exam: 01/09/24 Next scheduled appointment: 07/14/24 Last date of refill on this medication 11/12/23 [facility] MemorialAggdgv35-42-6664 Miscellaneous Notes* Telephone Encounter - Sherie Hurst MA - 05/15/2024 8:47 AM EDT Prescription Request: Last medication check: 09/03/23 Last physical exam: 01/09/24 Next scheduled appointment: 07/14/24 Last date of refill on this medication 11/12/23 documented in this encounterSPremier Health Miami Valley HospitalEzfybs58-54-4303 Instructions* Patient Instructions* Kate Ramirez OD - [...] issues with his vision documented in this encounterPark[facility]06-11-2024 History of Present illness Narrative* Kate Ramirez OD - 04/15/2024 1:30 PM EDT ASSESSMENT/PLAN: [...] any issues with his vision Kate Ramirez, OD I have confirmed and edited as necessary the relevant ophthalmic history, ROS, and the neuro exam findings as obtained by others. documented in this encounterParkview Health [facility] Hospital03-22-2024 Instructions* Patient Instructions* Shruthi Krause MD - 01/25/2024 10:42 AM EDT INSTRUCTIONS FROM DR. KRAUSE: Psa-12 mo documented in this encounterParkview Health Bryan Hospital03-22-2024 History of Present illness Narrative* Shruthi Krause [...] to stay on that He lives in [facility] would like to follow-up with someone there so we will have him see Horace Lubin with PSA in 12 months and prostate exam then Discussed his abnormal PSAs but everything else is negative Past Urology Hx: 01/04/2024 CC: bx patient previously seen below by [facility] urology and had previous biopsy in the office that was hard on him Presents with his today Had ISO PSA that was hide MRI did not show a lesion He wants to undergo transperineal ultrasound-guided biopsies of the prostate/random;; all discussedin detail and we will schedule under twilight anesthetic at [facility] Denies chest pain or shortness of breath ;; October 31, 2023-seen by [facility] urology- 73 year old male with a [...] RADS: January 16, 2024-transperineal biopsy of prostate-35 ql-ncnoubzzf-tzhvyzre December 25, 2023-MRI prostate- volume 30 cc;no [...] (no units) Date Value 04/05/2017 neg Specific [place], Ur (no units) Date Value 04/05/2017 1.015 [...] dizzines and falls. Discussed risk bladder decompinsation intermediate manager could be anissue if no surgical intervention. FOLLOW UP (1s&1w; 3s): Return in about 1 year (around 01/24/2025) for psa-12 mo. ASSESSMENT/PLAN: 1. Elevated prostate specific antigen (PSA) - ICD9: 790.93, ICD10: R97.20 (primary diagnosis) 2. BPH with obstruction/lower urinary tract symptoms - ICD9: 600.01, 599.69, ICD10: N40.1, N13.8 - PSA/PROSTSPECAG DIAG Shruthi Krause Please note: This note has been produced using speech recognition software and may contain errors related to that system including grammar, punctuation, spelling, gender and words and phrases that may be inappropriate. documented in this encounterParkview Health [facility] Hospital2024 History of Present illness Narrative* Mane Tucker MA - 01/22/2024 11:00 AM EDT Images from the original note were not included. [address] [facility] [id number] Patient arrived for nurse visit today and [...] occur in 48 hours documented in this encounterSPremier Health Miami Valley HospitalNfsmmi44-24-7553 Telephone encounter Note* Telephone Encounter - KENZIE Dickens CNP - 01/11/2024 7:28 AM EST Agree. Thank you Abbey. [facility] MemorialHvmrlv05-42-3875 Miscellaneous Notes* Telephone Encounter - KENZIE Dickens [...] tablet (10 mg) by mouth daily., Starting 01/09/2024, Normal - Not at goal. Heart rate [...] Name of caller: Evans Contact phone number: [phone] Relationship to Patient: patient Provider: Dr. Kennedy Practice: [facility] Chief Complaint/Reason for Call: Pt seen Candice Frank yesterday 01/09/24 and was started on Zqarzlbyob51 mg. Pt has a question regarding Atenolol. Was Candice wanting pt to stop Atenolol since starting Lisinopril or continue taking atenolol with lisinopril? Please call pt back to advise. Thank you Best time of day caller can be reached: AM Patient advised that office/PCP has 24-48 business hours to return their call: N/A documented in this encounterSPremier Health Miami Valley HospitalFksvfu53-70-7632 Telephone encounter Note* Telephone Encounter - Abbey Michaels - 01/10/2024 11:25 AM EST Called patient and advised him he should be taking both per Candice notes. 2. Essential hypertension - CBC - Comprehensive metabolic panel - lisinopril 10 MG tablet; Take 1 tablet (10 mg) by mouth daily., Starting 01/09/2024, Normal - Not at goal. Heart rate was 59 bpm so we will not increase his Atenolol. Will add on once daily Lisinopril and have him return in 2 weeks for a BP check. Home BP log provided to bring back to BP check with home readings for review. - Information provided in AVS on new medication. [facility] MemorialJdjnqn81-80-0605 Telephone encounter Note* Telephone Encounter - Monique Cox - 01/10/2024 11:12 AM EST Name of caller: Evans Contact phone number: [phone] Relationship to Patient: patient Provider: Dr. Kennedy Practice: [facility] Chief Complaint/Reason for Call: Pt seen Candice Frank yesterday 01/09/24 and was started on Npwezygftb14 mg. Pt has a question regarding Atenolol. Was Candice wanting pt to stop Atenolol since starting Lisinopril or continue taking atenolol with lisinopril? Please call pt back to advise. Thank you Best time of day caller can be reached: AM Patient advised that office/PCP has 24-48 business hours to return their call: N/A [facility] Trksdb76-29-0584 History of Present illness Narrative* Annette Mallory MA - 01/09/2024 10:00 AM EST Patient verified by last name and . * Candice Frank APRN - NORMA - 01/09/2024 10:00 AM EST Images from the original note were not included. [facility] [address] Visit type: Established Patient Reason for Visit: [...] mg) by mouth 2 times daily., Starting Sun01/09/2024, Normal - Stable with daily Buspar. Will [...] Procedure Laterality Date CARPAL TUNNEL RELEASE Bilateral 1988 COLONOSCOPY 09/16/2021 Dr. Bateman, repeat in 3 [...] CNP 01/09/2024 10:19 AM documented in this [facility]03-06-2024 Miscellaneous Notes* Telephone Encounter - Lanette Flores - 01/09/2024 9:14 AM EST Pt is scheduled for Transperineal prostate Bx MAC with Dr Krause at [facility] on 01/16/24 @ 10:30 (8:30 arrival). Follow up with Dr Krause on 01/25/24. Pt given date, time, prep and arrival instructions in person on 01/04/24. Written info given also. Lanette Flores documented in this encounterParkview Health [facility] Hospital03-01-2024 Instructions* Patient Instructions* Shruthi Krause MD - [...] Anti-Inflammatory Drugs) Aleve (Naproxen) Fish Oil Pepto-Bismol [place] Gingko [place] Persantine (Dipyridamole) Anacin Glucosamine Chondroitin [...] to obtain these medications) documented in this encounterParkview Health [facility] Hospital03-01-2024 History of Present illness Narrative* Fiorella Serra Cma - 01/04/2024 10:52 AM EST patient declined microsoft application developer Fiorella Serra Cma * Shruthi Krause MD - 01/04/2024 10:52 AM EST ESTABLISHED PATIENT OFFICE VISIT PATIENT INFO: Evans Michaud 73 year old HPI 01/04/2024 CC: bx patient previously seen below by [facility] urology and had previous biopsy in the office that was hard on him Presents with his today Had ISO PSA that was hide MRI did not show a lesion He wants to undergo transperineal ultrasound-guided biopsies of the prostate/random;; all discussedin detail and we will schedule under twilight anesthetic at [facility] Denies chest pain or shortness of breath Past Urology Hx: October 31, 2023-seen by [facility] urology- 73 year old male with a [...] (no units) Date Value 04/05/2017 neg Specific [place], Ur (no units) Date Value 04/05/2017 1.015 [...] - ICD9: 790.93, ICD10: R97.20 (primary diagnosis) [facility]-transperineal biopsy of prostate 2. BPH with obstruction/lower urinary tract symptoms - ICD9: 600.01, 599.69, ICD10: N40.1, N13.8 Shruthi Krause Please note: This note has been produced using speech recognition software and may contain errors related to that system including grammar, punctuation, spelling, gender and words and phrases that may be inappropriate. documented in this encounterParkview Health [facility] Hospital01-08-2024 Telephone encounter Note * Telephone Encounter - KENZIE Dickens CNP - 11/12/2023 4:23 PM EST Rx sent. Follow up as scheduled. [facility] MemorialFzdxsn75-30-1891 Miscellaneous Notes* Telephone Encounter - KENZIE Dickens CNP - 11/12/2023 4:23 PM EST Rx sent. Follow up as scheduled. * Telephone Encounter - Nancy Gregory - 11/12/2023 2:34 PM EST Prescription Request: Last medication check: 09-03-23 Last physical exam: 01-05-23 Next scheduled appointment: 01-09-24 Last date of refill on this medication 08-13-23 documented in this encounterSPremier Health Miami [facility] HospitalMeznrg12-10-4154 Telephone encounter Note* Telephone Encounter - Nancysonya Gregory - 11/12/2023 2:34 PM EST Prescription Request: Last medication check: 09-03-23 Last physical exam: 01-05-23 Next scheduled appointment: 01-09-24 Last date of refill on this medication 08-13-23 [facility] MemorialIrlpst77-38-5611 Miscellaneous Notes* Telephone Encounter - Jai Yu [...] Thanks, Josh Gonzalez MD, MS Associate Staff [facility] documented in this encounterParkview Health [facility] Hospital12-19-2023 Telephone encounter Note * Telephone Encounter - KENZIE Leung CNP - 10/23/2023 11:45 AM EST Reviewed chart. Refill appropriate. RX sent. [facility] MemorialEbrpoe64-25-6711 Miscellaneous Notes* Telephone Encounter - KENZIE Leung CNP - 10/23/2023 11:45 AM EST Reviewed chart. Refill appropriate. RX sent. * Telephone Encounter - Sherie Hurst MA - 10/23/2023 11:22 AM EST Prescription Request: Last medication check: 09/03/23 Last physical exam: 01/05/23 Next scheduled appointment: 01/09/24 Last date of refill on this medication 01/05/23 30 tablets 1 refill documented in this encounterSPremier Health Miami Valley HospitalCpqmdg96-19-6922 Telephone encounter Note* Telephone Encounter - Sherie Hurst MA - 10/23/2023 11:22 AM EST Prescription Request: Last medication check: 09/03/23 Last physical exam: 01/05/23 Next scheduled appointment: 01/09/24 Last date of refill on this medication 01/05/23 30 tablets 1 refill [place] [id number] Telephone encounter Note* Telephone Encounter - Mary Stein - 10/16/2023 2:24 PM EST Pt called in looking for a second opinion for elevated PSA. Referred by PCP, pt requesting DR Casrto and to be seen in [facility] or [place]. Pt not satisfied with appt availability. First avail appt avail with [facility] 11/08/23. Pt expressed his concerns with wanting a longer appt time and stated he would be calling [facility] to hopefully be seen sooner. [facility] MemorialZcaidt13-04-9998 Miscellaneous Notes* Telephone Encounter - Mary Stein - 10/16/2023 2:24 PM EST Pt called in looking for a second opinion for elevated PSA. Referred by PCP, pt requesting DR Castro and to be seen in [facility] or [place]. Pt not satisfied with appt availability. First avail appt avail with [facility] [place] 11/08/23. Pt expressed his concerns with wanting a longer appt time and stated he would be calling [facility] to hopefully be seen sooner. documented in this [facility]10-30-2023 History of Present illness Narrative* Candice Frank APRN - REVERSE LOGISTICS ANALYST - 09/03/2023 2:00 PM EDT Images from [...] chronic back pain. Saw a specialist in [place] and did not feel it was a good visit. Saw a back specialist in [place] last week and it was recommended he [...] CNP 09/03/2023 2:30 PM documented in this [facility]03-03-2023 History of Present illness Narrative* KENZIE Dickens CNP - 01/05/2023 10:20 AM EST Images from the original note were not included. [facility] [id number] Visit type: Established Patient Reason for Visit: [...] or buttocks Once for 1 dose., Starting Sun01/05/2023, Normal - Rx sent to local pharmacy. 11. Screening for ischemic heart disease - Lipid panel - Will notify of blood work results. Follow up in about 3 weeks (around 01/26/2023) for follow up on anxiet and depression- increased Lexapro. Riki DIANELinnette Krueger presents today for his annual [facility] [...] to make appointment with his / her hvac specialist Safety Do you have a working smoke [...] CNP 01/05/2023 11:26 AM documented in this [facility]02-27-2023 History of Present illness Narrative* Sasha Kaur, [...] 01, 2023 3:41 PM documented in this encounterParkview Health [facility] Hospital02-20-2023 Telephone encounter Note * Telephone Encounter - Sherie Hurst MA - 12/25/2022 11:13 AM EST Prescription Request: Last medication check: 08/11/22 Last physical exam: 01/03/22 Next scheduled appointment: 01/05/23 CSA on file (date): na Last urine drug screen: na Last date of refill on this medication 08/04/22 90 day 1 [facility]ill [facility] MemorialDnjpkz64-28-0164 Miscellaneous Notes* Telephone Encounter - Sherie Hurst MA - 12/25/2022 11:13 AM EST Prescription Request: Last medication check: 08/11/22 Last physical exam: 01/03/22 Next scheduled appointment: 01/05/23 CSA on file (date): na Last urine drug screen: na Last date of refill on this medication 08/04/22 90 day 1 refill documented in this [facility]02-20-2023 Telephone encounter Note* Telephone Encounter - Sherie Hurst MA - 12/25/2022 11:11 AM EST Prescription Request: Last medication check: 08/11/22 Last physical exam: 01/03/22 Next scheduled appointment: 01/05/23 CSA on file (date): na Last urine drug screen: na Last date of refill on this medication 08/08/22 90 day 1 refill [facility] MemorialHiomah85-97-0611 Miscellaneous Notes* Telephone Encounter - Sherie Hurst MA - 12/25/2022 11:11 AM EST Prescription Request: Last medication check: 08/11/22 Last physical exam: 01/03/22 Next scheduled appointment: 01/05/23 CSA on file (date): na Last urine drug screen: na Last date of refill on this medication 08/08/22 90 day 1 refill documented in this [facility]02-01-2023 Telephone encounter Note* Telephone Encounter - KENZIE Dickens CNP - 12/06/2022 10:48 AM EST Rx sent. Follow up as scheduled. [facility] MemorialOlmtil71-14-2561 Miscellaneous Notes* Telephone Encounter - KENZIE Dickens CNP - 12/06/2022 10:48 AM EST Rx sent. Follow up as scheduled. * Telephone Encounter - Abbey Michaels - 12/06/2022 8:54 AM EST Prescription Request: Last medication check: 08/11/22 Last physical exam: 01/03/22 Next scheduled appointment: 01/05/23 Last date of refill on this medication 06/12/22 documented in this [facility]02-01-2023 Telephone encounter Note* Telephone Encounter - Abbey Michaels - 12/06/2022 8:54 AM EST Prescription Request: Last medication check: 08/11/22 Last physical exam: 01/03/22 Next scheduled appointment: 01/05/23 Last date of refill on this medication 06/12/22 [facility] MemorialLtrfap25-20-4723 History of Past illness Narrative* Problem Noted Date Resolved Date Neuralgia 07/16/2017 05/27/2018 Salivary gland inflammation 07/02/2017 03/0 07/2018 Lymphadenopathy 04/05/2017 05/27/2018 Disorder of left eustachian tube 03/20/2017 07/02/2017 documented as of this encounter (statuses as of 01/02/2023) [facility] History of Past illness Narrative* Problem Noted Date Diagnosed Date Resolved Date Neuralgia 07/16/2017 05/27/2018 Salivary gland inflammation 07/02/2017 01/11/2018 Lymphadenopathy 04/05/2017 05/27/2018 Disorder of left eustachian tube 03/20/2017 07/02/2017 documented as of this encounter (statuses as of 12/26/2023) [facility] History of Past illness Narrative* Problem Noted Date Diagnosed Date Resolved Date Neuralgia 07/16/2017 05/27/2018 Salivary gland inflammation 07/02/2017 01/11/2018 Lymphadenopathy 04/05/2017 05/27/2018 Disorder of left eustachian tube 03/20/2017 07/02/2017 documented as of this encounter (statuses as of 01/05/2024) [facility] of Past illness Narrative* Problem Noted Date Diagnosed Date Resolved Date Neuralgia 07/16/2017 05/27/2018 Salivary gland inflammation 07/02/2017 01/11/2018 Lymphadenopathy 04/05/2017 05/27/2018 Disorder of left eustachian tube 03/20/2017 07/02/2017 documented as of this encounter (statuses as of 01/09/2024) [facility] of Past illness Narrative* Problem Noted Date Diagnosed Date Resolved Date Neuralgia 07/16/2017 05/27/2018 Salivary gland inflammation 07/02/2017 01/11/2018 Lymphadenopathy 04/05/2017 05/27/2018 Disorder of left eustachian tube 03/20/2017 07/02/2017 documented as of this encounter (statuses as of 01/10/2024) [facility] of [facility] illness Narrative* Problem Noted Date Diagnosed Date Resolved Date Neuralgia 07/16/2017 05/27/2018 Salivary gland inflammation 07/02/2017 01/11/2018 Lymphadenopathy 04/05/2017 05/27/2018 Disorder of left eustachian tube 03/20/2017 07/02/2017 documented as of this encounter (statuses as of 01/25/2024) [facility]* Diagnosis Encounter for screening for cardiovascular disorders Screening for other and unspecified cardiovascular conditions Screening for AAA (abdominal aortic aneurysm) Screening for other and unspecified cardiovascular conditions documented in this encounter [facility] Work Phone: Evaluation noteNo assessment information available [facility] Work Phone: Evaluation note* Diagnosis Combined forms of age-related cataract of both eyes- Primary Other and combined forms of senile cataract Regular astigmatism of both eyes Regular astigmatism Presbyopia documented in this encounter [facility] note* Diagnosis Essential hypertension- Primary Unspecified essential hypertension Major depressive disorder, recurrent, mild (HCC) Major depressive disorder, recurrent episode, mild Anxiety Anxiety state, unspecified Benign prostatic hyperplasia with nocturia Elevated PSA, less than 10 ng/ml Chronic low back pain, unspecified back pain laterality, unspecified whether sciatica present Degenerative spondylolisthesis Acquired spondylolisthesis documented in this encounter [facility]RentPostwilming[facility] note* Diagnosis Onset Date Resolution Status Degenerative spondylolisthesis acute [facility] Work Phone: Evaluation note* Diagnosis Elevated PSA, less than 10 ng/ml- Primary Benign prostatic hyperplasia with nocturia documented in this encounter [facility]Postwil[facility] note* Diagnosis Erectile dysfunction, unspecified erectile dysfunction type documented in this encounter [facility] note* Diagnosis Essential hypertension Unspecified essential hypertension documented in this encounter [facility] MemorialKUN RUN Biotechnologyatrium health [facility] note* Diagnosis Encounter for observation for other suspected diseases and conditions ruled out documented in this encounter [facility] note* Diagnosis Elevated prostate specific antigen (PSA)- Primary BPH with obstruction/lower urinary tract symptoms Hypertrophy of prostate with urinary obstruction and other lower urinary tract symptoms (LUTS) documented in this encounter [facility] note* Diagnosis Medicare annual wellness visit, subsequent- [...] for diabetes mellitus [facility] Diagnosis Elevated prostate specific antigen (PSA)- Primary BPH with obstruction/lower urinary tract symptoms Hypertrophy of prostate with urinary obstruction and other lower urinary tract symptoms (LUTS) documented in this encounter [facility] note* Diagnosis Combined forms of age-related cataract of both eyes- Primary Other and combined forms of senile cataract Dermatochalasis of both upper eyelids Hyperopia, bilateral Regular astigmatism of both eyes Regular astigmatism Presbyopia [facility] Diagnosis Essential hypertension Unspecified essential hypertension [facility]* Diagnosis Anxiety Anxiety state, unspecified [facility]* Diagnosis Pre-operative clearance- Primary Unspecified pre-operative examination Essential hypertension Unspecified essential hypertension Major depressive disorder, recurrent, mild (HCC) Major depressive disorder, recurrent episode, mild Anxiety Anxiety state, unspecified Benign prostatic hyperplasia with nocturia Elevated PSA, less than 10 ng/ml Chronic low back pain, unspecified back pain laterality, unspecified whether sciatica present Elevated LDL cholesterol level documented in this encounter [facility] note* Diagnosis Hyponatremia- Primary Hyposmolality and/or hyponatremia [facility]* Diagnosis Onset Date Resolution Status Degenerative spondylolisthesis acute Degenerative spondylolisthesis acute [facility] Work Phone: Evaluation note* Diagnosis Anxiety disorder, unspecified Major depressive disorder, recurrent, mild (HCC) Major depressive disorder, recurrent episode, mild [facility]* Diagnosis Medicare annual wellness visit, subsequent- [...] vaccination Need for prophylactic vaccination with combined [id number] (DTP) vaccine Screening for ischemic heart disease [facility] Diagnosis Essential hypertension Unspecified essential hypertension [facility]* Diagnosis Combined forms of age-related cataract of both eyes- Primary Other and combined forms of senile cataract Dermatochalasis of both upper eyelids Hyperopia, bilateral Regular astigmatism of both eyes Regular astigmatism Presbyopia documented in this encounter [facility] note* Diagnosis Benign prostatic hyperplasia with nocturia- Primary Urinary tract infection symptoms Viral URI with cough documented in this encounter [facility] note* Diagnosis Benign prostatic hyperplasia with nocturia- Primary Urinary tract infection symptoms Viral URI with cough documented in this encounter [facility] note* Diagnosis Benign prostatic hyperplasia with nocturia- Primary Urinary tract infection symptoms Viral URI with cough Anxiety Anxiety state, unspecified documented in this encounter [facility] note* Diagnosis Benign prostatic hyperplasia with nocturia- [...] malignant neoplasms, colon documented in this encounter [facility] note* Diagnosis Elevated prostate specific antigen (PSA)- Primary BPH with obstruction/lower urinary tract symptoms Hypertrophy of prostate with urinary obstruction and other lower urinary tract symptoms (LUTS) Screening for genitourinary condition Screening for other and unspecified genitourinary condition documented in this encounter [facility] note* Diagnosis Benign prostatic hyperplasia with nocturia- Primary Urinary tract infection symptoms Viral URI with cough Essential hypertension Unspecified essential hypertension documented in this encounter [facility] note* Diagnosis Benign prostatic hyperplasia with nocturia- Primary Urinary tract infection symptoms Viral URI with cough Anxiety- Primary Anxiety state, unspecified Major depressive disorder, recurrent, mild (HCC) Major depressive disorder, recurrent episode, mild [facility] Narrative No data available for this section [facility] Instructions* Attachments The following attachments cannot be sent through Care Everywhere. * Preventing Falls in Older Adults ([place]) * Lisinopril, ADULT ([place]) [facility] Attachments The following attachments cannot be sent through Care Everywhere. * Preventing Falls in Older Adults ([place]) documented in this [facility] for referral (narrative)* Consultation (Routine) - Pending Review Specialty Diagnoses / Procedures Referred By Tyra t Referred To Contact Urology Diagnoses Elevated PSA, less than 10 ng/ml Benign prostatic hyperplasia with nocturia Procedures WI OFFICE/OUTPATIENT NEW HIGH MDM 60-74 MINUTES Candice Frank APRN - CNP [address] [place] [address] [place] [address] [facility] [address] [facility] [address] [place] [address] Referral ID Status Reason Start Date Expiration Date Visits Requested Visits Authorized [id number] Pending Review Specialty Services Required 3 10/14/2024 1 1 [facility] Summary Purpose Family History No Family History Records Found Sibling Name Dates Details Family history of [...] aneurysm) Procedures VL AAA SCREENING Candice Frank, EAR NOSE THROAT PHYSICIAN - REVERSE LOGISTICS ANALYST [address] [place] [address] Chief Complaint and Reason for Visit Chief [...] on Sun01/01/23 at 1500, Until Sun01/02/23 at 025, Administer for dilation PROTECT FROM LIGHT Given 01/01/2023 3:00 PM EST 1 Drop proparacaine 0.5 % 1 Drop (ALCAINE) 1 Drop, BOTH EYES, DIRECTED, Starting on Sun01/01/23 at 1500, Until Sun01/02/23 at 025, Administer for pneumo tonometry, tonopen tonometry, or [...] section and content) DATE CREATED AUTHOR 04/26/2018 [facility] DATE CREATED AUTHOR AUTHOR'S ORGANIZ ATION 05/01/2018 [facility] DATE CREATED AUTHOR AUTHOR'S ORGANIZ ATION 11/26/2020 [facility] DATE CREATED AUTHOR AUTHOR'S ORGANIZ ATION 12/05/2020 [employer] DATE CREATED AUTHOR AUTHOR'S ORGANIZ ATION 07/22/2021 [facility] DATE CREATED AUTHOR AUTHOR'S ORGANIZ ATION 11/02/2023 [facility] DATE CREATED AUTHOR AUTHOR'S ORGANIZ ATION 11/26/2024 [facility] DATE CREATED AUTHOR AUTHOR'S ORGANIZ ATION 01/25/2025 [facility] DATE CREATED AUTHOR AUTHOR'S ORGANIZ ATION 04/12/2025 [facility] DATE CREATED AUTHOR AUTHOR'S ORGANIZ ATION 05/07/2025 [facility] DATE CREATED AUTHOR AUTHOR'S ORGANIZ ATION 05/14/2025 [facility] Goals (unrecognized section and content) Goals may [...] or prosecute any alcohol or drug abuse patient.[facility] Hospital[facility] the event this information is protected by the Federal Confidentiality of Alcohol and Drug Abuse Patient Records regulations: The Federal rules restrict any use of the information to criminally investigate or prosecute any alcohol or drug abuse patient.[facility] HospitalIn the event this information is protected by the Federal Confidentiality of Alcohol and Drug Abuse Patient Records regulations: The Federal rules restrict any use of the information to criminally investigate or prosecute any alcohol or drug abuse patient.[facility] HospitalIn the event this information is protected by the Federal Confidentiality of Alcohol and Drug Abuse Patient Records regulations: The Federal rules restrict any use of the information to criminally investigate or prosecute any alcohol or drug abuse patient.[facility] HospitalIn the event this information is protected by the Federal Confidentiality of Alcohol and Drug Abuse Patient Records regulations: The Federal rules restrict any use of the information to criminally investigate or prosecute any alcohol or drug abuse patient.[facility] HospitalIn the event this information is protected by the Federal Confidentiality of Alcohol and Drug Abuse Patient Records regulations: The Federal rules restrict any use of the information to criminally investigate or prosecute any alcohol or drug abuse patient.[facility] HospitalIn the event this information is protected by the Federal Confidentiality of Alcohol and Drug Abuse Patient Records regulations: The Federal rules restrict any use of the information to criminally investigate or prosecute any alcohol or drug abuse patient.[facility] HospitalIn the event this information is protected by the Federal Confidentiality of Alcohol and Drug Abuse Patient Records regulations: The Federal rules restrict any use of the information to criminally investigate or prosecute any alcohol or drug abuse patient.[facility] HospitalIn the event this information is protected by the Federal Confidentiality of Alcohol and Drug Abuse Patient Records regulations: The Federal rules restrict any use of the information to criminally investigate or prosecute any alcohol or drug abuse patient.[facility] HospitalIn the event this information is protected by the Federal Confidentiality of Alcohol and Drug Abuse Patient Records regulations: The Federal rules restrict any use of the information to criminally investigate or prosecute any alcohol or drug abuse patient.[facility] HospitalIn the event this information is protected by the Federal Confidentiality of Alcohol and Drug Abuse Patient Records regulations: The Federal rules restrict any use of the information to criminally investigate or prosecute any alcohol or drug abuse patient.[facility] HospitalIn the event this information is protected by the Federal Confidentiality of Alcohol and Drug Abuse Patient Records regulations: The Federal rules restrict any use of the information to criminally investigate or prosecute any alcohol or drug abuse patient.[facility] Reason for Visit (unrecogniz ed section and [...] W/O & W/CONTRAST MATERIAL Josh Gonzalez MD [address] [place] [address] [place] [address] Referral ID Status Reason Start Date Expiration Date V isits Requested Visits Authorized [id number] Closed Auto-Generate d Referral 11/29/2023 01/28/2024 1 [...] Active Member Role Status Dates Candice Frank PHOTOCOPIER TECHNICIAN, PHOTOCOPIER TECHNICIAN-C Primary Care Provider Active Team Status: Inactive Member Role Status Dates Candice Frank PHOTOCOPIER TECHNICIAN, PHOTOCOPIER TECHNICIAN-C Primary Care Provider, Attending Provider Active [employer] Relationship Specialty Start Date End Date Mumtaz Kennedy MD [address] [place] [address] PCP - General Family Medicine 01/17/23 Team Status: Inactive Member Role Status Dates Candice Frank PHOTOCOPIER TECHNICIAN, PHOTOCOPIER TECHNICIAN-C Primary Care Provider, Referring Provider Active Dr. Andriy Rizzo , Attending Provider Active Team Status: Inactive Member Role Status Dates Candice Frank PHOTOCOPIER TECHNICIAN, PHOTOCOPIER TECHNICIAN-C Primary Care Provider Active Dr. Glenn Macias MD Attending Provider, Referrin g Provider Active Team Status: Inactive Member Role Status Dates Candice Frank PHOTOCOPIER TECHNICIAN, PHOTOCOPIER TECHNICIAN-C Primary Care Provider Active Dr. Oskar Jimenez MD Attending Provider Active Host/Hostess Restaurant Relationship Specialty Start Date [place] [address] PCP - General Family Medicine 01/17/23 Team Status: Active Member Role Status Dates Candice Frank PHOTOCOPIER TECHNICIAN, PHOTOCOPIER TECHNICIAN-C Primary Care Provider Active Dr. Andriy Rizzo DO Attending Provider, Referring P too Active Team Status: Inactive Member Role Status Dates Candice Frank PHOTOCOPIER TECHNICIAN, PHOTOCOPIER TECHNICIAN-C Primary Care Provider Active Dr. Stu Menezes MD Attending Provider, Referr ing Provider Active Host[employer]Hostess [employer] Relationship Specialty Start Date [place] [address] PCP - General Family Medicine 01/17/23 Yomi Castro MD [address] [place] [address] [address] [place] [address] Surgeon Urology 10/16/23 Host/Hostess Restaurant Relationship Specialty Start Date End Date Mumtaz Kennedy MD [address] [place] [address] PCP - General Family Medicine 01/17/23 Yomi Castro MD [address] [place] [address] [address] [place] [address] Surgeon Urology 10/16/23 Host/Hostess Restaurant Relationship Specialty Start Date End Date Candice Frank CNP [address] [place] [address] PCP - General Family Medicine 01/04/24 Host/Hostess Restaurant Relationship Specialty Start Date End Date Mumtaz Kennedy MD [address] [place] [address] PCP - General Family Medicine 01/17/23 Yomi Castro MD [address] [facility] [address] [place] [address] Surgeon Urology 10/16/23 Host/Hostess Restaurant Relationship Specialty Start Date End Date Candice Frank CNP [address] [place] [address] PCP - General Family Medicine 01/04/24 Host/Hostess Restaurant Relationship Specialty Start Date End Date Mumtaz Kennedy MD [address] [place] [address] PCP - General Family Medicine 01/17/23 Yomi Castro MD [address] [facility] [address] [place] [address] Surgeon Urology 10/16/23 Host/Hostess Restaurant Relationship Specialty Start Date End Date Mumtaz Kennedy MD [address] [place] [address] PCP - General Family Medicine 01/17/23 Yomi Castro MD [address] [address] Surgeon Urology 10/16/23 Host/Hostess Restaurant Relationship Specialty Start Date End Date Candice Frank CNP [address] [place] [address] PCP - General Family Medicine 01/04/24 Host/Hostess Restaurant Relationship Specialty Start Date End Date Candice Frank CNP [address] [place] [address] PCP - General Family Medicine 01/04/24 Host/Hostess Restaurant Relationship Specialty Start Date End Date Mumtaz Kennedy MD [address] [place] [address] PCP - General Family Medicine 01/17/23 Yomi Castro MD [address] [place] [address] Surgeon Urology 10/16/23 Host/Hostess Restaurant Relationship Specialty Start Date End Date Mumtaz Kennedy MD [address] [place] [address] PCP - General Family Medicine 01/17/23 Yomi Castro MD [address] [place] [address] Surgeon Urology 10/16/23 Host/Hostess Restaurant Relationship Specialty Start Date End Date Mumtaz Kennedy MD [address] [place] [address] PCP - General Family Medicine 01/17/23 Yomi Castro MD [address] [address] Surgeon Urology 10/16/23 Host/Hostess Restaurant Relationship Specialty Start Date End Date Mumtaz Kennedy MD [address] [place] [address] PCP - General Family Medicine 01/17/23 Yomi Castro MD [address] [address] Surgeon Urology 10/16/23 Team Status: Inactive Member Role Status Dates Candice Frank PHOTOCOPIER TECHNICIAN, PHOTOCOPIER TECHNICIAN-C Primary Care Provider Active Dr. Andriy Rizzo , DO Attending Provider, Referring Lianne gage Active Host/Hostess Restaurant Relationship Specialty Start Date End Date Candice Frank, EAR NOSE THROAT PHYSICIAN - REVERSE LOGISTICS ANALYST [address] [place] [address] PCP - General 07/06/21 Host/Hostess Restaurant Relationship Specialty Start Date End Date Candice Frank, EAR NOSE THROAT PHYSICIAN - REVERSE LOGISTICS ANALYST [address] [place] [address] PCP - General 07/06/21 Host/Hostess Restaurant Relationship Specialty Start Date End Date Candice Frank, EAR NOSE THROAT PHYSICIAN - REVERSE LOGISTICS ANALYST [address] [place] [address] PCP - General 07/06/21 Host/Hostess Restaurant Relationship Specialty Start Date End Date Mumtaz Kennedy MD [address] [place] [address] PCP - General Family Medicine 01/17/23 Yomi Castro MD [address] [address] Surgeon Urology 10/16/23 Host/Hostess Restaurant Relationship Specialty Start Date End Date Zac Candice GilliamNORMA [address] [place] [address] PCP - General Family Medicine 01/04/24 Host/Hostess Restaurant Relationship Specialty Start Date End Date Mumtaz Kennedy MD [address] [place] [address] PCP - General Family Medicine 01/17/23 Yomi Castro MD [address] [place] [address] [place] [address] Surgeon Urology 10/16/23 Host/Hostess Restaurant Relationship Specialty Start Date End Date Mumtaz Kennedy MD [address] [place] [address] PCP - General Family Medicine 01/17/23 Yomi Castro MD [address] [place] [address] Surgeon Urology 10/16/23 Host/Hostess Restaurant Relationship Specialty Start Date End Date Mumtaz Kennedy MD [address] [place] [address] PCP - General Family Medicine 01/17/23 Yomi Castro MD 95 [facility] [address] [place] [address] Surgeon Urology 10/16/23 Host/Hostess Restaurant Relationship Specialty Start Date End Date Mumtaz Kennedy MD [address] [place] [address] PCP - General Family Medicine 01/17/23 Yomi Castro MD 95 [facility] [address] [place] [address] Surgeon Urology 10/16/23 Host/Hostess Restaurant Relationship Specialty Start Date End Date Candice Frank CNP [address] [facility] [place] [id number] PCP - General Family Medicine 01/04/24 Host/Hostess Restaurant Relationship Specialty Start Date End Date Mumtaz Kennedy MD [address] [facility] [place] [address] PCP - General Family Medicine 01/17/23 Yomi Castro MD [address] [address] Surgeon Urology 10/16/23 Host/Hostess Restaurant Relationship Specialty Start Date End Date Mumtaz Kennedy MD [address] [place] [address] PCP - General Family Medicine 01/17/23 Yomi Castro MD 95 [facility] [address] [place] [address] Surgeon Urology 10/16/23 Candice Frank APRN - NORMA [address] [facility] [address] [place] [id number] Nurse Practitioner Nurse Practitioner [facility] 05/05/25 Host/Hostess Restaurant Relationship Specialty Start Date End Date Candice Frank CNP [address] [facility] [place] [id number] PCP - General Family Medicine 01/04/24 Host/Hostess Restaurant Relationship Specialty Start Date End Date Candice Frank CNP [address] [place] [address] PCP - General Family Medicine 01/04/24 Host/Hostess Restaurant Relationship Specialty Start Date End Date Mumtaz Kennedy MD 25 [facility] [place], [place] [id number] PCP - General Family Medicine 01/17/23 Yomi Castro MD [address] [place] [id number] Surgeon Urology 10/16/23 Candice Frank APRN - CNP [address] [place] [address] Nurse Practitioner Nurse Practitioner Family 05/05/25 FOR [...] BE BASED ON THE PRIMARY CLINICAL RECORDS. [facility] [employer] [facility]. provides no warranty or guarantee of the accuracy or completeness of information in this document.
[2025-05-16 07:51] LABS: Alcohol, Blood (Medical)-Serum 18.0 mg/dL (<=10.0)
[2025-05-16 07:52] LABS: Anion Gap 16 (5-15); BUN 8 mg/dL (4-19); BUN/Creat Ratio 9.5 RATIO (10-20); Calcium,Total 9.4 mg/dL (7.6-11.0); Carbon Dioxide 20.2 mmol/L (21.0-32.0); Chloride 87 mmol/L (98-108); Estimated Creatinine Clearance 71.80 ml/min (50-250); Glucose 94 mg/dL (70-99); Potassium 4.3 mmol/L (3.3-5.1)
[2025-05-16 07:57] LABS: Hematocrit 38.8 % (40-54); Hemoglobin 14.5 g/dL (13.0-16.5); Immature Granulocytes Count 0.040 X10^3/uL (0.0-0.0); Mean Corp Hgb Conc 37.4 g/dL (32-36); Mean Corpuscular Volume 94.2 fL (80-94); Mean Platelet Vol. 9.1 fl (6.2-12.0); NRBC Flagged by Analyzer 0 % (0-5); Platelet Count 230 K/mm3 (150-450); RBC Distribution Width CV 11.6 % (11.6-14.6); RBC Distribution Width SD 39.7 fl (35.1-43.9); Red Blood Count 4.12 M/mm3 (4.6-6.2); White Blood Count 6.5 K/mm3 (4.4-11.0)
--- NOTE | 2025-05-16 08:01 | EKG12_ITS ---
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 Rate : 72 BPM Atrial Rate : 72 BPM P-R Int : 166 ms QRS Dur : 86 ms QT Int : 394 ms P-R-T Axes : 61 -28 67 degrees QTcB Int : 431 ms Normal sinus rhythm Normal ECG Confirmed by MIKE SAUCEDA, MARIANA ([id number]), desk editor CHELY BURNETT ([id number]) on 05/18/2025 11:31:25 AM Referred By: Confirmed By: MARIANA MCKEON MD
[2025-05-16] MEDS: 0.9% Normal Saline (1000mL) 1,000 ML 150 ML IV (08:08)
[2025-05-16 08:09] LABS: Barbiturate Urine NEGATIVE (< 200 ng/mL); Benzodiazepine Urine PRESUMPTIVE POSITIVE (< 200 ng/mL); PCP Urine NEGATIVE (< 25 ng/mL); THC Urine PRESUMPTIVE POSITIVE (< 50 ng/mL)
[2025-05-16 08:19] LABS: Mucous, Urine 0 SEEN /hpf (<or=2+); Red Blood Cells-Urine 0 SEEN /hpf (0-5); Squamous Epithelial Cells - UA 0 SEEN /hpf (0-5)
[2025-05-16 08:27] LABS: Color, Urine Yellow (Yellow); Glucose, Dipstick Normal (Normal); Ketone-Dipstick 5 mg/dl (Negative); Leukocyte Esterase-Dipstick Negative /ul (Negative); Nitrite-Dipstick Negative (Negative); Occult Blood-Urine Negative /ul (Negative); Protein-Dipstick 15 mg/dl (Negative); Specific Gravity, Urine 1.010 (1.002-1.030); Urine Bilirubin Dipstick Negative (Negative)
[2025-05-16 08:27] LABS: SITE Not entered; VBG BASE EXCESS 0 mmol/L (-1.0-3.5); VBG PO2 50 mmHg (25-40); VBG SO2 87 % (50-70); VBG TCO2 25 mmol/L (23-33)
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
--- NOTE | 2025-05-16 10:57 | ED.RN ---
bladder scan 409 post void
--- NOTE | 2025-05-16 11:52 | PCA ---
ALYSE CALLED AT 1150 ACCEPTED THE PATENT. ACCEPTING DR IS DR. CASTRO
[2025-05-16] MEDS: 0.9% Normal Saline (1000mL) 1,000 ML 100 ML IV (11:59)
[2025-05-16] MEDS: Lidocaine Jelly 2% 20 ML Syringe (URO-JET) 1 APPLIC TOPICAL (12:00)
[2025-05-16] MEDS: Lorazepam 2 MG/ML WCH Syringe 0.5 MG IV (12:00)
--- NOTE | 2025-05-16 12:10 | CM.ED ---
Social Work can worker checked on patient and his to make sure they were doing ok and didn't need anything which they stated they did not. No other questions/concerns at this point. Patient waiting to be transferred. Jayla Knight, POWER ELECTRONICS RESEARCH ENGINEER, ORIENTATION AND MOBILITY INSTRUCTOR
--- NOTE | 2025-05-16 15:29 | ED.RN ---
1438: REPORT CALLED TO [place] [id number] NURSE, [place]ED[place]
== END 2025-05-16 15:28 | disposition short-term general hospital (02) ==
LOC: ED 07:04
PROVIDERS: Emergency Medicine; Emergency Provider Emergency Medicine; PCP Registered Nurse; Visit Provider Emergency Medicine
DX: F41.9 Anxiety disorder, unspecified (principal); F32.A Depression, unspecified; I10 Essential (primary) hypertension; Z87.891 Personal history of nicotine dependence; Z79.899 Other long term (current) drug therapy; E87.1 Hypo-osmolality and hyponatremia
CPT/HCPCS: 51702; 80048; 80307; 81001; 82077; 82803; 83630; 85025; 87493; 93005; 96361; 96374; 99285; A4216